=== PATIENT | female | born 1970 | race African-American/Black ===

== ENCOUNTER 2021-03-23 10:29 | Emergency (ER) | payer OTHER, SELFPAY ==
--- NOTE | ~2021-03-23 | CT_ITS ---
EXAMINATION: CT abdomen pelvis w con EXAM DATE: 03/23/2021 11:54 INDICATION: Left lower quadrant pain. TECHNIQUE: Spiral CT of the abdomen and pelvis was performed following intravenous injection of 100 m L Omnipaque 350. Axial, coronal and sagittal images of the abdomen and pelvis were reviewed. The do se-length product (DLP) for this examination was 368.75 mGy-cm. The exposure was tailored according to patient size (auto mA exposure control), and iterative reconstruction (ASIR) was used as additiona l dose reduction technique. There is no prior study for comparison. FINDINGS: The liver, spleen, adrenal glands and pancreas are unremarkable. Gallbladder is unremarkab le. No biliary obstruction. Portal and splenic veins are patent. Kidneys enhance symmetrically. T here is no hydronephrosis. Endometrium appears thickened, could be phasic if premenopausal, hyperpl robert or cancer if not. Consider 6 week follow-up pelvic sonogram. The ovaries are morphologically nor mal by CT. The bladder is unremarkable. There is no retroperitoneal or pelvic lymphadenopathy. The appendix is normal. 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 The stomach and small bowel are unrema rkable. There is expected amount of colonic stool. No free intraperitoneal gas. The heart is nor mal in size. There are no pericardial or pleural effusions. The lung bases are unremarkable. The b ones are unremarkable. IMPRESSION: 1. No acute intra-abdominal findings. 2. Thickened endometrium; phasic, hyperplasia or possibly cancer. 6 week follow-up pelvic sonogram. 3. Right iliac Paget's disease. Reviewed, dictated and finalized at location A. IMPRESSION: 1. No acute intra-abdominal findings. 2. Thickened endometrium; phasic, hyperplasia or possibly cancer. 6 week follo w-up pelvic sonogram. 3. Right iliac Paget's disease.
--- NOTE | ~2021-03-23 | US_ITS ---
EXAMINATION: US pelvic complete w TV EXAM DATE: 03/23/2021 13:12 INDICATION: Rule out intrauterine malignancy, dysfunction uterine bleeding. Abnormal CT. TECHNIQUE: Pelvic transabdominal and transvaginal sonogram was performed. There are multiple graysca le and Doppler images available for interpretation. There is no prior study for comparison. FINDINGS: Uterus measures 9.7 x 5.9 x 6.6 cm, and is morphologically normal. There is proteinaceous fluid in the endometrial canal causing the thickened appearance on CT scan. Total endometrial thickne ss including this fluid is 2.2 cm. Right adnexa: The ovary measures 2.0 x 2.5 x 1.0 cm and is morphologically normal. Ovarian vascular f low confirmed. Left adnexa: The ovary measures 2.1 x 2.2 x 2.2 cm and is morphologically normal. Ovarian vascular fl ow confirmed. IMPRESSION: Large amount of endometrial proteinaceous fluid causing abnormal thickened measurement. C ould be transient. Obstructed cervical os not excludable. Recommend 6-12 week follow-up pelvic sonogr am to resolution. Reviewed, dictated and finalized at location A. IMPRESSION: Large amount of endometrial proteinaceous fluid causing abnormal th ickened measurement. Could be transient. Obstructed cervical os not excludable. Recommend 6-12 week follow-up pelvic sonogram to resolution.
[2021-03-23 10:34] VITALS: BP 137/91; PULSE 112; RESP 18; TEMP 36.2; O2SAT 98
[2021-03-23 11:17] LABS: Basophils Percent Auto 0.5 % (0.2-1.2); Eosinophils Absolute Auto 0.2 K/mm3 (0-0.3); Eosinophils Percent Auto 3.2 % (0-4.4); Hematocrit 35.9 % (37.0-47.0); Hemoglobin 11.8 g/dL (12.0-15.0); Immature Granulocyte Absolute 0.01 K/mm3 (0.00-0.031); Immature Granulocyte Percent A 0.2 % (0-0.5); Lymphocytes Absolute Auto 2.27 K/mm3 (0.9-3.2); Lymphocytes Percent Auto 40.2 % (18.3-44.2); Mean Corpuscular HGB Conc 32.9 g/dl (32-36); Mean Corpuscular Hemoglobin 32.9 pg (26-34); Mean Platelet Volume 9.5 fl (7.4-10.4); Monocytes Absolute Auto 0.4 K/mm3 (0.1-0.6); Monocytes Percent Auto 7.6 % (2.6-8.5); Neutrophils Absolute Auto 2.7 K/mm3 (1.3-6.7); Neutrophils Percent Auto 48.3 % (45.5-73.1); Platelet Count Result 266 k/mm3 (150-375); Red Blood Count 3.59 M/mm3 (4.2-5.4); Red Cell Distribution Width 11.8 % (11.5-14.5); White Blood Count 5.6 K/mm3 (4.5-10.0)
[2021-03-23 11:22] LABS: Add Urine Microscopic? YES; Appearance Urine Clear (Clear); Bacteria Urine Trace /hpf; Bilirubin Urine Negative (Negative); Blood Urine 1+ (Negative); Color Urine Yellow (Yellow); Glucose Urine UA Negative (Negative); Ketones Urine Negative (Negative); Leukocyte Esterase Ur Negative LEU/UL (Negative); Mucus Urine Rare /lpf; Nitrate Urine Negative (Negative); Protein Urine Negative (Negative); RBC Urine 0-2 /hpf (0-2); Specific Grav Ur 1.017 (1.001-1.035); Squamous Epithelial Cell Urine Few /hpf (Few); Urobilinogen Urine Negative mg/dL (<2.0); WBC Urine 0-3 /hpf
[2021-03-23 11:23] LABS: Alanine Aminotransferase 28 U/L (4-35); Albumin Level 3.7 g/dL (3.5-5.1); Alkaline Phosphatase 65 U/L (38-126); Anion Gap 2 mmol/L (8-16); Aspartate Amino Transferase 31 U/L (14-36); Bilirubin,Total 0.3 mg/dL (0.2-1.3); Blood Urea Nitrogen 16 mg/dL (7-17); Calcium 8.8 mg/dL (8.4-10.2); Carbon Dioxide 27 mmol/L (22-30); Chloride 106 mmol/L (98-107); Estimated CRCL calculation 61 ml/min; Estimated Glomerular Filt Rate > 60; Glucose 105 mg/dL (65-105); Lipase 197 U/L (23-300); Potassium 3.9 mmol/L (3.4-5.0); Sodium 135 mmol/L (137-145)
--- NOTE | 2021-03-23 11:39 | ED.ABDPAIN ---
HPI - Abdominal Pain General Chief Complaint: Abdominal Pain Stated Complaint: ABD pain x 1 week Time Seen by Provider: 03/23/21 10:56 Source: patient and RN notes reviewed Mode of arrival: ambulatory History of Present Illness HPI narrative: Patient is 50 years old -[place] female presents with lower abdominal cramps started on average 26, intermittent, radiating to her back, get worse when she woke up in the morning, associated with vaginal spotting, intermittent nausea and vomiting. Patient denies any fever, chills, diarrhea, constipation, urinary symptoms. Patient reports been having a painful heavy menstrual cycle every other months for the last 8 months. Patient was seen by an [employer] yesterday, scheduled for pelvic ultrasound. History of hypertension and bilateral tubal ligation Related Data Home Medications Medication Instructions Recorded Confirmed lisinopril 10 mg PO DAILY 03/23/21 Allergies Allergy/AdvReac Type Severity Reaction Status Date / Time No Known Allergies Allergy Verified 03/23/21 10:39 Review of Systems Review of Systems: Narrative: CONSTITUTIONAL: Denies fever, chills, or sweats. EYES: Denies visual changes, redness, or discharge. ENT: Denies rhinorrhea, congestion, sore throat, or otalgia. CARDIOVASCULAR: Denies chest pain, palpitations, or edema. RESPIRATORY: Denies cough or dyspnea. GASTROINTESTINAL: Denies abdominal pain, nausea, vomiting, or diarrhea. GENITOURINARY: Denies dysuria or hematuria. SKIN: Denies rash or itching. MUSCULOSKELETAL: Denies back pain, joint pain, or myalgia. NEUROLOGIC: Denies headache, numbness, or weakness. PSYCHIATRIC: Denies anxiety or depression. Exam Narrative: Exam Narrative: General appearance: Well-developed, well-nourished Skin: Normal color Head: Normocephalic, nontraumatic Chest and respiratory: Airway patent, no respiratory distress, no accessory muscle use Heart: Regular rate/rhythm Abdomen: Soft, left lower quadrant tenderness, no guarding or rebound, no organomegaly, quiet bowel sounds Musculoskeletal: Normal range of motion, nontender back Neurologic: Alert and oriented ?3 Course Course Emergency Course: Stable Reevaluation(s) Reevaluation #1: Patient feeling okay, agreeable for discharge. Date: 03/23/21 Time: 15:30 Consultations Consultation #1: Dr. Murphy Patient needs D &C, she will have a phone call for scheduling. Date: 03/23/21 Time: 13:53 Vital Signs Vital signs: Vital Signs Temperature 36.2 C L 03/23/21 10:34 Pulse Rate 112 H 03/23/21 10:34 Respiratory Rate 18 03/23/21 10:34 Blood Pressure 137/91 H 03/23/21 10:34 Pulse Oximetry 98 03/23/21 10:34 Temperature 36.6 C 03/23/21 13:52 Pulse Rate 91 03/23/21 13:52 Respiratory Rate 18 03/23/21 13:52 Blood Pressure 129/92 H 03/23/21 13:52 Pulse Oximetry 100 03/23/21 13:52 MDM - Abdominal Pain MDM Narrative Medical decision making narrative: Patient presents with lower abdominal pain mainly left lower quadrant, differential diagnosis as below. Labs, UA, CT abdomen pelvis with IV contrast, IV fluids, IV Dilaudid and Zofran ordered. Further plan to follow Differential Diagnosis Differential diagnosis: Likely constipation, diverticulitis and other (Uterine fibroid, dysfunctional uterine bleeding, menopause) Lab Data Result diagrams: 03/23/21 11:05 03/23/21 11:05 Labs: Lab Results 03/23/21 03/23/21 03/23/21 Range/Units 11:05 11:05 11:05 WBC 5.6 (4.5-10.0) K/mm3 RBC 3.59 L (4.2-5.4) M/mm3 Hgb 11.8 L (12.0-15.0) g/dL Hct 35.9 L (37.0-47.0) % MCV 100.0 (80-100) fl MCH 32.9 (26-34) pg MCHC 32.9 (32
[2021-03-23] MEDS: ONDANSETRON INJ 4 MG/2 ML VIAL (12:13)
[2021-03-23] MEDS: HYDROmorphone HCL INJ (*CRX) 1 MG/ML SYR (12:14)
[2021-03-23] MEDS: SODIUM CHLORIDE 0.9% IV 1,000 ML 999 ML (12:14)
[2021-03-23 13:52] VITALS: BP 129/92; PULSE 91; RESP 18; TEMP 36.6; O2SAT 100
--- NOTE | 2021-03-23 15:03 | PC.NURSE ---
Medications given per order and charted on overridden medications due to order not crossing to MAR
[2021-03-23 15:54] VITALS: BP 135/86; PULSE 79; RESP 16; O2SAT 100
== END 2021-03-23 15:55 | disposition home or self-care (01) ==
PROVIDERS: Emergency Provider Emergency Medicine
DX: R10.30 Lower abdominal pain, unspecified (principal); N93.8 Other specified abnormal uterine and vaginal bleeding
CPT/HCPCS: 36415; 74177; 76830; 76856; 80053; 81001; 81025; 83690; 85025; 96361; 96374; 96375; 99284; J1170; J2405; J7030; Q9967

== ENCOUNTER 2021-06-19 13:39 | Emergency (ER) | payer OTHER, SELFPAY ==
[2021-06-19 13:47] VITALS: BP 154/90; PULSE 86; RESP 18; TEMP 36.2; O2SAT 100
[2021-06-19 14:05] LABS: Basophils Percent Auto 0.6 % (0.2-1.2); Eosinophils Absolute Auto 0.3 K/mm3 (0-0.3); Eosinophils Percent Auto 5.6 % (0-4.4); Hematocrit 38.2 % (37.0-47.0); Hemoglobin 12.3 g/dL (12.0-15.0); Immature Granulocyte Absolute 0.01 K/mm3 (0.00-0.031); Immature Granulocyte Percent A 0.2 % (0-0.5); Lymphocytes Absolute Auto 1.91 K/mm3 (0.9-3.2); Lymphocytes Percent Auto 36.7 % (18.3-44.2); Mean Corpuscular HGB Conc 32.2 g/dl (32-36); Mean Corpuscular Volume 102.4 fl (80-100); Mean Platelet Volume 9.7 fl (7.4-10.4); Monocytes Absolute Auto 0.4 K/mm3 (0.1-0.6); Monocytes Percent Auto 7.3 % (2.6-8.5); Neutrophils Absolute Auto 2.6 K/mm3 (1.3-6.7); Neutrophils Percent Auto 49.6 % (45.5-73.1); Platelet Count Result 310 k/mm3 (150-375); Red Blood Count 3.73 M/mm3 (4.2-5.4); Red Cell Distribution Width 11.8 % (11.5-14.5); White Blood Count 5.2 K/mm3 (4.5-10.0)
[2021-06-19 14:17] LABS: Alanine Aminotransferase 21 U/L (4-35); Albumin Level 4.1 g/dL (3.5-5.1); Alkaline Phosphatase 96 U/L (38-126); Anion Gap 3 mmol/L (8-16); Aspartate Amino Transferase 32 U/L (14-36); Bilirubin,Total 0.1 mg/dL (0.2-1.3); Blood Urea Nitrogen 14 mg/dL (7-17); Calcium 9.3 mg/dL (8.4-10.2); Carbon Dioxide 26 mmol/L (22-30); Chloride 104 mmol/L (98-107); Estimated CRCL calculation 47 ml/min; Estimated Glomerular Filt Rate > 60; Glucose 98 mg/dL (65-110); Lipase 71 U/L (23-300); Potassium 3.9 mmol/L (3.4-5.0); Sodium 133 mmol/L (137-145)
[2021-06-19 14:40] LABS: Add Urine Microscopic? YES; Appearance Urine Clear (Clear); Bilirubin Urine Negative (Negative); Blood Urine 1+ (Negative); Color Urine Yellow (Yellow); Glucose Urine UA Negative (Negative); Ketones Urine Negative (Negative); Leukocyte Esterase Ur 1+ LEU/UL (Negative); Nitrate Urine Negative (Negative); Protein Urine Negative (Negative); Specific Grav Ur 1.025 (1.001-1.035); Urobilinogen Urine Negative mg/dL (<2.0)
[2021-06-19 16:36] VITALS: BP 110/73; PULSE 93; RESP 18; TEMP 36.6; O2SAT 100
--- NOTE | 2021-06-19 17:22 | PC.NURSE ---
PT LEFT D/T WAIT MOISÉS, ENCOURAGED TO RETURN IF NEEDED. PT LEFT AT 1720
== END 2021-06-19 17:22 | disposition left against medical advice (07) ==
PROVIDERS: Emergency Provider Emergency Medicine
DX: Z53.21 Procedure and treatment not carried out due to patient leaving prior to being seen by health care provider (principal)
CPT/HCPCS: 36415; 80053; 81001; 81025; 83690; 85025; 99199

== ENCOUNTER 2022-01-12 12:36 | Outpatient (CLI) | payer OTHER, SELFPAY ==
[2022-01-12 12:53] LABS: Basophils Percent Auto 0.7 % (0.2-1.2); Eosinophils Absolute Auto 0.3 K/mm3 (0-0.3); Eosinophils Percent Auto 6.2 % (0-4.4); Hematocrit 31.4 % (37.0-47.0); Immature Granulocyte Absolute 0.01 K/mm3 (0.00-0.031); Immature Granulocyte Percent A 0.2 % (0-0.5); Lymphocytes Absolute Auto 0.94 K/mm3 (0.9-3.2); Lymphocytes Percent Auto 21.5 % (18.3-44.2); Mean Corpuscular HGB Conc 31.8 g/dl (32-36); Mean Corpuscular Volume 109.8 fl (80-100); Mean Platelet Volume 9.2 fl (7.4-10.4); Monocytes Absolute Auto 0.4 K/mm3 (0.1-0.6); Monocytes Percent Auto 8.9 % (2.6-8.5); Neutrophils Absolute Auto 2.7 K/mm3 (1.3-6.7); Neutrophils Percent Auto 62.5 % (45.5-73.1); Platelet Count Result 294 k/mm3 (150-375); Red Blood Count 2.86 M/mm3 (4.2-5.4); Red Cell Distribution Width 13.1 % (11.5-14.5); White Blood Count 4.4 K/mm3 (4.5-10.0)
[2022-01-12 14:09] LABS: Alanine Aminotransferase 18 U/L (4-35); Albumin Level 4.5 g/dL (3.5-5.1); Alkaline Phosphatase 82 U/L (38-126); Anion Gap 8 mmol/L (8-16); Aspartate Amino Transferase 27 U/L (14-36); Bilirubin,Total 0.2 mg/dL (0.2-1.3); Blood Urea Nitrogen 19 mg/dL (7-17); Calcium 10.1 mg/dL (8.4-10.2); Carbon Dioxide 28 mmol/L (22-30); Chloride 104 mmol/L (98-107); Estimated Glomerular Filt Rate 52; Glucose 78 mg/dL (65-110); Potassium 4.2 mmol/L (3.4-5.0); Sodium 140 mmol/L (137-145)
== END 2022-01-12 12:37 | disposition home or self-care (01) ==
PROVIDERS: Visit Provider Internal Medicine Hematology & Oncology
DX: C50.111 Malignant neoplasm of central portion of right female breast (principal); Z17.0 Estrogen receptor positive status [ER+]
CPT/HCPCS: 36415; 80053; 85025

== ENCOUNTER 2022-01-16 10:46 | Outpatient (CLI) | payer OTHER, SELFPAY ==
--- NOTE | 2022-01-16 11:03 | ECG_ITS ---
Measurements Intervals [place] Rate: 77 P: 62 MS: 150 QRS: 51 QRSD: 84 T: 43 QT: 345 QTc: 393 Interpretive Statements SINUS RHYTHM NORMAL ECG NO PREVIOUS ECG AVAILABLE FOR COMPARISON Electronically Signed On 01-16-2022 14:30:29 CDT by Gianfranco Ling M.D.
== END 2022-01-16 10:47 | disposition home or self-care (01) ==
LOC: ANHCARD 10:52
PROVIDERS: PCP Family Medicine; Visit Provider Internal Medicine Hematology & Oncology
DX: C50.111 Malignant neoplasm of central portion of right female breast (principal); Z17.0 Estrogen receptor positive status [ER+]
CPT/HCPCS: 93005

== ENCOUNTER 2022-03-08 11:04 | Outpatient (CLI) | payer OTHER, SELFPAY ==
[2022-03-08 11:19] LABS: Basophils Percent Auto 0.6 % (0.2-1.2); Eosinophils Absolute Auto 0.2 K/mm3 (0-0.3); Eosinophils Percent Auto 3.9 % (0-4.4); Hematocrit 33.8 % (37.0-47.0); Hemoglobin 10.6 g/dL (12.0-15.0); Immature Granulocyte Absolute 0.02 K/mm3 (0.00-0.031); Immature Granulocyte Percent A 0.4 % (0-0.5); Lymphocytes Absolute Auto 0.82 K/mm3 (0.9-3.2); Lymphocytes Percent Auto 15.3 % (18.3-44.2); Mean Corpuscular HGB Conc 31.4 g/dl (32-36); Mean Corpuscular Hemoglobin 33.1 pg (26-34); Mean Corpuscular Volume 105.6 fl (80-100); Mean Platelet Volume 8.9 fl (7.4-10.4); Monocytes Absolute Auto 0.4 K/mm3 (0.1-0.6); Monocytes Percent Auto 7.3 % (2.6-8.5); Neutrophils Absolute Auto 3.9 K/mm3 (1.3-6.7); Neutrophils Percent Auto 72.5 % (45.5-73.1); Platelet Count Result 354 k/mm3 (150-375); Red Cell Distribution Width 11.9 % (11.5-14.5); White Blood Count 5.4 K/mm3 (4.5-10.0)
[2022-03-08 11:23] LABS: Blood Urea Nitrogen 14 mg/dL (8-26); Carbon Dioxide 27 mmol/L (22-30); Chloride 100 mmol/L (98-109); Estimated Glomerular Filt Rate 57; Glucose 95 mg/dL (70-105); Ionized Calcium (POC) 1.23 mmol/L (1.11-1.31); Potassium 4.1 mmol/L (3.5-4.9); Sodium 137 mmol/L (138-146)
[2022-03-08 15:35] LABS: Alanine Aminotransferase 34 U/L (4-35); Albumin Level 4.6 g/dL (3.5-5.1); Alkaline Phosphatase 106 U/L (38-126); Anion Gap 6 mmol/L (8-16); Aspartate Amino Transferase 33 U/L (14-36); Bilirubin,Total 0.2 mg/dL (0.2-1.3); Blood Urea Nitrogen 15 mg/dL (7-17); Calcium 10.1 mg/dL (8.4-10.2); Carbon Dioxide 27 mmol/L (22-30); Chloride 102 mmol/L (98-107); Estimated Glomerular Filt Rate 57; Glucose 95 mg/dL (65-110); Potassium 4.2 mmol/L (3.4-5.0); Sodium 135 mmol/L (137-145)
== END 2022-03-08 11:05 | disposition home or self-care (01) ==
LOC: ANHLAB 11:06
PROVIDERS: Visit Provider Internal Medicine Hematology & Oncology
DX: C50.111 Malignant neoplasm of central portion of right female breast (principal); Z17.0 Estrogen receptor positive status [ER+]
CPT/HCPCS: 36415; 80047; 80053; 85025

== ENCOUNTER 2023-08-29 15:21 | Outpatient (CLI) | payer MEDICAID, SELFPAY ==
[2023-08-29 15:42] LABS: Basophils Percent Auto 0.5 % (0.2-1.2); Eosinophils Absolute Auto 0.2 K/mm3 (0-0.3); Eosinophils Percent Auto 3.8 % (0-4.4); Hematocrit 38.1 % (37.0-47.0); Hemoglobin 12.6 g/dL (12.0-15.0); Immature Granulocyte Absolute 0.02 K/mm3 (0.00-0.031); Immature Granulocyte Percent A 0.4 % (0-0.5); Lymphocytes Absolute Auto 1.77 K/mm3 (0.9-3.2); Lymphocytes Percent Auto 31.6 % (18.3-44.2); Mean Corpuscular HGB Conc 33.1 g/dl (32-36); Mean Corpuscular Hemoglobin 34.8 pg (26-34); Mean Corpuscular Volume 105.2 fl (80-100); Mean Platelet Volume 9.2 fl (7.4-10.4); Monocytes Absolute Auto 0.5 K/mm3 (0.1-0.6); Monocytes Percent Auto 8.6 % (2.6-8.5); Neutrophils Absolute Auto 3.1 K/mm3 (1.3-6.7); Neutrophils Percent Auto 55.1 % (45.5-73.1); Platelet Count Result 316 k/mm3 (150-375); Red Blood Count 3.62 M/mm3 (4.2-5.4); Red Cell Distribution Width 12.3 % (11.5-14.5); White Blood Count 5.6 K/mm3 (4.5-10.0)
[2023-08-29 18:17] LABS: Alanine Aminotransferase 28 U/L (6-35); Albumin Level 4.5 g/dL (3.5-5.1); Alkaline Phosphatase 87 U/L (38-126); Anion Gap 7 mmol/L (8-16); Aspartate Amino Transferase 29 U/L (14-36); Bilirubin,Total 0.4 mg/dL (0.2-1.3); Blood Urea Nitrogen 22 mg/dL (7-17); Calcium 9.6 mg/dL (8.4-10.2); Carbon Dioxide 28 mmol/L (22-30); Chloride 102 mmol/L (98-107); Estimated Glomerular Filt Rate 52; Glucose 105 mg/dL (65-110); Potassium 3.8 mmol/L (3.4-5.0); Sodium 137 mmol/L (137-145)
[2023-09-01 06:10] LABS: CA 15-3 16 U/mL (<32)
== END 2023-08-29 15:22 | disposition home or self-care (01) ==
PROVIDERS: Visit Provider Internal Medicine Hematology & Oncology
DX: C50.111 Malignant neoplasm of central portion of right female breast (principal); Z17.0 Estrogen receptor positive status [ER+]
CPT/HCPCS: 36415; 80053; 85025; 86300

== ENCOUNTER 2024-07-14 10:11 | Emergency (ER) | payer OTHER, SELFPAY ==
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
[2024-07-14 10:23] VITALS: BP 126/71; PULSE 80; RESP 18; TEMP 36.6; O2SAT 100
[2024-07-14 10:43] LABS: Add Urine Microscopic? YES; Appearance Urine Cloudy (Clear); Bacteria Urine None Seen /hpf; Bilirubin Urine Negative (Negative); Blood Urine 1+ (Negative); Color Urine Yellow (Yellow); Glucose Urine UA Negative (Negative); Ketones Urine Negative (Negative); Leukocyte Esterase Ur 3+ LEU/UL (Negative); Nitrate Urine Negative (Negative); Non Pathogenic Casts 0-2; Protein Urine Negative (Negative); Squamous Epithelial Cell Urine None Seen /hpf (Few); Urobilinogen Urine 0.2 mg/dL (<2.0); WBC Urine >100 /hpf (0-3); pH Urine 5.5 (5.0-9.0)
--- NOTE | 2024-07-14 10:56 | ED.ABDPAIN ---
HPI - Abdominal Pain General Chief Complaint: Urogenital-Female Stated Complaint: n/v UTI symptoms Time Seen by Provider: 07/14/24 10:26 Source: patient Mode of arrival: ambulatory Limitations: no limitations History of Present Illness HPI narrative: This is a 54 year old female that presents to the ER for nausea and vomiting. Ongoing since this morning. Reports associated dysuria. Denies fevers, or flank pain. Related Data Home Medications Medication Instructions Recorded Confirmed lisinopril 10 mg tablet 10 mg PO DAILY 03/23/21 tramadol 50 mg tablet 50 mg PO Q6H PRN 01/09/22 Allergies Allergy/AdvReac Type Severity Reaction Status Date / Time ondansetron [From Zofran] Allergy Intermediate Dry Eye Verified 07/14/24 10:13 Review of Systems Review of Systems: CONSTITUTIONAL: Denies fever GASTROINTESTINAL: Reports abdominal pain, nausea, vomiting GENITOURINARY: Reports dysuria. Denies hematuria. 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 HEAD: Normocephalic, atraumatic. EYES: EOMI. CHEST: Clear to auscultation. No respiratory distress. No wheezes rales or rhonchi HEART: Regular rate and rhythm. No murmur heard. Normal peripheral pulses. ABDOMEN: Soft, nondistended, normal active bowel sounds. Tender to palpation throughout the lower abdomen, without guarding EXTREMITIES: Normal range of motion. No edema. SKIN: Warm, dry, no rash. NEURO: No focal deficits. Alert and oriented x3. PSYCH: Normal mood and affect Course Course Emergency Course: patient updated on workup and agrees with plan of care Vital Signs Vital signs: Vital Signs Temperature 98 F 07/14/24 10:23 Pulse Rate 80 07/14/24 10:23 Respiratory Rate 18 07/14/24 10:23 Blood Pressure 126/71 07/14/24 10:23 Pulse Oximetry 100 07/14/24 10:23 Oxygen Delivery Room Air 07/14/24 10:23 Temperature 98 F 07/14/24 10:23 Pulse Rate 80 07/14/24 10:23 Respiratory Rate 18 07/14/24 10:23 Blood Pressure 126/71 07/14/24 10:23 Pulse Oximetry 100 07/14/24 10:23 Oxygen Delivery Room Air 07/14/24 10:23 MDM - Abdominal Pain MDM Narrative Medical decision making narrative: patient presents to the emergency department for dysuria, nausea and vomiting. She is afebrile and nontoxic appearing. Cbc without leukocytosis. Metabolic panel with some evidence of dehydration. Patient hydrated with a L of IV fluids in the ED. Urine with evidence of infection. This will be sent for culture. CT abdomen and pelvis is without acute findings. Patient was updated on her workup and agrees with plan of care. Given 1st dose of antibiotics IV in the ED. she is to follow up with primary provider. She was given warnings to return to the ER Differential Diagnosis Differential diagnosis: Likely calculus of kidney, diverticulitis, gastroenteritis and other (acute uti, pyelonephritis) Lab Data Attestation: I reviewed the patient's lab results. 07/14/24 10:52 07/14/24 10:52 Labs: Lab Results 07/14/24 07/14/24 Range/Units 10:32 10:52 WBC 6.2 (4.5-10.0) K/mm3 RBC 3.73 L (4.2-5.4) M/mm3 Hgb 12.8 (12.0-15.0) g/dL Hct 38.7 (37.0-47.0) % MCV 103.8 H (80-100) fl MCH 34.3 H (26-34) pg
[2024-07-14] MEDS: SODIUM CHLORIDE 0.9% IV 1,000 ML 999 ML IV CONT (10:57)
[2024-07-14 10:58] LABS: Basophils Percent Auto 0.3 % (0.2-1.2); Eosinophils Absolute Auto 0.2 K/mm3 (0-0.3); Eosinophils Percent Auto 2.6 % (0-4.4); Hematocrit 38.7 % (37.0-47.0); Hemoglobin 12.8 g/dL (12.0-15.0); Immature Granulocyte Absolute 0.01 K/mm3 (0.00-0.031); Immature Granulocyte Percent A 0.2 % (0-0.5); Lymphocytes Absolute Auto 1.15 K/mm3 (0.9-3.2); Lymphocytes Percent Auto 18.6 % (18.3-44.2); Mean Corpuscular HGB Conc 33.1 g/dl (32-36); Mean Corpuscular Hemoglobin 34.3 pg (26-34); Mean Corpuscular Volume 103.8 fl (80-100); Mean Platelet Volume 9.6 fl (7.4-10.4); Monocytes Absolute Auto 0.4 K/mm3 (0.1-0.6); Monocytes Percent Auto 5.8 % (2.6-8.5); Neutrophils Absolute Auto 4.5 K/mm3 (1.3-6.7); Neutrophils Percent Auto 72.5 % (45.5-73.1); Platelet Count Result 287 k/mm3 (150-375); Red Blood Count 3.73 M/mm3 (4.2-5.4); Red Cell Distribution Width 12.8 % (11.5-14.5); White Blood Count 6.2 K/mm3 (4.5-10.0)
[2024-07-14] MEDS: diphenhydrAMINE HCl INJ 50 MG/ML VIAL 25 MG IV PUSH (10:58)
[2024-07-14] MEDS: METOCLOPRAMIDE HCL INJ 10 MG/2 ML VIAL IV PUSH (11:00)
[2024-07-14 11:15] VITALS: BP 112/92; PULSE 77; RESP 18; O2SAT 100
[2024-07-14 11:21] LABS: Alanine Aminotransferase 22 U/L (6-35); Albumin Level 4.5 g/dL (3.5-5.1); Alkaline Phosphatase 72 U/L (38-126); Anion Gap 9 mmol/L (4-12); Aspartate Amino Transferase 39 U/L (14-36); Bilirubin,Total 1.6 mg/dL (0.2-1.3); Blood Urea Nitrogen 29 mg/dL (7-17); Calcium 10.1 mg/dL (8.4-10.2); Carbon Dioxide 26 mmol/L (22-30); Chloride 101 mmol/L (98-107); Estimated CRCL calculation 52 ml/min; Estimated Glomerular Filt Rate > 60; Glucose 99 mg/dL (65-110); Lipase 146 U/L (23-300); Potassium 4.2 mmol/L (3.4-5.0); Sodium 136 mmol/L (137-145)
[2024-07-14 12:59] VITALS: BP 112/77; PULSE 79; RESP 18; TEMP 36.6; O2SAT 100
[2024-07-14 13:31] VITALS: BP 107/80; PULSE 82; RESP 16; TEMP 36.9; O2SAT 100
== END 2024-07-14 13:33 | disposition home or self-care (01) ==
PROVIDERS: Emergency Provider Physician Assistant
DX: N39.0 Urinary tract infection, site not specified (principal); I10 Essential (primary) hypertension; Z85.3 Personal history of malignant neoplasm of breast; Z85.41 Personal history of malignant neoplasm of cervix uteri
CPT/HCPCS: 36415; 74177; 80053; 81001; 83690; 85025; 87086; 96361; 96365; 96375; 99284; J0696; J1200; J2765; J7030; Q9967

== ENCOUNTER 2025-02-21 14:50 | Emergency (ER) | payer OTHER, MEDICAID, SELFPAY ==
--- NOTE | ~2025-02-21 | CT_ITS ---
CT abdomen pelvis w con Ordering provider: Beatriz Gonzalez PA-C History: 54 years Female with . abd pain, N/V/D . Comparison: July 14, 2024 Technique: CT abdomen and pelvis with IV and without oral contrast. Automated exposure control and it erative reconstruction technique were employed. The dose-length product was 211.65 mGy-cm. 100 mL Omn ipaque 350 was given IV. Findings: Bilateral breast implants. VISUALIZED LOWER CHEST: Dependent atelectatic changes. UPPER ABDOMINAL ORGANS: Liver: Tiny hyperdensities in segment #6 and in the left lobe of the liver unchanged. Gallbladder: Normal. Spleen: Normal. Stomach/duodenum: Sliding hiatus hernia. Pancreas: Normal. Slightly prominent pancreatic duct. Adrenals: Normal. Kidneys: Normal. PELVIC ORGANS: The bladder is normal. BOWEL AND MESENTERY: Colon: No evidence of diverticulitis.. Appendix is not demonstrated. Small Bowel: Normal. No obstruction. Peritoneum/mesentery: No free air or free fluid. No mesenteric lymphadenopathy. RETROPERITONEUM: Normal aorta. No retroperitoneal lymphadenopathy. MUSCULOSKELETAL: Superficial soft tissues: The superficial soft tissues are normal. Bones: Sclerotic changes in the right acetabulum and iliac bone unchanged. Age appropriate degenerati ve changes of the spine. Multilevel facet joint disease in the lower lumbar area. Bilateral sacroiliitis. IMPRESSION: 1. no evidence of appendicitis, diverticulitis or intestinal obstruction. 2. Sclerotic area in the right iliac bone and acetabulum unchanged from previous examination. 3. Multiple hypodensities in the liver unchanged. Reviewed, dictated and finalized at location A. IMPRESSION: 1. no evidence of appendicitis, diverticulitis or intestinal obstruction. 2. Sclerotic area in the right iliac bone and acetabulum unchanged from previo us examination. 3. Multiple hypodensities in the liver unchanged.
--- OUTSIDE RECORDS SUMMARY | 2025-02-21 14:53 | XMS_ITS | Data Portability ---
Author Organization [place] [facility] [email or web address], Main Office Address [address] [place] [address] Assessment No assessment recorded. Plan of Treatment Reminders Order Date Submit Date Provider Last Modified By Organization Details Last Modified Time Details Appointments None record ed. Lab None record ed. Referral None record ed. Procedures None record ed. Surgeries None record ed. Imaging None record ed. Medication Orders None record ed. Patient TargetsNo targets recorded. Patient InstructionsNo instructions recorded. Reason for Referral None Reported. Results Created Date Observation Date Name Description Value Unit Range Abnormal Flag Note LastModifiedBy Organization Detail LastModifiedTime 08/02/2008/02/2021 MRSA/ STAPH AUREU S, NASAL , PCR MRSA, nasal negati ve Not Available [facility] (Lab) [address] [place], [address], 08/02/2021 14:18:24 08/02/2008/02/2021 MRSA/ STAPH AUREU S, NASAL , PCR staph aureus, nasal negati ve Not Available [facility] (Lab) [address] [place], [address], 08/02/2021 14:18:24 08/02/2008/02/2021 TYPE AND SCREE N patient ABO group and Rh O positi ve Not Available [facility] (Lab) [address] [place], [address], 08/02/2021 11:44:20 08/02/2008/02/2021 TYPE AND SCREE N patient antibody screen negati ve Not Available [facility] (Lab) [address] [place], [address], 08/02/2021 11:44:20 08/08/20 21 08/08/2021 COVID -19 (SARS COV-2 ) RNA, GA covid-19 RNA negati ve This test has been autho rized by the FDA under an Emerg ency Use Autho rizat ion (EUA) for use by autho rized labor atori es. Negat zulema resul ts shoul d be treat ed as presu mptiv e and, if incon siste nt with clini nick signs and sympt oms neces jeffrey for patie nt manag ement , shoul d be teste d with diffe rent autho rized or clear ed molec ular tests . Negat zulema resul ts do not precl ude SARS- Co-V- 2 infec tion and shoul d not be used as the sole basis for patie nt manag ement decis ions. Negat zulema resul ts shoul d be consi dered in the yaniv xt of a patie nt's recen t expos ures, histo ry and the prese nce of clini nick signs and sympt oms consi stent with COVID -19. Pleángela e temo w the Fact Sheet s for healt h care provi ders and patie nts at the [facility] te: https ://gl oao into care. t/en/ produ ct-de tails /id-n ow-co vid-1 9.htm l Metho dolog y: Isoth ermal Nucle ic Acid Ampli ficat ion Not Available [facility] (Lab) [address] [place], [address], 08/08/2021 09:13:32 08/08/20 21 08/08/2021 ABO/R H CONFI RMATI ON patient ABO group and Rh O positi ve Not Available [facility] (Lab) [address] [place], [address], 08/08/2021 07:58:01 08/08/20 21 08/08/2021 URINE HCG QUAL/ POINT OF CARE ur preg negati ve TESTI NG PERFO RMED BY SURGI NICK SERVI ANCELMO PERSO NNEL. Not Available [facility] (Lab) [address] [place], [address], 08/08/2021 07:59:27 08/08/20 21 08/08/2021 URINE HCG QUAL/ POINT OF CARE lot no. [id number] Not Available [facility] (Lab) [address] [place], [address], 08/08/2021 07:59:27 08/08/20 21 08/08/2021 URINE HCG QUAL/ POINT OF CARE pos QC positi ve Not Available [facility] (Lab) [address] [place], [address], 08/08/2021 07:59:27 08/08/20 21 08/08/2021 URINE HCG QUAL/ POINT OF CARE neg QC negati ve Not Available [facility] (Lab) [address] [place], [address], 08/08/2021 07:59:27 08/09/20 21 08/09/2021 BASIC METAB OLIC PANEL sodium 134 mmol/ L 137-14 5 low Not Available [facility] (Lab) [address] [place], [address], 08/09/2021 08:08:39 08/09/20 21 08/09/2021 BASIC METAB OLIC PANEL potassium 4.0 mmol/ L 3.5-5. 1 Not Available [facility] (Lab) [address] [place], [address], 08/09/2021 08:08:39 08/09/20 21 08/09/2021 BASIC METAB OLIC PANEL chloride 103 mmol/ L 98-107 Not Available [facility] (Lab) [address] [place], [address], 08/09/2021 08:08:39 08/09/20 21 08/09/2021 BASIC METAB OLIC PANEL carbon dioxide 28 mmol/ L 22-30 Not Available [facility] (Lab) [address] [place], [address], 08/09/2021 08:08:39 08/09/20 21 08/09/2021 BASIC METAB OLIC PANEL agap 7.0 mmol/ L 14-22 low Not Available [facility] (Lab) [address] [place], [address], 08/09/2021 08:08:39 08/09/20 21 08/09/2021 BASIC METAB OLIC PANEL glucose 97 mg/dL 70-99 Not Available [facility] (Lab) [address] [place], [address], 08/09/2021 08:08:39 08/09/20 21 08/09/2021 BASIC METAB OLIC PANEL BUN 9 mg/dL 8-19 Not Available [facility] (Lab) [address] [place], [address], 08/09/2021 08:08:39 08/09/20 21 08/09/2021 BASIC METAB OLIC PANEL creatinine 0.77 mg/dL 0.66-1 .25 Not Available [facility] (Lab) [address] [place], [address], 08/09/2021 08:08:39 08/09/20 21 08/09/2021 BASIC METAB OLIC PANEL GFR >60 Refer ence Range : [place] [facility] GFR Healt hy Adult : >60 mL/mi n/1.7 3 m2 Chron ic Kidne y Disea se: 15-60 mL/mi n/1.7 3 m2 Kidne y Failu re: <15/m L/min /1.73 m2 www.n iddk. nih.g ov MDRD study equat ion hasn' t been valid ated in child portia <18 yrs of age, pregn ant women , the elder ly >85 yrs of age, or in some racia l or ethni c subgr oups, suc as Hispa nics. Outsi de the valid ated fanny eters , estim ated GFR is less accur ate requi ring clini nick judgm ent on a case by case basis . Clini nick inter preta tion for other races and ages must be made by the clini mark . Futhe rmore , any of th e limit ation s with the use of serum creat inine relat ed to nutri edmund l statu s o r medic ation usage hasn' t accou nted for the MDRD Study equat ion. For perso ns < 18 yrs of age, a pedia tric GFR calcu lator can be locat ed on the [facility] websi te: https ://jody w.kid bernardo.o rg/pr ofess ional s/kdo qi/gf r_cal culat or Not Available [facility] (Lab) [address] [place], [address], 08/09/2021 08:08:39 08/09/20 21 08/09/2021 BASIC METAB OLIC PANEL calcium 9.9 mg/dL 8.4-10 .2 Not Available [facility] (Lab) [address] [place], [address], 08/09/2021 08:08:39 08/09/20 21 08/09/2021 CBC/C OMPLE TE BLD COUNT W/DIF F white blood cells 15.8 x10'3 /uL 4.2-10 .8 high Not Available [facility] (Lab) [address] [place], [address], 08/09/2021 07:16:15 08/09/20 21 08/09/2021 CBC/C OMPLE TE BLD COUNT W/DIF F red blood cells 3.28 x10'6 /uL 3.80-5 .20 low Not Available [facility] (Lab) [address] [place], [address], 08/09/2021 07:16:15 08/09/20 21 08/09/2021 CBC/C OMPLE TE BLD COUNT W/DIF F hemoglobin 11.0 g/dL 12.0-1 5.6 low Not Available [facility] (Lab) [address] [place], [address], 08/09/2021 07:16:15 08/09/20 21 08/09/2021 CBC/C OMPLE TE BLD COUNT W/DIF F hematocrit 33.3 % 35.7-4 5.7 low Not Available [facility] (Lab) [address] [place], [address], 08/09/2021 07:16:15 08/09/20 21 08/09/2021 CBC/C OMPLE TE BLD COUNT W/DIF F mean red cell volume 101.5 fL 82.0-9 9.0 high Not Available [facility] (Lab) [address] [place], [address], 08/09/2021 07:16:15 08/09/20 21 08/09/2021 CBC/C OMPLE TE BLD COUNT W/DIF F mean red cell hemoglobin 33.5 pg 27.0-3 3.0 high Not Available [facility] (Lab) [address] [place], [address], 08/09/2021 07:16:15 08/09/20 21 08/09/2021 CBC/C OMPLE TE BLD COUNT W/DIF F mean RBC HGB concentratio n 33.0 g/dL 31.0-3 6.0 Not Available [facility] (Lab) [address] [place], [address], 08/09/2021 07:16:15 08/09/20 21 08/09/2021 CBC/C OMPLE TE BLD COUNT W/DIF F red cell distribution width 13.0 % 11.8-1 5.5 Not Available [facility] (Lab) [address] [place], [address], 08/09/2021 07:16:15 08/09/20 21 08/09/2021 CBC/C OMPLE TE BLD COUNT W/DIF F platelets 316 x10'3 /uL 150-40 0 Not Available [facility] (Lab) [address] [place], [address], 08/09/2021 07:16:15 08/09/2008/09/2021 CBC/C OMPLE TE BLD COUNT W/DIF F mean platelet volume 9.7 fL 9.0-12 .4 Not Available [facility] (Lab) [address] [place], [address], 08/09/2021 07:16:15 08/09/2008/09/2021 CBC/C OMPLE TE BLD COUNT W/DIF F neutrophils 79.7 % 39.0-7 2.0 high Not Available [facility] (Lab) [address] [place], [address], 08/09/2021 07:16:15 08/09/2008/09/2021 CBC/C OMPLE TE BLD COUNT W/DIF F lymphocytes 13.6 % 16.0-4 7.0 low Not Available [facility] (Lab) [address] [place], [address], 08/09/2021 07:16:15 08/09/2008/09/2021 CBC/C OMPLE TE BLD COUNT W/DIF F monocytes 6.2 % 5.0-12 .0 Not Available [facility] (Lab) [address] [place], [address], 08/09/2021 07:16:15 08/09/2008/09/2021 CBC/C OMPLE TE BLD COUNT W/DIF F eosinophils 0.0 % 1.0-7. 0 low Not Available [facility] (Lab) [address] [place], [address], 08/09/2021 07:16:15 08/09/20 21 08/09/2021 CBC/C OMPLE TE BLD COUNT W/DIF F basophils 0.1 % 0.0-2. 0 Not Available [facility] (Lab) [address] [place], [address], 08/09/2021 07:16:15 08/09/2008/09/2021 CBC/C OMPLE TE BLD COUNT W/DIF F immature granulocytes 0.4 % 0.00-0 .50 Not Available [facility] (Lab) [address] [place], [address], 08/09/2021 07:16:15 08/09/2008/09/2021 CBC/C OMPLE TE BLD COUNT W/DIF F neutrophils, absolute count 12.58 x10'3 /uL 1.5-8. 0 high Not Available [facility] (Lab) [address] [place], [address], 08/09/2021 07:16:15 08/09/2008/09/2021 CBC/C OMPLE TE BLD COUNT W/DIF F lymphocytes, absolute count 2.14 x10'3 /uL 1.07-3 .43 Not Available [facility] (Lab) [address] [place], [address], 08/09/2021 07:16:15 08/09/2008/09/2021 CBC/C OMPLE TE BLD COUNT W/DIF F monocytes, absolute count 0.97 x10'3 /uL 0.29-0 .99 Not Available [facility] (Lab) [address] [place], [address], 08/09/2021 07:16:15 08/09/2008/09/2021 CBC/C OMPLE TE BLD COUNT W/DIF F eosinophils, absolute count 0.00 x10'3 /uL 0.02-0 .53 low Not Available [facility] (Lab) [address] [place], [address], 08/09/2021 07:16:15 08/09/20 21 08/09/2021 CBC/C OMPLE TE BLD COUNT W/DIF F basophils, absolute count 0.02 x10'3 /uL 0.01-0 .08 Not Available [facility] (Lab) [address] [place], [address], 08/09/2021 07:16:15 08/09/20 21 08/09/2021 CBC/C OMPLE TE BLD COUNT W/DIF F immature granulocytes ,absolute 0.06 x10'3 /uL 0.00-0 .05 high Not Available [facility] (Lab) [address] [place], [address], 08/09/2021 07:16:15 08/09/20 21 08/09/2021 CBC/C OMPLE TE BLD COUNT W/DIF F nucleated red blood cells 0.0 % -0 Not Available [facility] (Lab) [address] [place], [address], 08/09/2021 07:16:15 08/09/20 21 08/09/2021 CBC/C OMPLE TE BLD COUNT W/DIF F NRBC# 0.00 x10'3 /uL Not Available [facility] (Lab) [address] [place], [address], 08/09/2021 07:16:15 06/29/20 21 06/29/2021 US, pelvi s, trans abdom inal + trans vagin al [facility] [address] [place] [address] Patien t Name: ANDRÉS MORRIS ion #: [id number] Sex: F : 1969 1 Locati on: RAD Attend ing Physic veronique: ZAINAB LEIVA Orderi Physic veronique: ZAINAB LEIVA Exam Date: 12:05 PM Exam Name: US PELVIS NON OB TRANSV AGINAL Admitt ing Diagno sis(es ): RADIOL OGY REPORT - FINAL EXAM: US PELVIS NON OB TRANSV AGINAL HISTOR Y: pelvic pain 51-yea r-old female with pelvic pain, histor y of tubal ligati on, histor y of dilata tion and curett age. COMPAR AMBIKA: None availa ble. TECHNI QUE: Transv aginal and transa bdomin al pelvic ultras ound was perfor med. FINDIN GS: The uterus measur es 9.1 x 4.3 x 4.2 cm. The endome trium measur es 3.6 mm in thickn ess. There is a 14 mm hypoec hoic area of the left anteri or lower uterin e myomet rium. Neithe r ovary was visual ized sonogr aphica lly, possib ly due to overly ing bowel gas. No free fluid is identi fied in the pelvis . Page 1 of 2 [facility] Name: ANDRÉS MORRIS Access ion #: [id number] Sex: F : 1969 1 Exam Date: 12:05 PM Exam Name: US PELVIS NON OB TRANSV AGINAL Admitt ing Diagno sis(es ): IMPRES NAKUL: 1. Probab le 14 mm fibroi d in the lower uterin e segmen t anteri esau on the left. 2. Nonvis ualiza tion of the bilate ral ovarie s. Create d and electr onical ly signed by: Kaden simons MD Signed Date: 12:52 PM (CT) Dictat ed by: Kaden simons MD DD: 12:52 PM (CT) DT: 12:52 PM (CT) Page 2 of 2 [id number] [facility] (Imaging) [address] [place], [address], 01/03/2023 23:12:57 Result Notes None recorded. Procedures Surgical History Date Name Laterality Status Provider Name and Address Organization Details Recorded Time [facility] Surgery completed Not Available [facility] 01/04/20 23:09:41 ligation of bilateral fallopian tubes completed Not Available [facility] 01/03/2023 23:09:41 operation on lung completed Not Available [facility] 01/03/2023 23:09:41 Imaging Results Imaging Date Name Status LastModified by Organization Details LastModified Time 06/29/2021 US, pelvis, transabdominal + transvaginal completed [id number] [facility] (Imaging) [address] [facility], [place], [address], 01/03/2023 23:12:57 Procedure Notes None recorded. Medical Equipment None Reported. Medications Name Sig Start Date Stop Date Status Note LastModified by Organization Details LastModified Time ibuprofen 800 mg tablet Take 1 tablet 3 times a day by oral route as needed. active Not Available Not Available No t Available hydrocodone 5 mg-acetamin ophen 325 mg tablet 04/11 completed Not Available Not Available Not Available prednisone 20 mg tablet TAKE 3 TABLETS BY MOUTH ONCE DAILY FOR 5 DAYS 06/22 completed Not Available Not Available Not Available oxycodone-a cetaminophe n 5 mg-325 mg tablet TAKE 2 TABLETS BY MOUTH EVERY 4 HOURS NEEDED FOR SEVERE PAIN. active Not Available Not Available No t Available prednisolon e acetate 1 % eye drops,suspe nsion INSTILL 1 DROP BOTH EYES FOUR TIMES DAILY. 06/22 completed Not Available Not Available Not Available tobramycin 0.3 % eye drops INSTILL 1 DROP INTO THE AFFECTED EYE EVERY 4 HOURS 06/22 completed Not Available Not Available Not Available lisinopril 10 mg tablet Take 1 tablet every day by oral route. 2020 active Not Available Not Available Not Avai lable progesteron e micronized 200 mg capsule TAKE 1 CAPSULE BY MOUTH EVERY DAY active Not Available Not Available No t Available docusate sodium 100 mg capsule TAKE 1 CAPSULE BY MOUTH TWICE DAILY active Not Available Not Available No t Available Provera 10 mg tablet take 1-2 tablets daily until bleeding stops active Not Available Not Available No t Available ibuprofen 600 mg tablet TAKE 1 TABLET BY MOUTH EVERY 6 HOURS active Not Available Not Available No t Available polyethylen e glycol 3350 17 gram/dose oral powder active Not Available Not Available Not Available ondansetron 4 mg disintegrat ing tablet DISSOLVE 1 TABLET ON THE TONGUE EVERY 6 HOURS NEEDED FOR NAUSEA OR VOMITING active Not Available Not Available No t Available naproxen 500 mg tablet active Not Available Not Available Not Available Laxative (bisacodyl) 5 mg tablet active Not Available Not Available Not Available ID NOW COVID-19 Test Kit USE DIRECTED active Not Available Not Available No t Available Vitals Date Recorded Body mass index (BMI) Body height Body temperature Body weight Systolic blood pressure Diastolic blood pressure Provider Name and Address Organization Details Last Updated DateTime 1 27.6 kg/m2 160.02 cm 98 [degF] 84939.4 1 g 121 mm[Hg] 77 mm[Hg] Not Available [facility] 3 23:10:56 Date Recorded Body mass index (BMI) Body height Body weight Systolic blood pressure Diastolic blood pressure Provider Name and Address Organization Details Last Updated DateTime 07/14/2021 27.1 kg/m2 160.02 cm 46628.63 g 124 mm[Hg] 84 mm[Hg] Not Available [facility] 3 23:10:56 Date Recorded Body mass index (BMI) Body height Body weight Systolic blood pressure Diastolic blood pressure Provider Name and Address Organization Details Last Updated DateTime 07/21/2021 27.1 kg/m2 160.02 cm 39552.63 g 124 mm[Hg] 76 mm[Hg] Not Available [facility] 3 23:10:56 Date Recorded Body mass index (BMI) Body height Body weight Systolic blood pressure Diastolic blood pressure Provider Name and Address Organization Details Last Updated DateTime 08/17/2021 26.5 kg/m2 160.02 cm 08791.7 g 120 mm[Hg] 72 mm[Hg] Not Available [facility] 3 23:10:56 Date Recorded Body mass index (BMI) Body height Body weight Systolic blood pressure Diastolic blood pressure Provider Name and Address Organization Details Last Updated DateTime 08/31/2021 26.6 kg/m2 160.02 cm 62760.86 g 120 mm[Hg] 80 mm[Hg] Not Available [facility] 3 23:10:56 Social History Question Answer Notes LastModified by Organizat ion Details LastModified Time Tobacco Smoking Status Current Every Day Smoker down to 1 a day Not Available [facility] 01/03/2023 23:09:35 What Is Your Level Of Alcohol Consumption? Occasional [id number] Information not available 01/03/2023 What Is Your Level Of Caffeine Consumption? Occasional [id number] Information not available 01/03/2023 In The 14 Days Before Symptom Onset, Have You Had Close Contact With A Laboratory-confir med COVID-19 While That Case Was Ill? No [id number] Information not available 01/03/2023 In The 14 Days Before Symptom Onset, Have You Had Close Contact With A Person Who Is Under Investigation For COVID-19 While That Person Was Ill? No [id number] Information not available 01/03/2023 Do You Or Have You Ever Used E-cigarettes Or Vape? Never Used Electronic Cigarettes [id number] Information not available 01/03/2023 What Is Your Occupation? 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 Moderate [id number] Information not available 01/03/2023 Mental Status None recorded. Family History Relationship Description Onset Age of this Age Resolved Age Notes LastModified by Organization Details LastModified Time Father No current problems or disability [id number] Not available 01/03/2023 23:09:44 Mother No current problems or disability [id number] Not available 01/03/2023 23:09:44 Medical History Condition Response INFECTIOUS DISEASE N HYPERTENSION Y Gynecological History Statement/Question Response Abnormal Pap N Date of Last Pap Smear Current Control Method Hysterectom y Most Recent Mammogram Date of Last Colonoscopy Breast Problems no Obstetrics History GPAL:G 2 P 2 0 0 2 Type Value Full Term 2 Living 2 Total 2 Immunizations Vaccine Type Date Status Note Provider Nam e and Address Organization Details Recorded Time COVID-19, mRNA, LNP-S, PF, 30 mcg/0.3 mL dose 03/03/2021 completed Not Available [facility] 23:12:44 Past Encounters Encounter ID Performer Location Encounter Start Date Encounter Closed Date Diagnosis/Indication Diagnosis SNOMED-CT Code Diagnosis ICD10 Code Diagnosis Note [id number] _ATHENA_M IGRATION_ DEFAULT_1 _1 , 03/21/2021 00:00:00 03/21/2021 10:48:52 [id number] _ATHENA_M IGRATION_ DEFAULT_1 _1 , 03/24/2021 00:00:00 03/24/2021 12:25:20 [id number] _ATHENA_M IGRATION_ DEFAULT_1 _1 , 04/11/2021 00:00:00 04/11/2021 15:22:34 [id number] _ATHENA_M IGRATION_ DEFAULT_1 _1 , 06/22/2021 00:00:00 06/22/2021 13:09:12 [id number] _ATHENA_M IGRATION_ DEFAULT_1 _1 , 07/14/2021 00:00:00 07/14/2021 17:22:53 [id number] _ATHENA_M IGRATION_ DEFAULT_1 _1 , 07/21/2021 00:00:00 07/21/2021 13:00:27 [id number] _ATHENA_M IGRATION_ DEFAULT_1 _1 , 08/17/2021 00:00:00 08/17/2021 14:56:20 [id number] _ATHENA_M IGRATION_ DEFAULT_1 _1 , 08/31/2021 00:00:00 08/31/2021 13:55:49 Health Concerns Section Related Observation LastModified by Organization Detai ls LastModified Time None Recorded Concern Status LastModified by Organization Details LastModified Time None Recorded Advance Directives Directive None Recorded Payers None recorded. OBGyn Episode No OBEpisode recorded.
--- OUTSIDE RECORDS SUMMARY | 2025-02-21 14:53 | XMS_ITS | Data Portability ---
Author Organization [employer] , [facility] Address [address] [place] [address] Assessment No assessment recorded. Plan of Treatment Reminders Order Date Submit Date Provider Last Modified By Organization Details Last Modified Time Details Appointments None recorded. Lab culture, urine 2023 024 [facility], [address] [place], [address], 4 01:42:20 urinalysis , dipstick 2023 024 [email or web address] [facility], [address] [place], [address], 4 11:33:15 Referral urologist referral 2023 024 [facility], [address] [facility], [facility] [address], [address], 4 12:10:00 Procedures None recorded. Surgeries None recorded. Imaging None recorded. Medication Orders None recorded. Patient TargetsNo targets recorded. Patient InstructionsNo instructions recorded. Reason for Referral Urologist Referral for Chron ic interstitial cystitis Referring Physician: Cynthia Miller, ROLLING DOWN MACHINE OPERATOR, Encounter Date: 12/24/2023 Results Created Date Observation Date Name Description Value Unit Range Abnormal Flag Note LastModifiedBy Organization Detail LastModifiedTime 12/24/19 24 12/26/2023 CULTU RE, URINE , ROUTI NE culture, urine, routine SEE NOTE CULTU RE, URINE , ROUTI NE Micro Numbe r: [id number] Test Statu s: Final Speci men Sourc e: Urine Speci men Quali ty: Adequ ate Resul t: No Growt h Not Available [employer] [facility] [address] [place], [address], 12/26/2023 01:42:20 12/24/19 24 12/24/2023 urina lysis , dipst ick Leukocytes Negati ve Not Available [address], [place], [address], 12/24/2023 11:29:22 12/24/19 24 12/24/2023 urina lysis , dipst ick Nitrite negati ve Not Available [address], [place], [address], 12/24/2023 11:29:22 12/24/19 24 12/24/2023 urina lysis , dipst ick Urobilinogen .2 Not Available [address], [place], [address], 12/24/2023 11:29:22 12/24/19 24 12/24/2023 urina lysis , dipst ick Protein 30 Not Available [address], [place], [address], 12/24/2023 11:29:22 12/24/19 24 12/24/2023 urina lysis , dipst ick pH 5.0 Not Available [address], [place], [address], 12/24/2023 11:29:22 12/24/19 24 12/24/2023 urina lysis , dipst ick Blood Modera te Not Available [address], [place], [address], 12/24/2023 11:29:22 12/24/19 24 12/24/2023 urina lysis , dipst ick Specific Leonard 1.025 Not Available [facility] [address] [facility]3], [place], [address], 12/24/2023 11:29:22 12/24/19 24 12/24/2023 urina lysis , dipst ick Ketone Negati ve Not Available [address], [place], [address], 12/24/2023 11:29:22 12/24/19 24 12/24/2023 urina lysis , dipst ick Bilirubin Negati ve Not Available [address], [place], [address], 12/24/2023 11:29:22 12/24/19 24 12/24/2023 urina lysis , dipst ick Glucose Negati ve Not Available [address], [place], [address], 12/24/2023 11:29:22 12/24/19 24 12/24/2023 urina lysis , dipst ick Appearance Cloudy Not Available [address], [place], [address], 12/24/2023 11:29:22 12/24/19 24 12/24/2023 urina lysis , dipst ick Color Brown Not Available [address], [place], [address], 12/24/2023 11:29:22 Result Notes None recorded. Procedures Surgical History Date Name Laterality Status Provider Name and Address Organization Details Recorded Time 10/05/20 23 Date of Last Colonoscopy completed [facility] 12/24/2023 11:19:48 06/05/20 22 excision of breast completed CYNTHIA MILLER, [facility] [address] [place], [address], [facility] 12/24/2023 11:44:40 11/05/19 20 Tlh uterus 250 g or less completed FRENCH REGALADO [address] [place], [address], [facility] 12/24/2023 11:44:48 Breast augmentation w/implt completed Cecilia Abdalla [facility] [employer] 12/24/2023 11:22:31 Imaging Results None recorded. Procedure Notes None recorded. Medical Equipment None Reported. Allergies Allergen ID Allergen Name Allergen Category Reaction Reaction Severity Criticality Documentation Date Start Date Code Code System Note Provider Name and Address Organization Details Recorded Time 591797 Zofran medicatio n Not available Not available Not available 12/24/2023 89346 RxNorm Not Available Not Available Not Available Medications Name Sig Start Date Stop Date Status Note LastModified by Organization Details LastModified Time cyclobenzap rine 10 mg tablet TAKE 1 TABLET BY MOUTH EVERY 8 HOURS active Not Available Not Available No t Available anastrozole 1 mg tablet active Not Available Not Available Not Available hydrocodone 5 mg-acetamin ophen 325 mg tablet TAKE 1 TABLET BY MOUTH EVERY 6 HOURS NEEDED active Not Available Not Available No t Available prednisone 20 mg tablet TAKE 1 TABLET BY MOUTH TWICE DAILY 12/24 completed Not Available Not Available Not Available triamcinolo ne acetonide 0.5 % topical ointment APPLY THREE TIMES DAILY NEEDED TO AFFECTED SITE 12/24 completed Not Available Not Available Not Available peg-electro lyte solution 420 gram oral solution MIX AND DRINK PER OFFICE INSTRUCTI ONS DIRECTED 12/24 completed Not Available Not Available Not Available cephalexin 500 mg capsule TAKE 1 CAPSULE BY MOUTH TWICE DAILY 12/24 completed Not Available Not Available Not Available pantoprazol e 40 mg tablet,brandy yed release active Not Available Not Available Not Available neomycin-po lymyxin-dex ameth 3.5 mg/mL-10,00 0 unit/mL-0.1 % eye drops 12/24 completed Not Available Not Available Not Available promethazin e 25 mg tablet TAKE 1/2 TABLET BY MOUTH EVERY 6 HOURS NEEDED FOR NAUSEA 12/24 completed Not Available Not Available Not Available gabapentin 300 mg capsule active Not Available Not Available Not Available ibuprofen 600 mg tablet TAKE 1 TABLET BY MOUTH EVERY 8 HOURS NEEDED FOR PAIN 12/24 completed Not Available Not Available Not Available levofloxaci n 750 mg tablet TAKE 1 TABLET BY MOUTH EVERY DAY FOR 7 DAYS active Not Available Not Available No t Available cefdinir 300 mg capsule TAKE 1 CAPSULE BY MOUTH EVERY 12 HOURS 12/24 completed Not Available Not Available Not Available cyclobenzap rine 5 mg tablet TAKE 1 TABLET BY MOUTH AT BEDTIME active Not Available Not Available No t Available Vitals Date Recorded Body height Body mass index (BMI) Body weight Body temperature Systolic blood pressure Diastolic blood pressure Provider Name and Address Organization Details Last Updated DateTime 160.02 cm 25.3 kg/m2 06557.7 1 g 97.2 [degF] 110 mm[Hg] 70 mm[Hg] Cecilia Abdalla [employer] [facility] 11:24:16 Social History Question Answer Notes LastModified by [employer] ion Details LastModified Time Tobacco Smoking Status Former Smoker Cecilia goncalves, [employer] [facility] 12/24/2023 11:21:40 What Is Your Level Of Alcohol Consumption? Occasional [email or web address] Information not available 12/24/2023 How Many Times Per Week Do You Consume Alcohol? Less Than 1 Time Per Week [email or web address] Information not available 12/24/2023 Are You Blind Or Do You Have Difficulty Seeing? No Information not available 12/24/2023 Are You Currently Employed? Yes [email or web address] Information not available 12/24/2023 Are You Deaf Or Do You Have Serious Difficulty Hearing? No [email or web address] Information not available 12/24/2023 What Type Of Diet Are You Following? REGULAR Information not available 12/24/2023 Which Illicit Or Recreational Drugs Have You Used? [place] Information not available 12/24/2023 What Is The Highest Grade Or Level Of School You Have Completed Or The Highest Degree You Have Received? 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 16+yearssincel astcigarjose maria [email or web address] Information not available 12/24/2023 How Many Children Do You Have? 2 [email or web address] Information not available 12/24/2023 What Is Your Relationship Status? Single [email or web address] Information not available 12/24/2023 Are You Sexually Active? No [email or web address] Information not available 12/24/2023 Do You Use Any Illicit Or Recreational Drugs? Yes [email or web address] Information not available 12/24/2023 Have You Used IV Drugs? No [email or web address] Information not available 12/24/2023 Do You Or Have You Ever Used Any Other Forms Of Tobacco Or Nicotine? No [email or web address] Information not available 12/24/2023 Sex: Female Functional Status Question Answer Note LastModified by Organization D etails LastModified Time What is your exercise level? None [email or web address] Information not available 12/24/2023 Mental Status None recorded. Family History Relationship Description Onset Age of this Age Resolved Age Notes LastModified by Organization Details LastModified Time Father No current problems or disability [email or web address] Not available 12/24 11:20:13 Mother No current problems or disability [email or web address] Not available 12/24 11:20:13 Medical History Condition Response Breast Cancer Y GERD (reflux) Y Cervical Cancer Y Gynecological History Statement/Question Response Date of Last Colonoscopy 10/05/2023 Date of LMP HPV Vaccine N Date of Last Pap Smear Most Recent Mammogram Current Control Method Hysterectom y Obstetrics History GPAL:G 2 P 2 0 0 2 Type Value Full Term 2 Living 2 Total 2 Past Encounters Encounter ID Performer Location Encounter Start Date Encounter Closed Date Diagnosis/Indication Diagnosis SNOMED-CT Code Diagnosis ICD10 Code Diagnosis Note [id number] [facility]EN[facility] REGALADO [facility] [address] [place] [address] 12/24/2023 10:57:51 12/24/2023 17:33:20 Dysuria 28908584 R30.0 Pt comes in today with complaints /concern for UTI. S/S:Pain or burning while urinatingF requent urinationP ressure or cramping in the groin or lower abdomen POCUrine CultureDip Rx sent Greater than thirty minutes spent with patient in consultati on (>50% face-to-fa ce). Patient labs and notes were reviewed. Patient questions were answered. Additional patient care was coordinate d. History of malignant neoplasm of breast 604824757 Z85.3 -Double mastectomy in Jun 2022-Has had augmentati on and implants placed after mastectomy . History of malignant neoplasm of cervix 329790128 Z85.41 -Cervical cancer in 2019-[place] [address] Jackson-PCP completed pap smears-Rev iewed ASCCP guidelines with patient. Needs annual pap x 3 years and then pap smears every 3 years for 25 years due to cervical cancer. Chronic in terstitial cystitis 454815728 N30.10 Health Concerns Section Related Observation LastModified by Organization Detai ls LastModified Time None Recorded Concern Status LastModified by Organization Details LastModified Time None Recorded Advance Directives Directive None Recorded Payers Encounter Date Sequence Insurance Name Policy Number Policy Jo Covered Member ID Jo Member ID Guarantor Name 12/24/2023 1 [facility] (MEDICAID HMO) [id number] [facility] [id number] [facility] Notes Date Note Type Note Provider Name and Address Organization Details Recorded Time 12/24/2023 text/html Fariba is here to establish care because she felt like she was having a bladder infection. Her primary gave her antibiotics in Nov. She said she don't think they work. Pt states she is having pressure followed by pain after she urinate. CYNTHIA MILLER, MATERIALS HANDLING EQUIPMENT OPERATOR [address] [facility], [place], [address], [facility] [employer] [facility] [employer] 12/24/2023 11:49:54 OBGyn Episode No OBEpisode recorded.
--- OUTSIDE RECORDS SUMMARY | 2025-02-21 14:53 | XMS_ITS | Referral Summary ---
Author Organization [facility] Address [address] [place] [address] Care Team Providers Care Hotel Operation Manager Name Role Phone Reed Lew MD Primary Care Provider [phone] Allergies Active Allergy Reactions Criticality Noted Date Comments Ondansetron Hcl Eye irritation Low 12/16/2021 Eye irritation Prochlorperazine Eye irritation Low 12/16/2021 Eye irritation Medications anastrozole (ARIMIDEX) 1 mg tablet Take 1 tablet (1 mg total) by mouth daily 3 Active gabapentin (NEURONTIN) 300 mg capsule Take 1 capsule (300 mg total) by mouth 2 (two) times a day 3 Active lidocaine (LIDODERM) 5 % Activ e pantoprazole DR (PROTONIX) 40 mg EC tablet Active triamcinolone (KENALOG) 0.1 % ointment Apply 1 application twice a day by topical route. 0 Active hydrOXYzine (ATARAX) 25 mg tabletIndication s:Chronic interstitial cystitis without hematuria,Dysuri a Take 1 tablet (25 mg total) by mouth nightly 90 tablet 3 4 025 Active carbamide peroxide (Debrox) 6.5 % otic solution INSTILL 5 DROPS INTO AFFECTED EAR(S) BY OTIC ROUTE 2 TIMES PER DAY 4 Active cefdinir (OMNICEF) 300 mg capsule Take 1 capsule (300 mg total) by mouth every 12 (twelve) hours Active HYDROcodone-acet aminophen (NORCO) 7.5-325 mg per tablet Take 1 tablet by mouth every 6 (six) hours as needed 4 Active oxyCODONE (ROXICODONE) 5 mg immediate release tablet Take 1 tablet (5 mg total) by mouth every 4 (four) hours as needed 4 Active polyethylene glycol (polyethylene glycol-electroly kelly) 236-22.74-6.74 -5.86 gram solution MIX AND DRINK PER OFFICE INSTRUCTIONS DIRECTED Active meloxicam (MOBIC) 15 mg tabletIndication s:Hamstring injury, initial encounter,Left thigh pain Take 1 tablet (15 mg total) by mouth daily Take 1 daily with food 30 tablet 4 Active Active Problems Problem Noted Date Diagnosed Date Eczema 05/12/2024 Ingrowing toenail 05/12/2024 Local infection of wound 05/12/2024 Low back pain 05/12/2024 Malignant neoplasm of endocervix 12/16/2021 Lateral epicondylitis, left elbow 05/11/2021 Overview (09/02/2021): Other chronic allergic conjunctivitis 05/11/2021 Overview (09/02/2021): Essential (primary) hypertension 08/31/2020 Overview (09/02/2021): Finger mass, right 01/01/2019 Immunizations Immunization Administration Dates Next Due Influenza, Trivalent, Cell C ulture-based MDCK, Preservative Free, Antibiotic Free, Intramuscular 08/31/2020 Tdap 03/17/2016 Social History Tobacco Use Types Packs/Day Years Used Date Smoking Tobacco: Never Smokeless Tobacco: Never Tobacco Cessation:Counseling Given: Not Answered Personal Safety Answer Date Recorded Have you ever been in or are you currently in a harmful physical or emotional relationship or is someone making you feel afraid or unsafe? 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 Gender Identity Female 05/30/2023 11:05 AM CDT Sexual Orientation Not on file Last Filed Vital Signs Vital Sign Reading Time Taken Comments Blood Pressure 133/85 05/31/2023 10:13 AM CDT Pulse 74 05/31/2023 10:13 AM CDT Temperature 36.8 C (98.2 F) 05/31/2023 10:13 AM CDT Respiratory Rate 16 05/31/2023 10:13 AM CDT Oxygen Saturation 100% 05/31/2023 10:13 AM CDT Inhaled Oxygen Concentration - - Weight 64.4 kg (142 lb) 05/31/2023 10:13 AM CDT Height 160 cm (5' 3 ) 05/31/2023 10:13 AM CDT Body Mass Index 25.15 05/31/2023 10:13 AM CDT Plan of Treatment Not on file Insurance [facility] Member Subscriber Plan / Payer (Ef fective 2023-Present) Name:Fariba Ureña Relation to Subscriber:Self Name:Fariba Ureña Payer ID:[id number] (NAIC) Group ID:Not on file Type:MEDICAID RISK OTHER Address: [place] [id number] [facility] IDPA Care Teams Hotel Operation Manager Relationship Specialty Start Date End Date Reed Lew MD PCP - General 01/01/19
--- OUTSIDE RECORDS SUMMARY | 2025-02-21 14:53 | XMS_ITS | Clinical Summary ---
Author Organization [facility] Address [address] [place] [address] Care Team Providers Care Doughnut Machine Operator Helper Name Role Phone Reed Lew MD Primary Care Provider [phone] Allergies Active Allergy Reactions Criticality Noted Date [...] on file Legal Sex Female 8:30 PM FISCAL MANAGER Gender Identity Female 05/30/2023 11:05 AM CDT Sexual Orientation Not on file Obstetrics History Last Filed Vital Signs Vital Sign Reading [...] 05/31/2023 10:13 AM CDT Plan of Treatment Health Maintenance Due Date Last Done Comments Cervical Cancer Screening 1970 Colon Cancer Screening-Colonoscopy 1970 Depression Screening 1970 Hepatitis C Screening 1970 Hepatitis B Screening 1988 Regular Well Visit/Exam 18-64 1988 Pneumococcal vaccine <65 (1 of 2 - PCV) 1989 Zoster Vaccine (1 of 2) 1989 Covid-19 Vaccine (3 - Pfizer risk series) 03/31/2021 03/03/2021, 02/07/2021 Breast Cancer Screening-Mammogram 08/25/2022 021 Influenza Vaccine (#1) 2024 08/31/2020 DTaP/Tdap/Td Vaccine (2 - Td or Tdap) 03/17/2026 Insurance [facility] IDPA Care Teams Doughnut Machine Operator Helper Relationship Specialty Start Date End Date Reed Lew MD PCP - General 01/01/19
--- OUTSIDE RECORDS SUMMARY | 2025-02-21 14:54 | XMS_ITS | Clinical Summary ---
Author Organization [facility] Sandra Fay Address [address] [place] [address] Care Team Providers Care Chancellor Name Role Phone Unavailable Primary Care Provider Unavailabl e Allergies Active Allergy Reactions Criticality Noted Date Comments Ondansetron Hcl Other (See Comments) 12/16/2021 Eye irritation Prochlorperazine Other (See Comments) 2 Eye irritation Medications magnesium citrate 100 mg Capsule magnesium citrate 1.745 gm/30ml soln Active scopolamine (TRANSDERM-SCOP) 1 mg/72 hr patch APPLY 1 PATCH TO THE SKIN EVERY 3 DAYS 2 Active cyclobenzaprine (FLEXERIL) 10 mg tablet Take 10 mg by mouth 3 times daily as needed for Spasm. Active CALCIUM CARBONATE-VITAMIN D3 ORAL Take by mouth. Active VITAMIN E ORAL Take by mouth. Active ferrous sulfate 325 mg (65 mg iron) tablet Take 325 mg by mouth daily. Active HYDROCODONE-ACETAM INOPHEN ORAL Take by mouth 2 times daily. Active CLONIDINE HCL ORAL Take by mouth daily at bedtime. Active HYDROcodone-acetam inophen (NORCO) 5-325 mg tabletIndications: Malignant neoplasm of central portion of right breast in female, estrogen receptor positive (CMS/HCC) Take 1 Tablet by mouth every 4 hours as needed for Pain, Moderate. Max Daily Amount: 6 Tablets 32 Tablet 2 Active cefadroxil (DURICEF) 500 mg capsule Take 1 Capsule (500 mg) by mouth daily. 21 Capsule 2 Active cloNIDine HCL (CATAPRES) 0.1 mg tablet TAKE 1 TABLET BY MOUTH EVERY DAY AT BEDTIME 2 Active traMADoL (ULTRAM) 50 mg tabletIndications: Malignant neoplasm of central portion of right breast in female, estrogen receptor positive (CMS/HCC) Take 1 Tablet (50 mg) by mouth every 8 hours as needed for Pain. 40 Tablet 3 Active anastrozole (Arimidex) 1 mg tabletIndications: Malignant neoplasm of central portion of right breast in female, estrogen receptor positive (CMS/HCC) Take 1 Tablet (1 mg) by mouth daily. 90 Tablet 3 3 Active gabapentin (NEURONTIN) 300 mg capsuleIndications :Drug-induced polyneuropathy Take 1 Capsule (300 mg) by mouth 2 times daily. 60 Capsule 1 4 Active Active Problems Problem Noted Date Diagnosed Date Malignant neoplasm of centra l portion of right breast in female, estrogen receptor positive 12/16/2021 Malignant neoplasm of endocervix 12/16/2021 Encounters Date Type Department Care Team Description 11/27/2024 External Device Data STL ABSTRACTION Provider, Abstract from Last 3 Months Family History Relation Name Status Comments Brother Daughter Alive Father Alive Mother Alive Son Alive Social History Tobacco Use Types Packs/Day Years Used Date Smoking Tobacco: Never Smokeless Tobacco: Never Tobacco Cessation:Counseling Given: Not Answered Alcohol Use Standard Drinks/Week Comments Yes 3 (1 standard drink = 0.6 oz pur e alcohol) Comments No Sex and Gender Information Value Date Recorded Sex Assigned at Not on file 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 Gender Identity Not on file Sexual Orientation Not on file Last Filed Vital Signs Vital Sign Reading Time Taken Comments Blood Pressure 132/80 09/05/2023 2:05 PM CDT Pulse 88 09/05/2023 2:05 PM CDT Temperature 35.6 C (96.1 F) 09/05/2023 2:05 PM CDT Respiratory Rate 10 09/05/2023 2:05 PM CDT Oxygen Saturation 98% 09/05/2023 2:05 PM CDT Inhaled Oxygen Concentration - - Weight 64.9 kg (143 lb) 09/05/2023 2:05 PM CDT Height 160 cm (5' 3 ) 08/04/2022 12:41 PM CDT Body Mass Index 25.33 08/04/2022 12:41 PM CDT Plan of Treatment Health Maintenance Due Date Last Done Comments HEPATITIS B VACCINES (1 of 3 - 19+ 3-dose series) 1989 HPV/Cotest (21-29) 1991 CERVICAL CANCER SCREENING 2000 HPV/Cotest (30-65) 2000 PAP SMEAR 2000 FIT-DNA Q 3 years 2015 FIT/FOBT Q 1 year 2015 Flex Sig/CT Colonography Q 5 years 2015 ZOSTER VACCINE (1 of 2) 2020 INFLUENZA VACCINE (#1) 2024 08/31/2020, 2019 DTAP/TDAP/TD VACCINES (2 - Td or Tdap) 03/17/2026 COLORECTAL SCREENING 09/22/2031 09/22/2021 Colorectal Cancer Screening 09/22/2031 Medical Devices Implanted Type Area Operating Theatre Technician Device Identifier Shelf Expiration Date Model / Serial / Lot Java Golden Gate Developer Clip Surgiclip Iii Ti Rishi Sm 9in [id number] - [id number] Implanted:Qty : 1 on 02/22/2022 by Shantanu Nguyen MD at [facility] Clip Right: Breast MEDTRONIC - COVIDIEN 09/04/2026 [id number] / / [id number] Breast Inspira Scx 495ml Scx-495 - [id number] Implanted:Qty : 1 on 06/21/2022 by Shantanu Nguyen MD at [facility] Mammary Left: Breast ALLERGAN- MEDICAL 07/16/2026 SCX-495 / [id number] / Imp Breast Inspira Scx 525ml Scx-525 - [id number] Implanted:Qty : 1 on 06/21/2022 by Shantanu Nguyen MD at [facility] Mammary Right: Breast ALLERGAN- MEDICAL 12/19/2023 SCX-525 / [id number] / Alloderm Matrix Tissue Thick [id number] - [id number] Implanted:Qty : 1 on 02/22/2022 by Shantanu Nguyen MD at [facility] Tissue Left: Breast ALLERGAN- MEDICAL 01/02/2023 [id number] / / [id number] Alloderm Matrix Tissue Thick [id number] - [id number] Implanted:Qty : 1 on 02/22/2022 by Shantanu Nguyen MD at [facility] Tissue Right: Breast ALLERGAN- MEDICAL 05/04/2023 [id number] / / [id number] Explanted Type Area Operating Theatre Technician Device Identifier Shelf Expiration Date Model / Serial / Lot Supervisor Screen Making Breast Natrelle Te 350ml [id number] - [id number] Implanted:Qty: 1 on 02/22/2022 by Shantanu Nguyen MD at [facility] Explanted:Qty: 1 on 06/21/2022 by Shantanu Nguyen MD at [facility] Mammary Left: Breast ALLERGAN- MEDICAL 07/06/2026 133S-FX-1 1-T / [id number] / Supervisor Screen Making Breast Natrelle Te 350ml [id number] - [id number] Implanted:Qty: 1 on 02/22/2022 by Shantanu Nguyen MD at [facility] Explanted:Qty: 1 on 06/21/2022 by Shantanu Nguyen MD at [facility] Mammary Right: Breast ALLERGAN- MEDICAL 05/08/2025 133S-FX-1 1-T / [id number] / Powerport Explanted:Qty: 1 on 06/21/2022 by Shantanu Nguyen MD at [facility] Left: Chest Description:not in computer previously Procedures Procedure Name Priority Date/Time Associated Diagnosis Comments COLONOSCOPY REPORT Routine 09/22/2021 from Last 3 Months or Most Recently Relevant to Health Maintenance Results * COLONOSCOPY REPORT (09/22/2021) us Abstract Provider GI PROCEDURE ORDERABLES Final Result from Last 3 Months or Most Recently Relevant to Health Maintenance Insurance RX [employer] Member Subscriber Plan / Payer (Ef fective 2022-Present) Name:Fariba Ureña Relation to Subscriber:Self Name:Fariba Ureña Subscriber ID:Not on file Payer ID:Not on file Type:RX Commercial Address: [place] MEDICAID [place] Advance Directives For more information, please contact: [phone] * Full Code (Latest Code Status on File) Date Activated Date Inactivated Comments 02/22/2022 11:48 AM 02/23/2022 2:51 PM
--- OUTSIDE RECORDS SUMMARY | 2025-02-21 14:54 | XMS_ITS | Data Portability ---
Author Organization [facility] STAS[facility] Powell Address [address] [place] [address] Care Team Providers Care Software Program Manager Name Role Phone REED MAURICE Primary Care Provider [phone] Assessment No assessment recorded. Plan of Treatment Reminders Order Date Submit Date Provider Last Modified By Organization Details Last Modified Time Details Appointments None recorded. Lab drug screen, urine 2023 024 [id number] In-Office Order, Internal Use Only DO Not Attach Compendium DO Not Attach Compendium, Do Not Delete/merge, [id number] 13:22:36 urinalysi s, dipstick 2023 024 [id number] In-Office Order, Internal Use Only DO Not Attach Compendium DO Not Attach Compendium, Do Not Delete/merge, [id number] 4 13:08:23 CMP, serum or plasma 2023 024 [facility]FA[facility], [address], [address], 4 13:08:57 CBC w/ auto diff 2023 024 MARCUS [facility], [address], [address], 4 13:08:56 lipid panel, serum 2023 024 [place] [facility], [address], [address], 4 13:08:56 vitamin D, 25-hydrox y, total, serum 2023 024 [place], [address] [place] [address], [address], 4 13:08:55 HbA1c (hemoglob in A1c), blood 2023 024 [place] [facility], [address] [place] [address], [address], 4 13:08:56 TSH, ultra-sen sitive, serum 2023 024 [facility], [address] [place] [address], [address], 4 13:08:55 erythrocy te sedimenta tion rate by westergre n method 2023 024 [email or web address] [facility], [address] [place] [address], [address], 4 14:42:01 Referral orthopedi c surgeon referral 2023 024 [facility], [address] [place], [address], 4 16:05:09 audiologi referral - for audio and ENG for vertigo 2023 024 [email or web address] [facility], [address], [address], 4 16:09:50 Procedures None recorded. Surgeries None recorded. Imaging MRI, thigh, w/o contrast 2023 024 [facility] ([facility]), [address] [place], [address], 4 08:23:08 Medication Orders hydrocodo ne 7.5 mg-acetam inophen 325 mg tablet 2023 024 [facility] #[id number], [address] [place], [address], 4 13:22:39 Debrox 6.5 % ear drops 2023 024 [facility]57744, [address], [place], [id number], 4 13:08:25 hydrocodo ne 5 mg-acetam inophen 325 mg tablet 2023 024 [facility] #33885, [address], [place], [id number], 4 22:56:33 cefdinir 300 mg capsule 2023 024 [email or web address] [facility] #55353, [address], [place], [id number], 4 22:51:48 prednison e 20 mg tablet 2023 024 [facility] #28319, [address], [place], [id number], 4 13:08:27 hydrocodo ne 5 mg-acetam inophen 325 mg tablet 2022 023 [facility] #16474, [address], [place], [id number], 3 12:56:51 Patient TargetsNo targets recorded. Patient Instructions Encounter Date Encounter Id Patient Instructions Last Modified By Organization Details Last Modified Time 07/06/2023 [id number] A healthy lifestyle: care instructions [email or web address] Not available 07/07/2023 01:58:15 back care and preventing injuries: care instructions [id number] Not available 07/07/2023 01:58:15 learning about high blood pressure [id number] Not available 07/07/2023 01:58:15 Slow down and think about it. Take all medications as directed. Keep adequate fluid intake. Decrease red meat. Increase vegetables & fruits. Please add exercise if you can. The less animal fat you eat, the less pain you will have. [id number] Not available 07/06/2023 22:27:58 I discuss the education of the problems, the possible causes of these problems and possible treatments that we can offer. The side effects of the medications prescribed are discussed. Support and counseling given. I discussed the [facility] [place] [facility]. [id number] Not available 07/06/2023 22:28:20 11/30/2023 [id number] earwax blockage: care instructions [id number] Not available 11/30/2023 13:08:20 A healthy lifestyle: care instructions Not available 11/30/2023 13:08:20 Quitting Tobacco : Care Instructions [email or web address] Not available 11/30/2023 13:08:20 back care and preventing injuries: care instructions [email or web address] Not available 11/30/2023 22:56:27 Urinary Tract Infection (UTI) in Women: Care Instructions [email or web address] Not available 11/30/2023 13:08:20 learning about high blood pressure [id number] Not available 11/30/2023 13:08:20 ear infection (otitis media): care instructions Not available 11/30/2023 13:08:20 Let's get the pressure off your ears and see how you do. Take your medications as directed. If you have any problems with them, let us know. Keep adequate fluid intake. Winter is here now. The cold temperatures will make your arthritis hurt more. Decrease red meat. Increase vegetables & fruits. Please add exercise if you can. Get a little sunlight daily even if it's in your house. Vitamin D Deficiency is caused by our lack of sunlight and not a poor diet issue. Let the shades up and let the sun shine in on you. It will help. Use the [facility] [place] [facility]. [id number] Not available 11/30/2023 22:53:40 We discuss the disease and possible causes. We discuss the medications and possible side effects. Never forget the [facility] [place] [facility]. The YENNY is making it hard to treat pain these days. We will try to help you though. [email or web address] Not available 11/30/2023 22:59:02 04/16/2024 [id number] A healthy lifestyle: care instructions Not available 04/17/2024 00:42:17 back care and preventing injuries: care instructions [id number] Not available 04/17/2024 00:42:17 learning about high blood pressure [id number] Not available 04/17/2024 00:42:17 Take it easy until we can find out the extent of your injury. We will have to fight with your insurance though. They always refuse to do the MRI. But lets go. 2 weeks [id number] Not available 04/16/2024 21:44:58 Listen. support. [facility] [place] [facility]. [id number] Not available 04/16/2024 21:45:07 07/21/2024 [id number] learning about high blood pressure [email or web address] Not available 07/22/2024 00:15:53 Reason for Referral Accounts Payable Technician Referral for Nadir ateral tinnitus for audio and ENG for vertigo Referring Physician: Manuel Salgado, Otolaryngology, Encounter Date: 12/24/2023 Orthopedic Surgeon Referral for Left posterior thigh muscle traumatic injury Referring Physician: Reed Maurice, Family Medicine, Encounter Date: 04/16/2024 Results Created Date Observation Date Name Description Value Unit Range Abnormal Flag Note LastModifiedBy Organization Detail LastModifiedTime 11/30/1911/30/2023 urina lysis , dipst ick Leukocytes Negati ve Not Available In-Office Order Internal Use Only DO Not Attach Compendium DO Not Attach Compendium, Do Not Delete/merge, [id number] 11/30/2023 11:18:14 11/30/1911/30/2023 urina lysis , dipst ick Nitrite negati ve Not Available In-Office Order Internal Use Only DO Not Attach Compendium DO Not Attach Compendium, Do Not Delete/merge, [id number] 11/30/2023 11:18:14 11/30/1911/30/2023 urina lysis , dipst ick Urobilinogen .2 Not Available In-Of fice Order Internal Use Only DO Not Attach Compendium DO Not Attach Compendium, Do Not Delete/merge, 11/30/2023 11:18:14 11/30/19 24 11/30/2023 urina lysis , dipst ick Protein Negati ve Not Available In-Office Order Internal Use Only DO Not Attach Compendium DO Not Attach Compendium, Do Not Delete/merge, 11/30/2023 11:18:14 11/30/19 24 11/30/2023 urina lysis , dipst ick pH 6.0 Not Available In-Office Order Internal Use Only DO Not Attach Compendium DO Not Attach Compendium, Do Not Delete/merge, 11/30/2023 11:18:14 11/30/19 24 11/30/2023 urina lysis , dipst ick Blood Non-He molyze d: Trace Not Available In-Office Order Internal Use Only DO Not Attach Compendium DO Not Attach Compendium, Do Not Delete/merge, 11/30/2023 11:18:14 11/30/19 24 11/30/2023 urina lysis , dipst ick Specific [place] 1.025 Not Available In-Off ice Order Internal Use Only DO Not Attach Compendium DO Not Attach Compendium, Do Not Delete/merge, 11/30/2023 11:18:14 11/30/19 24 11/30/2023 urina lysis , dipst ick Ketone Negati ve Not Available In-Office Order Internal Use Only DO Not Attach Compendium DO Not Attach Compendium, Do Not Delete/merge, 11/30/2023 11:18:14 11/30/19 24 11/30/2023 urina lysis , dipst ick Bilirubin Negati ve Not Available In-Office Order Internal Use Only DO Not Attach Compendium DO Not Attach Compendium, Do Not Delete/merge, 11/30/2023 11:18:14 11/30/19 24 11/30/2023 urina lysis , dipst ick Glucose Negati ve Not Available In-Office Order Internal Use Only DO Not Attach Compendium DO Not Attach Compendium, Do Not Delete/merge, 11/30/2023 11:18:14 11/30/19 24 11/30/2023 urina lysis , dipst ick Appearance Clear Not Available In-Offi ce Order Internal Use Only DO Not Attach Compendium DO Not Attach Compendium, Do Not Delete/merge, 11/30/2023 11:18:14 11/30/19 24 11/30/2023 urina lysis , dipst ick Color Yellow Not Available In-Office Order Internal Use Only DO Not Attach Compendium DO Not Attach Compendium, Do Not Delete/merge, 11/30/2023 11:18:14 04/16/20 24 04/16/2024 drug scree n, urine Methamphetam ine Negati ve Not Available In-Office Order Internal Use Only DO Not Attach Compendium DO Not Attach Compendium, Do Not Delete/merge, 04/16/2024 12:32:07 04/16/20 24 04/16/2024 drug scree n, urine THC Negati ve Not Available In-Office Order Internal Use Only DO Not Attach Compendium DO Not Attach Compendium, Do Not Delete/merge, 04/16/2024 12:32:07 04/16/20 24 04/16/2024 drug scree n, urine Cocaine (Lemuel) Negati ve Not Available In-Office Order Internal Use Only DO Not Attach Compendium DO Not Attach Compendium, Do Not Delete/merge, 04/16/2024 12:32:07 04/16/20 24 04/16/2024 drug scree n, urine Benzodiazepi ne (Bzo) Negati ve Not Available In-Office Order Internal Use Only DO Not Attach Compendium DO Not Attach Compendium, Do Not Delete/merge, 04/16/2024 12:32:07 04/16/20 24 04/16/2024 drug scree n, urine Methadone (Mtd) Negati ve Not Available In-Office Order Internal Use Only DO Not Attach Compendium DO Not Attach Compendium, Do Not Delete/merge, 04/16/2024 12:32:07 04/16/20 24 04/16/2024 drug scree n, urine Buprenorphin e (Bup) Negati ve Not Available In-Office Order Internal Use Only DO Not Attach Compendium DO Not Attach Compendium, Do Not Delete/merge, 04/16/2024 12:32:07 04/16/20 24 04/16/2024 drug scree n, urine Oxycodone (Oxy) Negati ve Not Available In-Office Order Internal Use Only DO Not Attach Compendium DO Not Attach Compendium, Do Not Delete/merge, 04/16/2024 12:32:07 04/16/20 24 04/16/2024 drug scree n, urine Barbiturates (Bar) Negati ve Not Available In-Office Order Internal Use Only DO Not Attach Compendium DO Not Attach Compendium, Do Not Delete/merge, 04/16/2024 12:32:07 04/16/20 24 04/16/2024 drug scree n, urine MDMA (Ecstacy) Negati ve Not Available In-Office Order Internal Use Only DO Not Attach Compendium DO Not Attach Compendium, Do Not Delete/merge, 04/16/2024 12:32:07 04/16/20 24 04/16/2024 drug scree n, urine Amphetamines (Amp) Negati ve Not Available In-Office Order Internal Use Only DO Not Attach Compendium DO Not Attach Compendium, Do Not Delete/merge, 04/16/2024 12:32:07 04/16/20 24 04/16/2024 drug scree n, urine Opiates (opi) Negati ve Not Available In-Office Order Internal Use Only DO Not Attach Compendium DO Not Attach Compendium, Do Not Delete/merge, 04/16/2024 12:32:07 04/16/20 24 04/16/2024 drug scree n, urine Phencyclidin e (Pcp) Negati ve Not Available In-Office Order Internal Use Only DO Not Attach Compendium DO Not Attach Compendium, Do Not Delete/merge, 04/16/2024 12:32:07 04/16/20 24 04/16/2024 drug scree n, urine Tricyclic Antidepressa nts Negati ve Not Available In-Office Order Internal Use Only DO Not Attach Compendium DO Not Attach Compendium, Do Not Delete/merge, [id number] 04/16/2024 12:32:07 04/16/20 24 04/16/2024 drug scree n, urine Fentanyl Negati ve Not Available In-Office Order Internal Use Only DO Not Attach Compendium DO Not Attach Compendium, Do Not Delete/merge, [id number] 04/16/2024 12:32:07 06/14/20 23 06/14/2023 CT, abdom en + pelvi s, w/ contr ast No observ ation record ed. [address] [place], [address], 06/17/2023 10:24:02 05/02/20 24 05/01/2024 MRI, thigh , w/o contr ast No observ ation record ed. [facility] [address] [place], [address], 05/04/2024 14:35:33 Result Notes None recorded. Problems Name Problem SNOMED Code Status Onset Date Resolution Date Notes Provider Name and Address Organization Details Recorded Time Eczema 08556462 Active Not Available [facility] 3 04:26:08 Low back pain 294606337 Active Not Available [facility] 3 04:26:08 Knee pain Active Not Available [facility] 3 04:26:08 Ingrowing toenail 550527994 Active Not Available [facility] 3 04:26:08 Essential hypertension 75418361 Active Not Available [facility] 3 04:26:08 Local infection of wound 06991243 Active Not Available [facility] 3 04:26:08 Problem Notes None recorded. Procedures Surgical History None recorded. Imaging Results Imaging Date Name Status LastModified by [facility] Details LastModified Time 06/14/2023 CT, abdomen + pelvis, w/ contrast completed [address] [place], [address], 06/17/2023 10:24:02 05/01/2024 MRI, thigh, w/o contrast completed [facility] [address] [place], [address], 05/04/2024 14:35:33 Procedure Notes None recorded. Medical Equipment None Reported. Allergies No known drug allergies Medications Name Sig Start Date Stop Date Status Note LastModified by Organization Details LastModified Time cyclobenzap rine 10 mg tablet TAKE 1 TABLET BY MOUTH EVERY 8 HOURS active Not Available Not Available No t Available medroxyprog esterone 10 mg tablet TAKE 1-2 TABLETS BY MOUTH ONCE DAILY UNTIL BLEEDING STOPS active Not Available Not Available No t Available anastrozole 1 mg tablet active Not Available Not Available Not Available promethazin e-DM 6.25 mg-15 mg/5 mL oral syrup 04/21 completed Not Available Not Available Not Available clonidine HCl 0.1 mg tablet TAKE 1 TABLET BY MOUTH EVERY DAY AT BEDTIME active Not Available Not Available No t Available clindamycin HCl 300 mg capsule 04/21 completed Not Available Not Available Not Available triamcinolo ne acetonide 0.5 % topical cream APPLY A THIN LAYER TO THE AFFECTED AREA(S) BY TOPICAL ROUTE 2 TIMES PER DAY 07/10 completed Not Available Not Available Not Available azithromyci n 250 mg tablet TAKE 2 TABLETS (500 MG) BY ORAL ROUTE ONCE DAILY FOR 1 DAY THEN 1 TABLET (250 MG) BY ORAL ROUTE ONCE DAILY FOR 4 DAYS active Not Available Not Available No t Available ibuprofen 800 mg tablet TAKE 1 TABLET BY MOUTH THREE TIMES DAILY NEEDED active Not Available Not Available No t Available benzonatate 200 mg capsule active Not Available Not Available Not Available hydrocodone 5 mg-acetamin ophen 325 mg tablet TAKE 1 TABLET BY MOUTH EVERY 6 HOURS NEEDED active Not Available Not Available No t Available promethazin e 6.25 mg/5 mL oral syrup TAKE 10 ML BY MOUTH EVERY 6 HOURS active Not Available Not Available No t Available meloxicam 15 mg tablet Take 1 tablet every day by oral route. active Not Available Not Available No t Available prednisone 20 mg tablet TAKE 1 TABLET BY MOUTH TWICE DAILY active Not Available Not Available No t Available Debrox 6.5 % ear drops INSTILL 5 DROPS INTO AFFECTED EAR(S) BY OTIC ROUTE 2 TIMES PER DAY 2023 active Not Available Not Available Not Avai lable promethazin e 6.25 mg-codeine 10 mg/5 mL syrup Take 5 mL every 6 hours by oral route as needed. 07/10 completed Not Available Not Available Not Available triamcinolo ne acetonide 0.5 % topical ointment APPLY THREE TIMES DAILY NEEDED TO AFFECTED SITE active Not Available Not Available No t Available prochlorper azine maleate 10 mg tablet active Not Available Not Available No t Available sulfamethox azole 800 mg-trimetho prim 160 mg tablet 04/21 completed Not Available Not Available Not Available peg-electro lyte solution 420 gram oral solution MIX AND DRINK PER OFFICE INSTRUCTI ONS DIRECTED active Not Available Not Available No t Available tramadol 50 mg tablet active Not Available Not Available No t Available triamcinolo ne acetonide 0.1 % topical cream APPLY A THIN LAYER TO THE AFFECTED AREA(S) BY TOPICAL ROUTE 2 TIMES PER DAY 07/10 completed Not Available Not Available Not Available ondansetron 8 mg disintegrat ing tablet active Not Available Not Available N ot Available Depo-Medrol 80 mg/mL suspension for injection Take 80 mg by injection route. 07/10 completed Not Available Not Available Not Available prednisone 10 mg tablets in a dose pack 10/20 completed Not Available Not Available Not Available cefadroxil 500 mg capsule active Not Available Not Available Not Available oxycodone-a cetaminophe n 5 mg-325 mg tablet TAKE 2 TABLETS BY MOUTH EVERY 4 HOURS NEEDED FOR SEVERE PAIN. active Not Available Not Available No t Available prednisolon e acetate 1 % eye drops,suspe nsion INSTILL 1 DROP BOTH EYES FOUR TIMES DAILY. active Not Available Not Available No t Available benzonatate 100 mg capsule 10/20 completed Not Available Not Available Not Available hydrocodone 7.5 mg-acetamin ophen 325 mg tablet Take 1 tablet every 6 hours by oral route as needed. 2023 active Not Available Not Available Not Avai lable cephalexin 500 mg capsule TAKE 1 CAPSULE BY MOUTH TWICE DAILY active Not Available Not Available No t Available pantoprazol e 40 mg tablet,brandy yed release active Not Available Not Available Not Available naproxen sodium 550 mg tablet 04/21 completed Not Available Not Available Not Available neomycin-po lymyxin-dex ameth 3.5 mg/mL-10,00 0 unit/mL-0.1 % eye drops active Not Available Not Available Not Available tobramycin 0.3 % eye drops INSTILL 1 DROP INTO THE AFFECTED EYE EVERY 4 HOURS active Not Available Not Available No t Available triamcinolo ne acetonide 0.1 % topical ointment Apply 1 applicati on twice a day by topical route. 2019 active Not Available Not Available Not Avai lable dexamethaso ne 4 mg tablet active Not Available Not Available Not Available lisinopril 10 mg tablet TAKE 1 TABLET BY MOUTH EVERY DAY active Not Available Not Available No t Available lidocaine 5 % topical patch active Not Available Not Available Not Available promethazin e 25 mg tablet TAKE 1/2 TABLET BY MOUTH EVERY 6 HOURS NEEDED FOR NAUSEA active Not Available Not Available No t Available progesteron e micronized 200 mg capsule TAKE 1 CAPSULE BY MOUTH EVERY DAY active Not Available Not Available No t Available docusate sodium 100 mg capsule TAKE 1 CAPSULE BY MOUTH TWICE DAILY active Not Available Not Available No t Available gabapentin 300 mg capsule active Not Available Not Available Not Available diclofenac sodium 75 mg tablet,brandy yed release 04/21 completed Not Available Not Available Not Available hydroxyzine HCl 25 mg tablet active Not Available Not Available Not Available hydrocodone 5 mg-acetamin ophen 500 mg tablet 04/21 completed Not Available Not Available Not Available acetaminoph en 300 mg-codeine 60 mg tablet TAKE 1 TABLET BY MOUTH EVERY 6 HOURS active Not Available Not Available No t Available ibuprofen 600 mg tablet TAKE 1 TABLET BY MOUTH EVERY 8 HOURS NEEDED FOR PAIN active Not Available Not Available No t Available levofloxaci n 750 mg tablet TAKE 1 TABLET BY MOUTH EVERY DAY FOR 7 DAYS active Not Available Not Available No t Available scopolamine 1 mg over 3 days transdermal patch APPLY 1 PATCH TO THE SKIN EVERY 3 DAYS active Not Available Not Available No t Available methylpredn isolone 4 mg tablets in a dose pack asdirecte d 07/10 completed Not Available Not Available Not Available ondansetron 4 mg disintegrat ing tablet DISSOLVE 1 TABLET ON THE TONGUE EVERY 6 HOURS NEEDED FOR NAUSEA OR VOMITING active Not Available Not Available No t Available cefdinir 300 mg capsule TAKE 1 CAPSULE BY MOUTH EVERY 12 HOURS FOR 5 DAYS active Not Available Not Available No t Available loratadine 10 mg tablet Take 1 tablet every day by oral route. 07/10 completed Not Available Not Available Not Available gentamicin 0.1 % topical ointment APPLY A SMALL AMOUNT TO THE AFFECTED AREA BY TOPICAL ROUTE 2 TIMES PER DAY 04/21 completed Not Available Not Available Not Available naproxen 500 mg tablet TAKE 1 TABLET BY MOUTH TWICE DAILY WITH FOOD active Not Available Not Available No t Available metoclopram raquel 10 mg tablet TAKE 1 TABLET BY MOUTH EVERY 6 HOURS NEEDED FOR NAUSEA active Not Available Not Available No t Available oxycodone 5 mg tablet TAKE 1 TABLET BY MOUTH EVERY 4 HOURS IF NEEDED FOR PAIN active Not Available Not Available No t Available cyclobenzap rine 5 mg tablet TAKE 1 TABLET BY MOUTH AT BEDTIME active Not Available Not Available No t Available ID NOW COVID-19 Test Kit USE DIRECTED active Not Available Not Available No t Available Vitals Date Recorded Body height Body mass index (BMI) Body weight Oxygen saturation Oxygen saturation in Arterial blood by Pulse oximetry Heart rate Respiratory rate Body temperature Systolic blood pressure Diastolic blood pressure Provider Name and Address Organization Details Last Updated DateTime 3 160.02 cm 25.3 kg/m2 48596.7 1 g 99 % 99 % 86 /min 16 /min 98.1 [degF] 148 mm[Hg] 90 mm[Hg] Panchito Calderon [place] [facility] 3 11:40:10 Date Recorded Body height Body mass index (BMI) Body weight Oxygen saturation Oxygen saturation in Arterial blood by Pulse oximetry Heart rate Respiratory rate Body temperature Systolic blood pressure Diastolic blood pressure Provider Name and Address Organization Details Last Updated DateTime 4 160.02 cm 26 kg/m2 56210.3 6 g 99 % 99 % 70 /min 16 /min 98.1 [degF] 134 mm[Hg] 92 mm[Hg] Panchito Calderon MA [place] [facility] 4 11:17:29 Date Recorded Body height Body mass index (BMI) Body weight Heart rate Body temperature Pain severity - 0-10 verbal numeric rating [Score] - Reported Systolic blood pressure Diastolic blood pressure Provider Name and Address Organization Details Last Updated DateTime 4 160.02 cm 25.6 kg/m2 39899.4 6 g 86 /min 98.1 [degF] 3 111 mm[Hg] 72 mm[Hg] Herbert Cohen MA [facility] 4 16:00:54 Date Recorded Body height Body mass index (BMI) Body weight Oxygen saturation Oxygen saturation in Arterial blood by Pulse oximetry Heart rate Respiratory rate Body temperature Systolic blood pressure Diastolic blood pressure Provider Name and Address Organization Details Last Updated DateTime 4 160.02 cm 25.9 kg/m2 59425.4 9 g 99 % 99 % 72 /min 16 /min 97.7 [degF] 137 mm[Hg] 88 mm[Hg] Panchito Calderon MA [facility] 4 12:30:24 Date Recorded Body height Provider Name an d Address Organization Details Last Updated DateTime 07/21/2024 160.02 cm Diane Dalton MA [facility] 07/21/20 24 15:34:14 Social History Question Answer Notes LastModified by Organizat ion Details LastModified Time Tobacco Smoking Status Never Smoker Panchito Calderon MA null, [facility] 04/16/2024 12:14:47 Do You Have An Advance Directive? No Information not available 12/24/2023 What Is Your Level Of Alcohol Consumption? Occasional Information not available 01/15/2015 Are You Blind Or Do You Have Difficulty Seeing? No Information not available 04/20/2021 What Is Your Level Of Caffeine Consumption? Occasional Information not available 01/15/2015 In The 14 Days Before Symptom Onset, Have You Had Close Contact With A Laboratory-confir med COVID-19 While That Case Was Ill? No Information not available 12/24/2023 In The 14 Days Before Symptom Onset, Have You Had Close Contact With A Person Who Is Under Investigation For COVID-19 While That Person Was Ill? No Information not available 12/24/2023 Have You Been To An Area Known To Be High Risk For COVID-19? No Information not available 12/24/2023 Are You Currently Employed? Yes Information not available 12/24/2023 Are You Deaf Or Do You Have Serious Difficulty Hearing? No Information not available 04/20/2021 What Type Of Diet Are You Following? REGULAR Information not available 05/21/2015 Are There Any Guns Present In Your Home? No Information not available 04/20/2021 Marital Status Single Informatio n not available 05/21/2015 What Was The Date Of Your Most Recent Tobacco Screening? 07/21/2024 Information not available 07/21/2024 What Is Your Relationship Status? Single Information not available 12/24/2023 Do You Use Your Seat Belt Or Car Seat Routinely? Yes Information not available 12/06/2022 Do You Have Smoke And Carbon Monoxide Detectors In Your Home? Yes Information not available 04/20/2021 Are You Passively Exposed To Smoke? Yes Information no t available 11/30/2023 General Stress Level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
--- OUTSIDE RECORDS SUMMARY | 2025-02-21 14:54 | XMS_ITS | Encounter Summary ---
Author Organization [facility] Care Team Providers Care Deputy Grand Jury Name Role Phone Reed Lew MD Primary Care Provider [phone] Encounter Details Date Type Department Care Team (Latest Contact Info) Description 01/07/2019 Orders Only [facility] CLINCONV ProviderRicardo MD [address] [place] [address] Social History Tobacco Use Types Packs/Day Years Used Date Smoking Tobacco: Never Assessed Comments Unknown Sex and Gender Information Value Date Recorded Sex Assigned at Not on file Legal Sex Female 8:30 PM RN DIGESTIVE Gender Identity Female 05/30/2023 11:05 AM CDT Sexual Orientation Not on file documented as of this encounter Plan of Treatment Not on file documented as of this encounter Procedures Procedure Name Priority Date/Time Associated Diagnosis Comments SCAN - PATHOLOGY 01/07/2019 12:0 0 AM RN DIGESTIVE PROCEDURE - RESULT 01/01/2019 12 :00 AM RN DIGESTIVE documented in this encounter Results * SCAN - PATHOLOGY (01/07/2019 12:00 AM RN DIGESTIVE) Narrative 01/07/2019 12:00 AM RN DIGESTIVE Ordered by an unspecified provider. Historical Provider Final Res ult * PROCEDURE - RESULT (01/01/2019 12:00 AM RN DIGESTIVE) Narrative 01/01/2019 12:00 AM RN DIGESTIVE Ordered by an unspecified provider. Historical Provider Final Res ult documented in this encounter Visit Diagnoses Not on filedocumented in this encounter Care Teams Deputy Grand Jury Relationship Specialty Start Date End Date Reed Lew MD PCP - General 01/01/19 documented as of this encounter
--- OUTSIDE RECORDS SUMMARY | 2025-02-21 14:54 | XMS_ITS | Clinical Summary ---
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 Gender Identity Not on file Sexual Orientation Not on file Plan of Treatment Health Maintenance Due Date Last Done Comments Hepatitis C Virus (HCV) Screening 1970 Hepatitis B Immunization (1 of 3 - 19+ 3-dose series) 1989 Pap Smear 1991 Cervical Cancer Screening (CCS) 2000 HPV/Cotest 2000 Colonoscopy 2015 Colorectal Cancer Screening 2015 Cologuard 2020 Immunochemical Fecal Occult Blood 2020 Mammogram 2020 Pneumococcal Immunization (5 0+ years) (1 of 1 - PCV) 2020 Zoster Immunization (1 of 2) 2020 Influenza Immunization (#1) 2024 SARS-COV-2 Immunization ( season) 2024 Respiratory Syncytial Virus (RSV) Immunization (Adult) (1 - 1-dose 75+ series) 2045 DTaP/Tdap/Td Immunization Discontinued 03/17/2016 TdaP Immunization Completed 03/17/2016 Meningococcal Immunization (ACWY) Aged Out No longer eligible based on patient's age to complete this topic Pneumococcal Immunization Combined Aged Out No longer eligible based on patient's age to complete this topic Rotavirus Immunization Aged Out No lo nger eligible based on patient's age to complete this topic
--- OUTSIDE RECORDS SUMMARY | 2025-02-21 14:54 | XMS_ITS | Clinical Summary ---
Author Organization [facility] Address [address] [place] [address] Care Team Providers Care Sales Account Representative Name Role Phone Reed Lew MD Primary Care Provider [phone] Social History Tobacco Use Types Packs/Day Years Used Date Smoking Tobacco: Never Assessed Comments Unknown Sex and Gender Information Value Date Recorded Sex Assigned at Not on file Legal Sex Female 8:33 PM CDT Gender Identity Not on file Sexual Orientation Not on file Plan of Treatment Health Maintenance Due Date Last Done Comments Cervical Cancer Screening Pa p Smear (Age 30 to 64) Every 3 Years 1970 Colorectal Cancer Screening Colonoscopy (10 Years) 1970 Annual Physical 1973 Hepatitis C 1988 DTaP, Tdap and Td Vaccines ( 1 - Tdap) 1989 Hepatitis B Vaccines (1 of 3 - 19+ 3-dose series) 1989 Cervical Cancer Screening Pa p with HPV Testing (Age 30 to 64) Every 5 Years 2000 Cervical Cancer Screening with HPV 2000 Mammogram Screening 2010 Pneumococcal Vaccine: 50+ Ye ars (1 of 1 - PCV) 2020 Zoster Vaccines (1 of 2) 2020 COVID-19 Vaccine (1 - 2023-2 5 season) 2024 Meningococcal B Vaccine Aged Out No l onger eligible based on patient's age to complete this topic Meningococcal Vaccine Aged Out No clovis ponce eligible based on patient's age to complete this topic RSV Immunizations Under 20 Months Aged Out No longer eligible based on patient's age to complete this topic Care Teams Sales Account Representative Relationship Specialty Start Date End Date Reed Lew MD PCP - General 09/02/15
[2025-02-21 15:07] VITALS: BP 143/95; PULSE 91; RESP 16; TEMP 37.1; O2SAT 98
[2025-02-21 15:22] LABS: Basophils Percent Auto 0.3 % (0.2-1.2); Eosinophils Absolute Auto 0.1 K/mm3 (0-0.3); Eosinophils Percent Auto 0.6 % (0-4.4); Hematocrit 40.6 % (37.0-47.0); Hemoglobin 13.3 g/dL (12.0-15.0); Immature Granulocyte Absolute 0.02 K/mm3 (0.00-0.031); Immature Granulocyte Percent A 0.3 % (0-0.5); Lymphocytes Absolute Auto 1.12 K/mm3 (0.9-3.2); Lymphocytes Percent Auto 14.2 % (18.3-44.2); Mean Corpuscular HGB Conc 32.8 g/dl (32-36); Mean Corpuscular Hemoglobin 32.7 pg (26-34); Mean Corpuscular Volume 99.8 fl (80-100); Mean Platelet Volume 9.7 fl (7.4-10.4); Monocytes Absolute Auto 0.4 K/mm3 (0.1-0.6); Neutrophils Absolute Auto 6.3 K/mm3 (1.3-6.7); Neutrophils Percent Auto 79.6 % (45.5-73.1); Platelet Count Result 297 k/mm3 (150-375); Red Blood Count 4.07 M/mm3 (4.2-5.4); White Blood Count 7.9 K/mm3 (4.5-10.0)
--- OUTSIDE RECORDS SUMMARY | 2025-02-21 15:23 | XMS_ITS | Clinical Summary ---
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
--- OUTSIDE RECORDS SUMMARY | 2025-02-21 15:23 | XMS_ITS | Clinical Summary ---
Author Organization [facility] Address [address] [place] [address] Care Team Providers Care Hydraulic Press Tender Name Role Phone Reed Lew MD Primary Care Provider [phone] Allergies Active Allergy Reactions Criticality Noted Date [...] on file Legal Sex Female 8:30 PM CONVENTION PLANNER Gender Identity Female 05/30/2023 11:05 AM CDT [...] Breast Cancer Screening-Mammogram 08/25/2022 021 Influenza Vaccine (Season Ended) 2025 08/31/20 20 DTaP/Tdap/Td Vaccine (2 - Td or Tdap) 03/17/2026 Insurance [facility] Care Teams Hydraulic Press Tender Relationship Specialty Start Date End Date Reed Lew MD PCP - General 01/01/19
--- OUTSIDE RECORDS SUMMARY | 2025-02-21 15:23 | XMS_ITS | Encounter Summary ---
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 Historical Provider Final Res ult * PROCEDURE - RESULT (01/01/2019 12:00 AM PSYCHIATRIC SECURITY NURSE) Narrative 01/01/2019 12:00 AM PSYCHIATRIC SECURITY NURSE Ordered by an unspecified provider. Historical Provider Final Res ult documented in this encounter Visit Diagnoses Not on filedocumented in this encounter Care Teams Forms Examiner Relationship Specialty Start Date End Date Reed Lew MD PCP - General 01/01/19 documented as of this encounter
--- OUTSIDE RECORDS SUMMARY | 2025-02-21 15:23 | XMS_ITS | Clinical Summary ---
Author Organization [facility] Address [address] [place] [address] Care Team Providers Care Chain Testing Machine Operator Name Role Phone Reed Lew MD Primary Care Provider [phone] Social History Tobacco Use Types Packs/Day Years [...] age to complete this topic Care Teams Chain Testing Machine Operator Relationship Specialty Start Date End Date Reed Lew MD PCP - General 09/02/15
--- OUTSIDE RECORDS SUMMARY | 2025-02-21 15:23 | XMS_ITS | Clinical Summary ---
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 Gender Identity Not on file Sexual Orientation [...] Screening 09/22/2031 Medical Devices Implanted Type Area Coal Or Ore Controller Device Identifier Shelf Expiration Date Model / Serial / Lot Uppers Edge Burnisher Clip Surgiclip Iii Ti Rishi Sm 9in [id number] - [id number] Implanted:Q[place] : 1 on [place]22[place] [facility] [place] Right: Breast MEDTRONIC - COVIDIEN 09/04/2026 [id number] / / [id number] Breast Inspira Scx 495ml Scx-495 - [id number] Implanted:Qty : 1 on 06/21/2022 [place] [facility] [place] Mammary Left: Breast ALLERGAN- MEDICAL 07/16/2026 SCX-495 / [id number] / Imp Breast Inspira Scx 525ml Scx-525 - [id number] Implanted:Qty : 1 on 06/21/2022 by Shantanu [place] [facility] [place] Right: Breast ALLERGAN- MEDICAL 12/19/2023 SCX-525 / [id number] / Alloderm Matrix Tissue Thick [id number] - [id number] Implanted:Qty : 1 on 02/22/2022 by Sh[place] [facility] [place] Tissue Left: Breast ALLERGAN- MEDICAL 01/02/2023 [id number] / / [id number] Alloderm Matrix Tissue Thick [id number] - [id number] Implanted:Qty : 1 on 02/22/2022 by Shantanu [place] [facility] [place] Tissue Right: Breast ALLERGAN- MEDICAL 05/04/2023 [id number] / / [id number] Explanted Type Area Coal Or Ore Controller Device Identifier Shelf Expiration Date Model / Serial / Lot Education Supervisor Breast Natrelle Te 350ml [id number] - [id number] Implanted:Qty: 1 on 02/22/2022 by Sh[place] [facility] [place]ed:Qty: 1 on 06/21/2022 by Shantanu [place] [facility] [place]mary Left: Breast ALLERGAN- MEDICAL 07/06/2026 133S-FX-1 1-T / [id number] / Education Supervisor Breast Natrelle Te 350ml 275w-Up-16-[id number] - [id number] Implanted:Qty: 1 on 02/22/2022 by Shantanu [place] [facility] [place]ed:Qty: 1 on 06/21/2022 by Shantanu [place] [facility] [place]mary Right: Breast ALLERGAN- MEDICAL 05/08/2025 133S-FX-1 1-T / [id number] / Powerport Explanted:Qty: 1 on 06/21/2022 by Shantanu [place] [facility] [place] Left: Chest Description:not in computer previously Procedures [...] ID:Not on file Type:RX Commercial Address: [place] MEDICAID [place] Advance Directives For more information, please contact: [phone] * Full Code (Latest Code Status on File) Date Activated Date Inactivated Comments 02/22/2022 11:48 AM 02/23/2022 2:51 PM
--- OUTSIDE RECORDS SUMMARY | 2025-02-21 15:23 | XMS_ITS | Referral Summary ---
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 Member Subscriber Plan / Payer (Ef fective 2023-Present) Name:Fariba Ureña Relation to Subscriber:Self Name:Fariba Ureña Payer ID:[id number] (NAIC) Group ID:Not on file Type:MEDICAID RISK OTHER Address: [place] [address] [facility] IDPA Care Teams Snowmobile Mechanic Relationship Specialty Start Date End Date Reed Lew MD PCP - General 01/01/19
[2025-02-21 15:32] LABS: Alanine Aminotransferase 38 U/L (6-35); Albumin Level 4.5 g/dL (3.5-5.1); Alkaline Phosphatase 120 U/L (38-126); Anion Gap 10 mmol/L (4-12); Aspartate Amino Transferase 41 U/L (14-36); Bilirubin,Total 0.6 mg/dL (0.2-1.3); Blood Urea Nitrogen 22 mg/dL (7-17); Calcium 10.1 mg/dL (8.4-10.2); Carbon Dioxide 25 mmol/L (22-30); Chloride 103 mmol/L (98-107); Estimated CRCL calculation 45 ml/min; Estimated Glomerular Filt Rate 55; Glucose 92 mg/dL (65-110); Lipase 109 U/L (23-300); Potassium 3.9 mmol/L (3.4-5.0); Sodium 138 mmol/L (137-145)
[2025-02-21 16:12] LABS: BEDSIDEPREGUCG Negative (Negative)
[2025-02-21 16:19] LABS: Add Urine Microscopic? NO; Appearance Urine Clear (Clear); Bacteria Urine None Seen /hpf; Bilirubin Urine Negative (Negative); Blood Urine Non-Hemolyzed Trace (Negative); Color Urine Yellow (Yellow); Glucose Urine UA Negative (Negative); Ketones Urine 2+ mg/dL (Negative); Leukocyte Esterase Ur Negative LEU/UL (Negative); Nitrate Urine Negative (Negative); Non Pathogenic Casts 0-2; Protein Urine Negative (Negative); Specific Grav Ur 1.019 (1.001-1.035); Squamous Epithelial Cell Urine None Seen /hpf (Few); Urobilinogen Urine 0.2 mg/dL (<2.0); WBC Urine 0-5 /hpf (0-3)
[2025-02-21 16:34] LABS: Magnesium 1.8 mg/dL (1.6-2.3)
[2025-02-21] MEDS: SODIUM CHLORIDE 0.9% IV 1,000 ML 999 ML IV CONT (16:39)
[2025-02-21] MEDS: MORPHINE SULFATE (*CRX) 4 MG/ML INJ IV PUSH (16:39)
[2025-02-21] MEDS: FAMOTIDINE 20 MG/2 ML VIAL IV PUSH (16:39)
--- NOTE | 2025-02-21 16:41 | ED_ITS ---
HPI - Nausea/Vomiting/Diarrhea General Chief complaint: Nausea/Vomiting/Diarrhea Stated complaint: N/V/D, headache, chills since 0400 Time Seen by Provider: 02/21/25 14:58 Source: patient Mode of arrival: ambulatory Limitations: no limitations History of Present Illness HPI Narrative: Patient is a 54-year-old female, with PMH of breast and cervical CA- in remission, who presents the ED with report of nausea, vomiting, diarrhea. Patient reports she developed symptoms around 4:00 a.m. this morning. She reports having multiple episodes of diarrhea and vomiting. She does still feel nauseous currently. She reports having pain throughout her epigastric region and lower abdomen. States she has had similar episodes like this in the past which have been attributed to GERD. Denies ever being told she has cyclic vomiting syndrome. She has previously been on pantoprazole, but is no longer on this. Denies significant rectal bleeding or melena. Has been taking Pepto- Bismol. Denies fevers. Related Data Home Medications ?Medication ?Instructions ?Recorded ?Confirmed ?Last Taken ?Type lisinopril 10 mg tablet 10 mg PO DAILY 03/23/21 Unknown History tramadol 50 mg tablet 50 mg PO Q6H PRN 01/09/22 Unknown History Allergies Allergy/AdvReac Type Severity Reaction Status Date / Time ondansetron (From Zofran) Allergy Intermediate Dry Eye Verified 02/21/25 15:07 Review of Systems 2 Review of Systems: All systems reviewed & are unremarkable except as noted in HPI. 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 HEAD: Normocephalic, atraumatic. RESPIRATORY: Airway patent, respirations nonlabored. Clear to auscultation bilaterally, no rales, rhonchi, wheezing. CARDIOVASCULAR: Regular rate and rhythm without murmurs, rubs, or gallops. ABDOMINAL: Soft, mild tenderness diffusely throughout lower abdomen, tenderness in epigastric region, no rebound. Nondistended. Normoactive BS. MUSCULOSKELETAL: Moves all extremities. No gross deformities. SKIN: Warm, dry, normal color. NEURO: A&O X3. Speech clear. No ataxic movements. PSYCHIATRIC: Appropriate mood and affect. Normal interaction. Course Vital Signs Vital signs: Vital Signs Temperature 98.7 F 02/21/25 15:07 Pulse Rate 91 02/21/25 15:07 Respiratory Rate 16 02/21/25 15:07 Blood Pressure 143/95 H 02/21/25 15:07 Pulse Oximetry 98 02/21/25 15:07 Temperature 98.7 F 02/21/25 15:07 Pulse Rate 80 02/21/25 19:34 Respiratory Rate 28 H 02/21/25 19:21 Blood Pressure 138/92 H 02/21/25 19:34 Pulse Oximetry 100 02/21/25 19:21 MDM - Nausea/Vomiting/Diarrhea MDM Narrative Medical decision making narrative: Patient presented to ED with nausea, vomiting, diarrhea that began around 4:00 a.m. this morning. History of similar episodes in the past. Vital signs are stable upon arrival. Patient in no acute distress. She does still complain of nausea. Morphine, Zofran, Benadryl, Reglan, fluids ordered. Patient has adverse reaction to Zofran. Cbc without leukocytosis or anemia. Possible mild hemoconcentration. Baseline hemoglobin around 12. Fluids are ongoing. CMP fairly unremarkable. Stable electrolytes. Stable kidney function. Magnesium 1.8. Minimal transaminitis. Normal lipase. Normal bilirubin. UA with 2+ ketones, no signs of infection. Negative preg. UDS positive for cannabinoids. CT abd/pelvis obtained without acute changes. Showing some chronic findings, which appear unchanged from previous. Discussed lab and imaging findings with patient. She is feeling improved with supportive therapy. Able to tolerate p.o. intake. Discussed possibility of cannabinoid hyperemesis syndrome, cyclic vomiting syndrome, gastroenteritis, gastritis/acid reflux. Advised patient to avoid further marijuana use, will prescribe nausea medicine, Bentyl, omeprazole for home use. Will refer to GI for further evaluation if needed. Patient given return precautions. She agrees with plan. Discharged in stable condition. Medical Records Attestation: I reviewed the patient's medical records. Lab Data Attestation: I reviewed the patient's lab results. 02/21/25 15:14 02/21/25 15:14 Labs: Lab Results 02/21/25 02/21/25 Range/Units 15:14 16:10 WBC 7.9 (4.5-10.0) K/mm3 RBC 4.07 L (4.2-5.4) M/mm3 Hgb 13.3 (12.0-15.0) g/dL Hct 40.6 (37.0-47.0) % MCV 99.8 (80-100) fl MCH 32.7 (26-34) pg MCHC 32.8 (32-36) g/dl RDW 12.0 (11.5-14.5) % Plt Count 297 (150-375) k/mm3 MPV 9.7 (7.4-10.4) fl Immature Gran % (Auto) 0.3 (0-0.5) % Neut % (Auto) 79.6 H (45.5-73.1) % Lymph % (Auto) 14.2 L (18.3-44.2) % [place] % (Auto) 5.0 (2.6-8.5) % Eos % (Auto) 0.6 (0-4.4) % Baso % (Auto) 0.3 (0.2-1.2) % Lymph # (Auto) 1.12 (0.9-3.2) K/mm3 [place] # (Auto) 0.4 (0.1-0.6) K/mm3 Eos # (Auto) 0.1 (0-0.3) K/mm3 Baso # (Auto) 0.0 (0.0-0.1) K/mm3 Abs Immat Gran (auto) 0.02 (0.00-0.031) K/mm3 Absolute Neuts (auto) 6.3 (1.3-6.7) K/mm3 Absolute Nucleated RBC 0.000 (0.0-0.012) K/mm3 Nucleated RBC % 0.0 (0.0-0.2) % Sodium 138 (137-145) mmol/L Potassium 3.9 (3.4-5.0) mmol/L Chloride 103 (98-107) mmol/L Carbon Dioxide 25 (22-30) mmol/L Anion Gap 10 (4-12) mmol/L BUN 22 H (7-17) mg/dL Creatinine 1.05 H (0.7-1.0) mg/dL Estim Creat Clear Calc 45 ml/min Estimated GFR 55 L (59 - ) Glucose 92 (65-110) mg/dL Calcium 10.1 (8.4-10.2) mg/dL Magnesium 1.8 (1.6-2.3) mg/dL Total Bilirubin 0.6 (0.2-1.3) mg/dL AST 41 H (14-36) U/L ALT 38 H (6-35) U/L Alkaline Phosphatase 120 (38-126) U/L Total Protein 8.0 (6.3-8.2) g/dL Albumin 4.5 (3.5-5.1) g/dL Lipase 109 (23-300) U/L Urine Color Yellow (Yellow) Urine Appearance Clear (Clear) Urine pH 6.0 (5.0-9.0) Ur Specific [place] 1.019 (1.001-1.035) Urine Protein Negative (Negative) mg/dL Urine Glucose (UA) Negative (Negative) mg/dL Urine Ketones 2+ H (Negative) mg/dL Ur Blood (Man) Non-hemolyzed trace H (Negative) Urine Nitrate Negative (Negative) Urine Bilirubin Negative (Negative) Urine Urobilinogen 0.2 (<2.0) mg/dL Leukocyte Esterase Rfl Negative (Negative) KOSTA/UL Urine RBC 3-5 H (0-2) /hpf Urine WBC 0-5 (0-3) /hpf Ur Squamous Epith Cells None seen (Few) /hpf Urine Bacteria None seen /hpf Urine Casts 0-2 POC Urine HCG, Qual Negative (Negative) Urine Opiates Screen Negative (Negative) Urine Methadone Screen Negative (Negative) Ur Barbiturates Screen Negative (Negative) Ur Phencyclidine Scrn Negative (Negative) Ur Amphetamine Screen Negative (Negative) U Benzodiazepines Scrn Negative (Negative) Urine Cocaine Screen Negative (Negative) U Cannabinoids Screen Positive A (Negative) Imaging Data Attestation: I personally reviewed and interpreted this imaging study as follows: Radiologist's impression: ITS Impressions Abdomen/Pelvis CT 02/21/25 17:27 IMPRESSION: 1. no evidence of appendicitis, diverticulitis or intestinal obstruction. 2. Sclerotic area in the right iliac bone and acetabulum unchanged from previous examination. 3. Multiple hypodensities in the liver unchanged. Discharge Plan Discharge Clinical Impression: Gastroenteritis Patient Disposition: Home Condition: Stable Instructions: Antibiotic Form, Dehydration (ED), Clear Liquid Diet (ED), Gastroenteritis (ED), Acute Nausea and Vomiting (ED), Cyclic Vomiting Syndrome (ED) Additional Instructions: Utilize Reglan as needed for further nausea. Recommend taking omeprazole daily for acid reflux. Continue Tylenol, Bentyl as needed for abdominal discomfort. Increase fluid intake. Recommend electrolyte rich fluids, gatorade, pedialyte, body armour. Recommend clear liquids or bland diet until symptoms improve, such as bananas, rice, applesauce, toast, or crackers. Follow up with your primary care doctor and/or GI for further evaluation. Return to the ED if you experience worsening or severe symptoms, unable to keep down food or drink, severe pain, fevers, rectal bleeding, vomiting blood, or any other symptoms of concern. Avoid marijuana use as this may be causing your episodes of nausea and vomiting. Patient Language: South Korean Prescriptions: New metoclopramide HCl 5 mg tablet 5 mg PO Q6H PRN (Reason: nausea and vomiting) Qty: 15 0RF dicyclomine 20 mg tablet 20 mg PO TID PRN (Reason: Abdominal Discomfort) Qty: 15 0RF omeprazole 20 mg capsule,delayed release(DR/EC) 20 mg PO DAILY Qty: 30 0RF No Action tramadol 50 mg tablet 50 mg PO Q6H PRN lisinopril 10 mg Tablet 10 mg PO DAILY cefdinir 300 mg capsule 300 mg PO Q12H 5 Days Qty: 10 0RF Follow-up/Referrals: Carmelo Knutson MD [Physician] - (GI) UNKNOWN,DOCTOR [Primary Care Provider] - Time of Disposition: 20:00
[2025-02-21] MEDS: diphenhydrAMINE HCl INJ 50 MG/ML VIAL 25 MG IV PUSH (16:45)
[2025-02-21 16:46] VITALS: BP 142/79; PULSE 85; RESP 15; O2SAT 100
[2025-02-21] MEDS: METOCLOPRAMIDE HCL INJ 10 MG/2 ML VIAL IV PUSH (16:46)
[2025-02-21 17:26] LABS: Amphetamine Screen Urine Negative (Negative); Barbiturate Screen Urine Negative (Negative); Benzodiazepines Screen Urine Negative (Negative); Cannabinoid Screen Urine Positive (Negative); Cocaine Screen Urine Negative (Negative); Methadone Screen Urine Negative (Negative); Opiate Screen Urine Negative (Negative); Phencyclidine Screen Urine Negative (Negative)
[2025-02-21 19:21] VITALS: BP 129/73; PULSE 84; RESP 28; O2SAT 100
[2025-02-21 19:31] VITALS: BP 130/75; PULSE 72
[2025-02-21 19:32] VITALS: BP 136/85; PULSE 86
[2025-02-21 19:34] VITALS: BP 138/92; PULSE 80
== END 2025-02-21 20:42 | disposition home or self-care (01) ==
PROVIDERS: Emergency Provider Physician Assistant
DX: K52.9 Noninfective gastroenteritis and colitis, unspecified (principal); I10 Essential (primary) hypertension; K21.9 Gastro-esophageal reflux disease without esophagitis; Z85.3 Personal history of malignant neoplasm of breast; Z85.41 Personal history of malignant neoplasm of cervix uteri; Z90.710 Acquired absence of both cervix and uterus; Z79.899 Other long term (current) drug therapy
CPT/HCPCS: 36415; 74177; 80053; 80307; 81003; 81025; 83690; 83735; 85025; 96361; 96374; 96375; 99284; J1200; J2270; J2765; J7030; Q9967

== ENCOUNTER 2025-06-13 02:13 | Emergency (ER) | payer OTHER, MEDICAID, SELFPAY ==
[2025-06-13 02:22] VITALS: BP 155/118; PULSE 100; RESP 26; TEMP 36.8; O2SAT 100
[2025-06-13 02:34] VITALS: BP 194/115; PULSE 88; RESP 19; O2SAT 99
[2025-06-13 02:39] LABS: Hematocrit 38.2 % (37.0-47.0); Hemoglobin 12.7 g/dL (12.0-15.0); Immature Granulocyte Percent A 0.2 % (0-0.5); Lymphocytes Absolute Auto 0.91 K/mm3 (0.9-3.2); Mean Corpuscular HGB Conc 33.2 g/dl (32-36); Mean Corpuscular Hemoglobin 32.9 pg (26-34); Mean Corpuscular Volume 99.0 fl (80-100); Nucleated Red Blood Cells Absolute Auto 0.000 K/mm3 (0.0-0.012); Nucleated Red Blood Cells Perc 0.0 % (0.0-0.2); Platelet Count Result 312 k/mm3 (150-375); Red Blood Count 3.86 M/mm3 (4.2-5.4); White Blood Count 8.7 K/mm3 (4.5-10.0)
[2025-06-13 02:51] LABS: Alanine Aminotransferase 21 U/L (6-35); Albumin Level 4.5 g/dL (3.5-5.1); Alkaline Phosphatase 105 U/L (38-126); Anion Gap 8 mmol/L (4-12); Aspartate Amino Transferase 32 U/L (14-36); Bilirubin,Total 0.6 mg/dL (0.2-1.3); Blood Urea Nitrogen 18 mg/dL (7-17); Calcium 9.7 mg/dL (8.4-10.2); Carbon Dioxide 26 mmol/L (22-30); Chloride 100 mmol/L (98-107); Estimated CRCL calculation 43 ml/min; Estimated Glomerular Filt Rate 52; Glucose 101 mg/dL (65-110); Lipase 249 U/L (23-300); Potassium 4.1 mmol/L (3.4-5.0); Sodium 134 mmol/L (137-145); Total Protein 8.0 g/dL (6.3-8.2)
--- NOTE | 2025-06-13 03:01 | ED.ABDPAIN ---
HPI - Abdominal Pain General Chief Complaint: Abdominal Pain Stated Complaint: food poisoning Time Seen by Provider: 06/13/25 02:39 History of Present Illness HPI narrative: 55-year-old female with history of breast cancer in remission presenting to the emergency department with upper abdominal cramping and some nauseousness and vomiting. She states symptoms started approximately 2 hours after ingesting some food at a and thinks she got food poisoning. Denies any diarrhea or loose stools. Vomited several times with clear mucus initially and now some yellow material. No chest pain shortness a breath. States that feels like food poisoning but is not sure if anyone else had feeling similar symptoms. Tried some Pepto-Bismol and GI you medications at home with minimal relief. No lower abdominal pain. She has a history of hysterectomy but no other abdominal surgeries. Was otherwise in her normal state of health. No fever chills. No other acute concerns and this occurred approximately 6:00 p.m. tonight. Related Data Home Medications ?Medication ?Instructions ?Recorded ?Confirmed ?Last Taken ?Type lisinopril 10 mg tablet 10 mg PO DAILY 03/23/21 Unknown History tramadol 50 mg tablet 50 mg PO Q6H PRN 01/09/22 Unknown History Allergies Allergy/AdvReac Type Severity Reaction Status Date / Time ondansetron (From Zofran) Allergy Intermediate Dry Eye Verified 02/21/25 15:07 Review of Systems Review of Systems: As reviewed above in HPI [facility] [place] Past Medical History Medical History Hypertension Breast cancer 08/31/2021 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 Surgical History Surgical History S/P dilatation and curettage (~03/2021) S/P HSCOPE D&C History of robot-assisted laparoscopic hysterectomy (~08/2021) History of bilateral tubal ligation Social History Social History Substance use: never Gender identity (if verbalized by the patient): Female Exam Narrative: GENERAL: [Well-appearing, well-nourished, and in no acute distress.] HEAD: [Normocephalic, atraumatic.] EYES: [PERRLA and EOMI.] ENT: Nares clear, no rhinorrhea or epistaxis. Mucous membranes moist. NECK: Supple. CHEST: [Clear to auscultation. No respiratory distress.] HEART: [Regular rate and rhythm]. No murmur heard. [Normal peripheral pulses.] ABDOMEN: [Soft, nondistended], minimally tender in the epigastrium, [No rigidity or guarding] EXTREMITIES: Normal range of motion. [No edema.] SKIN: Warm, dry, no rash. NEURO: [No focal deficits]. Alert and oriented [x3.] PSYCH: [Normal mood and affect.] Course Vital Signs Vital signs: Vital Signs Temperature 36.8 C 06/13/25 02:22 Pulse Rate 100 06/13/25 02:22 Respiratory Rate 26 H 06/13/25 02:22 Blood Pressure 155/118 H 06/13/25 02:22 Pulse Oximetry 100 06/13/25 02:22 Oxygen Delivery Room Air 06/13/25 02:22 Temperature 36.8 C 06/13/25 02:22 Pulse Rate 88 06/13/25 02:34 Respiratory Rate 19 06/13/25 02:34 Blood Pressure 194/115 H 06/13/25 02:34 Pulse Oximetry 99 06/13/25 02:34 Oxygen Delivery Room Air 06/13/25 02:22 MDM - Abdominal Pain MDM Narrative Medical decision making narrative: 55-year-old female with history of breast cancer in remission presenting to the emergency department with upper abdominal cramping and some nauseousness and vomiting. She states symptoms started approximately 2 hours after ingesting some food at a and thinks she got food poisoning. Denies any diarrhea or loose stools. Vomited several times with clear mucus initially and now some yellow material. No chest pain shortness a breath. States that feels like food poisoning but is not sure if anyone else had feeling similar symptoms. Tried some Pepto-Bismol and GI you medications at home with minimal relief. No lower abdominal pain. She has a history of hysterectomy but no other abdominal surgeries. Was otherwise in her normal state of health. No fever chills. No other acute concerns and this occurred approximately 6:00 p.m. tonight. Vital signs reassuring. No tachycardia, fever, hypoxia. Mildly elevated blood pressure 155/118. Patient does not appear in acute distress but does have some minimal tenderness on epigastrium palpation. Differential includes gastroenteritis, viral gastroenteritis, bacterial gastroenteritis, pancreatitis, hepatitis, gastritis, less likely cholecystitis or intra-abdominal infection otherwise. Laboratory studies obtained and she was given a combination of medications for symptom control including Bentyl, Reglan, diphenhydramine fluid bolus and re-evaluated afterwards. Will evaluate laboratory studies and see if there is any indications for advanced CT imaging. Lab showed no leukocytosis or anemia. Normal platelet count. Electrolytes are unremarkable. Normal creatinine at her baseline, normal glucose and LFTs. Negative lipase. Patient felt better upon re-evaluation. Safe and stable for discharge home at this time and will be sent home with some Bentyl and Reglan as needed. Given return precautions and patient comfortable with the plan. Medical Records Attestation: I reviewed the patient's medical records. Lab Data Attestation: I reviewed the patient's lab results. 06/13/25 02:33 06/13/25 02:33 Labs: Lab Results 06/13/25 06/13/25 Range/Units 02:33 03:18 WBC 8.7 (4.5-10.0) K/mm3 RBC 3.86 L (4.2-5.4) M/mm3 Hgb 12.7 (12.0-15.0) g/dL Hct 38.2 (37.0-47.0) % MCV 99.0 (80-100) fl MCH 32.9 (26-34) pg MCHC 33.2 (32-36) g/dl RDW 13.1 (11.5-14.5) % Plt Count 312 (150-375) k/mm3 MPV 9.1 (7.4-10.4) fl Immature Gran % (Auto) 0.2 (0-0.5) % Neut % (Auto) 81.6 H (45.5-73.1) % Lymph % (Auto) 10.5 L (18.3-44.2) % [place] % (Auto) 5.6 (2.6-8.5) % Eos % (Auto) 1.8 (0-4.4) % Baso % (Auto) 0.3 (0.2-1.2) % Lymph # (Auto) 0.91 (0.9-3.2) K/mm3 [place] # (Auto) 0.5 (0.1-0.6) K/mm3 Eos # (Auto) 0.2 (0-0.3) K/mm3 Baso # (Auto) 0.0 (0.0-0.1) K/mm3 Abs Immat Gran (auto) 0.02 (0.00-0.031) K/mm3 Absolute Neuts (auto) 7.1 H (1.3-6.7) K/mm3 Absolute Nucleated RBC 0.000 (0.0-0.012) K/mm3 Nucleated RBC % 0.0 (0.0-0.2) % Sodium 134 L (137-145) mmol/L Potassium 4.1 (3.4-5.0) mmol/L Chloride 100 (98-107) mmol/L Carbon Dioxide 26 (22-30) mmol/L Anion Gap 8 (4-12) mmol/L BUN 18 H (7-17) mg/dL Creatinine 1.09 H (0.7-1.0) mg/dL Estim Creat Clear Calc 43 ml/min Estimated GFR 52 L (59 - ) Glucose 101 (65-110) mg/dL Calcium 9.7 (8.4-10.2) mg/dL Total Bilirubin 0.6 (0.2-1.3) mg/dL AST 32 (14-36) U/L ALT 21 (6-35) U/L Alkaline Phosphatase 105 (38-126) U/L Total Protein 8.0 (6.3-8.2) g/dL Albumin 4.5 (3.5-5.1) g/dL Lipase 249 (23-300) U/L Urine Color Yellow (Yellow) Urine Appearance Clear (Clear) Urine pH 5.5 (5.0-9.0) Ur Specific [place] 1.021 (1.001-1.035) Urine Protein Trace (Negative) mg/dL Urine Glucose (UA) Negative (Negative) mg/dL Urine Ketones Negative (Negative) mg/dL Ur Blood (Man) Trace (Negative) Urine Nitrate Negative (Negative) Urine Bilirubin Negative (Negative) Urine Urobilinogen 0.2 (<2.0) mg/dL Leukocyte Esterase Rfl Negative (Negative) KOSTA/UL Urine RBC 3-5 H (0-2) /hpf Urine WBC 0-5 (0-3) /hpf Ur Squamous Epith Cells None seen (Few) /hpf Urine Bacteria None seen /hpf Urine Casts 0-2 Discharge Plan Discharge Clinical Impression: Gastroenteritis Patient Disposition: Home Condition: Stable Instructions: Antibiotic Form, Gastroenteritis (DC), Acute Nausea and Vomiting (DC) Additional Instructions: Laboratory studies are all reassuring, organs are normal in good health, no signs of systemic infection. We will send you home with some pain control and symptom controlling medications for the nausea and abdominal discomfort. Return with any emergent concerns. Follow-up with regular doctor outpatient. Patient Language: Cambodian Prescriptions: New dicyclomine 20 mg tablet 20 mg PO TID PRN (Reason: abdominal pain) Qty: 20 0RF metoclopramide HCl [Reglan] 10 mg tablet 10 mg PO Q6H PRN (Reason: nausea and vomiting) Qty: 14 0RF No Action tramadol 50 mg tablet 50 mg PO Q6H PRN lisinopril 10 mg Tablet 10 mg PO DAILY cefdinir 300 mg capsule 300 mg PO Q12H 5 Days Qty: 10 0RF metoclopramide HCl 5 mg tablet 5 mg PO Q6H PRN (Reason: nausea and vomiting) Qty: 15 0RF dicyclomine 20 mg tablet 20 mg PO TID PRN (Reason: Abdominal Discomfort) Qty: 15 0RF omeprazole 20 mg capsule,delayed release(DR/EC) 20 mg PO DAILY Qty: 30 0RF Follow-up/Referrals: UNKNOWN,DOCTOR [Primary Care Provider] - Time of Disposition: 05:02
--- OUTSIDE RECORDS SUMMARY | 2025-06-13 03:06 | XMS_ITS | Clinical Summary ---
Author Organization [facility] Address [address] [place] [id number] Care Team Providers Care Applications Consultant Name Role Phone Reed Lew MD Primary Care Provider [phone] Social History Tobacco Use Types Packs/Day Years [...] age to complete this topic Care Teams Applications Consultant Relationship Specialty Start Date End Date Reed Lew MD PCP - General 09/02/15
--- OUTSIDE RECORDS SUMMARY | 2025-06-13 03:06 | XMS_ITS | Clinical Summary ---
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 Gender Identity Not on file Sexual Orientation [...] 2:05 PM CDT Height 160 cm (5' 3) 08/04/2022 12:41 PM CDT Body Mass Index [...] (1 of 2) 2020 INFLUENZA VACCINE (#1) 2025 08/31/2020, 2019 DTAP/TDAP/TD VACCINES (2 - Td or Tdap) 03/17/2026 COLORECTAL SCREENING 09/22/2031 09/22/2021 Colorectal Cancer Screening 09/22/2031 Medical Devices Implanted Type Area Edger Machine Helper Device Identifier Shelf Expiration Date Model / Serial / Lot Cathode Ray Tube Assembler Clip Surgiclip Iii Ti Rishi Sm 9in [id number] - [id number] Implanted:Qty : 1 on 02/22/2022 by Shantanu Nguyen MD at [facility] Clip Right: Breast MEDTRONIC - COVIDIEN 09/04/2026 [id number] / / [id number] Breast Inspira Scx 495ml Scx-495 - [id number] Implanted:Qty : 1 on 06/21/2022 by Shantanu Nguyen MD at [facility] Mammary Left: Breast ALLERGAN- MEDICAL 07/16/2026 SCX-495 / [id number] / Imp Breast Inspira Scx 525ml Scx-525 - [id number] Implanted:Qty : 1 on 06/21/2022 by Shantanu Nguyen MD at [facility] Mammary Right: Breast ALLERGAN- MEDICAL 12/19/2023 SCX-525 / [id number] / Alloderm Matrix Tissue Thick [id number] - [id number] Implanted:Qty : 1 on 02/22/2022 by Shantanu Nguyen MD at [facility] Tissue Left: Breast ALLERGAN- MEDICAL 01/02/2023 [id number] / / [id number] Alloderm Matrix Tissue Thick [id number] - [id number] Implanted:Qty : 1 on 02/22/2022 by Shantanu Nguyen MD at [facility] Tissue Right: Breast ALLERGAN- MEDICAL 05/04/2023 [id number] / / [id number] Explanted Type Area Edger Machine Helper Device Identifier Shelf Expiration Date Model / Serial / Lot Solar Process Engineer Breast Natrelle Te 350ml [id number] - [id number] Implanted:Qty: 1 on 02/22/2022 by Shantanu Nguyen MD at [facility] Explanted:Qty: 1 on 06/21/2022 by Shantanu Nguyen MD at [facility] Mammary Left: Breast ALLERGAN- MEDICAL 07/06/2026 133S-FX-1 1-T / [id number] / Solar Process Engineer Breast Natrelle Te 350ml [id number] - [id number] Implanted:Qty: 1 on 02/22/2022 by Shantanu Nguyen MD at [facility] Explanted:Qty: 1 on 06/21/2022 by Shantanu Nguyen MD at [facility] Mammary Right: Breast ALLERGAN- MEDICAL 05/08/2025 133S-FX-1 1-T / [id number] / Powerport Explanted:Qty: 1 on 06/21/2022 by Shantanu Nguyen MD at [facility] Left: Chest Description:not in computer previously Procedures [...] Payer ID:Not on file Type:RX Commercial Address: [place] MEDICAID [place] Advance Directives For more information, please contact: [phone] * Full Code (Latest Code Status on File) Date Activated Date Inactivated Comments 02/22/2022 11:48 AM 02/23/2022 2:51 PM
--- OUTSIDE RECORDS SUMMARY | 2025-06-13 03:06 | XMS_ITS | Clinical Summary ---
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 Gender Identity Not on file Sexual Orientation Not on file Plan of Treatment Health Maintenance Due Date Last Done Comments Hepatitis C Virus (HCV) Screening 1970 Hepatitis B Immunization (1 of 3 - 19+ 3-dose series) 1989 Pap Smear 1991 Cervical Cancer Screening (CCS) 2000 HPV/Cotest 2000 Cologuard 2015 Colonoscopy 2015 Colorectal Cancer Screening 2015 Immunochemical Fecal Occult Blood 2015 Pneumococcal Immunization (5 0+ years) (1 of 1 - PCV) 2020 Zoster Immunization (1 of 2) 2020 SARS-COV-2 Immunization (1 - season) 2024 Influenza Immunization (#1) 2025 Respiratory Syncytial Virus (RSV) Immunization (Adult) (1 - 1-dose 75+ series) 2045 DTaP/Tdap/Td Immunization Discontinued 03/17/2016 TdaP Immunization Completed 03/17/2016 Human Papillomavirus (HPV) Immunization Aged Out No longer eligible b ased on patient's age to complete this topic Meningococcal Immunization (ACWY) Aged Out No longer eligible based on patient's age to complete this topic Rotavirus Immunization Aged Out No lo nger eligible based on patient's age to complete this topic
[2025-06-13] MEDS: DICYCLOMINE HCL 10 MG CAPSULE PO (03:27)
[2025-06-13] MEDS: SODIUM CHLORIDE 0.9% IV 1,000 ML 999 ML IV CONT (03:27)
[2025-06-13] MEDS: METOCLOPRAMIDE HCL INJ 10 MG/2 ML VIAL 5 MG IV PUSH (03:27)
[2025-06-13 03:29] VITALS: BP 161/88; PULSE 72; RESP 16; O2SAT 100
[2025-06-13 03:44] LABS: Add Urine Microscopic? YES; Appearance Urine Clear (Clear); Glucose Urine UA Negative (Negative); Leukocyte Esterase Ur Negative LEU/UL (Negative); Nitrate Urine Negative (Negative); Non Pathogenic Casts 0-2; Specific Grav Ur 1.021 (1.001-1.035)
[2025-06-13 04:00] VITALS: BP 162/89; PULSE 89; RESP 19; O2SAT 100
[2025-06-13 05:00] VITALS: BP 145/80; PULSE 95; RESP 18; O2SAT 100
[2025-06-13] MEDS: ONDANSETRON HCL ODT 4 MG TABLET PO (05:26)
== END 2025-06-13 05:34 | disposition home or self-care (01) ==
PROVIDERS: Emergency Provider Student in an Organized Health Care Education/Training Program
DX: K52.9 Noninfective gastroenteritis and colitis, unspecified (principal); I10 Essential (primary) hypertension; Z85.3 Personal history of malignant neoplasm of breast
CPT/HCPCS: 36415; 80053; 81001; 83690; 85025; 96361; 96374; 96375; 99284; A9270; J1200; J2765; J7030

== ENCOUNTER 2025-06-17 18:44 | Emergency (ER) | payer OTHER, MEDICAID, SELFPAY ==
[2025-06-17 18:46] VITALS: BP 152/105; PULSE 114; RESP 16; TEMP 36.3; O2SAT 98
--- OUTSIDE RECORDS SUMMARY | 2025-06-17 18:46 | XMS_ITS | Clinical Summary ---
Author Organization [facility] Address [address] [place] [address] Care Team Providers Care Body Shop Estimator Name Role Phone Reed Lew MD Primary Care Provider [phone] Social History Tobacco Use Types Packs/Day Years [...] age to complete this topic Care Teams Body Shop Estimator Relationship Specialty Start Date End Date Reed Lew MD PCP - General 09/02/15
--- OUTSIDE RECORDS SUMMARY | 2025-06-17 18:46 | XMS_ITS | Clinical Summary ---
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
--- OUTSIDE RECORDS SUMMARY | 2025-06-17 18:46 | XMS_ITS | Clinical Summary ---
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 [place] Right: Breast MEDTRONIC - COVIDIEN 09/04/2026 [id number] / / [id number] Imp Breast Inspira Scx 495ml Scx-495 - [id number] Implanted:Qty : 1 on 06/21/2022 by Shantanu Nguyen [place] [facility] [place] Mam[place] Left: Breast ALLERGAN- MEDICAL 07/16/2026 SCX-495 / [id number] / Imp Breast Inspira Scx 525ml Scx-525 - [id number] Implanted:Qty : 1 on 06/21/2022 by Shantanu Nguyen MD [place] [facility] [place] [place]mary Right: Breast ALLERGAN- MEDICAL 12/19/2023 SCX-525 / [id number] / Alloderm Matrix Tissue Thick [id number] - [id number] Implanted:Qty : 1 on 02/22/2022 by Shantanu Nguyen MD [place] [facility] [place] [place] Left: Breast ALLERGAN- MEDICAL 01/02/2023 [id number] / / [id number] Alloderm Matrix Tissue Thick [id number] - [id number] Implanted:Qty : 1 on 02/22/2022 by Shantanu Nguyen MD [place] [facility] [place] Right: Breast ALLERGAN- MEDICAL 05/04/2023 [id number] / / [id number] Explanted Type Area Patient Navigator Device Identifier Shelf Expiration Date Model / Serial / Lot Set Up Inspector Breast Natrelle Te 350ml [id number]-Wo-56-[id number] - [id number] Implanted:Qty: 1 on 02/22/2022 by Shantanu Nguyen [place] [facility] [place]ed:Qty: 1 on 06/21/2022 by Shantanu Nguyen MD at [facility] Mammary Left: Breast ALLERGAN- MEDICAL 07/06/2026 133S-FX-1 1-T / [id number] / Set Up Inspector Breast Natrelle Te 350ml [id number]-[id number]-76-[id number] - [id number] Implanted:Qty: 1 on 02/22/2022 by Shantanu Nguyen MD [place] [facility] [place] Explanted:Qty: 1 on 06/21/2022 by Shantanu Nguyen MD [place] [facility] Mammary Right: Breast ALLERGAN- MEDICAL 05/08/2025 133S-FX-1 1-T / [id number] / Powerport Explanted:Qty: 1 on 06/21/2022 by Shantanu Nguyen MD [place] [facility] [place] [place]: Chest Description:not in computer previously Procedures [...] Advance Directives For more information, please contact: [phone] * Full Code (Latest Code Status on File) Date Activated Date Inactivated Comments 02/22/2022 11:48 AM 02/23/2022 2:51 PM
--- OUTSIDE RECORDS SUMMARY | 2025-06-18 00:38 | XMS_ITS | Encounter Summary ---
Author Organization [facility] Facility Care Team Providers Care Petroleum Engineering Teacher Name Role Phone Reed Lew MD Primary Care Provider [phone] Encounter Details Date Type Department Care Team (Latest Contact Info) Description 01/07/2019 Orders Only [facility] CLINCONV ProviderRicardo MD [address] [place] [address] Social History Tobacco Use Types Packs/Day Years Used Date Smoking Tobacco: Never Assessed Comments Unknown Sex and Gender Information Value Date Recorded Sex Assigned at Not on file Legal Sex Female 8:30 PM CONTOUR STITCHER Gender Identity Female 05/30/2023 11:05 AM CDT Sexual Orientation Not on file documented as of this encounter Plan of Treatment Not on file documented as of this encounter Procedures Procedure Name Priority Date/Time Associated Diagnosis Comments SCAN - PATHOLOGY 01/07/2019 12:0 0 AM CONTOUR STITCHER PROCEDURE - RESULT 01/01/2019 12 :00 AM CONTOUR STITCHER documented in this encounter Results * SCAN - PATHOLOGY (01/07/2019 12:00 AM CONTOUR STITCHER) Narrative 01/07/2019 12:00 AM CONTOUR STITCHER Ordered by an unspecified provider. Historical Provider Final Res ult * PROCEDURE - RESULT (01/01/2019 12:00 AM CONTOUR STITCHER) Narrative 01/01/2019 12:00 AM CONTOUR STITCHER Ordered by an unspecified provider. Historical Provider Final Res ult documented in this encounter Visit Diagnoses Not on filedocumented in this encounter Care Teams Petroleum Engineering Teacher Relationship Specialty Start Date End Date Reed Lew MD PCP - General 01/01/19 documented as of this encounter
--- OUTSIDE RECORDS SUMMARY | 2025-06-18 00:38 | XMS_ITS | Clinical Summary ---
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
--- OUTSIDE RECORDS SUMMARY | 2025-06-18 00:38 | XMS_ITS | Clinical Summary ---
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 MANAGER Gender Identity Not on file Sexual Orientation [...] Screening 09/22/2031 Medical Devices Implanted Type Area Certified Genetic Counselor Device Identifier Shelf Expiration Date Model / Serial / Lot Take Out Waitress Clip Surgiclip Iii Ti Rishi Sm 9in [id number] - [id number] Implanted:Qty : 1 on 02/22/2022 by Shantanu Nguyen MD at [facility] [place] Clip Right: Breast MEDTRONIC - COVIDIEN 09/04/2026 [id number] / / [id number] Imp Breast Inspira Scx 495ml Scx-495 - [id number] Implanted:Qty : 1 on 06/21/2022 by Shantanu Nguyen MD at [facility] [place] Mammary Left: Breast ALLERGAN- MEDICAL 07/16/2026 SCX-495 / [id number] / Imp Breast Inspira Scx 525ml Scx-525 - [id number] Implanted:Qty : 1 on 06/21/2022 by Shantanu Nguyen MD at [facility] [place] Mammary Right: Breast ALLERGAN- MEDICAL 12/19/2023 SCX-525 / [id number] / Alloderm Matrix Tissue Thick [id number] - [id number] Implanted:Qty : 1 on 02/22/2022 by Shantanu Nguyen MD at [facility] [place] Tissue Left: Breast ALLERGAN- MEDICAL 01/02/2023 [id number] / / [id number] Alloderm Matrix Tissue Thick [id number] - [id number] Implanted:Qty : 1 on 02/22/2022 by Shantanu Nguyen MD at [facility] [place] Tissue Right: Breast ALLERGAN- MEDICAL 05/04/2023 [id number] / / [id number] Explanted Type Area Certified Genetic Counselor Device Identifier Shelf Expiration Date Model / Serial / Lot Powertrain Design Engineer Breast Natrelle Te 350ml 064t-Oz-69-T - [id number] Implanted:Qty: 1 on 02/22/2022 by Shantanu Nguyen MD at [facility] [place] Explanted:Qty: 1 on 06/21/2022 by Shantanu Nguyen MD at [facility] [place] Mammary Left: Breast ALLERGAN- MEDICAL 07/06/2026 133S-FX-1 1-T / [id number] / Powertrain Design Engineer Breast Natrelle Te 350ml [id number]-Zs-13-T - [id number] Implanted:Qty: 1 on 02/22/2022 by Shantanu Nguyen MD at [facility] [place] Explanted:Qty: 1 on 06/21/2022 by Shantanu Nguyen MD at [facility] Mammary Right: Breast ALLERGAN- MEDICAL 05/08/2025 133S-FX-1 1-T / [id number] / Powerport Explanted:Qty: 1 on 06/21/2022 by Shantanu Nguyen MD at [facility] [place] Left: Chest Description:not in computer previously Procedures [...] ID:Not on file Type:RX Commercial Address: [place]ICA[employer] [place] Advance Directives For more information, please contact: [phone] * Full Code (Latest Code Status on File) Date Activated Date Inactivated Comments 02/22/2022 11:48 AM 02/23/2022 2:51 PM
--- OUTSIDE RECORDS SUMMARY | 2025-06-18 00:38 | XMS_ITS | Clinical Summary ---
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
--- OUTSIDE RECORDS SUMMARY | 2025-06-18 00:39 | XMS_ITS | Clinical Summary ---
Author Organization [facility] Address [address] [place] [address] Care Team Providers Care Surgical Oncologist Name Role Phone Reed Lew MD Primary Care Provider [phone] Social History Tobacco Use Types Packs/Day Years [...] age to complete this topic Care Teams Surgical Oncologist Relationship Specialty Start Date End Date Reed Lew MD PCP - General 09/02/15
== END 2025-06-17 23:59 | disposition left against medical advice (07) ==
DX: R11.2 Nausea with vomiting, unspecified (principal)
CPT/HCPCS: 99199

== ENCOUNTER 2025-07-08 07:05 | Inpatient (IN) | payer OTHER, MEDICAID, SELFPAY ==
[2025-07-08] VITALS (19 sets, daily range): BP systolic 98–137; BP diastolic 72–111; PULSE 81–128; RESP 12–25; TEMP 36.6–36.8; O2SAT 96–100; BMI 20.9
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
--- NOTE | ~2025-07-08 | XR_ITS ---
SMALL BOWEL SERIES ONLY INDICATION: Small bowel obstruction TECHNIQUE: Serial plain films and fluoroscopic spot films are performed following oral demonstration of thin barium. COMPARISON: Obstructive series dated 07/09/2025 FINDINGS: Barium was followed sequentially through the small bowel. There are dilated loops of small bowel throughout the abdomen. There is delayed transit to the colon. The colon is not visualized at 6 hours. Findings compatible with obstruction. There is reflux into the esophagus from the stomach. IMPRESSION: 1: Small bowel obstruction. 2: Gastroesophageal reflux. Reviewed, dictated and finalized at location O.
--- NOTE | ~2025-07-08 | XR_ITS ---
EXAMINATION: XR chest PICC line DATE: 07/11/2025 14:02 INDICATION: PICC line placement TECHNIQUE: Multiple AP views of the chest were obtained during placement of a left upper extremity peripherally inserted central venous catheter. COMPARISON: Chest radiograph date FINDINGS: Lungs remain clear with no focal airspace opacities, pulmonary edema, pleural effusion or pneumothorax. Multiple small metallic foci suggestive for apical project over the left lower lung zone and left upper quadrant as well as at the left base of the neck. Heart size is normal. Nasogastric tube tip in proximal side port in the body the stomach. Bilateral breast implants. Residual oral contrast material in the colon. Left upper extremity peripherally inserted central venous catheter (PICC) was placed initially extending cephalad along the left internal jugular vein. This is subsequently repositioned extending into the superior vena cava before turning back and towards the left likely within the azygos vein. This is subsequently withdrawn and repositioned with the distal tip on the final image in the midportion of the superior vena cava below the level of the azygos vein. IMPRESSION: 1. Left upper extremity PICC line with distal tip positioned in the mid superior vena cava on the final image. 2. No acute cardiopulmonary disease. Reviewed, dictated and finalized at location A. IMPRESSION: 1. Left upper extremity PICC line with distal tip positioned in the mid superio r vena cava on the final image. 2. No acute cardiopulmonary disease.
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
--- NOTE | ~2025-07-08 | XR_ITS ---
EXAM/PROCEDURE: XR abdomen obstructive series - 07/09/2025 10:44 CDT HISTORY: 55 years old Female with Small bowel obstruction COMPARISON: None available. TECHNIQUE: AP view(s) of the abdomen. FINDINGS: Multiple dilated loops of small bowel with air-fluid levels and decompressed colon. No free intraperitoneal air is identified on this supine radiograph. The visualized soft tissue shadows are unremarkable. No gross bony abnormalities are seen. Visualized portions of lung bases are clear. IMPRESSION: Multiple dilated loops of small bowel with air-fluid level and decompressed colon. Findings are concerning for small bowel obstruction versus ileus. Clinical correlation is recommended. Reviewed, dictated and finalized at location N. IMPRESSION: Multiple dilated loops of small bowel with air-fluid level and decompressed col on. Findings are concerning for small bowel obstruction versus ileus. Clinical correlation is recommended.
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
--- NOTE | 2025-07-08 07:12 | ECG_ITS ---
Test Date: 2025-07-08 07:08:48 Measurements Intervals [place] Rate: 130 P: 62 MA: 122 QRS: 18 QRSD: 70 T: 99 QT: 304 QTc: 448 Interpretive Statements SINUS TACHYCARDIA MODERATE T-WAVE ABNORMALITY, CONSIDER LATERAL ISCHEMIA [-0.1+ mV T-WAVE IN I/aVL/V5/V6] NONSPECIFIC ST ABNORMALITY BASELINE ARTIFACT LIMITS INTERPRETATION ABNORMAL ECG No previous ECG available for comparison Electronically Signed On 07-08-2025 11:15:37 CDT by Mariano Rod M.D.
--- OUTSIDE RECORDS SUMMARY | 2025-07-08 07:25 | XMS_ITS | Clinical Summary ---
Author Organization [facility] Address [address] [place] [address] Care Team Providers Care Physician Intensivist Name Role Phone Reed Lew MD Primary Care Provider [phone] Allergies Active Allergy Reactions Criticality Noted Date [...] on file Legal Sex Female 8:30 PM ENDOCRINOLOGY NURSE Gender Identity Female 05/30/2023 11:05 AM [...] (2 - Td or Tdap) 03/17/2026 Insurance [facility] [place] [address] [facility] CHOICE PLUS IDPA Care Teams Physician Intensivist Relationship Specialty Start Date End Date Reed Lew MD PCP - General 01/01/19
--- OUTSIDE RECORDS SUMMARY | 2025-07-08 07:25 | XMS_ITS | Clinical Summary ---
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 [place] Clip Right: Breast MEDTRONIC - COVIDIEN 09/04/2026 [id number] / / [id number] Breast Inspira Scx 495ml Scx-495 - [id number] Implanted:Qty : 1 on 06/21/2022 by Shantanu Nguyen MD at [facility] [place] Mammary Left: Breast ALLERGAN- MEDICAL 07/16/2026 SCX-495 / [id number] / Imp Breast Inspira Scx 525ml Scx-525 - [id number] Implanted:Qty : 1 on 06/21/2022 by Shantanu Nguyen MD at [facility] [place] Mammary Right: Breast ALLERGAN- MEDICAL 12/19/2023 SCX-525 / [id number] / Alloderm Matrix Tissue Thick [id number] - [id number] Implanted:Qty : 1 on 02/22/2022 by Shantanu Nguyen MD at [facility] [place] Tissue Left: Breast ALLERGAN- MEDICAL 01/02/2023 [id number] / / [id number] Alloderm Matrix Tissue Thick [id number] - [id number] Implanted:Qty : 1 on 02/22/2022 by Shantanu Nguyen MD at [facility] [place] Tissue Right: Breast ALLERGAN- MEDICAL 05/04/2023 [id number] / / [id number] Explanted Type Area Office Machinery Or Equipment Installer Device Identifier Shelf Expiration Date Model / Serial / Lot Hoe Worker Breast Natrelle Te 350ml [id number]-Yc-47-T - [id number] Implanted:Qty: 1 on 02/22/2022 by Shantanu Nguyen MD at [facility] [place] Explanted:Qty: 1 on 06/21/2022 by Shantanu Nguyen MD at [facility] [place] Mammary Left: Breast ALLERGAN- MEDICAL 07/06/2026 133S-FX-1 1-T / [id number] / Hoe Worker Breast Natrelle Te 350ml [id number]-Dm-36-T - [id number] Implanted:Qty: 1 on 02/22/2022 by Shantanu Nguyen MD at [facility] Explanted:Qty: 1 on 06/21/2022 by Shantanu Nguyen MD at [facility] Mammary Right: Breast ALLERGAN- MEDICAL 05/08/2025 133S-FX-1 1-T / [id number] / Powerport Explanted:Qty: 1 on 06/21/2022 by Shantanu Nguyen MD at [facility] Left: Chest Description:not in computer previously Procedures [...] Advance Directives For more information, please contact: [phone] * Full Code (Latest Code Status on File) Date Activated Date Inactivated Comments 02/22/2022 11:48 AM 02/23/2022 2:51 PM
[2025-07-08 07:26] LABS: Hematocrit 40.7 % (37.0-47.0); Hemoglobin 14.0 g/dL (12.0-15.0); Immature Granulocyte Percent A 0.2 % (0-0.5); Lymphocytes Absolute Auto 1.58 K/mm3 (0.9-3.2); Mean Corpuscular HGB Conc 34.4 g/dl (32-36); Mean Corpuscular Hemoglobin 32.0 pg (26-34); Mean Corpuscular Volume 92.9 fl (80-100); Nucleated Red Blood Cells Absolute Auto 0.000 K/mm3 (0.0-0.012); Nucleated Red Blood Cells Perc 0.0 % (0.0-0.2); Platelet Count Result 418 k/mm3 (150-375); Red Blood Count 4.38 M/mm3 (4.2-5.4); White Blood Count 5.9 K/mm3 (4.5-10.0)
--- OUTSIDE RECORDS SUMMARY | 2025-07-08 07:26 | XMS_ITS | Encounter Summary ---
Author Organization [facility] Facility Care Team Providers Care Painter Ski Edge Name Role Phone Reed Lew MD Primary Care Provider [phone] Encounter Details Date Type Department Care Team (Latest Contact Info) Description 01/07/2019 Orders Only [facility] CLINCONV ProviderRicardo MD [address] [place] [address] Social History Tobacco Use Types Packs/Day Years Used Date Smoking Tobacco: Never Assessed Comments Unknown Sex and Gender Information Value Date Recorded Sex Assigned at Not on file Legal Sex Female 8:30 PM SERVICE LIAISON REPRESENTATIVE Gender Identity Female 05/30/2023 11:05 AM CDT Sexual Orientation Not on file documented as of this encounter Plan of Treatment Not on file documented as of this encounter Procedures Procedure Name Priority Date/Time Associated Diagnosis Comments SCAN - PATHOLOGY 01/07/2019 12:0 0 AM SERVICE LIAISON REPRESENTATIVE PROCEDURE - RESULT 01/01/2019 12 :00 AM SERVICE LIAISON REPRESENTATIVE documented in this encounter Results * SCAN - PATHOLOGY (01/07/2019 12:00 AM SERVICE LIAISON REPRESENTATIVE) Narrative 01/07/2019 12:00 AM SERVICE LIAISON REPRESENTATIVE Ordered by an unspecified provider. Historical Provider Final Res ult * PROCEDURE - RESULT (01/01/2019 12:00 AM SERVICE LIAISON REPRESENTATIVE) Narrative 01/01/2019 12:00 AM SERVICE LIAISON REPRESENTATIVE Ordered by an unspecified provider. Historical Provider Final Res ult documented in this encounter Visit Diagnoses Not on filedocumented in this encounter Care Teams Painter Ski Edge Relationship Specialty Start Date End Date Reed Lew MD PCP - General 01/01/19 documented as of this encounter
--- OUTSIDE RECORDS SUMMARY | 2025-07-08 07:26 | XMS_ITS | Clinical Summary ---
Author Organization [facility] Care Team Providers Care Major League Baseball Player Name Role Phone Unavailable Primary Care Provider Unavailabl e Social History Tobacco Use Types Packs/Day Years Used Date Smoking Tobacco: Never Assessed Comments Unknown Sex and Gender Information Value Date Recorded Sex Assigned at Not on file Legal Sex Female 9:39 AM FLAVORER Gender Identity Not on file Sexual Orientation [...]
[2025-07-08] MEDS: MORPHINE SULFATE (*CRX) 4 MG/ML INJ IV PUSH ×2 (07:35→10:40)
[2025-07-08] MEDS: METOCLOPRAMIDE HCL INJ 10 MG/2 ML VIAL IV PUSH (07:35)
[2025-07-08] MEDS: SODIUM CHLORIDE 0.9% IV 1,000 ML 999 ML IV CONT ×2 (07:36→07:40)
[2025-07-08 07:37] LABS: INR 1.1; Prothrombin Time 13.6 Seconds (11.1-14.7)
[2025-07-08 07:38] LABS: Alanine Aminotransferase 17 U/L (6-35); Albumin Level 4.7 g/dL (3.5-5.1); Alkaline Phosphatase 118 U/L (38-126); Anion Gap 19 mmol/L (4-12); Aspartate Amino Transferase 39 U/L (14-36); Bilirubin,Total 1.2 mg/dL (0.2-1.3); Blood Urea Nitrogen 27 mg/dL (7-17); Calcium 10.3 mg/dL (8.4-10.2); Carbon Dioxide 15 mmol/L (22-30); Chloride 97 mmol/L (98-107); Estimated CRCL calculation 44 ml/min; Estimated Glomerular Filt Rate 53; Glucose 123 mg/dL (65-110); Lipase 362 U/L (23-300); Partial Thromboplastin Time 29.3 Seconds (22.3-36.8); Potassium 4.3 mmol/L (3.4-5.0); Sodium 131 mmol/L (137-145); Total Protein 8.6 g/dL (6.3-8.2)
[2025-07-08 07:51] LABS: Troponin I 0.094 ng/mL (0.000-0.034)
[2025-07-08 08:14] LABS: Magnesium 1.8 mg/dL (1.6-2.3)
[2025-07-08 08:23] LABS: NT Pro B Type Natriuretic Pept 1050 pg/mL (19.9-100)
[2025-07-08 08:29] LABS: Add Urine Microscopic? YES; Appearance Urine Cloudy (Clear); Glucose Urine UA Negative (Negative); Leukocyte Esterase Ur Trace LEU/UL (Negative); Need Manual Microscopic Reviewed; Nitrate Urine Negative (Negative); Specific Grav Ur 1.036 (1.001-1.035)
[2025-07-08 08:34] LABS: Influenza A QL RT-PCR Negative (Negative); Influenza B QL RT-PCR Negative (Negative); RSV RNA, RT-PCR Negative (Negative); SARS-CoV-2 RNA PCR Negative (Negative)
[2025-07-08 08:46] LABS: Thyroid Stimulating Hormone Reflex 2.050 uIU/mL (0.465-4.68)
[2025-07-08 08:53] LABS: Procalcitonin 0.1 ng/mL
[2025-07-08] MEDS: MAGNESIUM SULF 1 GM/D5W 100 ML 1 GM/100 ML BAG IVPB (09:02)
--- NOTE | 2025-07-08 09:24 | ED.GENADULT ---
HPI - General Adult General Chief complaint: Arrhythmia/Palpitations Stated complaint: CP, nausea, diaphoretic Time Seen by Provider: 07/08/25 07:20 History of Present Illness HPI narrative: Patient 55-year-old female who presents emergency department chief complaint of elevated heart rate and chest pain patient was seen yesterday outpatient endoscopy center and had a upper endoscopy done the patient reports he is scheduled for HIDA scan in [facility] later this week patient reports she has been having abdominal pain also reports that she has prior history of breast cancer and cervical cancer that is currently in remission but on oral chemotherapeutic agents. The patient reports this morning she felt as though her heart was racing EMS reported that her heart rate was within the 190s to 250s the patient reports that she has been told that she was extremely dehydrated Related Data Home Medications ?Medication ?Instructions ?Recorded ?Confirmed ?Last Taken ?Type lisinopril 10 mg tablet 10 mg PO DAILY 03/23/21 Unknown History tramadol 50 mg tablet 50 mg PO Q6H PRN 01/09/22 Unknown History Allergies Allergy/AdvReac Type Severity Reaction Status Date / Time ondansetron (From Zofran) AdvReac Intermediate Dry Eye Verified 07/08/25 07:27 promethazine AdvReac Watery Eye Verified 07/08/25 07:27 Review of Systems Review of Systems: A 10 system review of systems was completed on the patient and is negative except for what is stated in the HPI. Nursing and ancillary documentation was reviewed. 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 HEAD: Normocephalic, atraumatic. EYES: PERRLA and EOMI. ENT: Nares clear, no rhinorrhea or epistaxis. Mucous membranes moist. NECK: Supple. CHEST: Clear to auscultation. No respiratory distress. HEART: Regular rate and rhythm. No murmur heard. Normal peripheral pulses. ABDOMEN: Soft, nontender, nondistended, normal active bowel sounds. EXTREMITIES: Normal range of motion. No edema. SKIN: Warm, dry, no rash. NEURO: No focal deficits. Alert and oriented x3. PSYCH: Normal mood and affect. Course Vital Signs Vital signs: Vital Signs Temperature 36.7 C 07/08/25 07:04 Pulse Rate 128 H 07/08/25 07:04 Respiratory Rate 16 07/08/25 07:04 Blood Pressure 135/111 H 07/08/25 07:04 Pulse Oximetry 97 07/08/25 07:04 Oxygen Delivery Room Air 07/08/25 07:04 Temperature 36.7 C 07/08/25 07:04 Pulse Rate 94 07/08/25 10:02 Respiratory Rate 12 07/08/25 10:02 Blood Pressure 126/82 07/08/25 10:02 Pulse Oximetry 96 07/08/25 10:02 Oxygen Delivery Room Air 07/08/25 07:04 Medical Decision Making MDM Narrative Medical decision making narrative: Differential diagnosis includes pulmonary embolism, pneumonia, intra-abdominal infection, dehydration, dysrhythmia, ACS, The patient did have a slightly elevated troponin 0.094 BNP was 1050 electrolytes showed a BUN of 27 creatinine 1.07 CO2 was 15 lactic acid was 1.0 magnesium was 1.8. The patient was given a g of magnesium in the emergency department lipase was 362 urinalysis shows 4+ ketones in the trace leukocyte esterase and 11-20 red blood cells and 6-10 white blood cells COVID flu and RSV are negative A CTA chest with an abdomen pelvis CT was ordered CTA chest shows no evidence of pulmonary embolism CT of the abdomen pelvis shows evidence of a small-bowel obstruction Vital Signs Vital Signs: Vital Signs Temperature 36.7 C 07/08/25 07:04 Pulse Rate 128 H 07/08/25 07:04 Respiratory Rate 16 07/08/25 07:04 Blood Pressure 135/111 H 07/08/25 07:04 Pulse Oximetry 97 07/08/25 07:04 Oxygen Delivery Room Air 07/08/25 07:04 Temperature 36.7 C 07/08/25 07:04 Pulse Rate 94 07/08/25 10:02 Respiratory Rate 12 07/08/25 10:02 Blood Pressure 126/82 07/08/25 10:02 Pulse Oximetry 96 07/08/25 10:02 Oxygen Delivery Room Air 07/08/25 07:04 Lab Data 07/08/25 07:17 07/08/25 07:17 Labs: Lab Results 07/08/25 07/08/25 07/08/25 Range/Units 07:17 07:39 08:10 WBC 5.9 (4.5-10.0) K/mm3 RBC 4.38 (4.2-5.4) M/mm3 Hgb 14.0 (12.0-15.0) g/dL Hct 40.7 (37.0-47.0) % MCV 92.9 (80-100) fl MCH 32.0 (26-34) pg MCHC 34.4 (32-36) g/dl RDW 11.8 (11.5-14.5) % Plt Count 418 H (150-375) k/mm3 MPV 10.2 (7.4-10.4) fl Immature Gran % (Auto) 0.2 (0-0.5) % Neut % (Auto) 60.8 (45.5-73.1) % Lymph % (Auto) 27.0 (18.3-44.2) % [place] % (Auto) 10.4 H (2.6-8.5) % Eos % (Auto) 0.9 (0-4.4) % Baso % (Auto) 0.7 (0.2-1.2) % Lymph # (Auto) 1.58 (0.9-3.2) K/mm3 [place] # (Auto) 0.6 (0.1-0.6) K/mm3 Eos # (Auto) 0.1 (0-0.3) K/mm3 Baso # (Auto) 0.0 (0.0-0.1) K/mm3 Abs Immat Gran (auto) 0.01 (0.00-0.031) K/mm3 Absolute Neuts (auto) 3.6 (1.3-6.7) K/mm3 Absolute Nucleated RBC 0.000 (0.0-0.012) K/mm3 Nucleated RBC % 0.0 (0.0-0.2) % PT 13.6 (11.1-14.7) Seconds INR 1.1 APTT 29.3 (22.3-36.8) Seconds Sodium 131 L (137-145) mmol/L Potassium 4.3 (3.4-5.0) mmol/L Chloride 97 L (98-107) mmol/L Carbon Dioxide 15 L (22-30) mmol/L Anion Gap 19 H (4-12) mmol/L BUN 27 H (7-17) mg/dL Creatinine 1.07 H (0.7-1.0) mg/dL Estim Creat Clear Calc 44 ml/min Estimated GFR 53 L (59 - ) Glucose 123 H (65-110) mg/dL Lactic Acid 1.0 (0.7-2.0) mmol/L Calcium 10.3 H (8.4-10.2) mg/dL Magnesium 1.8 (1.6-2.3) mg/dL Total Bilirubin 1.2 (0.2-1.3) mg/dL AST 39 H (14-36) U/L ALT 17 (6-35) U/L Alkaline Phosphatase 118 (38-126) U/L Troponin I 0.094 H* (0.000-0.034) ng/mL NT-Pro-B Natriuret Pep 1050 H (19.9-100) pg/mL Total Protein 8.6 H (6.3-8.2) g/dL Albumin 4.7 (3.5-5.1) g/dL Lipase 362 H (23-300) U/L Procalcitonin 0.1 ng/mL TSH (Reflex) 2.050 (0.465-4.68) uIU/mL Urine Color Dark yellow (Yellow) Urine Appearance Cloudy H (Clear) Urine pH 6.0 (5.0-9.0) Ur Specific [place] 1.036 H (1.001-1.035) Urine Protein 3+ H (Negative) mg/dL Urine Glucose (UA) Negative (Negative) mg/dL Urine Ketones 4+ H (Negative) mg/dL Ur Blood (Man) Trace (Negative) Urine Nitrate Negative (Negative) Urine Bilirubin 2+ H (Negative) Urine Urobilinogen 1.0 (<2.0) mg/dL Add Ur Microanalysis Reviewed Leukocyte Esterase Rfl Trace H (Negative) KOSTA/UL Urine RBC 11-20 H (0-2) /hpf Urine WBC 6-10 H (0-3) /hpf Ur Squamous Epith Cells Few (Few) /hpf Urine Bacteria Rare /hpf Urine Casts 11-20 Hyaline Casts Present (None) /lpf Urine Mucus Present /lpf Influenza A (RT-PCR) Negative (Negative) Influenza B (RT-PCR) Negative (Negative) RSV (RT-PCR) Negative (Negative) SARS-CoV-2 RNA (RT-PCR) Negative (Negative) 07/08/25 Range/Units 10:16 WBC (4.5-10.0) K/mm3 RBC (4.2-5.4) M/mm3 Hgb (12.0-15.0) g/dL Hct (37.0-47.0) % MCV (80-100) fl MCH (26-34) pg MCHC (32-36) g/dl RDW (11.5-14.5) % Plt Count (150-375) k/mm3 MPV (7.4-10.4) fl Immature Gran % (Auto) (0-0.5) % Neut % (Auto) (45.5-73.1) % Lymph % (Auto) (18.3-44.2) % [place] % (Auto) (2.6-8.5) % Eos % (Auto) (0-4.4) % Baso % (Auto) (0.2-1.2) % Lymph # (Auto) (0.9-3.2) K/mm3 [place] # (Auto) (0.1-0.6) K/mm3 Eos # (Auto) (0-0.3) K/mm3 Baso # (Auto) (0.0-0.1) K/mm3 Abs Immat Gran (auto) (0.00-0.031) K/mm3 Absolute Neuts (auto) (1.3-6.7) K/mm3 Absolute Nucleated RBC (0.0-0.012) K/mm3 Nucleated RBC % (0.0-0.2) % PT (11.1-14.7) Seconds INR APTT (22.3-36.8) Seconds Sodium (137-145) mmol/L Potassium (3.4-5.0) mmol/L Chloride (98-107) mmol/L Carbon Dioxide (22-30) mmol/L Anion Gap (4-12) mmol/L BUN (7-17) mg/dL Creatinine (0.7-1.0) mg/dL Estim Creat Clear Calc ml/min Estimated GFR (59 - ) Glucose (65-110) mg/dL Lactic Acid (0.7-2.0) mmol/L Calcium (8.4-10.2) mg/dL Magnesium (1.6-2.3) mg/dL Total Bilirubin (0.2-1.3) mg/dL AST (14-36) U/L ALT (6-35) U/L Alkaline Phosphatase (38-126) U/L Troponin I Pending (0.000-0.034) ng/mL NT-Pro-B Natriuret Pep (19.9-100) pg/mL Total Protein (6.3-8.2) g/dL Albumin (3.5-5.1) g/dL Lipase (23-300) U/L Procalcitonin ng/mL TSH (Reflex) (0.465-4.68) uIU/mL Urine Color (Yellow) Urine Appearance (Clear) Urine pH (5.0-9.0) Ur Specific Falcon (1.001-1.035) Urine Protein (Negative) mg/dL Urine Glucose (UA) (Negative) mg/dL Urine Ketones (Negative) mg/dL Ur Blood (Man) (Negative) Urine Nitrate (Negative) Urine Bilirubin (Negative) Urine Urobilinogen (<2.0) mg/dL Add Ur Microanalysis Leukocyte Esterase Rfl (Negative) KOSTA/UL Urine RBC (0-2) /hpf Urine WBC (0-3) /hpf Ur Squamous Epith Cells (Few) /hpf Urine Bacteria /hpf Urine Casts Hyaline Casts (None) /lpf Urine Mucus /lpf Influenza A (RT-PCR) (Negative) Influenza B (RT-PCR) (Negative) RSV (RT-PCR) (Negative) SARS-CoV-2 RNA (RT-PCR) (Negative) Discharge Plan Discharge Clinical Impression: Palpitations, Elevated troponin, Small bowel obstruction Patient Disposition: Still a Patient Condition: Stable Patient Language: Yoruba Prescriptions: No Action tramadol 50 mg tablet 50 mg PO Q6H PRN lisinopril 10 mg Tablet 10 mg PO DAILY dicyclomine 20 mg tablet 20 mg PO TID PRN (Reason: abdominal pain) Qty: 20 0RF metoclopramide HCl [Reglan] 10 mg tablet 10 mg PO Q6H PRN (Reason: nausea and vomiting) Qty: 14 0RF cefdinir 300 mg capsule 300 mg PO Q12H 5 Days Qty: 10 0RF metoclopramide HCl 5 mg tablet 5 mg PO Q6H PRN (Reason: nausea and vomiting) Qty: 15 0RF dicyclomine 20 mg tablet 20 mg PO TID PRN (Reason: Abdominal Discomfort) Qty: 15 0RF omeprazole 20 mg capsule,delayed release(DR/EC) 20 mg PO DAILY Qty: 30 0RF Follow-up/Referrals: PHYSICIAN NOT ON STAFF,NONSTAFF [Primary Care Provider] Time of Disposition: 10:34
--- NOTE | 2025-07-08 10:01 | ECG_ITS ---
Test Date: 2025-07-08 10:07:22 Measurements Intervals [place] Rate: 94 P: 63 GA: 138 QRS: 20 QRSD: 73 T: 97 QT: 383 QTc: 481 Interpretive Statements SINUS RHYTHM MODERATE T-WAVE ABNORMALITY, CONSIDER LATERAL ISCHEMIA [-0.1+ mV T WAVE IN I/aVL/V5/V6] NONDIAGNOSTIC ST ELEVATION IN HIGH LATERAL LEADS AND V1, V2 ABNORMAL ECG Compared to ECG 07/08/2025 07:08:48 Sinus tachycardia no longer present ST (T wave) deviation no longer present T-wave abnormality still present Possible ischemia still present Electronically Signed On 07-08-2025 11:21:45 CDT by Mariano Rod M.D.
--- NOTE | 2025-07-08 10:38 | PC.NURSE ---
Following 2 unsuccessful attempts, pt pulled out NG tube and is refusing placement at this time. Educated on benefits and pt verbalizes understanding. EDP made aware.
[2025-07-08] MEDS: BENZOCAINE/TETRACAINE SPRAY (*SP) 56 ML AEROSOL 1 SPRAY (10:41)
[2025-07-08] MEDS: SODIUM CHLORIDE 0.9% IV 1,000 ML 125 ML IV CONT ×2 (10:43→18:28)
[2025-07-08 10:48] LABS: Troponin I 0.074 ng/mL (0.000-0.034)
--- NOTE | 2025-07-08 11:44 | PM.CNGS ---
Assessment and Plan Assessment and plan (1) Small bowel obstruction: Code(s): K56.609 - Unspecified intestinal obstruction, unspecified as to partial versus complete obstruction Status: Acute Assessment and Plan: Patient presented to this morning with initial complaint of chest pain. Upon further interviewing, patient endorsed that she had been having abdominal pain for months with associated nausea and vomiting. She has not been able to keep down any food. Her last reported bowel movement was roughly 2 weeks ago she prepped for colonoscopy. This colonoscopy was unable to be fully completed as a stricture was encountered and the scope could not pass beyond it. Patient follows with GI doctor Joleen at [facility] in [place]. She had an upper endoscopy yesterday and was scheduled for a HIDA scan tomorrow. A CTA demonstrated small bowel obstruction with distal ileal transition point in the right deep pelvis along with a small amount of likely reactive ascites. ED nursing staff attempted NG tube placement, but this was unsuccessful as patient could not tolerate it. Patient last vomited yesterday. She does not feel nauseous today. Physical exam positive for mild epigastric tenderness to palpation. Keep patient NPO for the time being. Will order small bowel series to further evaluate the obstruction. May need to consider another attempt at NG tube decompression if contrast does not go through. We will continue to monitor with serial abdominal exams and labs. (2) Sinus tachycardia: Code(s): R00.0 - Tachycardia, unspecified Status: Acute Assessment and Plan: EMS reported that patient had a heart rate within the 190s to 250s prior to arrival in the ED. Troponin levels elevated. IV fluids administered, as patient appeared to be dry on labs. Pulse rate has normalized to 99. EKG demonstrated T-wave abnormality and possible ischemia. Cardiology consulted. Continue per their recommendations. (3) Elevated troponin: Code(s): R79.89 - Other specified abnormal findings of blood chemistry Status: Acute Plan Discussed patient's case and plan of care with Dr. Sethi. History of Present Illness Consult details Consult date: 07/08/25 Reason for consult: other (small bowel obstruction) Requesting physician: Kenny Knox MD Narrative: Patient is a 55-year-old female with history of hypertension, breast cancer (double mastectomy in 2021) , and cervical cancer (hysterectomy and radiation in 2020) who we have been asked to see in surgical consultation for a small bowel obstruction. Patient presented to the ED this morning with chief complaint of chest pain and elevated heart rate that started last night. She states she was nauseous and dizzy. Per EMS, her heart rate was within the 190s to 250s. Patient was told that she was dehydrated. Upon admission to the ED, EKG was obtained and demonstrated sinus rhythm with moderate T-wave abnormality, consider lateral ischemia. Elevated troponin levels of 0.094 and 0.074. Normal lactic acid. Normal WBC. Her vital signs demonstrated tachycardia with max rate of 128 this morning. A CTA of the chest abdomen and pelvis was obtained and demonstrated mild emphysema, but no pulmonary embolism or other acute cardiopulmonary disease. Also noted on the CTA was a small bowel obstruction with distal ileal transition point in the right deep pelvis along with a small amount of likely reactive ascites. When questioned about abdominal pain patient states that she has had diffuse abdominal pain for months mostly localized to epigastric region. She describes the pain as sharp and cramping/gnawing. She states that she has been very nauseous, and has not been able to keep any food down without vomiting. She does note that she had a history of GERD in the past but does not currently take any medication. Patient denies having a bowel movement since the when she had prepped for a colonoscopy. Reportedly, the colonoscopy was terminated early, as a colonic stricture was encountered and the scope was unable to be passed through. Patient had upper endoscopy performed yesterday at outpatient endoscopy center. She was scheduled for a HIDA scan tomorrow. Her compound specialist is Dr. Goodrich with [facility] in [place]. [facility] Past Medical History Medical History Hypertension Breast cancer 08/31/2021 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 Surgical History Surgical History S/P dilatation and curettage (~03/2021) S/P HSCOPE D&C History of robot-assisted laparoscopic hysterectomy (~08/2021) History of bilateral tubal ligation Social History Social History Substance use: never Gender identity (if verbalized by the patient): Female Meds Home Medications and Allergies Home Medications ?Medication ?Instructions ?Recorded ?Confirmed ?Type metoclopramide HCl 5 mg tablet 5 mg PO Q6H PRN nausea and 02/21/25 07/08/25 Rx vomiting #15 tabs omeprazole 20 mg capsule,delayed 20 mg PO DAILY #30 caps 02/21/25 07/08/25 Rx release Allergies Allergy/AdvReac Type Severity Reaction Status Date / Time ondansetron (From Zofran) AdvReac Intermediate Dry Eye Verified 07/08/25 07:27 promethazine AdvReac Watery Eye Verified 07/08/25 07:27 Vital Signs Vital Signs - 24 hr 07/08/25 07:04 07/08/25 07:15 07/08/25 07:16 Temperature 98.1 F Pulse Rate 128 H 123 H 124 H Respiratory Rate 16 12 Blood Pressure 135/111 H 137/100 H Pulse Oximetry 97 96 Oxygen Delivery Room Air 07/08/25 08:10 07/08/25 09:03 07/08/25 10:02 Temperature Pulse Rate 111 H 102 H 94 Respiratory Rate 25 H 17 12 Blood Pressure 122/96 H 116/84 126/82 Pulse Oximetry 99 100 96 Oxygen Delivery 07/08/25 10:41 07/08/25 11:04 Temperature Pulse Rate 94 102 H Respiratory Rate 14 13 Blood Pressure 98/72 L 102/76 Pulse Oximetry 100 97 Oxygen Delivery Exam Const: General: comfortable and no acute distress Eyes: General: appearance normal, both eyes and all related structures Neck: Neck: supple Resp: Effort & Inspection: normal respiratory effort Cardio: Rate: regular rate GI: Inspection: non-distended GI Palp: Yes Soft to palpation, Yes Tenderness to palpation present (GI) (Diffusely throughout epigastric region), No Guarding due to palpation present (GI) and No Hernia present Auscultation: normal bowel sounds : General: Yes bladder normal to palpation Skin: General skin exam: normal color and no rashes or lesions noted Extrem: General: normal to inspection Psych: Mental Status: mental status grossly normal Results Labs 07/08/25 07:17 07/08/25 07:17 Labs: Abnormal lab results 07/08/25 07/08/25 07/08/25 Range/Units 07:17 07:39 08:10 Plt Count 418 H (150-375) k/mm3 [place] % (Auto) 10.4 H (2.6-8.5) % Sodium 131 L (137-145) mmol/L Chloride 97 L (98-107) mmol/L Carbon Dioxide 15 L (22-30) mmol/L Anion Gap 19 H (4-12) mmol/L BUN 27 H (7-17) mg/dL Creatinine 1.07 H (0.7-1.0) mg/dL Estimated GFR 53 L (59 - ) Glucose 123 H (65-110) mg/dL Calcium 10.3 H (8.4-10.2) mg/dL AST 39 H (14-36) U/L Troponin I 0.094 H* (0.000-0.034) ng/mL NT-Pro-B Natriuret Pep 1050 H (19.9-100) pg/mL Total Protein 8.6 H (6.3-8.2) g/dL Lipase 362 H (23-300) U/L Urine Appearance Cloudy H (Clear) Ur Specific [place] 1.036 H (1.001-1.035) Urine Protein 3+ H (Negative) mg/dL Urine Ketones 4+ H (Negative) mg/dL Urine Bilirubin 2+ H (Negative) Leukocyte Esterase Rfl Trace H (Negative) KOSTA/UL Urine RBC 11-20 H (0-2) /hpf Urine WBC 6-10 H (0-3) /hpf 07/08/25 Range/Units 10:16 Plt Count (150-375) k/mm3 [place] % (Auto) (2.6-8.5) % Sodium (137-145) mmol/L Chloride (98-107) mmol/L Carbon Dioxide (22-30) mmol/L Anion Gap (4-12) mmol/L BUN (7-17) mg/dL Creatinine (0.7-1.0) mg/dL Estimated GFR (59 - ) Glucose (65-110) mg/dL Calcium (8.4-10.2) mg/dL AST (14-36) U/L Troponin I 0.074 H* D (0.000-0.034) ng/mL NT-Pro-B Natriuret Pep (19.9-100) pg/mL Total Protein (6.3-8.2) g/dL Lipase (23-300) U/L Urine Appearance (Clear) Ur Specific [place] (1.001-1.035) Urine Protein (Negative) mg/dL Urine Ketones (Negative) mg/dL Urine Bilirubin (Negative) Leukocyte Esterase Rfl (Negative) KOSTA/UL Urine RBC (0-2) /hpf Urine WBC (0-3) /hpf Diabetes panel 07/08/25 Range/Units 07:17 Sodium 131 L (137-145) mmol/L Potassium 4.3 (3.4-5.0) mmol/L Chloride 97 L (98-107) mmol/L Carbon Dioxide 15 L (22-30) mmol/L BUN 27 H (7-17) mg/dL Creatinine 1.07 H (0.7-1.0) mg/dL Glucose 123 H (65-110) mg/dL Calcium 10.3 H (8.4-10.2) mg/dL AST 39 H (14-36) U/L ALT 17 (6-35) U/L Alkaline Phosphatase 118 (38-126) U/L Total Protein 8.6 H (6.3-8.2) g/dL Albumin 4.7 (3.5-5.1) g/dL Calcium panel 07/08/25 Range/Units 07:17 Calcium 10.3 H (8.4-10.2) mg/dL Albumin 4.7 (3.5-5.1) g/dL Pituitary panel 07/08/25 Range/Units 07:17 Sodium 131 L (137-145) mmol/L Potassium 4.3 (3.4-5.0) mmol/L Chloride 97 L (98-107) mmol/L Carbon Dioxide 15 L (22-30) mmol/L BUN 27 H (7-17) mg/dL Creatinine 1.07 H (0.7-1.0) mg/dL Glucose 123 H (65-110) mg/dL Calcium 10.3 H (8.4-10.2) mg/dL Adrenal panel 07/08/25 Range/Units 07:17 Sodium 131 L (137-145) mmol/L Potassium 4.3 (3.4-5.0) mmol/L Chloride 97 L (98-107) mmol/L Carbon Dioxide 15 L (22-30) mmol/L BUN 27 H (7-17) mg/dL Creatinine 1.07 H (0.7-1.0) mg/dL Glucose 123 H (65-110) mg/dL Calcium 10.3 H (8.4-10.2) mg/dL Total Bilirubin 1.2 (0.2-1.3) mg/dL AST 39 H (14-36) U/L ALT 17 (6-35) U/L Alkaline Phosphatase 118 (38-126) U/L Total Protein 8.6 H (6.3-8.2) g/dL Albumin 4.7 (3.5-5.1) g/dL All other labs normal.
--- NOTE | 2025-07-08 12:10 | ADMGEN ---
This patient, Fariba Ureña, was admitted to IMU Room 201-01 at 1114. Patient/family oriented to hospital policies and general routines including ID bracelet, bed and alarms, visiting hours, pain management, procedures, bathroom and other care routines, personal items, smoking policy, room service/diet, and visiting hours. Information on how to activate the Rapid Response Team has been discussed. Patient/Family are encouraged to report perceived risks to care and to ask questions if they do not understand what they are told or what they should do.
--- NOTE | 2025-07-08 12:44 | P.HP_ITS ---
H&P: HPI History of Present Illness Date/Time: 07/08/25 12:44 Chief Complaint: Tachycardia, Chest Pain Narrative: 55 y/o F with PMH of HTN, breast cancer (2020, s/p double mastectomy), and adenocarcinoma of the cervix (2020, s/p radiation/chemo and hysterectomy) on oral chemo presents here with tachycardia and chest pain. The patient presents here from home via EMS on 07/08 for further evaluation of an elevated heart rate and chest pain. She reports onset of symptoms yesterday (07/07). She states yesterday while she was in bed she developed midsternal chest pain, nausea, vomiting, indigestion, palpitations, shortness of breath, and diaphoresis. She describes the chest pain as constant, dull and gas like, radiation into her upper/mid back, partially alleviated with aspirin, and no aggravating factors. EMS reported the patient's heart rate was between 190 and 250 upon their arrival. States her HR was noted to be high yesterday while she was at her endoscopy. They attributed her HR to dehydration and gave her fluids which she reports did help her palpitations. She had underwent the upper endoscopy (at [facility] in [place]) to investigate upper abdominal pain that has been ongoing for the past month. She describes the abdominal pain as intermittent (but comes and goes every few minutes), epigastric, and is accompanied by nausea and vomiting. Pain worsens when she ea ts and has led to poor PO intake over the last month. Patient additionally was being prepped for a colonoscopy on the 25 of June, however this procedure was aborted early as they encountered a stricture and they were unable to pass the scope. She reports she has not had a bowel movement since this bowel prep on 06/25. She reports prior to the colonoscopy she had a change in stool - reports it was narrow and ribbon-like. Reports FH of cancer - aunt had uterine cancer, cousin had colon cancer, and a cousin with breast cancer. Initial VS at presentation: 98.1? F, HR 128, R 16, 135/111, and 97% on RA. ED workup showed: No leukocytosis, no anemia, normal coags, sodium 131, creatinine 1.07 and GFR 53, glucose 123, lactic 1.0, BNP 1050, initial troponin 0.094, TSH 2.050, and UA showed a potential UTI. Viral PCR negative. CXR showed no acute cardiopulmonary pathology. CTA chest/abdomen/pelvis showed a small-bowel obstruction with distal ileal transition point in the right deep pe lvis along with a small amount of likely reactive ascites, mild emphysema, no PE or other acute cardiopulmonary disease. Initial EKG showed sinus tachycardia, rate 130, moderate to abnormality consider lateral ischemia, nonspecific ST abnormality, baseline artifact limits interpretation. Review of Systems Review of Systems: All systems reviewed & are unremarkable except as noted in HPI and below [facility] Past Medical History Medical History Hypertension Breast cancer 08/31/2021 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 Surgical History Surgical History S/P dilatation and curettage (~03/2021) S/P HSCOPE D&C History of robot-assisted laparoscopic hysterectomy (~08/2021) History of bilateral tubal ligation Family History Family History Mother Hypertension Social History Social History Smoking status: Never smoker Alcohol intake: former Substance use: never Lack of Transportation: YES Lack of Food: Never True Current Housing: I Have Housing Concerned About Future Housing: No Difficulty Paying Gas/Electric Bills: No Difficulty Paying for Meds: No Currently Unemployed: No Education: Associate Degree Difficulty w/ Childcare or Family Care: No Gender identity (if verbalized by the patient): Female Spiritual care concerns: No Meds Home Medications and Allergies Home Medications ?Medication ?Instructions ?Recorded ?Confirmed ?Type metoclopramide HCl 5 mg tablet 5 mg PO Q6H PRN nausea and 02/21/25 07/08/25 Rx vomiting #15 tabs omeprazole 20 mg capsule,delayed 20 mg PO DAILY #30 ca ps 02/21/25 07/08/25 Rx release Allergies Allergy/AdvReac Type Severity Reaction Status Date / Time ondansetron (From Zofran) AdvReac Intermediate Dry Eye Verified 07/08/25 07:27 promethazine AdvReac Watery Eye Verified 07/08/25 07:27 Vital Signs Vital Signs - 24 hr 07/08/25 07:04 07/08/25 07:15 07/08/25 07:16 Temperature 98.1 F Pulse Rate 128 H 123 H 124 H Respiratory Rate 16 12 Blood Pressure 135/111 H 137/100 H Pulse Oximetry 97 96 Oxygen Delivery Room Air 07/08/25 08:10 07/08/25 09:03 07/08/25 10:02 Temperature Pulse Rate 111 H 102 H 94 Respiratory Rate 25 H 17 12 Blood Pressure 122/96 H 116/84 126/82 Pulse Oximetry 99 100 96 Oxygen Delivery 07/08/25 10:41 07/08/25 11:04 07/08/25 12:00 Temperature 97.9 F Pulse Rate 94 102 H 99 Respiratory Rate 14 13 18 Blood Pressure 98/72 L 102/76 136/96 H Pulse Oximetry 100 97 100 Oxygen Delivery 07/08/25 12:00 Temperature Pulse Rate 99 Respiratory Rate Blood Pressure Pulse Oximetry Oxygen Delivery Exam Const: General: comfortable and no acute distress Other: , female, nontoxic appearance HENMT: Face/Nose/Sinus: Normal nares present Mouth: Yes moist mucous membranes Eyes: General: appearance normal, both eyes and all related structures Sclera: sclerae normal Pupils: Equal, round and reactive pupils present EOM: EOMs intact bilaterally Resp: Effort & Inspection: normal respiratory effort Auscultation: clear to auscultation bilaterally Cardio: Rate: regular rate Rhythm: regular rhythm Other: S1-S2 present without murmur, rub, ectopy GI: Other: +epigastric tenderness. Normal active a nd the right lower quadrant, hypoactive in the upper quadrants and left lower quadrant. Abdomen is soft and nondistended. Skin: General skin exam: normal color and no rashes or lesions noted Wounds: no wounds Neuro: Speech: normal speech Motor exam (neuro): 5/5 motor strength present throughout Sensory Exam: normal sensation Other: A&O x4 Extrem: General: normal to inspection Psych: Mental Status: mental status grossly normal Affect: normal affect Other: Good insight and judgment, pleasant H&P: Results Labs Labs: Short CBC 07/08/25 Range/Units 07:17 WBC 5.9 (4.5-10.0) K/mm3 Hgb 14.0 (12.0-15.0) g/dL Hct 40.7 (37.0-47.0) % Plt Count 418 H (150-375) k/mm3 BMP 07/08/25 07:17 Sodium 131 L Potassium 4.3 Chloride 97 L Carbon Dioxide 15 L BUN 27 H Creatinine 1.07 H Glucose 123 H Calcium 10.3 H Cardiac Enzymes 07/08/25 07/08/25 Range/Units 07:17 10:16 Troponin I 0.094 H* 0.074 H* D (0.000-0.034) ng/mL Liver Function 07/08/25 Range/Units 07:17 Total Bilirubin 1.2 (0.2-1.3) mg/dL AST 39 H (14-36) U/L ALT 17 (6-35) U/L Alkaline Phosphatase 118 (38-126) U/L Albumin 4.7 (3.5-5.1) g/dL Urine 07/08/25 Range/Units 08:10 Urine Color Dark yellow (Yellow) Urine Appearance Cloudy H (Clear) Urine pH 6.0 (5.0-9.0) Ur Specific [place] 1.036 H (1.001-1.035) Urine Protein 3+ H (Negative) mg/dL Urine Glucose (UA) Negative (Negative) mg/dL Assessment and Plan Assessment and plan (1) Elevated troponin: Code(s): R79.89 - Other specified abnormal findings of blood chemistry Status: Acute Assessment and Plan: Midsternal chest pain with associated diaphoresis, nausea, and indigestion starting on 07/07. Significantly tachycardic in the field per EMS with a heart rate ranging between 190 and 250. - EKG, initial: sinus tachycardia, rate 130, moderate to abnormality consider lateral ischemia, nonspecific ST abnormality, baseline artifact limits interpretation. - EKG, repeat (1): When compared to EKG done earlier same day, sinus tachycardia/ST-T-wave deviation no longer present. T-wave abnormality and possible ischemia still present. - CXR: No acute cardiopulmonary disease. - Troponin: 0.094 -> 0.074, 6 hr pending - ASA 324 given by EMS -> 81 daily - SL nitro PRN - cardiology consulted. Recommended IV metoprolol 5 mg IV Q 8, aspirin daily, and heparin GTT if no immediate need to go to the OR. Stat echo ordered. Started on atorvastatin. Reviewed general surgery note, no current indication for surgical management. Heparin ordered. - no stress test, cardiac catheterization, or echo on file - telemetry monitoring (2) Small bowel obstruction: Code(s): K56.609 - Unspecified intestinal obstruction, unspecified as to partial versus complete obstruction Status: Acute Assessment and Plan: - CTA chest/abd/pelvis: 1. Small bowel obstruction with distal ileal transition point in the right deep pelvis along with a small amount of likely reactive ascites. 2. Mild emphysema. No pulmonary embolism or other acute cardiopulmonary disease. - general surgery consulted. Recommended keeping patient NPO and completing a small bowel series to further evaluate the obstruction. May need to consider re-attempt Ng and G insertion if contrast is not go through. - NG placement attempted, unsuccessful and patient could not tolerate - NPO - IV fluids: 2L bolus -> 125 mL/hr - antiemetics and analgesics p.r.n. - may need GI consultation has she recently underwent a colonoscopy that showed a stricture where a scope was unable to be passed through?? (3) Sinus tachycardia: Code(s): R00.0 - Tachycardia, unspecified Status: Acute Assessment and Plan: - see EKG impressions above - no PE per CTA completed on 07/08 - HR improved and consistently in the 90s with IV fluids Plan Diet: NPO GI Prophylaxis: Pantoprazole IV DVT Prophylaxis: SCDs, heparin gtt IV fluids: 2L bolus -> 125 mL/hr Lines/Tubes: Code Status: Full code Quality VTE Prophylaxis VTE prophylaxis: mechanical ordered Hospitalist [facility] Advance Care Plan I have confirmed that the patient's Advanced Care Plan is present, code status is documented, or surrogate decision maker is listed in patient medical record.: Yes Medication Reconciliation I have utilized all available resources to obtain, update and review the patients current medications (includes all prescriptions, OTC, herbals, cannabis, and nutritional supplements).: Yes
--- NOTE | 2025-07-08 13:04 | ECG_ITS ---
Test Date: 2025-07-08 13:34:08 Measurements Intervals [place] Rate: 90 P: 61 IL: 131 QRS: 17 QRSD: 77 T: 95 QT: 399 QTc: 490 Interpretive Statements SINUS RHYTHM MODERATE T-WAVE ABNORMALITY, CONSIDER LATERAL ISCHEMIA [-0.1+ mV T-WAVE IN I/aVL/V5/V6] NONSPECIFIC ST ABNORMALITY ABNORMAL ECG Compared to ECG 07/08/2025 10:07:22 T-wave abnormality still present Possible ischemia still present Electronically Signed On 07-08-2025 15:41:29 CDT by Mariano Rod M.D.
[2025-07-08 13:42] LABS: Troponin I 0.053 ng/mL (0.000-0.034)
--- NOTE | 2025-07-08 14:23 | ECHO_ITS ---
Patient Info Name: Fariba Ureña Age: 55 years : 1970 Gender: Female Ht: 63 in Wt: 117 lbs BSA: 1.54 m2 HR: 99 bpm BP: 136 / 96 mmHg Heart Rhythm: Sinus Rhythm Technical Quality: Fair Exam Date: 07/08/2025 2:46 PM Patient Status: I Admit Date: 07/08/2025 Exam Type: CA echo doppler color flow Complete two-dimensional, color flow and Doppler transthoracic echocardiogram is performed. Staff Referring Physician: Miriam Salazar Sustainability Communicator: Herminio Dalton III Attending Provider: Carolann Oscar Summary 1. Complete two-dimensional, color flow and Doppler transthoracic echocardiogram is performed. 2. Left ventricular chamber dimension is normal. 3. Left ventricular systolic function is normal, estimated at 60-65. 4. There is no increased left ventricular wall thickness. 5. The left ventricular diastolic function is grade I diastolic dysfunction. 6. There is mild tricuspid valve regurgitation. 7. There is mild pulmonic regurgitation. Left Ventricle Left ventricular chamber dimension is normal. Left ventricular systolic function is normal, estimated at 60-65. There is no increased left ventricular wall thickness. The left ventricular diastolic function is grade I diastolic dysfunction. Right Ventricle Right ventricular chamber dimension is normal. Right ventricular systolic function is normal. Left Atria Left atrial chamber dimension is normal. Right Atria Right atrial chamber dimension is normal. Atrial Septum Intact interatrial septum visualized by color flow imaging. Aortic Valve The aortic valve is trileaflet. There is mild aortic valve sclerosis. There is no aortic valve stenosis. There is trace aortic valve regurgitation. Pulmonic Valve The pulmonic valve is normal. There is no pulmonic valve stenosis. There is mild pulmonic regurgitation. Mitral Valve The mitral valve has normal leaflets. There is no mitral valve stenosis. There is trace mitral valve regurgitation. Tricuspid Valve The tricuspid valve leaflets are normal. There is no significant tricuspid valve stenosis. There is mild tricuspid valve regurgitation. No pulmonary hypertension, estimated pulmonary arterial systolic pressure is 23 mmHg. Pericardium/Pleural The pericardium appears normal. There is no pericardial effusion. Inferior Vena Cava Normal inferior vena cava with >50% collapse upon inspiration consistent with normal right atrial pressure, 10 mmHg. Aorta The aortic root size at the sinus of Valsalva is normal. Left Ventricular Outflow Tract Name Value Normal LVOT 2D LVOT Diameter 2.0 cm LVOT Doppler LVOT Peak Velocity 92 cm/s LVOT Peak Gradient 3 mmHg LVOT Mean Gradient 2 mmHg LVOT VTI 14 cm LVOT VTI/AV VTI Ratio 0.8 LVOT Stroke Volume 42 ml LVOT CO 11.3 l/min LVOT CI 7.4 l/min/m2 Pulmonic Valve Name Value Normal PV Doppler PV Peak Velocity 114 cm/s PV Peak Gradient 5 mmHg PV Mean Gradient 3 mmHg Mitral Valve Name Value Normal MV Doppler MV Peak Gradient 4 mmHg MV Mean Gradient 2 mmHg MV Area (Cont Eq VTI) 2.7 cm2 MV Diastolic Function MV E Peak Velocity 57 cm/s MV A Peak Velocity 79 cm/s MV E/A 0.7 MV Decel Time (PW) 143 ms MV Annular TDI MV E/e' (Septal) 7.9 MV E/e' (Lateral) 7.2 MV E/e' (Average) 7.5 Tricuspid Valve Name Value Normal TV Regurgitation Doppler TR Peak Velocity 183 cm/s TR Peak Gradient 13 mmHg Estimated PAP/RSVP RA Pressure 10 mmHg <=5 PA Systolic Pressure 23 mmHg <36 RV Systolic Pressure 23 mmHg <36 TV Annular TDI TV Lateral Sherri s' Velocity 27.1 cm/s >=9.5 Aortic Valve Name Value Normal AV Doppler AV Peak Velocity 114 cm/s AV Peak Gradient 5 mmHg AV Mean Gradient 3 mmHg AV VTI 18 cm AV Area (Cont Eq VTI) 2.4 cm2 >=3.0 AV Area (Cont Eq Paolo) 2.4 cm2 AV DI (Paolo) 0.81 AV Regurgitation 2D LVOT Area 3.0 cm2 Ventricles Name Value Normal LV Dimensions 2D/MM IVS Diastolic Thickness (2D) 0.9 cm 0.6-1.0 LVID Diastole (2D) 3.2 cm 3.8-5.2 LVIW Diastolic Thickness (2D) 0.8 cm 0.6-0.9 LVID Systole (2D) 2.5 cm 2.2-3.5 LVOT Diameter 2.0 cm LV Mass (2D Cubed) 75.25 g 67.00-162.00 LV Mass Index (2D Cubed) 49 g/m2 43-95 Relative Wall Thickness (2D) 0.51 <=0.42 LV Fractional Shortening/Ejection Fraction 2D/MM LV Fractional Shortening (2D) 24 % 27-45 LV EF (2D Teichholz) 49 % LV Diastolic Volume (4C MOD) 52 ml LV EF (4C MOD) 72 % LV Diastolic Length (4C) 6.9 cm LV Systolic Length (4C) 5.0 cm LV Stroke Volume (4C MOD) 37 ml Atria Name Value Normal LA Dimensions LA Volume (4C A-L) 29 ml RA Dimensions RA Systolic [place] Length (4C) 4.0 cm 2.2-2.8 RA Area (4C) 9.3 cm2 <=18.0 Report Signatures
--- NOTE | 2025-07-08 14:25 | P.CONCA_ITS ---
Assessment and Plan Assessment and plan (1) Elevated troponin: Code(s): R79.89 - Other specified abnormal findings of blood chemistry Status: Acute Assessment and Plan: Elevated troponin may be related to ACS but uncertain 6 point. EKG is concerning for ischemia but she was also significantly tachycardic also upon presentation. Chest pain is also reproducible by pushing on her chest. Certainly she may have more than 1 system involved at present. She has already received aspirin. Obviously there is concern for small-bowel obstruction in potential need to go to the operating room although at present awaiting surgical consultation. Will start her on IV metoprolol 5 mg IV Q 8 hours. Aspirin 81 mg p.o. daily and utilize a heparin drip per protocol if there is no immediate need to go to the operating room. A stat 2D echocardiogram with Doppler be ordered. Atorvastatin 20 mg daily to be initiated also. If patient is completely NPO, aspirin could be given rectally. Will continue to trend troponins. Nitroglycerin 0.4 mg sublingual p.r.n. chest pain. Repeat EKG in the morning or if a change in symptoms (2) Palpitations: Code(s): R00.2 - Palpitations Status: Acute Assessment and Plan: Continue IV fluids (3) Small bowel obstruction: Code(s): K56.609 - Unspecified intestinal obstruction, unspecified as to partial versus complete obstruction Status: Acute Assessment and Plan: Continue fluids. Awaiting surgical evaluation (4) Hypertension: Code(s): I10 - Essential (primary) hypertension Status: Acute Assessment and Plan: Will initiate metoprolol therapy History of Present Illness History of Present Illness Consult date/time: 07/08/25 14:25 Requesting physician: Marcela Marin APRN Consult reason: Other (Chest pain, elevated troponin, tachycardia) Reason For Visit: Small Bowel Obstruction/Palpitations/Elevated Trop Narrative: Date of service 07/08/2025 Reason for consultation: Chest pain, elevated troponin, tachycardia Requesting provider: Marcela Marin History: Patient is a 55-year-old female who has a history of cervical cancer as well as breast cancer. She does not have known cardiac issues a she is aware of. She has been having some ?stomach issues however and yesterday went for an endoscopy and while there, she was found to have an elevated heart rate, elevated blood pressure in dehydrated. They did proceed and perform her endoscopy. She went home and she did vomit. She thought she was developing some heartburn symptoms yesterday. Later that evening at about 10 30 shows some left-sided chest discomfort that radiated to her back. It was dull. She eventually fell asleep and when she woke up this morning it was not there but whenever she started to get ready to go to work it started to come back. She then felt lightheaded, nauseated and dizzy and he EMS was called. She was also having some issues with stomach cramping as well as nausea. The stomach cramping is sharp in nature. According to EMS, patient was markedly tachycardic with heart rate of 200 or more. She was given aspirin and in the emergency department started on IV fluids. Initial troponin was minimally elevated but troponins have been downtrending. EKG showing some high lateral T-wave inversions and ST and T-wave abnormalities in V1 and V2 concerning for ischemia. Chest pain resolved whenever she arrived in the emergency department. She still having some crampiness in her abdomen a CT scan of her chest abdomen and pelvis does show small bowel obstruction. She denies any syncope. Has been having some palpitations over the past several days. Does have shortness of breath with activity. No paroxysmal nocturnal dyspnea or orthopnea. Review of Systems 2 Review of Systems: All systems reviewed & are unremarkable except as noted in HPI and below Constitutional: Constitutional: Denies chills Eyes: Eyes: Denies blurry vision ENT: Reports Normal hearing present Cardiovascular: Cardiovascular: Reports chest pain and Reports palpitations Respiratory: Respiratory: Reports dyspnea Gastrointestinal: Gastrointestinal: Reports abdominal pain, Reports constipation and Reports heartburn Genitourinary: Genitourinary: Denies hematuria Musculoskeletal: Musculoskeletal: Reports back pain Integumentary/Breasts: Skin/Breast: Denies erythema Neurologic: Denies Abnormal speech present Psychiatric: Psychiatric: Denies anxiety Endocrine: Endocrine: Denies excessive sweating Hematologic/Lymphatic: Hematologic/Lymphatic: Denies easy bleeding Allergic/Immunologic: Allergic/Immunologic: Denies lip swelling PMFSH Past Medical History Medical History (Updated 07/08/25 @ 14:34 by Mariano Rod MD) Hypertension Breast cancer 08/31/2021 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 Surgical History Surgical History S/P dilatation and curettage (~03/2021) S/P HSCOPE D&C History of robot-assisted laparoscopic hysterectomy (~08/2021) History of bilateral tubal ligation Family History Family History (Updated 07/08/25 @ 14:31 by Mariano Rod MD) Mother Hypertension Social History Social History Smoking status: Never smoker Alcohol intake: former Substance use: never Lack of Transportation: YES Lack of Food: Never True Current Housing: I Have Housing Concerned About Future Housing: No Difficulty Paying Gas/Electric Bills: No Difficulty Paying for Meds: No Currently Unemployed: No Education: Associate Degree Difficulty w/ Childcare or Family Care: No Gender identity (if verbalized by the patient): Female Spiritual care concerns: No Meds Home Medications and Allergies Home Medications ?Medication ?Instructions ?Recorded ?Confirmed ?Type metoclopramide HCl 5 mg tablet 5 mg PO Q6H PRN nausea and 02/21/25 07/08/25 Rx vomiting #15 tabs omeprazole 20 mg capsule,delayed 20 mg PO DAILY #30 ca ps 02/21/25 07/08/25 Rx release Allergies Allergy/AdvReac Type Severity Reaction Status Date / Time ondansetron (From Zofran) AdvReac Intermediate Dry Eye Verified 07/08/25 07:27 promethazine AdvReac Watery Eye Verified 07/08/25 07:27 Vital Signs Vital Signs - 24 hr 07/08/25 07:04 07/08/25 07:15 07/08/25 07:16 Temperature 36.7 C Pulse Rate 128 H 123 H 124 H Respiratory Rate 16 12 Blood Pressure 135/111 H 137/100 H Pulse Oximetry 97 96 Oxygen Delivery Room Air 07/08/25 08:10 07/08/25 09:03 07/08/25 10:02 Temperature Pulse Rate 111 H 102 H 94 Respiratory Rate 25 H 17 12 Blood Pressure 122/96 H 116/84 126/82 Pulse Oximetry 99 100 96 Oxygen Delivery 07/08/25 10:41 07/08/25 11:04 07/08/25 12:00 Temperature 36.6 C Pulse Rate 94 102 H 99 Respiratory Rate 14 13 18 Blood Pressure 98/72 L 102/76 136/96 H Pulse Oximetry 100 97 100 Oxygen Delivery 07/08/25 12:00 Temperature Pulse Rate 99 Respiratory Rate Blood Pressure Pulse Oximetry Oxygen Delivery Exam 2 Narrative: Awake alert. Appears stated age Const: General: comfortable and no acute distress HENMT: Face/Nose/Sinus: Normal nares present Eyes: General: appearance normal, both eyes and all related structures S clera: sclerae normal Neck: Neck: supple and no JVD Chest: Other: She does have reproducible chest wall pain to palpate which is similar to what she states that she had yesterday and this morning Resp: Effort & Inspection: normal respiratory effort Auscultation: clear to auscultation bilaterally Cardio: Rate: tachycardic Rhythm: regular rhythm Heart sounds: no murmurs GI: Inspection: non-distended GI Palp: No Guarding due to palpation present (GI) Auscultation: normal bowel sounds Skin: General skin exam: normal color Neuro: Speech: normal speech Sensory Exam: normal sensation Extrem: General: normal to inspection Psych: Mental Status: mental status grossly normal Affect: normal affect Results Labs and Meds 07/08/25 07:17 07/08/25 07:17 Lab results: Cardiac Enzymes 07/08/25 07/08/25 07/08/25 Range/Units 07:17 10:16 12:51 AST 39 H (14-36) U/L Troponin I 0.094 H* 0.074 H* D 0.053 H* D (0.000-0.034) ng/mL Coagulation 07/08/25 Range/Units 07:17 PT 13.6 (11.1-14.7) Seconds APTT 29.3 (22.3-36.8) Seconds CBC 07/08/25 Range/Units 07:17 WBC 5.9 (4.5-10.0) K/mm3 RBC 4.38 (4.2-5.4) M/mm3 Hgb 14.0 (12.0-15.0) g/dL Hct 40.7 (37.0-47.0) % Plt Count 418 H (150-375) k/mm3 Lymph # (Auto) 1.58 (0.9-3.2) K/mm3 [place] # (Auto) 0.6 (0.1-0.6) K/mm3 Eos # (Auto) 0.1 (0-0.3) K/mm3 Baso # (Auto) 0.0 (0.0-0.1) K/mm3 Comprehensive Metabolic Panel 07/08/25 Range/Units 07:17 Sodium 131 L (137-145) mmol/L Potassium 4.3 (3.4-5.0) mmol/L Chloride 97 L (98-107) mmol/L Carbon Dioxide 15 L (22-30) mmol/L BUN 27 H (7-17) mg/dL Creatinine 1.07 H (0.7-1.0) mg/dL Glucose 123 H (65-110) mg/dL Calcium 10.3 H (8.4-10.2) mg/dL AST 39 H (14-36) U/L ALT 17 (6-35) U/L Alkaline Phosphatase 118 (38-126) U/L Total Protein 8.6 H (6.3-8.2) g/dL Albumin 4.7 (3.5-5.1) g/dL Intake and Output 07/07/25 07/08/25 07/08/25 23:59 07:59 15:59 Intake Total 2100 Balance 2100 Intake: IV 2100 Sodium Chloride 0.9% IV 1,000 2000 ml @ 999 mls/hr IV CONT .Q1H1M STA Rx#:[id number] Magnesium Sulf 1 gm/D5w 100 ml 100 1 gm In 100 ml @ 100 mls/hr IVPB ONCE ONE Rx#:[id number] Patient Weight 07/08/25 23:59 Weight 53.5 kg EKG is personally reviewed and independently interpreted showing sinus rhythm sinus tachycardia. High lateral T-wave abnormality and inversion consistent with ischemia. Nonspecific ST abnormality.
[2025-07-08] MEDS: METOPROLOL TARTRATE INJ 5 MG/5 ML VIAL IV PUSH ×2 (15:23→22:11)
[2025-07-08 16:11] LABS: Hematocrit 32.8 % (37.0-47.0); Hemoglobin 11.0 g/dL (12.0-15.0); Immature Granulocyte Percent A 0.2 % (0-0.5); Lymphocytes Absolute Auto 0.94 K/mm3 (0.9-3.2); Mean Corpuscular HGB Conc 33.5 g/dl (32-36); Mean Corpuscular Hemoglobin 32.3 pg (26-34); Mean Corpuscular Volume 96.2 fl (80-100); Nucleated Red Blood Cells Absolute Auto 0.000 K/mm3 (0.0-0.012); Nucleated Red Blood Cells Perc 0.0 % (0.0-0.2); Platelet Count Result 299 k/mm3 (150-375); Red Blood Count 3.41 M/mm3 (4.2-5.4); White Blood Count 4.4 K/mm3 (4.5-10.0)
[2025-07-08] MEDS: HEPARIN SOD/D5W 100 UNITS/ML 25,000 UNITS/250 ML BAG 6 UNITS IV CONT (16:26)
[2025-07-08 16:38] LABS: INR 1.1; Prothrombin Time 13.7 Seconds (11.1-14.7)
[2025-07-08 16:39] LABS: Partial Thromboplastin Time 28.1 Seconds (22.3-36.8)
[2025-07-08] MEDS: MORPHINE SULFATE (*CRX) 2 MG/ML INJ IV PUSH (20:46)
[2025-07-08 22:40] LABS: Partial Thromboplastin Time 108.9 Seconds (22.3-36.8)
[2025-07-09] VITALS (15 sets, daily range): BP systolic 128–165; BP diastolic 77–100; PULSE 71–107; RESP 15–18; TEMP 36.6–37; O2SAT 96–100
[2025-07-09] MEDS: MORPHINE SULFATE (*CRX) 2 MG/ML INJ IV PUSH ×4 (02:32→16:10)
[2025-07-09] MEDS: SODIUM CHLORIDE 0.9% IV 1,000 ML 125 ML IV CONT (02:32)
[2025-07-09 05:36] LABS: Hematocrit 30.9 % (37.0-47.0); Hemoglobin 10.1 g/dL (12.0-15.0); Immature Granulocyte Percent A 0.3 % (0-0.5); Lymphocytes Absolute Auto 1.08 K/mm3 (0.9-3.2); Mean Corpuscular HGB Conc 32.7 g/dl (32-36); Mean Corpuscular Hemoglobin 32.1 pg (26-34); Mean Corpuscular Volume 98.1 fl (80-100); Nucleated Red Blood Cells Absolute Auto 0.000 K/mm3 (0.0-0.012); Nucleated Red Blood Cells Perc 0.0 % (0.0-0.2); Platelet Count Result 267 k/mm3 (150-375); Red Blood Count 3.15 M/mm3 (4.2-5.4); White Blood Count 3.9 K/mm3 (4.5-10.0)
[2025-07-09] MEDS: METOPROLOL TARTRATE INJ 5 MG/5 ML VIAL IV PUSH ×3 (05:37→21:12)
[2025-07-09 06:04] LABS: Partial Thromboplastin Time 52.7 Seconds (22.3-36.8)
[2025-07-09 06:07] LABS: Alanine Aminotransferase 11 U/L (6-35); Albumin Level 3.3 g/dL (3.5-5.1); Alkaline Phosphatase 83 U/L (38-126); Anion Gap 9 mmol/L (4-12); Aspartate Amino Transferase 25 U/L (14-36); Bilirubin,Total 0.7 mg/dL (0.2-1.3); Blood Urea Nitrogen 15 mg/dL (7-17); Calcium 8.5 mg/dL (8.4-10.2); Carbon Dioxide 19 mmol/L (22-30); Chloride 105 mmol/L (98-107); Estimated CRCL calculation 61 ml/min; Estimated Glomerular Filt Rate > 60; Glucose 78 mg/dL (65-110); Magnesium 1.9 mg/dL (1.6-2.3); Potassium 3.9 mmol/L (3.4-5.0); Sodium 133 mmol/L (137-145); Total Protein 5.9 g/dL (6.3-8.2)
--- NOTE | 2025-07-09 07:00 | ECG_ITS ---
Test Date: 2025-07-09 08:13:35 Measurements Intervals [place] Rate: 76 P: 39 [place]: 131 QRS: 20 QRSD: 79 T: 91 QT: 393 QTc: 444 Interpretive Statements SINUS RHYTHM MODERATE T-WAVE ABNORMALITY, CONSIDER LATERAL ISCHEMIA [-0.1+ mV T-WAVE IN I/aVL/V5/V6] Compared to ECG 07/08/2025 13:34:08 T-wave abnormality still present Possible ischemia still present Electronically Signed On 07-09-2025 11:39:46 CDT by Timothy Will M.D.
[2025-07-09] MEDS: PANTOPRAZOLE SODIUM IV 40 MG VIAL IV PUSH (08:27)
--- NOTE | 2025-07-09 09:58 | PM.PNGS ---
Progress Note: A&P Assessment and Plan (1) Small bowel obstruction: Code(s): K56.609 - Unspecified intestinal obstruction, unspecified as to partial versus complete obstruction Status: Acute Assessment and Plan: Patient presents with a small bowel obstruction being treated conservatively with bowel rest. NG tube attempt unsuccessful. She is still having abdominal pain and nausea, but no vomiting. She feels her abdominal pain is slightly better. Will order an obstructive series this morning. Depending on these results, will consider further evaluation with a water-soluble small bowel series. We may need to re-consider NG tube placement if she is not improving with current treatment. Continue IV fluids and bowel rest. (2) Sinus tachycardia: Code(s): R00.0 - Tachycardia, unspecified Status: Acute (3) Elevated troponin: Code(s): R79.89 - Other specified abnormal findings of blood chemistry Status: Acute Assessment and Plan: Cardiology has patient on heparin drip for possible ACS. Echo showed normal EF, grade I diastolic dysfunction. (4) History of cervical cancer: Code(s): Z85.41 - Personal history of malignant neoplasm of cervix uteri Status: Acute Assessment and Plan: Patient has a history of hysterectomy and pelvic radiation, which would comes with the possibility of intraabdominal adhesions or strictures that could be causing a small bowel obstruction. See plan above. Plan Discussed patient's case and plan of care with Dr. Sethi. Subjective Subjective Date/Time Seen: 07/09/25 09:58 Patient reports: no new complaints Interval history: Patient is still having waves of abdominal pain, mostly in her upper abdomen, that comes and goes. She reports the pain is slightly better than when she was admitted. She has been feeling nauseous this morning, but no vomiting. She is passing little flatus, but no BM. Exam Const: General: comfortable and no acute distress GI: Inspection: other (Mildly distended) GI Palp: Yes Soft to palpation, Yes Tenderness to palpation present (GI) (Diffusely tender), No Guarding due to palpation present (GI) and No Rebound tenderness present Auscultation: Hypoactive bowel sounds present Objective Data Vital Signs Vital Signs: Vital Signs - 24 hr 07/08/25 10:02 07/08/25 10:41 07/08/25 11:04 Temperature Pulse Rate 94 94 102 H Respiratory Rate 12 14 13 Blood Pressure 126/82 98/72 L 102/76 Pulse Oximetry 96 100 97 Oxygen Delivery 07/08/25 12:00 07/08/25 12:00 07/08/25 14:00 Temperature 97.9 F Pulse Rate 99 99 100 Respiratory Rate 18 Blood Pressure 136/96 H Pulse Oximetry 100 Oxygen Delivery 07/08/25 15:23 07/08/25 16:00 07/08/25 16:00 Temperature 98.2 F Pulse Rate 99 97 81 Respiratory Rate 16 Blood Pressure 134/84 Pulse Oximetry 100 Oxygen Delivery 07/08/25 18:00 07/08/25 19:15 07/08/25 20:00 Temperature 98.3 F Pulse Rate 92 83 Respiratory Rate 16 Blood Pressure 131/80 Pulse Oximetry 100 Oxygen Delivery Room Air 07/08/25 20:00 07/08/25 21:05 07/08/25 22:00 Temperature Pulse Rate 85 Respiratory Rate Blood Pressure 121/75 Pulse Oximetry 98 Oxygen Delivery Room Air 07/08/25 22:00 07/08/25 22:11 07/08/25 23:34 Temperature 98.3 F Pulse Rate 86 94 95 Respiratory Rate 17 Blood Pressure 125/76 Pulse Oximetry 99 Oxygen Delivery 07/09/25 00:00 07/09/25 00:00 07/09/25 02:00 Temperature Pulse Rate 81 78 Respiratory Rate Blood Pressure Pulse Oximetry Oxygen Delivery Room Air 07/09/25 04:00 07/09/25 04:00 07/09/25 04:00 Temperature 97.9 F Pulse Rate 92 83 Respiratory Rate 17 Blood Pressure 140/80 Pulse Oximetry 100 Oxygen Delivery Room Air 07/09/25 05:37 07/09/25 05:38 07/09/25 06:00 Temperature Pulse Rate 87 72 Respiratory Rate Blood Pressure 128/77 Pulse Oximetry Oxygen Delivery 07/09/25 08:00 07/09/25 08:00 07/09/25 08:00 Temperature 98 F Pulse Rate 91 76 Respiratory Rate 16 Blood Pressure 140/83 Pulse Oximetry 97 Oxygen Delivery Room Air Intake/Output Intake/Output: Intake & Output 07/06/25 07/07/25 07/08/25 07/09/25 23:59 23:59 23:59 23:59 Intake Total 3170.7 1033.7 Output Total 200 800 Balance 2970.7 233.7 Meds/Results Medications: Active Medications Generic Name Dose Route Start Last Admin Trade Name Freq PRN Reason Stop Dose Admin Acetaminophen 650 mg 07/08/25 13:10 Acetaminophen 325 Mg Tablet PO Q6H PRN Mild Pain (1-3) or Fever Hydrocodone Bitart/Acetaminophen 1 tab 07/08/25 13:10 Hydrocodone/Acetaminophen (*Crx) 5-325 Mg Tablet PO Q6H PRN Pain Rated 4-6 Aspirin 81 mg 07/09/25 09:00 Aspirin 81 Mg Enteric Tablet PO QAM [facility] Atorvastatin Calcium 20 mg 07/09/25 09:00 Atorvastatin 20 Mg Tablet PO DAILY [facility] Heparin Sodium (Porcine) 4,000 units 07/08/25 15:39 07/09/25 06:08 Heparin Sodium 5,000 Units/Ml Vial IV PUSH 4,000 units PRN PRN Administration aPTT less than 55 seconds Heparin Sodium (Porcine) 2,000 units 07/08/25 15:39 Heparin Sodium 5,000 Units/Ml Vial IV PUSH PRN PRN aPTT 55 - 70 seconds Sodium Chloride 1,000 mls @ 125 mls/hr 07/08/25 10:35 07/09/25 02:32 Normal Saline Iv IV CONT 125 mls/hr .Q8H [facility] Administration Heparin Sodium/Dextrose 25,000 units in 250 mls @ 7 mls/hr 07/08/25 15:40 07/09/25 06:09 Heparin Sodium/D5w 100 Units/Ml IV CONT 700 units/hr .Q24H RAJAT 7 mls/hr Protocol Titration 700 UNITS/HR Metoprolol Tartrate 5 mg 07/08/25 14:40 07/09/25 05:37 Metoprolol Tartrate Inj 5 Mg/5 Ml Vial IV PUSH 5 mg Q8HR RAJAT Administration Morphine Sulfate 2 mg 07/08/25 10:31 07/09/25 08:27 Morphine Sulfate (*Crx) 2 Mg/Ml Inj IV PUSH 2 mg Q2H PRN Administration Pain Rated 7-10 Nitroglycerin 0.4 mg 07/08/25 13:09 Nitroglycerin Sl 0.4 Mg Tablet SUBLINGUAL Q5MIN PRN Chest Pain Pantoprazole Sodium 40 mg 07/09/25 09:00 07/09/25 08:27 Pantoprazole Sodium Iv 40 Mg Vial IV PUSH 40 mg QAM RAJAT Administration Perflutren Lipid Microsphere 0 ml 07/08/25 14:23 Perflutren Lipid Microspheres 1.5 Ml Vial Diluted To 10 Ml Total Volume IV PUSH 07/11/25 14:23 ONCE PRN adequate visualization Protocol Radiology Results: ITS Impressions Chest X-Ray 07/08/25 07:52 IMPRESSION: 1. No acute cardiopulmonary disease. Chest/Abdomen/Pelvis CTA 07/08/25 10:04 IMPRESSION: 1. Small bowel obstruction with distal ileal transition point in the right deep pelvis along with a small amount of likely reactive ascites. 2. Mild emphysema. No pulmonary embolism or other acute cardiopulmonary disease. Abdomen X-Ray 07/08/25 16:46 IMPRESSION: 1. Dilated small bowel loops with relatively decompressed colon. Findings suggest partial obstruction versus ileus. Labs Labs: Laboratory Results - last 24 hr 07/08/25 07/08/25 07/08/25 10:16 12:51 15:55 WBC 4.4 L RBC 3.41 L Hgb 11.0 L D Hct 32.8 L MCV 96.2 MCH 32.3 MCHC 33.5 RDW 11.9 Plt Count 299 MPV 10.1 Immature Gran % (Auto) 0.2 Neut % (Auto) 66.7 Lymph % (Auto) 21.4 [place] % (Auto) 10.5 H Eos % (Auto) 0.7 Baso % (Auto) 0.5 Lymph # (Auto) 0.94 [place] # (Auto) 0.5 Eos # (Auto) 0.0 Baso # (Auto) 0.0 Abs Immat Gran (auto) 0.01 Absolute Neuts (auto) 2.9 Absolute Nucleated RBC 0.000 Nucleated RBC % 0.0 PT 13.7 INR 1.1 APTT 28.1 Sodium Potassium Chloride Carbon Dioxide Anion Gap BUN Creatinine Estim Creat Clear Calc Estimated GFR Glucose Calcium Phosphorus Magnesium Total Bilirubin AST ALT Alkaline Phosphatase Troponin I 0.074 H* D 0.053 H* D Total Protein Albumin 07/08/25 07/09/25 22:19 05:27 WBC 3.9 L RBC 3.15 L Hgb 10.1 L Hct 30.9 L MCV 98.1 MCH 32.1 MCHC 32.7 RDW 11.9 Plt Count 267 MPV 9.9 Immature Gran % (Auto) 0.3 Neut % (Auto) 59.1 Lymph % (Auto) 27.8 [place] % (Auto) 10.5 H Eos % (Auto) 1.8 Baso % (Auto) 0.5 Lymph # (Auto) 1.08 [place] # (Auto) 0.4 Eos # (Auto) 0.1 Baso # (Auto) 0.0 Abs Immat Gran (auto) 0.01 Absolute Neuts (auto) 2.3 Absolute Nucleated RBC 0.000 Nucleated RBC % 0.0 PT INR APTT 108.9 H 52.7 H Sodium 133 L Potassium 3.9 Chloride 105 Carbon Dioxide 19 L Anion Gap 9 BUN 15 D Creatinine 0.74 Estim Creat Clear Calc 61 Estimated GFR > 60 Glucose 78 Calcium 8.5 Phosphorus 2.4 L Magnesium 1.9 Total Bilirubin 0.7 AST 25 ALT 11 Alkaline Phosphatase 83 Troponin I Total Protein 5.9 L Albumin 3.3 L
--- NOTE | 2025-07-09 11:04 | PM.PNCARD ---
Progress Note: A&P Assessment and Plan (1) Elevated troponin: Code(s): R79.89 - Other specified abnormal findings of blood chemistry Status: Acute Assessment and Plan: Elevated troponin may be related to ACS but mildly mildly dilated downtrended - pattern not consistent with ACS. EKG is concerning for ischemia but she was also significantly tachycardic also upon presentation. However, repeat EKG this morning with heart rate 76 continues to show T wave inversions. She is denying any chest pain. - Continue IV metoprolol 5 mg IV Q 8 hours. - Echo showed normal LV function, grade I diastolic dysfunction. - Continue ASA, atorvastatin - Cannot rule out underlying CAD, however, currently no indication for inpatient ischemic evaluation. Can stop heparin drip. Will plan for outpatient stress testing for risk stratification. -Cardiology will sign off. Please call with questions (2) Palpitations: Code(s): R00.2 - Palpitations Status: Acute Assessment and Plan: Continue IV fluids (3) Small bowel obstruction: Code(s): K56.609 - Unspecified intestinal obstruction, unspecified as to partial versus complete obstruction Status: Acute Assessment and Plan: Continue fluids. Surgery is following (4) Hypertension: Code(s): I10 - Essential (primary) hypertension Status: Acute Assessment and Plan: Continue metoprolol Subjective Date/time seen: 07/09/25 11:04 Interval history: Cardiology follow-up visit Date of service 07/09/2025: Complaining of ongoing abdominal pain. She does not any chest pain, shortness of breath, palpitations. Review of Systems Review of Systems: All systems reviewed & are unremarkable except as noted in HPI and below Constitutional: Constitutional: Denies chills and Denies excessive sweating Eyes: Eyes: Denies blurry vision ENT: Reports Normal hearing present and Denies lip swelling Cardiovascular: Cardiovascular: Reports chest pain, Reports palpitations and Reports dyspnea Respiratory: Respiratory: Reports dyspnea Gastrointestinal: Gastrointestinal: Reports abdominal pain, Reports constipation and Reports heartburn Genitourinary: Genitourinary: Denies hematuria Musculoskeletal: Musculoskeletal: Reports back pain Integumentary/Breasts: Skin/Breast: Denies erythema Neurologic: Reports Normal hearing present and Denies Abnormal speech present Psychiatric: Psychiatric: Denies anxiety Endocrine: Endocrine: Denies excessive sweating and Reports palpitations Hematologic/Lymphatic: Hematologic/Lymphatic: Denies easy bleeding Allergic/Immunologic: Allergic/Immunologic: Denies lip swelling Exam Narrative: Awake alert. Appears stated age Const: General: comfortable and no acute distress HENMT: Face/Nose/Sinus: Normal nares present Eyes: General: appearance normal, both eyes and all related structures Sclera: sclerae normal Neck: Neck: supple and no JVD Resp: Effort & Inspection: normal respiratory effort Auscultation: clear to auscultation bilaterally Cardio: Rate: tachycardic Rhythm: regular rhythm Heart sounds: no murmurs GI: Inspection: non-distended Auscultation: Hypoactive bowel sounds present Skin: General skin exam: normal color Neuro: Cranial nerves: Yes Normal hearing present Speech: normal speech and No Abnormal speech present Sensory Exam: normal sensation Extrem: General: normal to inspection Psych: Mental Status: mental status grossly normal Affect: normal affect Objective Data Vital Signs Vital Signs: Vital Signs - 24 hr 07/08/25 12:00 07/08/25 12:00 07/08/25 14:00 Temperature 36.6 C Pulse Rate 99 99 100 Respiratory Rate 18 Blood Pressure 136/96 H Pulse Oximetry 100 Oxygen Delivery 07/08/25 15:23 07/08/25 16:00 07/08/25 16:00 Temperature 36.8 C Pulse Rate 99 97 81 Respiratory Rate 16 Blood Pressure 134/84 Pulse Oximetry 100 Oxygen Delivery 07/08/25 18:00 07/08/25 19:15 07/08/25 20:00 Temperature 36.8 C Pulse Rate 92 83 Respiratory Rate 16 Blood Pressure 131/80 Pulse Oximetry 100 Oxygen Delivery Room Air 07/08/25 20:00 07/08/25 21:05 07/08/25 22:00 Temperature Pulse Rate 85 Respiratory Rate Blood Pressure 121/75 Pulse Oximetry 98 Oxygen Delivery Room Air 07/08/25 22:00 07/08/25 22:11 07/08/25 23:34 Temperature 36.8 C Pulse Rate 86 94 95 Respiratory Rate 17 Blood Pressure 125/76 Pulse Oximetry 99 Oxygen Delivery 07/09/25 00:00 07/09/25 00:00 07/09/25 02:00 Temperature Pulse Rate 81 78 Respiratory Rate Blood Pressure Pulse Oximetry Oxygen Delivery Room Air 07/09/25 04:00 07/09/25 04:00 07/09/25 04:00 Temperature 36.6 C Pulse Rate 92 83 Respiratory Rate 17 Blood Pressure 140/80 Pulse Oximetry 100 Oxygen Delivery Room Air 07/09/25 05:37 07/09/25 05:38 07/09/25 06:00 Temperature Pulse Rate 87 72 Respiratory Rate Blood Pressure 128/77 Pulse Oximetry Oxygen Delivery 07/09/25 08:00 07/09/25 08:00 07/09/25 08:00 Temperature 36.6 C Pulse Rate 91 76 Respiratory Rate 16 Blood Pressure 140/83 Pulse Oximetry 97 Oxygen Delivery Room Air 07/09/25 10:00 Temperature Pulse Rate 107 H Respiratory Rate Blood Pressure Pulse Oximetry Oxygen Delivery Intake/Output Intake/Output: Intake & Output 07/06/25 07/07/25 07/08/25 07/09/25 23:59 23:59 23:59 23:59 Intake Total 3170.7 1033.7 Output Total 200 800 Balance 2970.7 233.7 Meds/Results Medications: Active Medications Generic Name Dose Route Start Last Admin Trade Name Freq PRN Reason Stop Dose Admin Acetaminophen 650 mg 07/08/25 13:10 Acetaminophen 325 Mg Tablet PO Q6H PRN Mild Pain (1-3) or Fever Hydrocodone Bitart/Acetaminophen 1 tab 07/08/25 13:10 Hydrocodone/Acetaminophen (*Crx) 5-325 Mg Tablet PO Q6H PRN Pain Rated 4-6 Aspirin 81 mg 07/09/25 09:00 Aspirin 81 Mg [facility]ic [facility] Atorvastatin Calcium 20 mg 07/09/25 09:00 Atorvastatin 20 Mg Tablet PO DAILY [facility] Heparin Sodium (Porcine) 4,000 units 07/08/25 15:39 07/09/25 06:08 Heparin Sodium 5,000 Units/Ml Vial IV PUSH 4,000 units PRN PRN Administration aPTT less than 55 seconds Heparin Sodium (Porcine) 2,000 units 07/08/25 15:39 Heparin Sodium 5,000 Units/Ml Vial IV PUSH PRN PRN aPTT 55 - 70 seconds Sodium Chloride 1,000 mls @ 125 mls/hr 07/08/25 10:35 07/09/25 02:32 Normal Saline Iv IV CONT 125 mls/hr .Q8H RAJAT Administration Heparin Sodium/Dextrose 25,000 units in 250 mls @ 7 mls/hr 07/08/25 15:40 07/09/25 06:09 Heparin Sodium/D5w 100 Units/Ml IV CONT 700 units/hr .Q24H RAJAT 7 mls/hr Protocol Titration 700 UNITS/HR Metoprolol Tartrate 5 mg 07/08/25 14:40 07/09/25 05:37 Metoprolol Tartrate Inj 5 Mg/5 Ml Vial IV PUSH 5 mg Q8HR RAJAT Administration Morphine Sulfate 2 mg 07/08/25 10:31 07/09/25 08:27 Morphine Sulfate (*Crx) 2 Mg/Ml Inj IV PUSH 2 mg Q2H PRN Administration Pain Rated 7-10 Nitroglycerin 0.4 mg 07/08/25 13:09 Nitroglycerin Sl 0.4 Mg Tablet SUBLINGUAL Q5MIN PRN Chest Pain Pantoprazole Sodium 40 mg 07/09/25 09:00 07/09/25 08:27 Pantoprazole Sodium Iv 40 Mg Vial IV PUSH 40 mg QAM RAJAT Administration Perflutren Lipid Microsphere 0 ml 07/08/25 14:23 Perflutren Lipid Microspheres 1.5 Ml Vial Diluted To 10 Ml Total Volume IV PUSH 07/11/25 14:23 ONCE PRN adequate visualization Protocol Radiology Results: ITS Impressions Chest X-Ray 07/08/25 07:52 IMPRESSION: 1. No acute cardiopulmonary disease. Chest/Abdomen/Pelvis CTA 07/08/25 10:04 IMPRESSION: 1. Small bowel obstruction with distal ileal transition point in the right deep pelvis along with a small amount of likely reactive ascites. 2. Mild emphysema. No pulmonary embolism or other acute cardiopulmonary disease. Labs Labs: Laboratory Results - last 24 hr 07/08/25 07/08/25 07/08/25 12:51 15:55 22:19 WBC 4.4 L RBC 3.41 L Hgb 11.0 L D Hct 32.8 L MCV 96.2 MCH 32.3 MCHC 33.5 RDW 11.9 Plt Count 299 MPV 10.1 Immature Gran % (Auto) 0.2 Neut % (Auto) 66.7 Lymph % (Auto) 21.4 [place] % (Auto) 10.5 H Eos % (Auto) 0.7 Baso % (Auto) 0.5 Lymph # (Auto) 0.94 [place] # (Auto) 0.5 Eos # (Auto) 0.0 Baso # (Auto) 0.0 Abs Immat Gran (auto) 0.01 Absolute Neuts (auto) 2.9 Absolute Nucleated RBC 0.000 Nucleated RBC % 0.0 PT 13.7 INR 1.1 APTT 28.1 108.9 H Sodium Potassium Chloride Carbon Dioxide Anion Gap BUN Creatinine Estim Creat Clear Calc Estimated GFR Glucose Calcium Phosphorus Magnesium Total Bilirubin AST ALT Alkaline Phosphatase Troponin I 0.053 H* D Total Protein Albumin 07/09/25 05:27 WBC 3.9 L RBC 3.15 L Hgb 10.1 L Hct 30.9 L MCV 98.1 MCH 32.1 MCHC 32.7 RDW 11.9 Plt Count 267 MPV 9.9 Immature Gran % (Auto) 0.3 Neut % (Auto) 59.1 Lymph % (Auto) 27.8 [place] % (Auto) 10.5 H Eos % (Auto) 1.8 Baso % (Auto) 0.5 Lymph # (Auto) 1.08 [place] # (Auto) 0.4 Eos # (Auto) 0.1 Baso # (Auto) 0.0 Abs Immat Gran (auto) 0.01 Absolute Neuts (auto) 2.3 Absolute Nucleated RBC 0.000 Nucleated RBC % 0.0 PT INR APTT 52.7 H Sodium 133 L Potassium 3.9 Chloride 105 Carbon Dioxide 19 L Anion Gap 9 BUN 15 D Creatinine 0.74 Estim Creat Clear Calc 61 Estimated GFR > 60 Glucose 78 Calcium 8.5 Phosphorus 2.4 L Magnesium 1.9 Total Bilirubin 0.7 AST 25 ALT 11 Alkaline Phosphatase 83 Troponin I Total Protein 5.9 L Albumin 3.3 L Quality VTE Prophylaxis VTE prophylaxis: mechanical ordered
[2025-07-09] MEDS: ONDANSETRON INJ 4 MG/2 ML VIAL IV PUSH ×3 (11:38→20:40)
[2025-07-09] MEDS: DEXTROSE 5%/0.9% SOD CHL 1,000 ML 125 ML IV CONT (11:38)
--- NOTE | 2025-07-09 11:53 | ECG_ITS ---
Test Date: 2025-07-09 11:55:34 Measurements Intervals [place] Rate: 73 P: 51 WI: 135 QRS: 31 QRSD: 79 T: 76 QT: 394 QTc: 435 Interpretive Statements SINUS RHYTHM MODERATE T-WAVE ABNORMALITY, CAN NOT RULE OUT ISCHEMIA Compared to ECG 07/09/2025 08:13:35 NO SIGNIFICANT CHANGES Electronically Signed On 07-09-2025 12:28:07 CDT by Timothy Will M.D.
[2025-07-09 13:19] LABS: Partial Thromboplastin Time 184.3 Seconds (22.3-36.8)
--- NOTE | 2025-07-09 16:14 | P.CONGI_ITS ---
Assessment and Plan Assessment and plan (1) Small bowel obstruction: Code(s): K56.609 - Unspecified intestinal obstruction, unspecified as to partial versus complete obstruction Status: Acute Assessment and Plan: wonder if this could be due to previous pelvic radiation after cervical cancer and adhesions recent colonoscopy unable to complete surgery on board if still ongoing n/v then place NGT pending SBFT report antiemetics plan per surgery team (2) Stricture of ileum: Code(s): K56.699 - Other intestinal obstruction unspecified as to partial versus complete obstruction Status: Acute (3) Abdominal pain: Qualifiers: Abdominal location: lower abdomen, unspecified Qualified Code(s): R 10.30 - Lower abdominal pain, unspecified Code(s): R10.9 - Unspecified abdominal pain Status: Inactive (4) History of therapeutic radiation: Code(s): Z92.3 - Personal history of irradiation Status: Acute (5) Nausea and vomiting in adult: Code(s): R11.2 - Nausea with vomiting, unspecified Status: Acute GI Consult Note Consult date/time: 07/09/25 16:14 Reason for consult: SBO, history of colonic stricture HPI: Fariba Ureña is a 55 year old female with history of breast cancer (double mastectomy in 2021), cervical cancer (hysterectomy and radiation in 2020) admitted to hospital with worsening abdominal pain. She has been dealing with recurrent abdominal pain for almost 2 months consistent of severe cramping, nausea, decrease appetite. She actually just completed colonoscopy June 25 at [place] with [address] Mccoy- reportedly, the colonoscopy was terminated early, as a colonic stricture was encountered and the scope was unable to be passed through. Then had EGD 2 days ago (no report available). Admitted here with worsening abdominal pain, n/v. CT showed SOB and surgery on board, abnormal finding in distal ileum near ICV, just completed SBFT with pending report, still very nauseous. Review of Systems 2 Constitutional: Constitutional: Denies chills Eyes: Eyes: Denies blurry vision ENT: Reports Normal hearing present Cardiovascular: Cardiovascular: Denies chest pain Respiratory: Respiratory: Denies cough Gastrointestinal: Gastrointestinal: Reports abdominal pain, Reports vomiting and Reports hematemesis Genitourinary: Genitourinary: Denies dysuria Musculoskeletal: Musculoskeletal: Denies neck pain Integumentary/Breasts: Skin/Breast: Denies rash Neurologic: Denies Abnormal speech present Psychiatric: Psychiatric: Denies behavioral changes [facility] Past Medical History Medical History (Updated 07/09/25 @ 16:19 by Carmelo Knutson MD) Nausea and vomiting in adult History of therapeutic radiation Stricture of ileum Hypertension Breast cancer 08/31/2021 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 Surgical History Surgical History S/P dilatation and curettage (~03/2021) S/P HSCOPE D&C History of robot-assisted laparoscopic hysterectomy (~08/2021) History of bilateral tubal ligation Family History Family History Mother Hypertension Social History Social History Smoking status: Never smoker Alcohol intake: former Substance use: never Lack of Transportation: YES Lack of Food: Never True Current Housing: I Have Housing Concerned About Future Housing: No Difficulty Paying Gas/Electric Bills: No Difficulty Paying for Meds: No Currently Unemployed: No Education: Associate Degree Difficulty w/ Childcare or Family Care: No Gender identity (if verbalized by the patient): Female Spiritual care concerns: No Meds Home Medications and Allergies Home Medications ?Medication ?Instructions ?Recorded ?Confirmed ?Type metoclopramide HCl 5 mg tablet 5 mg PO Q6H PRN nausea and 02/21/25 07/08/25 Rx vomiting #15 tabs omeprazole 20 mg capsule,delayed 20 mg PO DAILY #30 ca ps 02/21/25 07/08/25 Rx release Allergies Allergy/AdvReac Type Severity Reaction Status Date / Time ondansetron (From Zofran) AdvReac Intermediate Dry Eye Verified 07/08/25 07:27 promethazine AdvReac Watery Eye Verified 07/08/25 07:27 Vital Signs Vital Signs - 24 hr 07/08/25 18:00 07/08/25 19:15 07/08/25 20:00 Temperature 98.3 F Pulse Rate 92 83 Respiratory Rate 16 Blood Pressure 131/80 Pulse Oximetry 100 Oxygen Delivery Room Air 07/08/25 20:00 07/08/25 21:05 07/08/25 22:00 Temperature Pulse Rate 85 Respiratory Rate Blood Pressure 121/75 Pulse Oximetry 98 Oxygen Delivery Room Air 07/08/25 22:00 07/08/25 22:11 07/08/25 23:34 Temperature 98.3 F Pulse Rate 86 94 95 Respiratory Rate 17 Blood Pressure 125/76 Pulse Oximetry 99 Oxygen Delivery 07/09/25 00:00 07/09/25 00:00 07/09/25 02:00 Temperature Pulse Rate 81 78 Respiratory Rate Blood Pressure Pulse Oximetry Oxygen Delivery Room Air 07/09/25 04:00 07/09/25 04:00 07/09/25 04:00 Temperature 97.9 F Pulse Rate 92 83 Respiratory Rate 17 Blood Pressure 140/80 Pulse Oximetry 100 Oxygen Delivery Room Air 07/09/25 05:37 07/09/25 05:38 07/09/25 06:00 Temperature Pulse Rate 87 72 Respiratory Rate Blood Pressure 128/77 Pulse Oximetry Oxygen Delivery 07/09/25 08:00 07/09/25 08:00 07/09/25 08:00 Temperature 98 F Pulse Rate 91 76 Respiratory Rate 16 Blood Pressure 140/83 Pulse Oximetry 97 Oxygen Delivery Room Air 07/09/25 10:00 07/09/25 12:00 07/09/25 12:00 Temperature Pulse Rate 107 H 83 Respiratory Rate Blood Pressure Pulse Oximetry Oxygen Delivery Room Air 07/09/25 12:00 07/09/25 14:00 Temperature 98 F Pulse Rate 76 78 Respiratory Rate 18 Blood Pressure 154/89 H Pulse Oximetry 100 Oxygen Delivery Exam 2 Const: General: comfortable and no acute distress HENMT: Face/Nose/Sinus: Normal nares present Eyes: General: appearance normal, both eyes and all related structures Neck: Neck: supple Resp: Effort & Inspection: normal respiratory effort Cardio: Rate: regular rate GI: Inspection: non-distended GI Palp: Yes Soft to palpation, Yes Tenderness to palpation present (GI) (Diffusely throughout epigastric region), No Guarding due to palpation present (GI) and No Hernia present Auscultation: normal bowel sounds : General: Yes bladder normal to palpation Skin: General skin exam: normal color and no rashes or lesions noted Extrem: General: normal to inspection Psych: Mental Status: mental status grossly normal Results Labs 07/09/25 05:27 07/09/25 05:27 Labs: Short CBC 07/08/25 07/09/25 Range/Units 15:55 05:27 WBC 4.4 L 3.9 L (4.5-10.0) K/mm3 Hgb 11.0 L D 10.1 L (12.0-15.0) g/dL Hct 32.8 L 30.9 L (37.0-47.0) % Plt Count 299 267 (150-375) k/mm3 BMP 07/09/25 05:27 Sodium 133 L Potassium 3.9 Chloride 105 Carbon Dioxide 19 L BUN 15 D Creatinine 0.74 Glucose 78 Calcium 8.5 Liver Function 07/09/25 Range/Units 05:27 Total Bilirubin 0.7 (0.2-1.3) mg/dL AST 25 (14-36) U/L ALT 11 (6-35) U/L Alkaline Phosphatase 83 (38-126) U/L Albumin 3.3 L (3.5-5.1) g/dL
[2025-07-09 16:49] LABS: Partial Thromboplastin Time 183.3 Seconds (22.3-36.8)
--- NOTE | 2025-07-09 16:49 | PM.IMPN ---
Progress Note: A&P Assessment and Plan (1) Elevated troponin: Code(s): R79.89 - Other specified abnormal findings of blood chemistry Status: Acute (2) Small bowel obstruction: Code(s): K56.609 - Unspecified intestinal obstruction, unspecified as to partial versus complete obstruction Status: Acute Plan 55-year-old female with PMH hypertension, breast cancer (2020, s/p double mastectomy), and adenocarcinoma of the cervix (2020, s/p radiation/chemo and hysterectomy) on oral chemo presents to [facility] via EMS with tachycardia and chest pain on 07/08/2025. Upon further evaluation the pain and was originating in the stomach area. It was dull and gaslike. This is an exacerbation of pain which has been going on for at least a month. She had a colonoscopy on June 25, [address] Mccoy at [place]. but the procedure was aborted as reportedly the lumen was too narrow. There is a family history of cancer, aunt had uterine cancer, cousin and colon cancer, cousin and breast cancer. Since that procedure she has not had a bowel movement and has had very poor oral intake. Records are being obtained. She also had an endoscopy 2 days prior to admission in that report is not available as well patient reports she was not told of any abnormal findings. She failed NG tube placement. She has nausea but no vomiting. Small-bowel follow-through results pending, General surgery and GI are following. Continue D5 normal saline at 125 cc/hour. The patient reports dry eye with promethazine and Zofran. She was willing to try Zofran along with eyedrops so far has not had complaints. Repeat EKG performed 15 minutes after Zofran on 07/09/2025 with a decreased QTC interval of 435. Continue to check as needed. NPO. As she presented with will was thought to be chest pain, she had an elevated troponin as well which has now downtrended. EKG without ST elevations. She has been seen by Cardiology who has signed off. Echo demonstrates normal LV function and grade 1 diastolic dysfunction. They would like for her to have a follow-up in the outpatient setting. Heparin drip discontinued. Continue aspirin and statin. Patient denies any more chest pain. She wishes to be full code. Continue Protonix 40 mg IV q.a.m.. Subjective Date/time seen: 07/09/25 16:49 Interval history: Patient reports her abdominal pain has improved but still comes and goes and is mostly in the upper belly. He complains of nausea which was initially resolved with the administration of the scheduled morning Protonix but returned. She has not had any vomiting. She is passing flatness but no stool. Denies chest pain or shortness of breath. Review of Systems Review of Systems: All systems reviewed & are unremarkable except as noted in HPI and below (Subjective) Exam Const: General: comfortable and no acute distress Other: A&O x3 Eyes: Pupils: Equal, round and reactive pupils present Neck: Neck: supple Resp: Effort & Inspection: normal respiratory effort Auscultation: clear to auscultation bilaterally Cardio: Rate: regular rate Rhythm: regular rhythm Heart sounds: no murmurs GI: GI Palp: Yes Soft to palpation Other: Tender to palpation of the epigastrium. Bowel sounds hypoactive Neuro: Motor exam (neuro): 5/5 motor strength present throughout Extrem: General: no edema Objective Data Vital Signs Vital Signs: Vital Signs - 24 hr 07/08/25 18:00 07/08/25 19:15 07/08/25 20:00 Temperature 98.3 F Pulse Rate 92 83 Respiratory Rate 16 Blood Pressure 131/80 Pulse Oximetry 100 Oxygen Delivery Room Air 07/08/25 20:00 07/08/25 21:05 07/08/25 22:00 Temperature Pulse Rate 85 Respiratory Rate Blood Pressure 121/75 Pulse Oximetry 98 Oxygen Delivery Room Air 07/08/25 22:00 07/08/25 22:11 07/08/25 23:34 Temperature 98.3 F Pulse Rate 86 94 95 Respiratory Rate 17 Blood Pressure 125/76 Pulse Oximetry 99 Oxygen Delivery 07/09/25 00:00 07/09/25 00:00 07/09/25 02:00 Temperature Pulse Rate 81 78 Respiratory Rate Blood Pressure Pulse Oximetry Oxygen Delivery Room Air 07/09/25 04:00 07/09/25 04:00 07/09/25 04:00 Temperature 97.9 F Pulse Rate 92 83 Respiratory Rate 17 Blood Pressure 140/80 Pulse Oximetry 100 Oxygen Delivery Room Air 07/09/25 05:37 07/09/25 05:38 07/09/25 06:00 Temperature Pulse Rate 87 72 Respiratory Rate Blood Pressure 128/77 Pulse Oximetry Oxygen Delivery 07/09/25 08:00 07/09/25 08:00 07/09/25 08:00 Temperature 98 F Pulse Rate 91 76 Respiratory Rate 16 Blood Pressure 140/83 Pulse Oximetry 97 Oxygen Delivery Room Air 07/09/25 10:00 07/09/25 12:00 07/09/25 12:00 Temperature Pulse Rate 107 H 83 Respiratory Rate Blood Pressure Pulse Oximetry Oxygen Delivery Room Air 07/09/25 12:00 07/09/25 14:00 Temperature 98 F Pulse Rate 76 78 Respiratory Rate 18 Blood Pressure 154/89 H Pulse Oximetry 100 Oxygen Delivery Intake/Output Intake/Output: Intake & Output 07/06/25 07/07/25 07/08/25 07/09/25 23:59 23:59 23:59 23:59 Intake Total 3170.7 1033.7 Output Total 200 800 Balance 2970.7 233.7 Meds/Results Medications: Active Medications Generic Name Dose Route Start Last Admin Trade Name Freq PRN Reason Stop Dose Admin Acetaminophen 650 mg 07/08/25 13:10 Acetaminophen 325 Mg Tablet PO Q6H PRN Mild Pain (1-3) or Fever Hydrocodone Bitart/Acetaminophen 1 tab 07/08/25 13:10 Hydrocodone/Acetaminophen (*Crx) 5-325 Mg Tablet PO Q6H PRN Pain Rated 4-6 Aspirin 81 mg 07/09/25 09:00 07/09/25 12:41 Aspirin 81 Mg Enteric Tablet PO Not Given QAM [facility] Atorvastatin Calcium 20 mg 07/09/25 09:00 07/09/25 12:41 Atorvastatin 20 Mg Tablet PO Not Given DAILY [facility] Dextrose/Sodium Chloride 1,000 mls @ 125 mls/hr 07/09/25 11:10 07/09/25 11:38 Dextrose 5% Sodium Chloride 0.9% IV CONT 125 mls/hr .Q8H RAJAT Administration Metoprolol Tartrate 5 mg 07/08/25 14:40 07/09/25 13:10 Metoprolol Tartrate Inj 5 Mg/5 Ml Vial IV PUSH 5 mg Q8HR RAJAT Administration Morphine Sulfate 4 mg 07/09/25 16:48 Morphine Sulfate (*Crx) 2 Mg/Ml Inj IV PUSH Q2H PRN Pain Rated 7-10 Nitroglycerin 0.4 mg 07/08/25 13:09 Nitroglycerin Sl 0.4 Mg Tablet SUBLINGUAL Q5MIN PRN Chest Pain Ondansetron HCl 4 mg 07/09/25 15:58 07/09/25 16:10 Ondansetron Inj 4 Mg/2 Ml Vial IV PUSH 4 mg Q4HR PRN Administration Nausea And Vomiting Pantoprazole Sodium 40 mg 07/09/25 09:00 07/09/25 08:27 Pantoprazole Sodium Iv 40 Mg Vial IV PUSH 40 mg QAM RAJAT Administration Perflutren Lipid Microsphere 0 ml 07/08/25 14:23 Perflutren Lipid Microspheres 1.5 Ml Vial Diluted To 10 Ml Total Volume IV PUSH 07/11/25 14:23 ONCE PRN adequate visualization Protocol Radiology Results: ITS Impressions Chest X-Ray 07/08/25 07:52 IMPRESSION: 1. No acute cardiopulmonary disease. Chest/Abdomen/Pelvis CTA 07/08/25 10:04 IMPRESSION: 1. Small bowel obstruction with distal ileal transition point in the right deep pelvis along with a small amount of likely reactive ascites. 2. Mild emphysema. No pulmonary embolism or other acute cardiopulmonary disease. Abdomen X-Ray 07/09/25 11:05 IMPRESSION: Multiple dilated loops of small bowel with air-fluid level and decompressed colon. Findings are concerning for small bowel obstruction versus ileus. Clinical correlation is recommended. Labs Labs: Laboratory Results - last 24 hr 07/08/25 07/09/25 07/09/25 22:19 05:27 12:26 WBC 3.9 L RBC 3.15 L Hgb 10.1 L Hct 30.9 L MCV 98.1 MCH 32.1 MCHC 32.7 RDW 11.9 Plt Count 267 MPV 9.9 Immature Gran % (Auto) 0.3 Neut % (Auto) 59.1 Lymph % (Auto) 27.8 [place] % (Auto) 10.5 H Eos % (Auto) 1.8 Baso % (Auto) 0.5 Lymph # (Auto) 1.08 [place] # (Auto) 0.4 Eos # (Auto) 0.1 Baso # (Auto) 0.0 Abs Immat Gran (auto) 0.01 Absolute Neuts (auto) 2.3 Absolute Nucleated RBC 0.000 Nucleated RBC % 0.0 APTT 108.9 H 52.7 H 184.3 H* Sodium 133 L Potassium 3.9 Chloride 105 Carbon Dioxide 19 L Anion Gap 9 BUN 15 D Creatinine 0.74 Estim Creat Clear Calc 61 Estimated GFR > 60 Glucose 78 Calcium 8.5 Phosphorus 2.4 L Magnesium 1.9 Total Bilirubin 0.7 AST 25 ALT 11 Alkaline Phosphatase 83 Total Protein 5.9 L Albumin 3.3 L
[2025-07-09] MEDS: MORPHINE SULFATE (*CRX) 2 MG/ML INJ 4 MG IV PUSH ×2 (17:23→21:13)
[2025-07-10] VITALS (20 sets, daily range): BP systolic 109–152; BP diastolic 67–92; PULSE 66–167; RESP 12–100; TEMP 36.4–37.7; O2SAT 93–100; BMI 20.9
[2025-07-10] MEDS: MORPHINE SULFATE (*CRX) 2 MG/ML INJ 4 MG IV PUSH ×5 (01:00→15:36)
[2025-07-10] MEDS: ONDANSETRON INJ 4 MG/2 ML VIAL IV PUSH ×2 (01:03→05:30)
[2025-07-10 04:02] LABS: Hematocrit 31.2 % (37.0-47.0); Hemoglobin 10.3 g/dL (12.0-15.0); Immature Granulocyte Percent A 0.2 % (0-0.5); Lymphocytes Absolute Auto 0.63 K/mm3 (0.9-3.2); Mean Corpuscular HGB Conc 33.0 g/dl (32-36); Mean Corpuscular Hemoglobin 32.1 pg (26-34); Mean Corpuscular Volume 97.2 fl (80-100); Nucleated Red Blood Cells Absolute Auto 0.000 K/mm3 (0.0-0.012); Nucleated Red Blood Cells Perc 0.0 % (0.0-0.2); Platelet Count Result 283 k/mm3 (150-375); Red Blood Count 3.21 M/mm3 (4.2-5.4); White Blood Count 4.0 K/mm3 (4.5-10.0)
[2025-07-10 04:28] LABS: Alanine Aminotransferase 12 U/L (6-35); Albumin Level 3.5 g/dL (3.5-5.1); Alkaline Phosphatase 78 U/L (38-126); Anion Gap 7 mmol/L (4-12); Aspartate Amino Transferase 26 U/L (14-36); Bilirubin,Total 0.4 mg/dL (0.2-1.3); Blood Urea Nitrogen 7 mg/dL (7-17); Calcium 9.2 mg/dL (8.4-10.2); Carbon Dioxide 26 mmol/L (22-30); Chloride 101 mmol/L (98-107); Estimated CRCL calculation 61 ml/min; Estimated Glomerular Filt Rate > 60; Glucose 168 mg/dL (65-110); Magnesium 1.8 mg/dL (1.6-2.3); Potassium 3.7 mmol/L (3.4-5.0); Sodium 134 mmol/L (137-145); Total Protein 6.3 g/dL (6.3-8.2)
[2025-07-10] MEDS: DEXTROSE 5%/0.9% SOD CHL 1,000 ML 125 ML IV CONT (04:41)
[2025-07-10] MEDS: METOPROLOL TARTRATE INJ 5 MG/5 ML VIAL IV PUSH ×2 (07:19→14:22)
[2025-07-10] MEDS: ATORVASTATIN 20 MG TABLET PO (08:32)
[2025-07-10] MEDS: ASPIRIN 81 MG ENTERIC TABLET PO (08:32)
[2025-07-10] MEDS: PANTOPRAZOLE SODIUM IV 40 MG VIAL IV PUSH (08:37)
--- NOTE | 2025-07-10 12:13 | PM.IMPN ---
Progress Note: A&P Assessment and Plan (1) Elevated troponin: Code(s): R79.89 - Other specified abnormal findings of blood chemistry Status: Acute (2) Small bowel obstruction: Code(s): K56.609 - Unspecified intestinal obstruction, unspecified as to partial versus complete obstruction Status: Acute Plan 55-year-old female with PMH hypertension, breast cancer (2020, s/p double mastectomy), and adenocarcinoma of the cervix (2020, s/p radiation/chemo and hysterectomy) on oral chemo presents to [facility] via EMS with tachycardia and chest pain on 07/08/2025. Upon further evaluation the pain and was originating in the stomach area. It was dull and gaslike. This is an exacerbation of pain which has been going on for at least a month. She had a colonoscopy on June 25, [address] Mccoy at [email or web address]. but the procedure was aborted as reportedly the lumen was too narrow. There is a family history of cancer, aunt had uterine cancer, cousin and colon cancer, cousin and breast cancer. Since that procedure she has not had a bowel movement and has had very poor oral intake. Records are being obtained. She also had an endoscopy 2 days prior to admission in that report is not available as well patient reports she was not told of any abnormal findings. She failed NG tube placement. She has nausea but no vomiting. Small-bowel follow-through results with persistent small-bowel obstruction. General surgery and GI are following. Continue D5 normal saline at 125 cc/hour. The patient reports dry heaving with promethazine and Zofran. Repeat EKG performed 15 minutes after Zofran on 07/09/2025 with a decreased QTC interval of 435. Continue NPO and conservative management with IV fluids As she presented with will was thought to be chest pain, she had an elevated troponin as well which has now downtrended. EKG without ST elevations. She has been seen by Cardiology who has signed off. Echo demonstrates normal LV function and grade 1 diastolic dysfunction. They would like for her to have a follow-up in the outpatient setting. Heparin drip discontinued. Continue aspirin and statin. Patient denies any more chest pain. She wishes to be full code. Continue Protonix 40 mg IV q.a.m.. Subjective Date/time seen: 07/10/25 12:13 Interval history: Reports abdominal distension however no pain no nausea vomiting. Passing flatus but no bowel movement. Review of Systems Review of Systems: All systems reviewed & are unremarkable except as noted in HPI and below (Subjective) Exam Narrative: GENERAL: Well-appearing, well-nourished, and in no acute distress. HEAD: Normocephalic, atraumatic. EYES: PERRLA and EOMI. ENT: Nares clear, no rhinorrhea or epistaxis. Mucous membranes moist. NECK: Supple. CHEST: Clear to auscultation. No respiratory distress. HEART: Regular rate and rhythm. No murmur heard. Normal peripheral pulses. ABDOMEN: Soft, nontender, distended, normal active bowel sounds. EXTREMITIES: Normal range of motion. No edema. SKIN: Warm, dry, no rash. NEURO: No focal deficits. Alert and oriented x3. PSYCH: Normal mood and affect. Objective Data Vital Signs Vital Signs: Vital Signs - 24 hr 07/09/25 14:00 07/09/25 16:00 07/09/25 16:00 Temperature 98.6 F Pulse Rate 78 72 89 Respiratory Rate 18 Blood Pressure 165/100 H Pulse Oximetry 96 Oxygen Delivery 07/09/25 16:00 07/09/25 18:00 07/09/25 20:00 Temperature 98.2 F Pulse Rate 95 97 Respiratory Rate 16 Blood Pressure 161/92 H Pulse Oximetry 98 Oxygen Delivery Room Air 07/09/25 20:00 07/09/25 20:00 07/09/25 21:12 Temperature Pulse Rate 71 71 71 Respiratory Rate 16 Blood Pressure Pulse Oximetry 98 Oxygen Delivery Room Air 07/09/25 23:58 07/10/25 00:00 07/10/25 00:00 Temperature 98.1 F Pulse Rate 83 69 69 Respiratory Rate 15 15 Blood Pressure 147/90 H Pulse Oximetry 100 100 Oxygen Delivery Room Air 07/10/25 02:43 07/10/25 04:00 07/10/25 04:00 Temperature Pulse Rate 78 78 78 Respiratory Rate 15 Blood Pressure Pulse Oximetry 100 Oxygen Delivery Room Air 07/10/25 04:00 07/10/25 07:19 07/10/25 07:55 Temperature 98.3 F 97.6 F Pulse Rate 88 66 79 Respiratory Rate 16 18 Blood Pressure 140/91 H 152/92 H Pulse Oximetry 98 100 Oxygen Delivery 07/10/25 08:00 07/10/25 10:00 07/10/25 11:41 Temperature 97.6 F Pulse Rate 71 78 167 H Respiratory Rate 100 H Blood Pressure 142/84 H Pulse Oximetry 100 Oxygen Delivery Intake/Output Intake/Output: Intake & Output 07/07/25 07/08/25 07/09/25 07/10/25 23:59 23:59 23:59 23:59 Intake Total 3170.7 2108.7 100 Output Total 200 1400 300 Balance 2970.7 708.7 -200 Meds/Results Medications: Active Medications Generic Name Dose Route Start Last Admin Trade Name Freq PRN Reason Stop Dose Admin Acetaminophen 650 mg 07/08/25 13:10 Acetaminophen 325 Mg Tablet PO Q6H PRN Mild Pain (1-3) or Fever Hydrocodone Bitart/Acetaminophen 1 tab 07/08/25 13:10 Hydrocodone/Acetaminophen (*Crx) 5-325 Mg Tablet PO Q6H PRN Pain Rated 4-6 Aspirin 81 mg 07/09/25 09:00 07/10/25 08:32 Aspirin 81 Mg Enteric Tablet PO 81 mg QAM RAJAT Administration Atorvastatin Calcium 20 mg 07/09/25 09:00 07/10/25 08:32 Atorvastatin 20 Mg Tablet PO 20 mg DAILY RAJAT Administration Dextrose/Sodium Chloride 1,000 mls @ 125 mls/hr 07/09/25 11:10 07/10/25 05:28 Dextrose 5% Sodium Chloride 0.9% IV CONT Not Given .Q8H RAJAT Metoprolol Tartrate 5 mg 07/08/25 14:40 07/10/25 07:19 Metoprolol Tartrate Inj 5 Mg/5 Ml Vial IV PUSH 5 mg Q8HR RAJAT Administration Morphine Sulfate 4 mg 07/09/25 16:48 07/10/25 08:51 Morphine Sulfate (*Crx) 2 Mg/Ml Inj IV PUSH 4 mg Q2H PRN Administration Pain Rated 7-10 Nitroglycerin 0.4 mg 07/08/25 13:09 Nitroglycerin Sl 0.4 Mg Tablet SUBLINGUAL Q5MIN PRN Chest Pain Ondansetron HCl 4 mg 07/09/25 15:58 07/10/25 05:30 Ondansetron Inj 4 Mg/2 Ml Vial IV PUSH 4 mg Q4HR PRN Administration Nausea And Vomiting Pantoprazole Sodium 40 mg 07/09/25 09:00 07/10/25 08:37 Pantoprazole Sodium Iv 40 Mg Vial IV PUSH 40 mg QAM RAJAT Administration Perflutren Lipid Microsphere 0 ml 07/08/25 14:23 Perflutren Lipid Microspheres 1.5 Ml Vial Diluted To 10 Ml Total Volume IV PUSH 07/11/25 14:23 ONCE PRN adequate visualization Protocol Radiology Results: ITS Impressions Chest X-Ray 07/08/25 07:52 IMPRESSION: 1. No acute cardiopulmonary disease. Chest/Abdomen/Pelvis CTA 07/08/25 10:04 IMPRESSION: 1. Small bowel obstruction with distal ileal transition point in the right deep pelvis along with a small amount of likely reactive ascites. 2. Mild emphysema. No pulmonary embolism or other acute cardiopulmonary disease. Small Bowel X-Ray 07/09/25 20:09 IMPRESSION: 1: Small bowel obstruction. 2: Gastroesophageal reflux. Abdomen X-Ray 07/10/25 09:36 IMPRESSION: 1. Large moderate contrast remains within multiple loops of mildly dilated small bowel and in the stomach with no definitive contrast within the colon consistent with ongoing likely high-grade small bowel obstruction. Labs Labs: Laboratory Results - last 24 hr 07/09/25 07/09/25 07/10/25 12:26 15:49 03:45 WBC 4.0 L RBC 3.21 L Hgb 10.3 L Hct 31.2 L MCV 97.2 MCH 32.1 MCHC 33.0 RDW 11.7 Plt Count 283 MPV 10.1 Immature Gran % (Auto) 0.2 Neut % (Auto) 72.2 Lymph % (Auto) 15.7 L [place] % (Auto) 10.7 H Eos % (Auto) 0.7 Baso % (Auto) 0.5 Lymph # (Auto) 0.63 L [place] # (Auto) 0.4 Eos # (Auto) 0.0 Baso # (Auto) 0.0 Abs Immat Gran (auto) 0.01 Absolute Neuts (auto) 2.9 Absolute Nucleated RBC 0.000 Nucleated RBC % 0.0 APTT 184.3 H* 183.3 H* Sodium 134 L Potassium 3.7 Chloride 101 Carbon Dioxide 26 Anion Gap 7 BUN 7 D Creatinine 0.74 Estim Creat Clear Calc 61 Estimated GFR > 60 Glucose 168 H Calcium 9.2 Magnesium 1.8 Total Bilirubin 0.4 AST 26 ALT 12 Alkaline Phosphatase 78 Total Protein 6.3 Albumin 3.5
--- NOTE | 2025-07-10 12:36 | P.PNGS_ITS ---
Progress Note: A&P Assessment and Plan (1) Small bowel obstruction: Code(s): K56.609 - Unspecified intestinal obstruction, unspecified as to partial versus complete obstruction Status: Acute Assessment and Plan: * Small bowel series performed yesterday demonstrating a small bowel obstruction, as contrast was not visualized in the colon after 6 hours. Patient states that she became very nauseous and vomited after the study. Repeat abdominal x-ray was obtained today demonstrating a large amount of contrast still remaining within multiple loops of the mildly dilated small bowel and in the stomach with no definitive contrast within the colon. Consistent with high-grade small bowel obstruction. Patient still complains of abdominal pain today. She has not vomited since yesterday. Still no bowel movement. Patient did not tolerate NG tube placement in the ED 2 days ago. She is refusing NG tube placement today. Surgeon discussed options for treatment with her and ultimately agreed upon exploratory laparotomy. Patient is agreeable. Maintain NPO diet. Continue IV fluids. She has been added to the OR schedule for exploratory laparotomy, possible bowel resection for this afternoon at 1530. (2) Sinus tachycardia: Code(s): R00.0 - Tachycardia, unspecified Status: Acute (3) Elevated troponin: Code(s): R79.89 - Other specified abnormal findings of blood chemistry Status: Acute Assessment and Plan: * Echo showed normal EF, grade I diastolic dysfunction. Heparin drip stopped. (4) History of cervical cancer: Code(s): Z85.41 - Personal history of malignant neoplasm of cervix uteri Status: Acute Assessment and Plan: * Patient has a history of hysterectomy and pelvic radiation, which would come with the possibility of intraabdominal adhesions or strictures that could be causing a small bowel obstruction. See plan above. Plan Discussed patient's case and plan of care with Dr. Sethi. Subjective Subjective Date/Time Seen: 07/10/25 12:36 Patient reports: still having pain, no bowel movement, nausea and vomiting Interval history: Patient still complains of abdominal pain today. Nausea and vomiting yesterday after SBS. Still no BM. Refusing NG tube. Exam Const: General: uncomfortable GI: Inspection: distended GI Palp: Yes Soft to palpation, Yes Tenderness to palpation present (GI) (epigastric) and No Guarding due to palpation present (GI) Auscultation: normal bowel sounds Skin: General skin exam: normal color and no rashes or lesions noted Objective Data Vital Signs Vital Signs: Vital Signs - 24 hr 07/09/25 14:00 07/09/25 16:00 07/09/25 16:00 Temperature 98.6 F Pulse Rate 78 72 89 Respiratory Rate 18 Blood Pressure 165/100 H Pulse Oximetry 96 Oxygen Delivery 07/09/25 16:00 07/09/25 18:00 07/09/25 20:00 Temperature 98.2 F Pulse Rate 95 97 Respiratory Rate 16 Blood Pressure 161/92 H Pulse Oximetry 98 Oxygen Delivery Room Air 07/09/25 20:00 07/09/25 20:00 07/09/25 21:12 Temperature Pulse Rate 71 71 71 Respiratory Rate 16 Blood Pressure Pulse Oximetry 98 Oxygen Delivery Room Air 07/09/25 23:58 07/10/25 00:00 07/10/25 00:00 Temperature 98.1 F Pulse Rate 83 69 69 Respiratory Rate 15 15 Blood Pressure 147/90 H Pulse Oximetry 100 100 Oxygen Delivery Room Air 07/10/25 02:43 07/10/25 04:00 07/10/25 04:00 Temperature Pulse Rate 78 78 78 Respiratory Rate 15 Blood Pressure Pulse Oximetry 100 Oxygen Delivery Room Air 07/10/25 04:00 07/10/25 07:19 07/10/25 07:55 Temperature 98.3 F 97.6 F Pulse Rate 88 66 79 Respiratory Rate 16 18 Blood Pressure 140/91 H 152/92 H Pulse Oximetry 98 100 Oxygen Delivery 07/10/25 08:00 07/10/25 10:00 07/10/25 11:41 Temperature 97.6 F Pulse Rate 71 78 167 H Respiratory Rate 100 H Blood Pressure 142/84 H Pulse Oximetry 100 Oxygen Delivery Intake/Output Intake/Output: Intake & Output 07/07/25 07/08/25 07/09/25 07/10/25 23:59 23:59 23:59 23:59 Intake Total 3170.7 2108.7 100 Output Total 200 1400 300 Balance 2970.7 708.7 -200 Meds/Results Medications: Active Medications Generic Name Dose Route Start Last Admin Trade Name Freq PRN Reason Stop Dose Admin Acetaminophen 650 mg 07/08/25 13:10 Acetaminophen 325 Mg Tablet PO Q6H PRN Mild Pain (1-3) or Fever Hydrocodone Bitart/Acetaminophen 1 tab 07/08/25 13:10 Hydrocodone/Acetaminophen (*Crx) 5-325 Mg Tablet PO Q6H PRN Pain Rated 4-6 Aspirin 81 mg 07/09/25 09:00 07/10/25 08:32 Aspirin 81 Mg Enteric Tablet PO 81 mg QAM RAJAT Administration Atorvastatin Calcium 20 mg 07/09/25 09:00 07/10/25 08:32 Atorvastatin 20 Mg Tablet PO 20 mg DAILY RAJAT Administration Dextrose/Sodium Chloride 1,000 mls @ 125 mls/hr 07/09/25 11:10 07/10/25 05:28 Dextrose 5% Sodium Chloride 0.9% IV CONT Not Given .Q8H RAJAT Metoprolol Tartrate 5 mg 07/08/25 14:40 07/10/25 07:19 Metoprolol Tartrate Inj 5 Mg/5 Ml Vial IV PUSH 5 mg Q8HR RAJAT Administration Morphine Sulfate 4 mg 07/09/25 16:48 07/10/25 08:51 Morphine Sulfate (*Crx) 2 Mg/Ml Inj IV PUSH 4 mg Q2H PRN Administration Pain Rated 7-10 Nitroglycerin 0.4 mg 07/08/25 13:09 Nitroglycerin Sl 0.4 Mg Tablet SUBLINGUAL Q5MIN PRN Chest Pain Ondansetron HCl 4 mg 07/09/25 15:58 07/10/25 05:30 Ondansetron Inj 4 Mg/2 Ml Vial IV PUSH 4 mg Q4HR PRN Administration Nausea And Vomiting Pantoprazole Sodium 40 mg 07/09/25 09:00 07/10/25 08:37 Pantoprazole Sodium Iv 40 Mg Vial IV PUSH 40 mg QAM RAJAT Administration Perflutren Lipid Microsphere 0 ml 07/08/25 14:23 Perflutren Lipid Microspheres 1.5 Ml Vial Diluted To 10 Ml Total Volume IV PUSH 07/11/25 14:23 ONCE PRN adequate visualization Protocol Radiology Results: ITS Impressions Chest X-Ray 07/08/25 07:52 IMPRESSION: 1. No acute cardiopulmonary disease. Chest/Abdomen/Pelvis CTA 07/08/25 10:04 IMPRESSION: 1. Small bowel obstruction with distal ileal transition point in the right deep pelvis along with a small amount of likely reactive ascites. 2. Mild emphysema. No pulmonary embolism or other acute cardiopulmonary disease. Small Bowel X-Ray 07/09/25 20:09 IMPRESSION: 1: Small bowel obstruction. 2: Gastroesophageal reflux. Abdomen X-Ray 07/10/25 09:36 IMPRESSION: 1. Large moderate contrast remains within multiple loops of mildly dilated small bowel and in the stomach with no definitive contrast within the colon consistent with ongoing likely high-grade small bowel obstruction. Labs Labs: Laboratory Results - last 24 hr 07/09/25 07/09/25 07/10/25 12:26 15:49 03:45 WBC 4.0 L RBC 3.21 L Hgb 10.3 L Hct 31.2 L MCV 97.2 MCH 32.1 MCHC 33.0 RDW 11.7 Plt Count 283 MPV 10.1 Immature Gran % (Auto) 0.2 Neut % (Auto) 72.2 Lymph % (Auto) 15.7 L [place] % (Auto) 10.7 H Eos % (Auto) 0.7 Baso % (Auto) 0.5 Lymph # (Auto) 0.63 L [place] # (Auto) 0.4 Eos # (Auto) 0.0 Baso # (Auto) 0.0 Abs Immat Gran (auto) 0.01 Absolute Neuts (auto) 2.9 Absolute Nucleated RBC 0.000 Nucleated RBC % 0.0 APTT 184.3 H* 183.3 H* Sodium 134 L Potassium 3.7 Chloride 101 Carbon Dioxide 26 Anion Gap 7 BUN 7 D Creatinine 0.74 Estim Creat Clear Calc 61 Estimated GFR > 60 Glucose 168 H Calcium 9.2 Magnesium 1.8 Total Bilirubin 0.4 AST 26 ALT 12 Alkaline Phosphatase 78 Total Protein 6.3 Albumin 3.5
--- NOTE | 2025-07-10 12:52 | PC.NURSE ---
This patient, Fariba Ureña, was received from IMU 201/ on 07/10/25 at 1252. Patient/family oriented to unit policies and routines.
[2025-07-10 14:03] LABS: Partial Thromboplastin Time 28.6 Seconds (22.3-36.8)
[2025-07-10] MEDS: PIPERACILLIN/TAZOBACTAM SOD 4.5 GM in SODIUM CHLORIDE 0.9% IV 100 ML 200 ML IVPB ×2 (14:23→20:51)
--- NOTE | 2025-07-10 15:57 | WPDHPUPDATE1 ---
History and Physical Update Update Date/Time: 07/10/25 15:57 History and Physical has been reviewed, including an updated exam of the patient. There are NO changes in the patient's condition. Risks, benefits, and alternatives have been discussed and questions answered. Patient agrees to proceed with procedure.
--- NOTE | 2025-07-10 16:05 | WPDGIPROGNO ---
Progress Note: A&P Assessment and Plan (1) Small bowel obstruction: Code(s): K56.609 - Unspecified intestinal obstruction, unspecified as to partial versus complete obstruction Status: Acute Assessment and Plan: given failure to medical treatment she is going to OR today will follow only as needed (2) Stricture of ileum: Code(s): K56.699 - Other intestinal obstruction unspecified as to partial versus complete obstruction Status: Acute Assessment and Plan: recent colonoscopy at another hospital noted stricture- no records (3) Nausea and vomiting in adult: Code(s): R11.2 - Nausea with vomiting, unspecified Status: Acute (4) Abdominal pain: Qualifiers: Abdominal location: lower abdomen, unspecified Qualified Code(s): R10.30 - Lower abdominal pain, unspecified Code(s): R10.9 - Unspecified abdominal pain Status: Inactive (5) History of cervical cancer: Code(s): Z85.41 - Personal history of malignant neoplasm of cervix uteri Status: Acute Assessment and Plan: treated with XRT (6) History of therapeutic radiation: Code(s): Z92.3 - Personal history of irradiation Status: Acute Subjective Date/time seen: 07/10/25 16:05 Interval history: persistent n/v and abdominal pain, finally she is taken to OR for ex lap Review of Systems Review of Systems: All systems reviewed & are unremarkable except as noted in HPI and below Exam Const: General: uncomfortable HENMT: Face/Nose/Sinus: Normal nares present Eyes: General: appearance normal, both eyes and all related structures Neck: Neck: supple Resp: Effort & Inspection: normal respiratory effort Cardio: Rate: regular rate GI: Inspection: distended GI Palp: Yes Tenderness to palpation present (GI) (epigastric) Auscultation: abnormal bowel sounds Skin: General skin exam: normal color and no rashes or lesions noted Neuro: Speech: normal speech Motor exam (neuro): 5/5 motor strength present throughout Extrem: General: normal to inspection Psych: Mental Status: mental status grossly normal Objective Data Vital Signs Vital Signs: Vital Signs - 24 hr 07/09/25 18:00 07/09/25 20:00 07/09/25 20:00 Temperature 98.2 F Pulse Rate 95 97 71 Respiratory Rate 16 16 Blood Pressure 161/92 H Pulse Oximetry 98 98 Oxygen Delivery Room Air 07/09/25 20:00 07/09/25 21:12 07/09/25 23:58 Temperature 98.1 F Pulse Rate 71 71 83 Respiratory Rate 15 Blood Pressure 147/90 H Pulse Oximetry 100 Oxygen Delivery 07/10/25 00:00 07/10/25 00:00 07/10/25 02:43 Temperature Pulse Rate 69 69 78 Respiratory Rate 15 Blood Pressure Pulse Oximetry 100 Oxygen Delivery Room Air 07/10/25 04:00 07/10/25 04:00 07/10/25 04:00 Temperature 98.3 F Pulse Rate 78 78 88 Respiratory Rate 15 16 Blood Pressure 140/91 H Pulse Oximetry 100 98 Oxygen Delivery Room Air 07/10/25 07:19 07/10/25 07:55 07/10/25 08:00 Temperature 97.6 F Pulse Rate 66 79 71 Respiratory Rate 18 Blood Pressure 152/92 H Pulse Oximetry 100 Oxygen Delivery 07/10/25 10:00 07/10/25 11:41 07/10/25 12:00 Temperature 97.6 F Pulse Rate 78 167 H 79 Respiratory Rate 100 H Blood Pressure 142/84 H Pulse Oximetry 100 Oxygen Delivery 07/10/25 14:22 07/10/25 15:55 Temperature 97.9 F Pulse Rate 80 73 Respiratory Rate 14 Blood Pressure 145/87 H Pulse Oximetry 99 Oxygen Delivery Intake/Output Intake/Output: Intake & Output 07/07/25 07/08/25 07/09/25 07/10/25 23:59 23:59 23:59 23:59 Intake Total 3170.7 2108.7 100 Output Total 200 1400 550 Balance 2970.7 708.7 -450 Meds/Results Medications: Active Medications Generic Name Dose Route Start Last Admin Trade Name Freq PRN Reason Stop Dose Admin Acetaminophen 650 mg 07/08/25 13:10 Acetaminophen 325 Mg Tablet PO Q6H PRN Mild Pain (1-3) or Fever Hydrocodone Bitart/Acetaminophen 1 tab 07/08/25 13:10 Hydrocodone/Acetaminophen (*Crx) 5-325 Mg Tablet PO Q6H PRN Pain Rated 4-6 Aspirin 81 mg 07/09/25 09:00 07/10/25 08:32 Aspirin 81 Mg Enteric Tablet PO 81 mg QAM RAJAT Administration Atorvastatin Calcium 20 mg 07/09/25 09:00 07/10/25 08:32 Atorvastatin 20 Mg Tablet PO 20 mg DAILY RAJAT Administration Dextrose/Sodium Chloride 1,000 mls @ 125 mls/hr 07/09/25 11:10 07/10/25 05:28 Dextrose 5% Sodium Chloride 0.9% IV CONT Not Given .Q8H RAJAT Piperacillin Sod/Tazobactam 100 mls @ 200 mls/hr 07/10/25 14:00 07/10/25 14:23 Sod 4.5 gm/ Sodium Chloride IVPB 200 mls/hr Q6H RAJAT Administration Metoprolol Tartrate 5 mg 07/08/25 14:40 07/10/25 14:22 Metoprolol Tartrate Inj 5 Mg/5 Ml Vial IV PUSH 5 mg Q8HR RAJAT Administration Morphine Sulfate 4 mg 07/09/25 16:48 07/10/25 15:36 Morphine Sulfate (*Crx) 2 Mg/Ml Inj IV PUSH 4 mg Q2H PRN Administration Pain Rated 7-10 Nitroglycerin 0.4 mg 07/08/25 13:09 Nitroglycerin Sl 0.4 Mg Tablet SUBLINGUAL Q5MIN PRN Chest Pain Ondansetron HCl 4 mg 07/09/25 15:58 07/10/25 05:30 Ondansetron Inj 4 Mg/2 Ml Vial IV PUSH 4 mg Q4HR PRN Administration Nausea And Vomiting Pantoprazole Sodium 40 mg 07/09/25 09:00 07/10/25 08:37 Pantoprazole Sodium Iv 40 Mg Vial IV PUSH 40 mg QAM RAJAT Administration Perflutren Lipid Microsphere 0 ml 07/08/25 14:23 Perflutren Lipid Microspheres 1.5 Ml Vial Diluted To 10 Ml Total Volume IV PUSH 07/11/25 14:23 ONCE PRN adequate visualization Protocol Radiology Results: ITS Impressions Chest X-Ray 07/08/25 07:52 IMPRESSION: 1. No acute cardiopulmonary disease. Chest/Abdomen/Pelvis CTA 07/08/25 10:04 IMPRESSION: 1. Small bowel obstruction with distal ileal transition point in the right deep pelvis along with a small amount of likely reactive ascites. 2. Mild emphysema. No pulmonary embolism or other acute cardiopulmonary disease. Small Bowel X-Ray 07/09/25 20:09 IMPRESSION: 1: Small bowel obstruction. 2: Gastroesophageal reflux. Abdomen X-Ray 07/10/25 09:36 IMPRESSION: 1. Large moderate contrast remains within multiple loops of mildly dilated small bowel and in the stomach with no definitive contrast within the colon consistent with ongoing likely high-grade small bowel obstruction. Labs Labs: Laboratory Results - last 24 hr 07/09/25 07/10/25 07/10/25 15:49 03:45 13:28 WBC 4.0 L RBC 3.21 L Hgb 10.3 L Hct 31.2 L MCV 97.2 MCH 32.1 MCHC 33.0 RDW 11.7 Plt Count 283 MPV 10.1 Immature Gran % (Auto) 0.2 Neut % (Auto) 72.2 Lymph % (Auto) 15.7 L [place] % (Auto) 10.7 H Eos % (Auto) 0.7 Baso % (Auto) 0.5 Lymph # (Auto) 0.63 L [place] # (Auto) 0.4 Eos # (Auto) 0.0 Baso # (Auto) 0.0 Abs Immat Gran (auto) 0.01 Absolute Neuts (auto) 2.9 Absolute Nucleated RBC 0.000 Nucleated RBC % 0.0 APTT 183.3 H* 28.6 Sodium 134 L Potassium 3.7 Chloride 101 Carbon Dioxide 26 Anion Gap 7 BUN 7 D Creatinine 0.74 Estim Creat Clear Calc 61 Estimated GFR > 60 Glucose 168 H Calcium 9.2 Magnesium 1.8 Total Bilirubin 0.4 AST 26 ALT 12 Alkaline Phosphatase 78 Total Protein 6.3 Albumin 3.5
--- NOTE | 2025-07-10 17:20 | WPDANESEPPF ---
Anes - Initial Pre Proc Eval Procedure: Operation Date: 07/10/25 15:30 Proposed Procedures p Exploratory Laparotomy, Possible Bowel Resection - Zev Sethi MD Date/Time: 07/10/25 17:20 Surgeon: Carolann Oscar MD Pre Op Diagnosis: Small Bowel Obstruction/Palpitations/Elevated Trop Patient Data Age: 55 Gender: F Height: 1.6 m Weight: 53.7 kg Last Vital Signs Temp 36.6 C 07/10/25 15:55 Pulse 73 07/10/25 15:55 Resp 14 07/10/25 15:55 BP 145/87 H 07/10/25 15:55 Pulse Ox 99 07/10/25 15:55 O2 Del Method Room Air 07/10/25 04:00 Allergies Allergy/AdvReac Type Severity Reaction Status Date / Time ondansetron (From Zofran) AdvReac Intermediate Dry Eye Verified 07/08/25 07:27 promethazine AdvReac Watery Eye Verified 07/08/25 07:27 Home Medications ?Medication ?Instructions ?Recorded ?Confirmed ?Type metoclopramide HCl 5 mg tablet 5 mg PO Q6H PRN nausea and 02/21/25 07/08/25 Rx vomiting #15 tabs omeprazole 20 mg capsule,delayed 20 mg PO DAILY #30 caps 02/21/25 07/08/25 Rx release Laboratory Tests 07/10/25 07/10/25 03:45 13:28 WBC 4.0 L K/mm3 (4.5-10.0) RBC 3.21 L M/mm3 (4.2-5.4) Hgb 10.3 L g/dL (12.0-15.0) Hct 31.2 L % (37.0-47.0) MCV 97.2 fl (80-100) MCH 32.1 pg (26-34) MCHC 33.0 g/dl (32-36) RDW 11.7 % (11.5-14.5) Plt Count 283 k/mm3 (150-375) MPV 10.1 fl (7.4-10.4) Immature Gran % (Auto) 0.2 % (0-0.5) Neut % (Auto) 72.2 % (45.5-73.1) Lymph % (Auto) 15.7 L % (18.3-44.2) Nuckolls % (Auto) 10.7 H % (2.6-8.5) Eos % (Auto) 0.7 % (0-4.4) Baso % (Auto) 0.5 % (0.2-1.2) Lymph # (Auto) 0.63 L K/mm3 (0.9-3.2) Nuckolls # (Auto) 0.4 K/mm3 (0.1-0.6) Eos # (Auto) 0.0 K/mm3 (0-0.3) Baso # (Auto) 0.0 K/mm3 (0.0-0.1) Abs Immat Gran (auto) 0.01 K/mm3 (0.00-0.031) Absolute Neuts (auto) 2.9 K/mm3 (1.3-6.7) Absolute Nucleated RBC 0.000 K/mm3 (0.0-0.012) Nucleated RBC % 0.0 % (0.0-0.2) APTT 28.6 Seconds (22.3-36.8) Sodium 134 L mmol/L (137-145) Potassium 3.7 mmol/L (3.4-5.0) Chloride 101 mmol/L (98-107) Carbon Dioxide 26 mmol/L (22-30) Anion Gap 7 mmol/L (4-12) BUN 7 D mg/dL (7-17) Creatinine 0.74 mg/dL (0.7-1.0) Estim Creat Clear Calc 61 ml/min Estimated GFR > 60 (59 - ) Glucose 168 H mg/dL (65-110) Calcium 9.2 mg/dL (8.4-10.2) Magnesium 1.8 mg/dL (1.6-2.3) Total Bilirubin 0.4 mg/dL (0.2-1.3) AST 26 U/L (14-36) ALT 12 U/L (6-35) Alkaline Phosphatase 78 U/L (38-126) Total Protein 6.3 g/dL (6.3-8.2) Albumin 3.5 g/dL (3.5-5.1) Patient hx anesthesia problems: none Family hx anesthesia problems: none Results Review: All pre-operative results and documents have been reviewed as part of the pre-operative evaluation. 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 Surgical History Surgical History S/P dilatation and curettage (~03/2021) S/P HSCOPE D&C History of robot-assisted laparoscopic hysterectomy (~08/2021) History of bilateral tubal ligation Family History Family History Mother Hypertension Social History Social History Smoking status: Never smoker Alcohol intake: former Substance use: never Lack of Transportation: YES Lack of Food: Never True Current Housing: I Have Housing Concerned About Future Housing: No Difficulty Paying Gas/Electric Bills: No Difficulty Paying for Meds: No Currently Unemployed: No Education: Associate Degree Difficulty w/ Childcare or Family Care: No Gender identity (if verbalized by the patient): Female Spiritual care concerns: No Anes - Eval Final PreProcedure Day of Procedure 07/10/25 17:20 Patient weight: normal Heart: regular rate and rhythm Lungs: clear to auscultation Airway: Mallampati scale class III Neurological: alert and oriented Last oral intake: >/= 8 hours ASA classification: III Emergent: no Anesthetic plan: proceed Anesthesia type and monitoring: general ETT and standard monitoring Results Review: All pre-operative results and documents have been reviewed as part of the pre-operative evaluation. Informed Consent: The patient's anesthetic plan and its attendant risks and benefits were discussed with the patient/family/POA. Questions were solicited and answers provided to the satisfaction of the patient/family/POA.
--- NOTE | 2025-07-10 18:31 | S_PTH ---
PATIENT: Fariba Ureña LOC: [id number] U#:[id number] AGE/SX: 55/F ROOM: 347 RE07/08/[address]: Carolann Oscar MD : 1970 BED: 01 DIS: 07/21/2025 SPEC #: [id number] RECD: 07/13/25 07:18 STATUS: ELIZABETHBrinda RE #: [id number] ALEXIA: 07/10/25 18:[address]: Zev Sethi DEPT: [facility] Surgical RECD BY: Sal Pena ENTERED: 07/13/25 07:18 SP TYPE: Surgical OTHR DR: Mariano Rod MD PHYSICIAN NOT ON STAFF Carolann Oscar MD Tissues: A - Colon Segment NonTumor Procedures: PAX-8 Hematoxylin and Eosin Stain Estrogen Receptor Immuno Progestogen Receptor immuno Gross and Microscopic Level 5 WES-3 P16
[2025-07-10] MEDS: LIDO 1%/EPINEPHRINE 1:100,000 20 ML VIAL 30 ML INFILTRATE (20:31)
[2025-07-10] MEDS: BUPivacaine HCL 0.5% 10 ML AMP 30 ML INFILTRATE (20:32)
[2025-07-10] MEDS: LACTATED RINGERS 1,000 ML 30 ML IV CONT (21:23)
[2025-07-10] MEDS: fentaNYL CITRATE INJ (*CRX) 100 MCG/2 ML VIAL 25 MCG IV PUSH (21:44)
--- NOTE | 2025-07-10 21:48 | PM.OP ---
Procedure Note - Brief Procedure Note - Brief Date of procedure: 07/10/25 High-grade small-bowel obstruction Post-op diagnosis: Other (High-grade distal small-bowel obstruction secondary to mass x2, near obstructing rectosigmoid mass.) Procedure performed: Exploratory laparotomy with segmental terminal ileum resection and hand-sewn [id number] ileal anastomosis, placement of diverting loop descending colostomy. Surgeon: Zev Sethi MD Anesthesia: GETA Implants: None Estimated blood loss (mL): 75 Urine output (mL): 250 Drains: No Packing: No Pathology: Yes (Segment of small bowel to pathology) Complications: No immediate complications Condition: Stable Disposition: PACU
--- NOTE | 2025-07-10 22:35 | PC.NURSE ---
Patient transferred from recovery at 2215, report received from Mallorie LUNA prior to transfer, patient brought to floor with an NG restarted at low continuous suction, family at bedside, colostomy and dressing intact, light in place with urine output.
[2025-07-10] MEDS: IBUPROFEN IV 800 MG/200 ML 800 MG/200 ML BAG 400 MG IVPB (22:57)
[2025-07-10] MEDS: MAG HYDROX/AL HYDROX/SIMETH 30 ML UDC PO (23:03)
--- NOTE | 2025-07-10 23:06 | P.OP_ITS ---
Procedure Note - Detailed Date of Procedure 07/10/25 Pre-op Diagnosis High-grade distal small-bowel obstruction Post-op Diagnosis Other ( high-grade distal small-bowel obstruction secondary to obstructing small bowel masses x2, near obstructing rectosigmoid mass) Procedure Performed Exploratory laparotomy with segmental terminal ileal small-bowel resection and hand-sewn [id number] ileal anastomosis, placement o leftf descending d iverting loop colostomy. Surgeon Zev Sethi MD Digital Marketing Analyst [facility] [facility] [employer] Anesthesia General Indications Patient is a 55-year-old after marking female who was initially admitted for hypertension and tachycardia. CT scan of the chest abdomen pelvis was done to rule pulmonary embolus. Her history was significant having had a colonoscopy about 2 to 3 weeks ago at outside facility which was not completed due to inability to traverse an area of narrowing. She either did find the last couple of weeks at home and actually had EGD performed 2 days prior to admission. EGD done show any significant findings. Patient had a prior history of cervical cancer and treatment with a laparoscopic hysterectomy. She also had pelvic radiation. She also has a history of breast cancer . On the CT scan there was evidence of a distal small-bowel obstruction. She initially had an NG tube placed to the emergency room but then pulled out and then refused to have another 1 placed. Follow-up obstructive series is continue to show small-bowel obstruction and so a barium small bowel follow-through study was performed showing no passage of contrast in the colon in 6hours. A subsequent KUB the next morning showed no contrast within the colon. She appeared to have a high- grade obstructive small-bowel obstruction not responding to non operative management. Since she went a couple of weeks after the colonoscopy which was not completed due to possible narrowing of the colon it was felt that the small- bowel obstruction was not related to the prior colonoscopy findings. She had gone [id number] with a high-grade small-bowel obstruction so she was then brought to the operating for emergent exploratory laparotomy and possible bowel resection. Findings Patient was noted to have to masses in her distal small bowel in the terminal ileum. There were by about 5 to 6 cm. The more distal 1 was located about 6 to 8 cm from the ileocecal valve. The more distal was completely obst ructive. The mass seemed to be originating more on the serosal side of the small-bowel rather than originally from the mucosa. Upon exploration into the pelvis patient was found to have a near obstructing mass at the rectosigmoid junction. I actually could not feel below the mass and this seemed to extend just below the cul-de-sac of the pelvis. There is no evidence of peritoneal studding. Palpation of the liver revealed no masses. The omentum appeared to be normal. Running the remainder of the small bowel did not reveal any other masses. No other adhesions to the small bowel. Description of Procedure After informed consent was obtained patient brought to the operating room she was placed supine position and general endotracheal anesthesia was administered. A Agee catheter was placed decompress the bladder. A nasogastric tube was then placed by Anesthesia. The abdomen was then prepped and draped usual sterile fashion. A time-out was then performed correctly identifying the patient as well as procedure to be performed. She was given scheduled IV antibiotics. I then made a midline incision lower abdomen extending from the pubic symphysis to just above the umbilicus. Dissection carried down through the subcu tissue electrocautery. The midline fascia was exposed and it was divided at the area the umbilicus and the abdomen was entered. Immediately entered the abdomen resolved and drainage of several 100cc of clear straw- colored ascites fluid. I then proceeded to open the fascia to mesh length of the skin incision. There were no adhesions of the omentum or bowel to the undersurface of the anterior abdominal wall. Once I had the midline fascia open I then placed a Kiana retractor to aid with exposure. I then eviscerated the small bowel and around the small bowel from the ligament Treitz distally to where it decompressed at a transition point. I found to masses in the small bowel with the 1 distal and nearest ileocecal valve be completely obstructive. These are hard masses that seemed to be extrinsic on the serosa of the small bowel and puckering in causing obstruction rather than originating from the mucosa and extending outward. The 2 masses were separate by about 5 to 6 cm. The most distal mass was about 6 to 8 cm from the ileocecal valve. no other masses small bowel were seen. There were no interloop adhesions. I palpated the liver and there were no masses in the liver. No evidence of any peritoneal studding. The omentum appeared to be normal. I then explored the pelvis and found a mass at the rectosigmoid junction which extended below the peritoneal reflection and beyond actually worked feel without opening the Cul-de-sac. the proximal colon did not appear to be significantly dilated but the mass felt be nearly obstructive. I do not appreciate any other masses in the right ascending, transverse, or descending left colon. At this point since she had unprepped colon and this was an emergent case for small-bowel obstruction that I was prepared to perform a low anterior resection of the rectosigmoid mass. We did have a diagnosis of possible malignancy either primary or metastatic disease and so I elected to perform resection of the small bowel masses and perform anastomosis and then place a diverting descending loop colostomy until further workup the rectosigmoid mass could be done and the patient would then be able the eat. I then made a defect through the mesentery about 5cm proximal to the proximal small bowel mass. This was only partially obstructive. I then made a defect about 2cm distal to the most distal mass which was completely obstructive of the small bowel terminal ileum. I then divided the small bowel at these 2 points utilizing a LILI 55 stapler. The mesentery between the 2 resection points was then divided utilizing the LigaSure energy device. There was 1 lymph node which appeared to be about 2cm in diameter in the resected mesentery. as was only about 5cm of terminal ileum left at the distal resection point I felt that performing a hand-sewn [id number] small-bowel anastomosis of the ileum would be best. I then brought the proximal end of the small bowel to the distal terminal ileum and a anti peristaltic [id number] fashion by placing 3-0 silk sutures in the serosa for stay sutures. I then placed a posterior row 3-0 silk serosal sutures. An enterotomy was then made on each limb of the small bowel with electrocautery For distance of about 2.5cm on each end of the bowel. Two separate 3-0 chromic sutures were then placed in the posterior mucosa and serosa layer in a bidirectional fashion. Once I reached the corner of the anastomosis coronary sutures were placed and then the anterior part of this anastomosis was then constructed utilizing Kathryn inverting sutures to close the anastomosis with the 3-0 chromic sutures. The anterior part of the anastomosis was then reinforced with placement of interrupted 3-0 silk serosal Lembert sutures. Anastomosis was widely patent by palpation at the end of the construction of the anastomosis. I was able to milk female portions of the small bowel contents through the anastomosis into the cecum and ascending colon. I then milked additional small bowel contents up into the stomach and it was aspirated by the NG tube. At this point I then proceeded to construct the diverting loop descending colostomy. with the small bowel still eviscerated I proceeded to incise the white line of Toldt lateral to the mid descending and proximal sigmoid colon. This done electrocautery. The sigmoid and descending colon mobilized so that I can create the loop colostomy. I then resected a quarter-sized piece of skin from the left lower quadrant abdominal wall. Dissection was then carried down through subcutaneous tissues to the anterior rectus fascia which was incised in a cruciate fashion utilizing electrocautery. Muscle fibers were split and not divided in the posterior rectus fascia was incised electrocautery. The aperture of the stoma was dilated to 2 finger breaths. I then proceeded to make a defect through the mesentery to the descending colon electrocautery and then placed an umbilical tape through the defect. The descending left colon was then delivered up through the abdominal wall with the aid of the umbilical tape and traction of the loop of bowel through the abdominal wall defect. Once this was done I then placed a colostomy bridge underneath the loop of descending colon to keep it in place. The loop of colon appeared to be viable without any ischemia. I then proceeded to place all the small bowel back into the abdomen. The midline fascia was then closed utilizing a looped 1. PDS suture started at each end incision and run to the middle just below the umbilicus and then the 2 sutures were then tied together. I irrigated out subcutaneous tissues sterile saline solution hemostasis was good. I then closed the subcutaneous tissues utilizing interrupted 3-0 Vicryl sutures. The skin edges were then approximated utilizing a running subcuticular 3-0 Monocryl suture. The incision was then cleaned and then generous layer of skin glue was applied. I then proceeded to matured the diverting loop colostomy. The ostomy bridge was secured on both ends to the skin utilizing 3-0 nylon sutures. I then proceeded to incise the serosa longitudinally on the anterior anti mesenteric side of the loop of descending colon. I then proceeded to secure the edges of the colon to the surrounding dermis of the skin over the colostomy bridge utilizing interrupted 3-0 Vicryl sutures. I placed my finger into both the afferent and efferent limbs of the loop colostomy and they were both patent without any twisting of the bowel. The area was then cleaned and then a colostomy appliance was applied to the loop colostomy. The patient tolerated the procedure well no complications. All sponges, needles, and instrument counts were correct at the end procedure. EBL was _75__cc. The patient was awakened and taken to recovery in stable and satisfactory condition. Implants None Estimated Blood Loss 75 Urine Output 250 Drains No Packing No Pathology Yes ( segment of terminal ileum with small bowel masses.) Complications No immediate complications Condition Stable Disposition PACU [facility] Billing Surgery - Charge Forward: Surgery Billing
[2025-07-10] MEDS: LACTATED RINGERS 1,000 ML 130 ML IV CONT (23:37)
[2025-07-10 23:41] LABS: Alanine Aminotransferase 15 U/L (6-35); Albumin Level 2.7 g/dL (3.5-5.1); Alkaline Phosphatase 69 U/L (38-126); Anion Gap 7 mmol/L (4-12); Aspartate Amino Transferase 26 U/L (14-36); Bilirubin,Total 1.2 mg/dL (0.2-1.3); Blood Urea Nitrogen 9 mg/dL (7-17); Calcium 8.6 mg/dL (8.4-10.2); Carbon Dioxide 22 mmol/L (22-30); Chloride 105 mmol/L (98-107); Estimated CRCL calculation 57 ml/min; Estimated Glomerular Filt Rate > 60; Glucose 180 mg/dL (65-110); Hematocrit 34.2 % (37.0-47.0); Hemoglobin 11.1 g/dL (12.0-15.0); Immature Granulocyte Percent A 0.2 % (0-0.5); Lymphocytes Absolute Auto 0.35 K/mm3 (0.9-3.2); Magnesium 1.3 mg/dL (1.6-2.3); Mean Corpuscular HGB Conc 32.5 g/dl (32-36); Mean Corpuscular Hemoglobin 32.1 pg (26-34); Mean Corpuscular Volume 98.8 fl (80-100); Nucleated Red Blood Cells Absolute Auto 0.000 K/mm3 (0.0-0.012); Nucleated Red Blood Cells Perc 0.0 % (0.0-0.2); Platelet Count Result 330 k/mm3 (150-375); Potassium 3.8 mmol/L (3.4-5.0); Red Blood Count 3.46 M/mm3 (4.2-5.4); Sodium 134 mmol/L (137-145); Total Protein 5.2 g/dL (6.3-8.2); White Blood Count 5.5 K/mm3 (4.5-10.0)
[2025-07-10] MEDS: HYDROmorphone HCL INJ (*CRX) 1 MG/ML SYR IV PUSH (23:43)
[2025-07-10 23:45] LABS: Partial Thromboplastin Time 23.9 Seconds (22.3-36.8)
[2025-07-11] VITALS (9 sets, daily range): BP systolic 96–126; BP diastolic 61–76; PULSE 90–107; RESP 16; TEMP 36.2–36.4; O2SAT 90–100
[2025-07-11 00:11] LABS: Transferrin 102 mg/dL (206-381)
[2025-07-11] MEDS: PIPERACILLIN/TAZOBACTAM SOD 4.5 GM in SODIUM CHLORIDE 0.9% IV 100 ML 200 ML IVPB ×4 (02:59→20:14)
[2025-07-11] MEDS: HYDROmorphone HCL INJ (*CRX) 1 MG/ML SYR IV PUSH ×7 (03:01→21:19)
[2025-07-11] MEDS: MAG HYDROX/AL HYDROX/SIMETH 30 ML UDC PO ×2 (05:41→22:01)
[2025-07-11 05:59] LABS: Hematocrit 34.3 % (37.0-47.0); Hemoglobin 11.1 g/dL (12.0-15.0); Mean Corpuscular HGB Conc 32.4 g/dl (32-36); Mean Corpuscular Hemoglobin 31.6 pg (26-34); Mean Corpuscular Volume 97.7 fl (80-100); Platelet Count Result 325 k/mm3 (150-375); Red Blood Count 3.51 M/mm3 (4.2-5.4); White Blood Count 6.5 K/mm3 (4.5-10.0)
[2025-07-11 06:23] LABS: Alanine Aminotransferase 18 U/L (6-35); Albumin Level 2.9 g/dL (3.5-5.1); Alkaline Phosphatase 62 U/L (38-126); Anion Gap 6 mmol/L (4-12); Aspartate Amino Transferase 37 U/L (14-36); Bilirubin,Total 0.8 mg/dL (0.2-1.3); Blood Urea Nitrogen 12 mg/dL (7-17); Calcium 8.7 mg/dL (8.4-10.2); Carbon Dioxide 23 mmol/L (22-30); Chloride 105 mmol/L (98-107); Estimated CRCL calculation 54 ml/min; Estimated Glomerular Filt Rate 57; Glucose 146 mg/dL (65-110); Magnesium 1.3 mg/dL (1.6-2.3); Potassium 4.0 mmol/L (3.4-5.0); Sodium 134 mmol/L (137-145); Total Protein 5.5 g/dL (6.3-8.2)
[2025-07-11] MEDS: METOPROLOL TARTRATE INJ 5 MG/5 ML VIAL IV PUSH ×3 (06:38→22:01)
[2025-07-11] MEDS: IBUPROFEN IV 800 MG/200 ML 800 MG/200 ML BAG 400 MG IVPB ×3 (06:47→22:01)
[2025-07-11 07:01] LABS: Band Neutrophils Percent 12 % (0-6); Basophils Absolute Manual 0.00 K/mm3 (0.0-0.1); Basophils Percent Manual 0 % (0-1); Eosinophils Absolute Manual 0.00 K/mm3 (0.02-0.50); Eosinophils Percent Manual 0 % (0-4); Lymphocytes Absolute Manual 0.97 K/mm3 (1.1-4.5); Lymphocytes Percent Manual 15 % (18-44); Monocytes Absolute Manual 0.78 K/mm3 (0.1-0.90); Monocytes Percent Manual 12 % (3-9); Neutrophils Absolute Manual 4.74 K/mm3 (1.3-6.7); Neutrophils Percent Manual 61 % (46-73); Schistocytes None Seen; Total Cells Counted 100
[2025-07-11] MEDS: LACTATED RINGERS 1,000 ML 130 ML IV CONT ×2 (09:18→18:38)
[2025-07-11] MEDS: PANTOPRAZOLE SODIUM IV 40 MG VIAL IV PUSH (09:18)
--- NOTE | 2025-07-11 10:35 | WPDPN ---
Progress Note: A&P Assessment and Plan (1) Mass of small intestine: Code(s): K63.89 - Other specified diseases of intestine Status: Acute Assessment and Plan: Obstructing masses in the distal small bowel resected. Primary anastomosis performed. Await pathology results. Given her history of cervical cancer and breast cancer suspicion is for metastatic deposits more likely to be cervical cancer than breast cancer. For make sure that we get incentive spirometer at the bedside. Respiratory therapy to teach. We will go ahead and get her Agee catheter out today. I get a bedside commode. Get her ambulating up to a chair. Will consult PT OT for therapy. Lovenox for DVT prophylaxis. Continue SCDs. GI prophylaxis with Protonix and Mylanta. (2) Mass of colon: Code(s): K63.89 - Other specified diseases of intestine Status: Acute Assessment and Plan: Near obstructing rectosigmoid mass. Patient has had a diverting loop descending colostomy placed to relieve obstruction of the colon. Ostomy appears viable today. No function yet. Continue supportive management. (3) Malnutrition: Code(s): E46 - Unspecified protein-calorie malnutrition Status: Acute Assessment and Plan: Mild malnutrition. Patient's albumin is down to 2.9. She has had poor p.o. intake due to her bowel obstruction NPO since her initial admission to the hospital 3 days ago. Post surgically I expect her postop ileus to not resolved for several more days. We will go ahead and start TPN today after PICC line is placed. Subjective Date/time seen: 07/11/25 10:35 Interval history: Postop day 1 after exploratory laparotomy, segmental small bowel resection for obstructing masses, and diverting descending loop colostomy due to obstructing rectosigmoid mass. Patient awake and alert lying in bed today. Has gotten a few doses of IV pain medication overnight and once this morning. States her pain is minimal right now. Catheter in place. Urine output has been good overnight. No fever or tachycardia. Exam GI: Other: Abdomen is soft and moderately distended. Midline incision is dressed. Left lower quadrant loop colostomy viable. Ostomy appliance in place. Small amount of fluid noted but no fecal contents or significant air in the colostomy bag yet. Expected mild tenderness on incision. Urinary Catheter: Urinary Catheter: patent and draining and urine clear Objective Data Vital Signs Vital Signs: Vital Signs - 24 hr 07/10/25 11:41 07/10/25 12:00 07/10/25 14:22 Temperature 36.4 C Pulse Rate 167 H 79 80 Respiratory Rate 100 H Blood Pressure 142/84 H Pulse Oximetry 100 Oxygen Delivery Oxygen Flow Rate 07/10/25 15:55 07/10/25 21:10 07/10/25 21:25 Temperature 36.6 C 37.7 C H Pulse Rate 73 95 93 Respiratory Rate 14 12 12 Blood Pressure 145/87 H 128/80 122/89 Pulse Oximetry 99 99 99 Oxygen Delivery Simple Face Mask Simple Face Mask Oxygen Flow Rate 8 8 07/10/25 21:40 07/10/25 21:55 07/10/25 22:09 Temperature Pulse Rate 88 92 93 Respiratory Rate 12 12 12 Blood Pressure 112/81 118/78 117/86 Pulse Oximetry 93 95 96 Oxygen Delivery Room Air Room Air Room Air Oxygen Flow Rate 07/10/25 22:41 07/10/25 22:45 07/10/25 22:55 Temperature 36.4 C L 36.5 C Pulse Rate 88 84 107 H Respiratory Rate 14 16 16 Blood Pressure 109/67 114/71 Pulse Oximetry 95 97 98 Oxygen Delivery Room Air Oxygen Flow Rate 07/10/25 23:15 07/11/25 00:15 07/11/25 05:35 Temperature 36.8 C 36.3 C L 36.4 C L Pulse Rate 80 90 107 H Respiratory Rate 16 16 16 Blood Pressure 121/72 119/76 107/69 Pulse Oximetry 99 100 98 Oxygen Delivery Oxygen Flow Rate 07/11/25 06:38 Temperature Pulse Rate 104 H Respiratory Rate Blood Pressure Pulse Oximetry Oxygen Delivery Oxygen Flow Rate Intake/Output Intake/Output: Intake & Output 07/08/25 07/09/25 07/10/25 07/11/25 23:59 23:59 23:59 23:59 Intake Total 3170.7 2108.7 500 1100 Output Total 200 1400 1050 300 Balance 2970.7 708.7 -550 800 Meds/Results Medications: Active Medications Generic Name Dose Route Start Last Admin Trade Name Freq PRN Reason Stop Dose Admin Al Hydrox/Mg Hydrox/Simethicone 30 ml 07/10/25 22:00 07/11/25 05:41 Mag Hydrox/Al Hydrox/Simeth 30 Ml Udc PO 30 ml Q8H RAJAT Administration Dextrose 12.5 gm 07/10/25 22:55 Dextrose 50% 25 Gm/50 Ml Syringe IV PUSH PRN PRN Hypoglycemia Protocol Glucagon 1 mg 07/10/25 22:55 Glucagon For Inj 1 Mg Vial IM PRN PRN Hypoglycemia Protocol Glucose 15 gm 07/10/25 22:55 Glucose Oral Gel 15 Gm Of Glucse In 37.5 Gm Tube PO PRN PRN Hypoglycemia Protocol Hydromorphone HCl 1 mg 07/10/25 22:44 07/11/25 09:21 Hydromorphone Hcl Inj (*Crx) 1 Mg/Ml Syr IV PUSH 1 mg Q3H PRN Administration Pain Rated 7-10 Piperacillin Sod/Tazobactam 100 mls @ 200 mls/hr 07/10/25 14:00 07/11/25 09:17 Sod 4.5 gm/ Sodium Chloride IVPB 200 mls/hr Q6H RAJAT Administration Lactated Ringer's 1,000 mls @ 130 mls/hr 07/10/25 21:45 07/11/25 09:18 Lr - Lactated Ringers Iv IV CONT 130 mls/hr .Q7H42M RAJAT Administration Ibuprofen 800 mg in 200 mls @ 400 mls/hr 07/10/25 23:00 07/11/25 06:47 Caldolor 800 Mg/200 Ml IVPB 400 mls/hr Q8H RAJAT Administration Dextrose 1,000 mls @ 50 mls/hr 07/10/25 22:55 Dextrose 10% IV CONT .Q20H PRN if PN is interrupted Dextrose 1,000 mls @ 100 mls/hr 07/10/25 22:55 Dextrose 5% 1,000 Ml IVPB PRN PRN Hypoglycemia Protocol Fat Emulsion Intravenous 250 mls @ 20.833 mls/hr 07/11/25 10:00 Lipids 20% IVPB Q24H RAJAT Multivitamins 1.25 ml/ 1,002.5 mls @ 40 mls/hr 07/11/25 10:00 Multivitamins 1.25 ml/ Amino IV CONT Acids/Electrolytes/Dextrose .Q24H [facility] Protocol Insulin Aspart 2 - 5 units 07/11/25 00:00 07/11/25 05:58 Insulin Aspart (*Bkc) 100 Units/Ml SUB-Q Not Given Q6HR [facility] Protocol Insulin Aspart 2 - 5 units 07/11/25 10:00 Insulin Aspart (*Bkc) 100 Units/Ml SUB-Q TIDWM [facility] Protocol Metoprolol Tartrate 5 mg 07/08/25 14:40 07/11/25 06:38 Metoprolol Tartrate Inj 5 Mg/5 Ml Vial IV PUSH 5 mg Q8HR RAJAT Administration Nitroglycerin 0.4 mg 07/08/25 13:09 Nitroglycerin Sl 0.4 Mg Tablet SUBLINGUAL Q5MIN PRN Chest Pain Ondansetron HCl 4 mg 07/09/25 15:58 07/10/25 05:30 Ondansetron Inj 4 Mg/2 Ml Vial IV PUSH 4 mg Q4HR PRN Administration Nausea And Vomiting Pantoprazole Sodium 40 mg 07/09/25 09:00 07/11/25 09:18 Pantoprazole Sodium Iv 40 Mg Vial IV PUSH 40 mg QAM RAJAT Administration Perflutren Lipid Microsphere 0 ml 07/08/25 14:23 Perflutren Lipid Microspheres 1.5 Ml Vial Diluted To 10 Ml Total Volume IV PUSH 07/11/25 14:23 ONCE PRN adequate visualization Protocol Radiology Results: ITS Impressions Chest X-Ray 07/08/25 07:52 IMPRESSION: 1. No acute cardiopulmonary disease. Chest/Abdomen/Pelvis CTA 07/08/25 10:04 IMPRESSION: 1. Small bowel obstruction with distal ileal transition point in the right deep pelvis along with a small amount of likely reactive ascites. 2. Mild emphysema. No pulmonary embolism or other acute cardiopulmonary disease. Small Bowel X-Ray 07/09/25 20:09 IMPRESSION: 1: Small bowel obstruction. 2: Gastroesophageal reflux. Abdomen X-Ray 07/10/25 09:36 IMPRESSION: 1. Large moderate contrast remains within multiple loops of mildly dilated small bowel and in the stomach with no definitive contrast within the colon consistent with ongoing likely high-grade small bowel obstruction. Labs Labs: Laboratory Results - last 24 hr 07/10/25 07/10/25 07/11/25 13:28 23:24 00:09 WBC 5.5 RBC 3.46 L Hgb 11.1 L Hct 34.2 L MCV 98.8 MCH 32.1 MCHC 32.5 RDW 11.9 Plt Count 330 MPV 10.4 Immature Gran % (Auto) 0.2 Neut % (Auto) 82.0 H Lymph % (Auto) 6.4 L [place] % (Auto) 11.2 H Eos % (Auto) 0.0 Baso % (Auto) 0.2 Lymph # (Auto) 0.35 L [place] # (Auto) 0.6 Eos # (Auto) 0.0 Baso # (Auto) 0.0 Abs Immat Gran (auto) 0.01 Absolute Neuts (auto) 4.5 Absolute Nucleated RBC 0.000 Total Counted Neutrophils % (Manual) Band Neutrophils % Lymphocytes % (Manual) Monocytes % (Manual) Eosinophils % (Manual) Basophils % (Manual) Nucleated RBC % 0.0 Abs Neuts (Manual) Abs Lymphs (Manual) Abs Monocytes (Manual) Absolute Eos (Manual) Abs Basophils (Manual) Platelet Estimate Schistocytes APTT 28.6 23.9 Sodium 134 L Potassium 3.8 Chloride 105 Carbon Dioxide 22 Anion Gap 7 BUN 9 Creatinine 0.81 Estim Creat Clear Calc 57 Estimated GFR > 60 Glucose 180 H POC Capillary Glucose 163 H Calcium 8.6 Phosphorus Magnesium 1.3 L Transferrin 102 L Total Bilirubin 1.2 AST 26 ALT 15 Alkaline Phosphatase 69 Total Protein 5.2 L Albumin 2.7 L 07/11/25 07/11/25 05:39 05:58 WBC 6.5 RBC 3.51 L Hgb 11.1 L Hct 34.3 L MCV 97.7 MCH 31.6 MCHC 32.4 RDW 11.9 Plt Count 325 MPV 10.3 Immature Gran % (Auto) Not Reportable Neut % (Auto) Not Reportable Lymph % (Auto) Not Reportable [place] % (Auto) Not Reportable Eos % (Auto) Not Reportable Baso % (Auto) Not Reportable Lymph # (Auto) Not Reportable [place] # (Auto) Not Reportable Eos # (Auto) Not Reportable Baso # (Auto) Not Reportable Abs Immat Gran (auto) Not Reportable Absolute Neuts (auto) Not Reportable Absolute Nucleated RBC Not Reportable Total Counted 100 Neutrophils % (Manual) 61 Band Neutrophils % 12 H Lymphocytes % (Manual) 15 L Monocytes % (Manual) 12 H Eosinophils % (Manual) 0 Basophils % (Manual) 0 Nucleated RBC % Not Reportable Abs Neuts (Manual) 4.74 Abs Lymphs (Manual) 0.97 L Abs Monocytes (Manual) 0.78 Absolute Eos (Manual) 0.00 L Abs Basophils (Manual) 0.00 Platelet Estimate Adequate Schistocytes None seen APTT Sodium 134 L Potassium 4.0 Chloride 105 Carbon Dioxide 23 Anion Gap 6 BUN 12 Creatinine 1.01 H Estim Creat Clear Calc 54 Estimated GFR 57 L Glucose 146 H POC Capillary Glucose 147 H Calcium 8.7 Phosphorus 4.4 Magnesium 1.3 L Transferrin Total Bilirubin 0.8 AST 37 H ALT 18 Alkaline Phosphatase 62 Total Protein 5.5 L Albumin 2.9 L
--- NOTE | 2025-07-11 12:15 | PCPTNOTE ---
Patient originally was okay with physical therapy, but when getting rady to get up reports too much pain. Patient asks to come back later. Physical therapy will attempt again as time allows.
[2025-07-11] MEDS: ENOXAPARIN 40 MG/0.4 ML SYRINGE SUB-Q (12:20)
[2025-07-11] MEDS: LIDOCAINE 1% PF INJ 5 ML VIAL INFILTRATE (12:45)
--- NOTE | 2025-07-11 13:32 | P.PNIM_ITS ---
Progress Note: A&P Assessment and Plan (1) Elevated troponin: Code(s): R79.89 - Other specified abnormal findings of blood chemistry Status: Acute (2) Small bowel obstruction: Code(s): K56.609 - Unspecified intestinal obstruction, unspecified as to partial versus complete obstruction Status: Acute Plan 55-year-old female with PMH hypertension, breast cancer (2020, s/p double mastectomy), and adenocarcinoma of the cervix (2020, s/p radiation/chemo and hysterectomy) on oral chemo presents to [facility] via EMS with tachycardia and chest pain on 07/08/2025. Upon further evaluation the pain and was originating in the stomach area. It was dull and gaslike. This is an exacerbation of pain which has been going on for at least a month. She had a colonoscopy on June 25, [address] Mccoy at [place]. but the procedure was aborted as reportedly the lumen was too narrow. There is a family history of cancer, aunt had uterine cancer, cousin and colon cancer, cousin and breast cancer. Since that procedure she has not had a bowel movement and has had very poor oral intake. Records are being obtained. She also had an endoscopy 2 days prior to admission in that report is not available as well patient reports she was not told of any abnormal findings. She failed NG tube placement. She has nausea but no vomiting. Small-bowel follow-through results with persistent small-bowel obstruction. General surgery and GI are following. Continue D5 normal saline at 125 cc/hour. The patient reports dry heaving with promethazine and Zofran. Repeat EKG performed 15 minutes after Zofran on 07/09/2025 with a decreased QTC interval of 435. Continue NPO and conservative management with IV fluids On 07/10/2025 after further discussion she was taken for an exploratory laparotomy. Status post exploratory laparotomy on 07/10/2025: Obstructing masses in distal small bowel which was resected with primary anastomosis performed. Await pathology likely metastatic deposits. Patient also was noted to have near obstructing rectosigmoid mass for which is diverting loop descending colostomy has been placed to relieve obstruction of the colon. Await pathology report As she presented with will was thought to be chest pain, she had an elevated troponin as well which has now downtrended. EKG without ST elevations. She has been seen by Cardiology who has signed off. Echo demonstrates normal LV function and grade 1 diastolic dysfunction. They would like for her to have a follow-up in the outpatient setting. Heparin drip discontinued. Continue aspirin and statin. Patient denies any more chest pain. She wishes to be full code. Continue Protonix 40 mg IV q.a.m.. Subjective Date/time seen: 07/11/25 13:32 Interval history: Patient was taken for exploratory laparotomy yesterday. Findings of small-bowel obstructing mass with subsequent segmental small-bowel resection performed. There was also noted obstructing rectosigmoid mass for which diverting descending loop colostomy was also performed. Patient is planned to start on TPN today. Complains of abdominal shortness no nausea vomiting NG tube in place. Family at bedside and discussed with them. Discussed with General surge ry team as well. Review of Systems Review of Systems: All systems reviewed & are unremarkable except as noted in HPI and below (Subjective) Exam Narrative: GENERAL: Well-appearing, well-nourished, and in no acute distress. HEAD: Normocephalic, atraumatic. EYES: PERRLA and EOMI. ENT: Nares clear, no rhinorrhea or epistaxis. Mucous membranes moist. NG tube in place NECK: Supple. CHEST: Clear to auscultation. No respiratory distress. HEART: Regular rate and rhythm. No murmur heard. Normal peripheral pulses. ABDOMEN: Soft, surgical incision covered with dressing which is clean dry and intact, left-sided colostomy in-situ, hypoactive bowel sounds. EXTREMITIES: Normal range of motion. No edema. SKIN: Warm, dry, no rash. NEURO: No focal deficits. Alert and oriented x3. PSYCH: Normal mood and affect. Objective Data Vital Signs Vital Signs: Vital Signs - 24 hr 07/10/25 14:22 07/10/25 15:55 07/10/25 21:10 Temperature 97.9 F 99.8 F H Pulse Rate 80 73 95 Respiratory Rate 14 12 Blood Pressure 145/87 H 128/80 Pulse Oximetry 99 99 Oxygen Delivery Simple Face Mask Oxygen Flow Rate 8 07/10/25 21:25 07/10/25 21:40 07/10/25 21:55 Temperature Pulse Rate 93 88 92 Respiratory Rate 12 12 12 Blood Pressure 122/89 112/81 118/78 Pulse Oximetry 99 93 95 Oxygen Delivery Simple Face Mask Room Air Room Air Oxygen Flow Rate 8 07/10/25 22:09 07/10/25 22:41 07/10/25 22:45 Temperature 97.5 F L 97.7 F Pulse Rate 93 88 84 Respiratory Rate 12 14 16 Blood Pressure 117/86 109/67 114/71 Pulse Oximetry 96 95 97 Oxygen Delivery Room Air Oxygen Flow Rate 07/10/25 22:55 07/10/25 23:15 07/11/25 00:15 Temperature 98.2 F 97.4 F L Pulse Rate 107 H 80 90 Respiratory Rate 16 16 16 Blood Pressure 121/72 119/76 Pulse Oximetry 98 99 100 Oxygen Delivery Room Air Oxygen Flow Rate 07/11/25 05:35 07/11/25 06:38 07/11/25 08:00 Temperature 97.5 F L Pulse Rate 107 H 104 H Respiratory Rate 16 Blood Pressure 107/69 Pulse Oximetry 98 Oxygen Delivery Room Air Oxygen Flow Rate Intake/Output Intake/Output: Intake & Output 07/08/25 07/09/25 07/10/25 07/11/25 23:59 23:59 23:59 23:59 Intake Total 3170.7 2108.7 500 1100 Output Total 200 1400 1050 300 Balance 2970.7 708.7 -550 800 Meds/Results Medications: Active Medications Generic Name Dose Route Start Last Admin Trade Name Freq PRN Reason Stop Dose Admin Al Hydrox/Mg Hydrox/Simethicone 30 ml 07/10/25 22:00 07/11/25 05:41 Mag Hydrox/Al Hydrox/Simeth 30 Ml Udc PO 30 ml Q8H RAJAT Administration Dextrose 12.5 gm 07/10/25 22:55 Dextrose 50% 25 Gm/50 Ml Syringe IV PUSH PRN PRN Hypoglycemia Protocol Enoxaparin Sodium 40 mg 07/11/25 10:45 07/11/25 12:20 Enoxaparin 40 Mg/0.4 Ml Syringe SUB-Q 40 mg DAILY RAJAT Administration Glucagon 1 mg 07/10/25 22:55 Glucagon For Inj 1 Mg Vial IM PRN PRN Hypoglycemia Protocol Glucose 15 gm 07/10/25 22:55 Glucose Oral Gel 15 Gm Of Glucse In 37.5 Gm Tube PO PRN PRN Hypoglycemia Protocol Hydromorphone HCl 1 mg 07/10/25 22:44 07/11/25 12:20 Hydromorphone Hcl Inj (*Crx) 1 Mg/Ml Syr IV PUSH 1 mg Q3H PRN Administration Pain Rated 7-10 Piperacillin Sod/Tazobactam 100 mls @ 200 mls/hr 07/10/25 14:00 07/11/25 09:17 Sod 4.5 gm/ Sodium Chloride IVPB 200 mls/hr Q6H RAJAT Administration Lactated Ringer's 1,000 mls @ 130 mls/hr 07/10/25 21:45 07/11/25 09:18 Lr - Lactated Ringers Iv IV CONT 130 mls/hr .Q7H42M RAJAT Administration Ibuprofen 800 mg in 200 mls @ 400 mls/hr 07/10/25 23:00 07/11/25 06:47 Caldolor 800 Mg/200 Ml IVPB 400 mls/hr Q8H RAJAT Administration Dextrose 1,000 mls @ 50 mls/hr 07/10/25 22:55 Dextrose 10% IV CONT .Q20H PRN if PN is interrupted Dextrose 1,000 mls @ 100 mls/hr 07/10/25 22:55 Dextrose 5% 1,000 Ml IVPB PRN PRN Hypoglycemia Protocol Fat Emulsion Intravenous 250 mls @ 20.833 mls/hr 07/11/25 10:00 Lipids 20% IVPB Q24H [facility] Multivitamins 1.25 ml/ 1,002.5 mls @ 40 mls/hr 07/11/25 10:00 Multivitamins 1.25 ml/ Amino IV CONT Acids/Electrolytes/Dextrose .Q24H [facility] Protocol Insulin Aspart 2 - 5 units 07/11/25 00:00 07/11/25 13:06 Insulin Aspart (*Bkc) 100 Units/Ml SUB-Q Not Given Q6HR [facility] Protocol Insulin Aspart 2 - 5 units 07/11/25 10:00 07/11/25 11:03 Insulin Aspart (*Bkc) 100 Units/Ml SUB-Q Not Given TIDWM [facility] Protocol Metoprolol Tartrate 5 mg 07/08/25 14:40 07/11/25 06:38 Metoprolol Tartrate Inj 5 Mg/5 Ml Vial IV PUSH 5 mg Q8HR RAJAT Administration Nitroglycerin 0.4 mg 07/08/25 13:09 Nitroglycerin Sl 0.4 Mg Tablet SUBLINGUAL Q5MIN PRN Chest Pain Ondansetron HCl 4 mg 07/09/25 15:58 07/10/25 05:30 Ondansetron Inj 4 Mg/2 Ml Vial IV PUSH 4 mg Q4HR PRN Administration Nausea And Vomiting Pantoprazole Sodium 40 mg 07/09/25 09:00 07/11/25 09:18 Pantoprazole Sodium Iv 40 Mg Vial IV PUSH 40 mg QAM RAJAT Administration Perflutren Lipid Microsphere 0 ml 07/08/25 14:23 Perflutren Lipid Microspheres 1.5 Ml Vial Diluted To 10 Ml Total Volume IV PUSH 07/11/25 14:23 ONCE PRN adequate visualization Protocol Radiology Results: ITS Impressions Chest X-Ray 07/08/25 07:52 IMPRESSION: 1. No acute cardiopulmonary disease. Chest/Abdomen/Pelvis CTA 07/08/25 10:04 IMPRESSION: 1. Small bowel obstruction with distal ileal transition point in the right deep pelvis along with a small amount of likely reactive ascites. 2. Mild emphysema. No pulmonary embolism or other acute cardiopulmonary disease. Small Bowel X-Ray 07/09/25 20:09 IMPRESSION: 1: Small bowel obstruction. 2: Gastroesophageal reflux. Abdomen X-Ray 07/10/25 09:36 IMPRESSION: 1. Large moderate contrast remains within multiple loops of mildly dilated small bowel and in the stomach with no definitive contrast within the colon consistent with ongoing likely high-grade small bowel obstruction. Labs Labs: Laboratory Results - last 24 hr 07/10/25 07/10/25 07/11/25 13:28 23:24 00:09 WBC 5.5 RBC 3.46 L Hgb 11.1 L Hct 34.2 L MCV 98.8 MCH 32.1 MCHC 32.5 RDW 11.9 Plt Count 330 MPV 10.4 Immature Gran % (Auto) 0.2 Neut % (Auto) 82.0 H Lymph % (Auto) 6.4 L [place] % (Auto) 11.2 H Eos % (Auto) 0.0 Baso % (Auto) 0.2 Lymph # (Auto) 0.35 L [place] # (Auto) 0.6 Eos # (Auto) 0.0 Baso # (Auto) 0.0 Abs Immat Gran (auto) 0.01 Absolute Neuts (auto) 4.5 Absolute Nucleated RBC 0.000 Total Counted Neutrophils % (Manual) Band Neutrophils % Lymphocytes % (Manual) Monocytes % (Manual) Eosinophils % (Manual) Basophils % (Manual) Nucleated RBC % 0.0 Abs Neuts (Manual) Abs Lymphs (Manual) Abs Monocytes (Manual) Absolute Eos (Manual) Abs Basophils (Manual) Platelet Estimate Schistocytes APTT 28.6 23.9 Sodium 134 L Potassium 3.8 Chloride 105 Carbon Dioxide 22 Anion Gap 7 BUN 9 Creatinine 0.81 Estim Creat Clear Calc 57 Estimated GFR > 60 Glucose 180 H POC Capillary Glucose 163 H Calcium 8.6 Phosphorus Magnesium 1.3 L Transferrin 102 L Total Bilirubin 1.2 AST 26 ALT 15 Alkaline Phosphatase 69 Total Protein 5.2 L Albumin 2.7 L 07/11/25 07/11/25 07/11/25 05:39 05:58 12:47 WBC 6.5 RBC 3.51 L Hgb 11.1 L Hct 34.3 L MCV 97.7 MCH 31.6 MCHC 32.4 RDW 11.9 Plt Count 325 MPV 10.3 Immature Gran % (Auto) Not Reportable Neut % (Auto) Not Reportable Lymph % (Auto) Not Reportable [place] % (Auto) Not Reportable Eos % (Auto) Not Reportable Baso % (Auto) Not Reportable Lymph # (Auto) Not Reportable [place] # (Auto) Not Reportable Eos # (Auto) Not Reportable Baso # (Auto) Not Reportable Abs Immat Gran (auto) Not Reportable Absolute Neuts (auto) Not Reportable Absolute Nucleated RBC Not Reportable Total Counted 100 Neutrophils % (Manual) 61 Band Neutrophils % 12 H Lymphocytes % (Manual) 15 L Monocytes % (Manual) 12 H Eosinophils % (Manual) 0 Basophils % (Manual) 0 Nucleated RBC % Not Reportable Abs Neuts (Manual) 4.74 Abs Lymphs (Manual) 0.97 L Abs Monocytes (Manual) 0.78 Absolute Eos (Manual) 0.00 L Abs Basophils (Manual) 0.00 Platelet Estimate Adequate Schistocytes None seen APTT Sodium 134 L Potassium 4.0 Chloride 105 Carbon Dioxide 23 Anion Gap 6 BUN 12 Creatinine 1.01 H Estim Creat Clear Calc 54 Estimated GFR 57 L Glucose 146 H POC Capillary Glucose 147 H 131 H Calcium 8.7 Phosphorus 4.4 Magnesium 1.3 L Transferrin Total Bilirubin 0.8 AST 37 H ALT 18 Alkaline Phosphatase 62 Total Protein 5.5 L Albumin 2.9 L
[2025-07-11] MEDS: AMINO ACIDS 5%/D15W/E-LYTES/CA 1,000 ML with MULTIVITAMINS-12 INJ VIAL 1 1.25 ML, MULTI... 40 ML IV CONT (14:35)
[2025-07-11] MEDS: FAT EMULSIONS IV 20% 250 ML 20.83 ML IVPB (14:43)
[2025-07-11] MEDS: CENTRAL LINE FLUSH 10 ML IV PUSH (22:27)
[2025-07-11 23:18] LABS: Triglycerides 76 mg/dL (<150)
[2025-07-12] MEDS: PIPERACILLIN/TAZOBACTAM SOD 4.5 GM in SODIUM CHLORIDE 0.9% IV 100 ML 200 ML IVPB ×4 (01:02→21:20)
[2025-07-12] MEDS: HYDROmorphone HCL INJ (*CRX) 1 MG/ML SYR IV PUSH ×7 (02:05→21:38)
[2025-07-12] MEDS: LACTATED RINGERS 1,000 ML 130 ML IV CONT ×2 (03:06→12:38)
[2025-07-12 05:22] VITALS: BP 132/81; PULSE 103; RESP 16; TEMP 36.1; O2SAT 98
[2025-07-12 05:53] LABS: Anion Gap 2 mmol/L (4-12); Blood Urea Nitrogen 16 mg/dL (7-17); Calcium 8.2 mg/dL (8.4-10.2); Carbon Dioxide 27 mmol/L (22-30); Chloride 104 mmol/L (98-107); Estimated CRCL calculation 55 ml/min; Estimated Glomerular Filt Rate 60; Glucose 97 mg/dL (65-110); Potassium 3.3 mmol/L (3.4-5.0); Sodium 133 mmol/L (137-145)
[2025-07-12] MEDS: METOPROLOL TARTRATE INJ 5 MG/5 ML VIAL IV PUSH ×3 (05:57→21:21)
[2025-07-12] MEDS: IBUPROFEN IV 800 MG/200 ML 800 MG/200 ML BAG 400 MG IVPB ×3 (05:58→23:56)
[2025-07-12] MEDS: MAG HYDROX/AL HYDROX/SIMETH 30 ML UDC PO ×2 (05:58→14:38)
[2025-07-12] MEDS: CENTRAL LINE FLUSH 10 ML IV PUSH ×3 (05:58→21:21)
[2025-07-12] MEDS: PANTOPRAZOLE SODIUM IV 40 MG VIAL IV PUSH (08:53)
[2025-07-12] MEDS: ENOXAPARIN 40 MG/0.4 ML SYRINGE SUB-Q (08:53)
[2025-07-12 08:55] VITALS: O2SAT 98
--- NOTE | 2025-07-12 11:18 | PCOTNOTE ---
Attempted OT evaluation. Per RN pt. was just given pain medications and is finally sleeping. She has been in a lot of pain. RN requested to not wake the pt. at this time. Will continue to follow and attempt again as able.
--- NOTE | 2025-07-12 12:59 | P.PNIM_ITS ---
Progress Note: A&P Assessment and Plan (1) Elevated troponin: Code(s): R79.89 - Other specified abnormal findings of blood chemistry Status: Acute (2) Small bowel obstruction: Code(s): K56.609 - Unspecified intestinal obstruction, unspecified as to partial versus complete obstruction Status: Acute Plan 55-year-old female with PMH hypertension, breast cancer (2020, s/p double mastectomy), and adenocarcinoma of the cervix (2020, s/p radiation/chemo and hysterectomy) on oral chemo presents to [facility] via EMS with tachycardia and chest pain on 07/08/2025. Upon further evaluation the pain and was originating in the stomach area. It was dull and gaslike. This is an exacerbation of pain which has been going on for at least a month. She had a colonoscopy on June 25, [address] Mccoy at [email or web address]. but the procedure was aborted as reportedly the lumen was too narrow. There is a family history of cancer, aunt had uterine cancer, cousin and colon cancer, cousin and breast cancer. Since that procedure she has not had a bowel movement and has had very poor oral intake. Records are being obtained. She also had an endoscopy 2 days prior to admission in that report is not available as well patient reports she was not told of any abnormal findings. She failed NG tube placement. She has nausea but no vomiting. Small-bowel follow-through results with persistent small-bowel obstruction. General surgery and GI are following. Continue D5 normal saline at 125 cc/hour. The patient reports dry heaving with promethazine and Zofran. Repeat EKG performed 15 minutes after Zofran on 07/09/2025 with a decreased QTC interval of 435. Continue NPO and conservative management with IV fluids On 07/10/2025 after further discussion she was taken for an exploratory laparotomy. Status post exploratory laparotomy on 07/10/2025: Obstructing masses in distal small bowel which was resected with primary anastomosis performed. Await pathology likely metastatic deposits. Patient also was noted to have near obstructing rectosigmoid mass for which is diverting loop descending colostomy has been placed to relieve obstruction of the colon. Await pathology report Await return of bowel function. Continue IV fluids as ordered Replace potassium Patient admits started on TPN as well. Which will be continued. As she presented with will was thought to be chest pain, she had an elevated troponin as well which has now downtrended. EKG without ST elevations. She has been seen by Cardiology who has signed off. Echo demonstrates normal LV function and grade 1 diastolic dysfunction. They would like for her to have a follow-up in the outpatient setting. Heparin drip discontinued. Continue aspirin and statin. Patient denies any more chest pain. She wishes to be full code. Continue Protonix 40 mg IV q.a.m.. Subjective Date/time seen: 07/12/25 12:59 Interval history: No overnight events. Pain controlled with IV pain medication. No bowel movement yet. NG tube in place. Review of Systems Review of Systems: All systems reviewed & are unremarkable except as noted in HPI and below (Subjective) Exam Narrative: GENERAL: Well-appearing, well-nourished, and in no acute distress. HEAD: Normocephalic, atraumatic. EYES: PERRLA and EOMI. ENT: Nares clear, no rhinorrhea or epistaxis. Mucous membranes moist. NG tube in place NECK: Supple. CHEST: Clear to auscultation. No respiratory distress. HEART: Regular rate and rhythm. No murmur heard. Normal peripheral pulses. ABDOMEN: Soft, surgical incision covered with dressing which is clean dry and intact, left-sided colostomy in-situ, hypoactive bowel sounds. EXTREMITIES: Normal range of motion. No edema. SKIN: Warm, dry, no rash. NEURO: No focal deficits. Alert and oriented x3. PSYCH: Normal mood and affect. Objective Data Vital Signs Vital Signs: Vital Signs - 24 hr 07/11/25 14:19 07/11/25 16:04 07/11/25 20:00 Temperature 97.4 F L Pulse Rate 100 98 Respiratory Rate 16 Blood Pressure 97/69 L Pulse Oximetry 92 Oxygen Delivery Room Air Fraction of Inspired Oxygen 07/11/25 21:01 07/11/25 21:09 07/11/25 22:00 Temperature 97.1 F L Pulse Rate 105 H Respiratory Rate 16 Blood Pressure 126/74 96/61 L Pulse Oximetry 90 94 Oxygen Delivery Room Air Fraction of Inspired Oxygen 21 07/12/25 05:22 07/12/25 08:55 Temperature 97.0 F L Pulse Rate 103 H Respiratory Rate 16 Blood Pressure 132/81 Pulse Oximetry 98 98 Oxygen Delivery Room Air Fraction of Inspired Oxygen Intake/Output Intake/Output: Intake & Output 07/09/25 07/10/25 07/11/25 07/12/25 23:59 23:59 23:59 23:59 Intake Total 2108.7 500 3000 1841 Output Total 1400 1050 600 0 Balance 708.7 -550 2400 1841 Meds/Results Medications: Active Medications Generic Name Dose Route Start Last Admin Trade Name Freq PRN Reason Stop Dose Admin Al Hydrox/Mg Hydrox/Simethicone 30 ml 07/10/25 22:00 07/12/25 05:58 Mag Hydrox/Al Hydrox/Simeth 30 Ml Udc PO 30 ml Q8H RAJAT Administration Dextrose 12.5 gm 07/10/25 22:55 Dextrose 50% 25 Gm/50 Ml Syringe IV PUSH PRN PRN Hypoglycemia Protocol Enoxaparin Sodium 40 mg 07/11/25 10:45 07/12/25 08:53 Enoxaparin 40 Mg/0.4 Ml Syringe SUB-Q 40 mg DAILY RAJAT Administration Glucagon 1 mg 07/10/25 22:55 Glucagon For Inj 1 Mg Vial IM PRN PRN Hypoglycemia Protocol Glucose 15 gm 07/10/25 22:55 Glucose Oral Gel 15 Gm Of Glucse In 37.5 Gm Tube PO PRN PRN Hypoglycemia Protocol Hydromorphone HCl 1 mg 07/10/25 22:44 07/12/25 12:33 Hydromorphone Hcl Inj (*Crx) 1 Mg/Ml Syr IV PUSH 1 mg Q3H PRN Administration Pain Rated 7-10 Piperacillin Sod/Tazobactam 100 mls @ 200 mls/hr 07/10/25 14:00 07/12/25 08:53 Sod 4.5 gm/ Sodium Chloride IVPB 200 mls/hr Q6H RAJAT Administration Lactated Ringer's 1,000 mls @ 130 mls/hr 07/10/25 21:45 07/12/25 12:39 Lr - Lactated Ringers Iv IV CONT Not Given .Q7H42M RAJAT Ibuprofen 800 mg in 200 mls @ 400 mls/hr 07/10/25 23:00 07/12/25 05:58 Caldolor 800 Mg/200 Ml IVPB 400 mls/hr Q8H RAJAT Administration Dextrose 1,000 mls @ 50 mls/hr 07/10/25 22:55 Dextrose 10% IV CONT .Q20H PRN if PN is interrupted Dextrose 1,000 mls @ 100 mls/hr 07/10/25 22:55 Dextrose 5% 1,000 Ml IVPB PRN PRN Hypoglycemia Protocol Multivitamins 1.25 ml/ 1,002.5 mls @ 40 mls/hr 07/12/25 14:00 Multivitamins 1.25 ml/ Amino IV CONT Acids/Electrolytes/Dextrose .Q24H [facility] Protocol Fat Emulsion Intravenous 250 mls @ 20.833 mls/hr 07/12/25 14:00 Lipids 20% IVPB Q24H [facility] Insulin Aspart 2 - 5 units 07/11/25 00:00 07/12/25 12:20 Insulin Aspart (*Bkc) 100 Units/Ml SUB-Q Not Given Q6HR [facility] Protocol Metoprolol Tartrate 5 mg 07/08/25 14:40 07/12/25 05:57 Metoprolol Tartrate Inj 5 Mg/5 Ml Vial IV PUSH 5 mg Q8HR RAJAT Administration Nitroglycerin 0.4 mg 07/08/25 13:09 Nitroglycerin Sl 0.4 Mg Tablet SUBLINGUAL Q5MIN PRN Chest Pain Ondansetron HCl 4 mg 07/09/25 15:58 07/10/25 05:30 Ondansetron Inj 4 Mg/2 Ml Vial IV PUSH 4 mg Q4HR PRN Administration Nausea And Vomiting Pantoprazole Sodium 40 mg 07/09/25 09:00 07/12/25 08:53 Pantoprazole Sodium Iv 40 Mg Vial IV PUSH 40 mg QAM RAJAT Administration Sodium Chloride 10 ml 07/11/25 22:00 07/12/25 05:58 Central Line Flush IV PUSH 10 ml Q8HR RAJAT Administration Sodium Chloride 10 ml 07/11/25 14:20 Central Line Flush IV PUSH PRN PRN with TPN bag changes Sodium Chloride 20 ml 07/11/25 14:20 Central Line Flush IV PUSH PRN PRN after blood draws Radiology Results: ITS Impressions Chest/Abdomen/Pelvis CTA 07/08/25 10:04 IMPRESSION: 1. Small bowel obstruction with distal ileal transition point in the right deep pelvis along with a small amount of likely reactive ascites. 2. Mild emphysema. No pulmonary embolism or other acute cardiopulmonary disease. Small Bowel X-Ray 07/09/25 20:09 IMPRESSION: 1: Small bowel obstruction. 2: Gastroesophageal reflux. Abdomen X-Ray 07/10/25 09:36 IMPRESSION: 1. Large moderate contrast remains within multiple loops of mildly dilated small bowel and in the stomach with no definitive contrast within the colon consistent with ongoing likely high-grade small bowel obstruction. Chest X-Ray 07/11/25 14:41 IMPRESSION: 1. Left upper extremity PICC line with distal tip positioned in the mid superior vena cava on the final image. 2. No acute cardiopulmonary disease. Labs Labs: Laboratory Results - last 24 hr 07/11/25 07/11/25 07/11/25 17:16 22:48 22:59 Sodium Potassium Chloride Carbon Dioxide Anion Gap BUN Creatinine Estim Creat Clear Calc Estimated GFR Glucose POC Capillary Glucose 137 H 130 H Calcium Phosphorus Triglycerides 76 07/12/25 07/12/25 05:32 11:44 Sodium 133 L Potassium 3.3 L Chloride 104 Carbon Dioxide 27 Anion Gap 2 L BUN 16 Creatinine 0.96 Estim Creat Clear Calc 55 Estimated GFR 60 Glucose 97 POC Capillary Glucose 113 H Calcium 8.2 L Phosphorus 2.4 L Triglycerides
[2025-07-12] MEDS: FAT EMULSIONS IV 20% 250 ML 20.83 ML IVPB (14:16)
[2025-07-12] MEDS: AMINO ACIDS 5%/D15W/E-LYTES/CA 1,000 ML with MULTIVITAMINS-12 INJ VIAL 1 1.25 ML, MULTI... 40 ML IV CONT (14:16)
[2025-07-12 14:17] VITALS: PULSE 99
--- NOTE | 2025-07-12 14:22 | P.PN_ITS ---
Progress Note: A&P Assessment and Plan (1) Mass of small intestine: Code(s): K63.89 - Other specified diseases of intestine Status: Acute Assessment and Plan: Obstructing masses in the distal small bowel resected. Primary anastomosis performed. Await pathology results. Given her history of cervical cancer and breast cancer suspicion is for metastatic deposits more likely to be cervical cancer than breast cancer. For make sure that we get incentive spirometer at the bedside. Respiratory therapy to teach. Get her ambulating up to a chair. Will consult PT OT for therapy. Lovenox for DVT prophylaxis. Continue SCDs. GI prophylaxis with Protonix and Mylanta. Agee catheter removed and she is tolerating. She is using a bedpan. She prefers using a bedpan at the bedside commode. Midline incision is doing well. Colostomy seems viable but has now function yet. Ostomy wound care nurses to evaluate the patient tomorrow. (2) Mass of colon: Code(s): K63.89 - Other specified diseases of intestine Status: Acute Assessment and Plan: Near obstructing rectosigmoid mass. Patient has had a diverting loop descending colostomy placed to relieve obstruction of the colon. Ostomy appears viable today. No function yet. Continue supportive management. (3) Malnutrition: Code(s): E46 - Unspecified protein-calorie malnutrition Status: Acute Assessment and Plan: Mild malnutrition. Patient's albumin is down to 2.9. She has had poor p.o. intake due to her bowel obstruction NPO since her initial admission to the hospital 3 days ago. Post surgically I expect her postop ileus to not resolved for several more days. PICC line placed and TPN has been started. Will renew TPN and lipids today. Subjective Date/time seen: 07/12/25 14:22 Interval history: Postoperative day 2 after exploratory laparotomy and small-bowel resection with anastomosis and diverting descending loop colostomy for near obstructing rectosigmoid mass. Still not much bowel function yet. No stool or gas in the colostomy bag. Patient is able to get up and sit up in a chair with therapy. Nasogastric tube still in place. White blood count was normal yesterday. Elective right show a mild decrease in her potassium at 3.3. Phosphorus slightly low as well. No fever tachycardia. Exam GI: Other: Abdomen is soft and still mildly distended. Midline incision is dressed and dry. Colostomy seems to be viable but no output yet. Urinary Catheter: Urinary Catheter: patent and draining and urine clear Objective Data Vital Signs Vital Signs: Vital Signs - 24 hr 07/11/25 16:04 07/11/25 20:00 07/11/25 21:01 Temperature 36.3 C L Pulse Rate 98 Respiratory Rate 16 Blood Pressure 97/69 L 126/74 Pulse Oximetry 92 Oxygen Delivery Room Air Fraction of Inspired Oxygen 07/11/25 21:09 07/11/25 22:00 07/12/25 05:22 Temperature 36.2 C L 36.1 C L Pulse Rate 105 H 103 H Respiratory Rate 16 16 Blood Pressure 96/61 L 132/81 Pulse Oximetry 90 94 98 Oxygen Delivery Room Air Fraction of Inspired Oxygen 21 07/12/25 08:55 07/12/25 14:17 Temperature Pulse Rate 99 Respiratory Rate Blood Pressure Pulse Oximetry 98 Oxygen Delivery Room Air Fraction of Inspired Oxygen Intake/Output Intake/Output: Intake & Output 07/09/25 07/10/25 07/11/25 07/12/25 23:59 23:59 23:59 23:59 Intake Total 2108.7 500 3000 1841 Output Total 1400 1050 600 0 Balance 708.7 -550 2400 1841 Meds/Results Medications: Active Medications Generic Name Dose Route Start Last Admin Trade Name Freq PRN Reason Stop Dose Admin Al Hydrox/Mg Hydrox/Simethicone 30 ml 07/10/25 22:00 07/12/25 05:58 Mag Hydrox/Al Hydrox/Simeth 30 Ml Udc PO 30 ml Q8H RAJAT Administration Dextrose 12.5 gm 07/10/25 22:55 Dextrose 50% 25 Gm/50 Ml Syringe IV PUSH PRN PRN Hypoglycemia Protocol Enoxaparin Sodium 40 mg 07/11/25 10:45 07/12/25 08:53 Enoxaparin 40 Mg/0.4 Ml Syringe SUB-Q 40 mg DAILY RAJAT Administration Glucagon 1 mg 07/10/25 22:55 Glucagon For Inj 1 Mg Vial IM PRN PRN Hypoglycemia Protocol Glucose 15 gm 07/10/25 22:55 Glucose Oral Gel 15 Gm Of Glucse In 37.5 Gm Tube PO PRN PRN Hypoglycemia Protocol Hydromorphone HCl 1 mg 07/10/25 22:44 07/12/25 12:33 Hydromorphone Hcl Inj (*Crx) 1 Mg/Ml Syr IV PUSH 1 mg Q3H PRN Administration Pain Rated 7-10 Piperacillin Sod/Tazobactam 100 mls @ 200 mls/hr 07/10/25 14:00 07/12/25 08:53 Sod 4.5 gm/ Sodium Chloride IVPB 200 mls/hr Q6H RAJAT Administration Lactated Ringer's 1,000 mls @ 130 mls/hr 07/10/25 21:45 07/12/25 12:39 Lr - Lactated Ringers Iv IV CONT Not Given .Q7H42M RAJAT Ibuprofen 800 mg in 200 mls @ 400 mls/hr 07/10/25 23:00 07/12/25 05:58 Caldolor 800 Mg/200 Ml IVPB 400 mls/hr Q8H RAJAT Administration Dextrose 1,000 mls @ 50 mls/hr 07/10/25 22:55 Dextrose 10% IV CONT .Q20H PRN if PN is interrupted Dextrose 1,000 mls @ 100 mls/hr 07/10/25 22:55 Dextrose 5% 1,000 Ml IVPB PRN PRN Hypoglycemia Protocol Multivitamins 1.25 ml/ 1,002.5 mls @ 40 mls/hr 07/12/25 14:00 07/12/25 14:16 Multivitamins 1.25 ml/ Amino IV CONT 40 mls/hr Acids/Electrolytes/Dextrose .Q24H RAJAT Administration Protocol Fat Emulsion Intravenous 250 mls @ 20.833 mls/hr 07/12/25 14:00 07/12/25 14:16 Lipids 20% IVPB 20.83 mls/hr Q24H RAJAT Administration Potassium Chloride 40 meq/ 520 mls @ 130 mls/hr 07/12/25 13:15 07/12/25 14:15 Sodium Chloride IVPB 07/12/25 17:14 130 mls/hr ONCE ONE Administration Potassium Phosphate 15 mmol/ 255 mls @ 63.75 mls/hr 07/12/25 18:30 Sodium Chloride IVPB 07/12/25 22:29 ONCE ONE Insulin Aspart 2 - 5 units 07/11/25 00:00 07/12/25 12:20 Insulin Aspart (*Bkc) 100 Units/Ml SUB-Q Not Given Q6HR [facility] Protocol Metoprolol Tartrate 5 mg 07/08/25 14:40 07/12/25 14:17 Metoprolol Tartrate Inj 5 Mg/5 Ml Vial IV PUSH 5 mg Q8HR RAJAT Administration Nitroglycerin 0.4 mg 07/08/25 13:09 Nitroglycerin Sl 0.4 Mg Tablet SUBLINGUAL Q5MIN PRN Chest Pain Ondansetron HCl 4 mg 07/09/25 15:58 07/10/25 05:30 Ondansetron Inj 4 Mg/2 Ml Vial IV PUSH 4 mg Q4HR PRN Administration Nausea And Vomiting Pantoprazole Sodium 40 mg 07/09/25 09:00 07/12/25 08:53 Pantoprazole Sodium Iv 40 Mg Vial IV PUSH 40 mg QAM RAJAT Administration Sodium Chloride 10 ml 07/11/25 22:00 07/12/25 14:18 Central Line Flush IV PUSH 10 ml Q8HR RAJAT Administration Sodium Chloride 10 ml 07/11/25 14:20 Central Line Flush IV PUSH PRN PRN with TPN bag changes Sodium Chloride 20 ml 07/11/25 14:20 Central Line Flush IV PUSH PRN PRN after blood draws Radiology Results: ITS Impressions Chest/Abdomen/Pelvis CTA 07/08/25 10:04 IMPRESSION: 1. Small bowel obstruction with distal ileal transition point in the right deep pelvis along with a small amount of likely reactive ascites. 2. Mild emphysema. No pulmonary embolism or other acute cardiopulmonary disease. Small Bowel X-Ray 07/09/25 20:09 IMPRESSION: 1: Small bowel obstruction. 2: Gastroesophageal reflux. Abdomen X-Ray 07/10/25 09:36 IMPRESSION: 1. Large moderate contrast remains within multiple loops of mildly dilated small bowel and in the stomach with no definitive contrast within the colon consistent with ongoing likely high-grade small bowel obstruction. Chest X-Ray 07/11/25 14:41 IMPRESSION: 1. Left upper extremity PICC line with distal tip positioned in the mid superior vena cava on the final image. 2. No acute cardiopulmonary disease. Labs Labs: Laboratory Results - last 24 hr 07/11/25 07/11/25 07/11/25 17:16 22:48 22:59 Sodium Potassium Chloride Carbon Dioxide Anion Gap BUN Creatinine Estim Creat Clear Calc Estimated GFR Glucose POC Capillary Glucose 137 H 130 H Calcium Phosphorus Triglycerides 76 07/12/25 07/12/25 05:32 11:44 Sodium 133 L Potassium 3.3 L Chloride 104 Carbon Dioxide 27 Anion Gap 2 L BUN 16 Creatinine 0.96 Estim Creat Clear Calc 55 Estimated GFR 60 Glucose 97 POC Capillary Glucose 113 H Calcium 8.2 L Phosphorus 2.4 L Triglycerides
[2025-07-12] MEDS: POTASSIUM PHOS,M-BASIC-D-BASIC 15 MMOL in SODIUM CHLORIDE 0.9% IV 250 ML 63.75 MMOL IVPB (15:37)
[2025-07-12 21:21] VITALS: PULSE 94
[2025-07-13] VITALS (8 sets, daily range): BP systolic 128–137; BP diastolic 73–80; PULSE 85–98; RESP 18–20; TEMP 36.8–36.9; O2SAT 90–98
[2025-07-13] MEDS: HYDROmorphone HCL INJ (*CRX) 1 MG/ML SYR IV PUSH ×6 (00:36→23:28)
[2025-07-13] MEDS: PIPERACILLIN/TAZOBACTAM SOD 4.5 GM in SODIUM CHLORIDE 0.9% IV 100 ML 200 ML IVPB (02:32)
[2025-07-13] MEDS: LACTATED RINGERS 1,000 ML 130 ML IV CONT (04:55)
[2025-07-13] MEDS: CENTRAL LINE FLUSH 10 ML IV PUSH ×3 (06:19→21:39)
[2025-07-13] MEDS: METOPROLOL TARTRATE INJ 5 MG/5 ML VIAL IV PUSH ×3 (06:19→21:39)
[2025-07-13] MEDS: IBUPROFEN IV 800 MG/200 ML 800 MG/200 ML BAG 400 MG IVPB ×3 (06:22→23:26)
[2025-07-13 06:33] LABS: Hematocrit 25.0 % (37.0-47.0); Hemoglobin 8.1 g/dL (12.0-15.0); Immature Granulocyte Percent A 0.7 % (0-0.5); Lymphocytes Absolute Auto 0.82 K/mm3 (0.9-3.2); Mean Corpuscular HGB Conc 32.4 g/dl (32-36); Mean Corpuscular Hemoglobin 31.9 pg (26-34); Mean Corpuscular Volume 98.4 fl (80-100); Nucleated Red Blood Cells Absolute Auto 0.000 K/mm3 (0.0-0.012); Nucleated Red Blood Cells Perc 0.0 % (0.0-0.2); Platelet Count Result 216 k/mm3 (150-375); Red Blood Count 2.54 M/mm3 (4.2-5.4); White Blood Count 6.1 K/mm3 (4.5-10.0)
[2025-07-13 06:44] LABS: INR 1.2; Prothrombin Time 15.0 Seconds (11.1-14.7)
[2025-07-13 06:45] LABS: Partial Thromboplastin Time 31.2 Seconds (22.3-36.8)
[2025-07-13 06:49] LABS: Alanine Aminotransferase 14 U/L (6-35); Albumin Level 2.4 g/dL (3.5-5.1); Alkaline Phosphatase 68 U/L (38-126); Anion Gap 3 mmol/L (4-12); Aspartate Amino Transferase 31 U/L (14-36); Bilirubin,Total 0.4 mg/dL (0.2-1.3); Blood Urea Nitrogen 15 mg/dL (7-17); Calcium 8.2 mg/dL (8.4-10.2); Carbon Dioxide 28 mmol/L (22-30); Chloride 103 mmol/L (98-107); Estimated CRCL calculation 62 ml/min; Estimated Glomerular Filt Rate > 60; Glucose 98 mg/dL (65-110); Magnesium 1.8 mg/dL (1.6-2.3); Potassium 3.2 mmol/L (3.4-5.0); Sodium 134 mmol/L (137-145); Total Protein 5.1 g/dL (6.3-8.2)
[2025-07-13 06:56] LABS: Transferrin 83 mg/dL (206-381)
--- NOTE | 2025-07-13 08:03 | P.CDI_ITS ---
CDI Query Clarification Request BMI: 27.5 Nutritional Diagnostic Statement: Please refer to the comprehensive nutrition assessment for further information. If you agree with diagnosis of Severe protein calorie malnutrition related to chronic cancer and acute small bowel obstruction as evidenced by weight loss 19%/4 months; intakes <75% needs >1 month; moderate muscle wasting and fat loss. Please specify severity if known: * Mild * Moderate * Severe * Other/Unknown <Alondra George RN - Last Filed: 07/13/25 08:04> Provider Comments Severe protein calorie malnutrition <Andrei Zhou MD - Last Filed: 07/14/25 08:06>
[2025-07-13] MEDS: ENOXAPARIN 40 MG/0.4 ML SYRINGE SUB-Q (08:19)
[2025-07-13] MEDS: PIPERACILLIN/TAZOBACTAM SOD 4.5 GM in SODIUM CHLORIDE 0.9% IV 100 ML IVPB ×3 (08:19→20:44)
[2025-07-13] MEDS: PANTOPRAZOLE SODIUM IV 40 MG VIAL IV PUSH (08:23)
[2025-07-13] MEDS: POTASSIUM CHLORIDE INJ 40 MEQ in SODIUM CHLORIDE 0.9% IV 500 ML 130 MEQ IVPB (09:44)
--- NOTE | 2025-07-13 11:46 | PM.PNGS ---
Progress Note: A&P Assessment and Plan (1) Mass of small intestine: Code(s): K63.89 - Other specified diseases of intestine Status: Acute Assessment and Plan: POD3 s/p exploratory laparotomy with segmental terminal ileal small-bowel resection and hand-sewn [id number] ileal anastomosis, placement of left descending diverting loop colostomy. Obstructing masses found in the distal small bowel were resected. Pathology still pending. Suspicious for metastatic deposits given patient's history of cervical cancer and breast cancer. Continue to encourage ambulation and up to chair. Continue with PT and OT. Continue Lovenox for DVT prophylaxis as well as SCDs. Protonix and Mylanta for GI prophylaxis Patient voiding on her own. (2) Mass of colon: Code(s): K63.89 - Other specified diseases of intestine Status: Acute Assessment and Plan: Near obstructing rectosigmoid mass noted in surgery. Patient has had a diverting loop descending colostomy placed to relieve obstruction of the colon. Ostomy appears viable today. No function yet. (3) Malnutrition: Code(s): E46 - Unspecified protein-calorie malnutrition Status: Acute Assessment and Plan: Albumin down to 2.4. Patient admitted to poor oral intake prior to admission. Continue TPN at 40 ml/hr per rental sales agent recommendation. Hypoactive bowel sounds and no stool output from ostomy yet. Plan Discussed patient's case and plan of care with Dr. Sethi. Subjective Subjective Date/Time Seen: 07/13/25 11:46 Post Op day: 3 (Exploratory laparotomy with segmental terminal ileal small-bowel resection and hand-sewn [id number] ileal anastomosis, placement of left descending diverting loop colostomy) Patient reports: no new complaints Interval history: Patient states that she is feeling well today, however, she has been getting q3 1 mg Dilaudid. Still no output from ostomy. NG tube with roughly 200 mL output overnight. Exam Const: General: comfortable and no acute distress GI: Inspection: other (Mildly distended) GI Palp: Yes Soft to palpation and No Tenderness to palpation present (GI) Auscultation: Hypoactive bowel sounds present Other: Abdomen is soft and still mildly distended. Midline incision is dressed and dry. Stoma difficult to assess due to patient positioning, but appears red and viable. No stool output. Minimal serosanguineous fluid in ostomy bag. Objective Data Vital Signs Vital Signs: Vital Signs - 24 hr 07/12/25 14:17 07/12/25 20:00 07/12/25 21:21 Temperature Pulse Rate 99 94 Respiratory Rate Blood Pressure Pulse Oximetry Oxygen Delivery Room Air 07/13/25 03:06 07/13/25 06:19 07/13/25 08:05 Temperature 98.2 F Pulse Rate 94 90 Respiratory Rate 18 Blood Pressure 130/75 Pulse Oximetry 94 Oxygen Delivery Room Air 07/13/25 09:14 Temperature Pulse Rate Respiratory Rate Blood Pressure Pulse Oximetry Oxygen Delivery Room Air Intake/Output Intake/Output: Intake & Output 07/10/25 07/11/25 07/12/25 07/13/25 23:59 23:59 23:59 23:59 Intake Total 500 3000 3541 300 Output Total 1050 600 0 600 Balance -550 2400 3541 -300 Meds/Results Medications: Active Medications Generic Name Dose Route Start Last Admin Trade Name Freq PRN Reason Stop Dose Admin Al Hydrox/Mg Hydrox/Simethicone 30 ml 07/10/25 22:00 07/13/25 06:22 Mag Hydrox/Al Hydrox/Simeth 30 Ml Udc PO Not Given Q8H RAJAT Dextrose 12.5 gm 07/10/25 22:55 Dextrose 50% 25 Gm/50 Ml Syringe IV PUSH PRN PRN Hypoglycemia Protocol Enoxaparin Sodium 40 mg 07/11/25 10:45 07/13/25 08:19 Enoxaparin 40 Mg/0.4 Ml Syringe SUB-Q 40 mg DAILY RAJAT Administration Glucagon 1 mg 07/10/25 22:55 Glucagon For Inj 1 Mg Vial IM PRN PRN Hypoglycemia Protocol Glucose 15 gm 07/10/25 22:55 Glucose Oral Gel 15 Gm Of Glucse In 37.5 Gm Tube PO PRN PRN Hypoglycemia Protocol Hydromorphone HCl 1 mg 07/10/25 22:44 07/13/25 08:18 Hydromorphone Hcl Inj (*Crx) 1 Mg/Ml Syr IV PUSH 1 mg Q3H PRN Administration Pain Rated 7-10 Piperacillin Sod/Tazobactam 100 mls @ 200 mls/hr 07/10/25 14:00 07/13/25 08:19 Sod 4.5 gm/ Sodium Chloride IVPB 100 mls/hr Q6H RAJAT Administration Lactated Ringer's 1,000 mls @ 130 mls/hr 07/10/25 21:45 07/13/25 04:55 Lr - Lactated Ringers Iv IV CONT 130 mls/hr .Q7H42M RAJAT Administration Ibuprofen 800 mg in 200 mls @ 400 mls/hr 07/10/25 23:00 07/13/25 06:22 Caldolor 800 Mg/200 Ml IVPB 400 mls/hr Q8H RAJAT Administration Dextrose 1,000 mls @ 50 mls/hr 07/10/25 22:55 Dextrose 10% IV CONT .Q20H PRN if PN is interrupted Dextrose 1,000 mls @ 100 mls/hr 07/10/25 22:55 Dextrose 5% 1,000 Ml IVPB PRN PRN Hypoglycemia Protocol Multivitamins 1.25 ml/ 1,002.5 mls @ 40 mls/hr 07/12/25 14:00 07/12/25 14:16 Multivitamins 1.25 ml/ Amino IV CONT 40 mls/hr Acids/Electrolytes/Dextrose .Q24H RAJAT Administration Protocol Fat Emulsion Intravenous 250 mls @ 20.833 mls/hr 07/12/25 14:00 07/12/25 14:16 Lipids 20% IVPB 20.83 mls/hr Q24H RAJAT Administration Potassium Chloride 40 meq/ 520 mls @ 130 mls/hr 07/13/25 08:30 07/13/25 09:44 Sodium Chloride IVPB 07/13/25 12:29 130 mls/hr ONCE ONE Administration Insulin Aspart 2 - 5 units 07/11/25 00:00 07/13/25 06:21 Insulin Aspart (*Bkc) 100 Units/Ml SUB-Q Not Given Q6HR RAJAT Protocol Metoprolol Tartrate 5 mg 07/08/25 14:40 07/13/25 06:19 Metoprolol Tartrate Inj 5 Mg/5 Ml Vial IV PUSH 5 mg Q8HR RAJAT Administration Nitroglycerin 0.4 mg 07/08/25 13:09 Nitroglycerin Sl 0.4 Mg Tablet SUBLINGUAL Q5MIN PRN Chest Pain Ondansetron HCl 4 mg 07/09/25 15:58 07/10/25 05:30 Ondansetron Inj 4 Mg/2 Ml Vial IV PUSH 4 mg Q4HR PRN Administration Nausea And Vomiting Pantoprazole Sodium 40 mg 07/09/25 09:00 07/13/25 08:23 Pantoprazole Sodium Iv 40 Mg Vial IV PUSH 40 mg QAM RAJAT Administration Sodium Chloride 10 ml 07/11/25 22:00 07/13/25 06:19 Central Line Flush IV PUSH 10 ml Q8HR RAJAT Administration Sodium Chloride 10 ml 07/11/25 14:20 Central Line Flush IV PUSH PRN PRN with TPN bag changes Sodium Chloride 20 ml 07/11/25 14:20 Central Line Flush IV PUSH PRN PRN after blood draws Radiology Results: ITS Impressions Chest/Abdomen/Pelvis CTA 07/08/25 10:04 IMPRESSION: 1. Small bowel obstruction with distal ileal transition point in the right deep pelvis along with a small amount of likely reactive ascites. 2. Mild emphysema. No pulmonary embolism or other acute cardiopulmonary disease. Small Bowel X-Ray 07/09/25 20:09 IMPRESSION: 1: Small bowel obstruction. 2: Gastroesophageal reflux. Abdomen X-Ray 07/10/25 09:36 IMPRESSION: 1. Large moderate contrast remains within multiple loops of mildly dilated small bowel and in the stomach with no definitive contrast within the colon consistent with ongoing likely high-grade small bowel obstruction. Chest X-Ray 07/11/25 14:41 IMPRESSION: 1. Left upper extremity PICC line with distal tip positioned in the mid superior vena cava on the final image. 2. No acute cardiopulmonary disease. Labs Labs: Laboratory Results - last 24 hr 07/12/25 07/12/25 07/12/25 11:44 18:31 23:55 WBC RBC Hgb Hct MCV MCH MCHC RDW Plt Count MPV Immature Gran % (Auto) Neut % (Auto) Lymph % (Auto) [place] % (Auto) Eos % (Auto) Baso % (Auto) Lymph # (Auto) [place] # (Auto) Eos # (Auto) Baso # (Auto) Abs Immat Gran (auto) Absolute Neuts (auto) Absolute Nucleated RBC Nucleated RBC % PT INR APTT Sodium Potassium Chloride Carbon Dioxide Anion Gap BUN Creatinine Estim Creat Clear Calc Estimated GFR Glucose POC Capillary Glucose 113 H 114 H 133 H Calcium Phosphorus Magnesium Transferrin Total Bilirubin AST ALT Alkaline Phosphatase Total Protein Albumin 07/13/25 07/13/25 07/13/25 05:19 06:17 06:18 WBC 6.1 RBC 2.54 L Hgb 8.1 L D Hct 25.0 L MCV 98.4 MCH 31.9 MCHC 32.4 RDW 12.3 Plt Count 216 MPV 10.1 Immature Gran % (Auto) 0.7 H Neut % (Auto) 69.5 Lymph % (Auto) 13.4 L [place] % (Auto) 12.4 H Eos % (Auto) 3.8 Baso % (Auto) 0.2 Lymph # (Auto) 0.82 L [place] # (Auto) 0.8 H Eos # (Auto) 0.2 Baso # (Auto) 0.0 Abs Immat Gran (auto) 0.04 H Absolute Neuts (auto) 4.3 Absolute Nucleated RBC 0.000 Nucleated RBC % 0.0 PT 15.0 H INR 1.2 APTT 31.2 Sodium 134 L Potassium 3.2 L Chloride 103 Carbon Dioxide 28 Anion Gap 3 L BUN 15 Creatinine 0.84 Estim Creat Clear Calc 62 Estimated GFR > 60 Glucose 98 POC Capillary Glucose 110 H Calcium 8.2 L Phosphorus 3.0 Magnesium 1.8 Transferrin 83 L Total Bilirubin 0.4 AST 31 ALT 14 Alkaline Phosphatase 68 Total Protein 5.1 L Albumin 2.4 L 07/13/25 11:31 WBC RBC Hgb Hct MCV MCH MCHC RDW Plt Count MPV Immature Gran % (Auto) Neut % (Auto) Lymph % (Auto) [place] % (Auto) Eos % (Auto) Baso % (Auto) Lymph # (Auto) [place] # (Auto) Eos # (Auto) Baso # (Auto) Abs Immat Gran (auto) Absolute Neuts (auto) Absolute Nucleated RBC Nucleated RBC % PT INR APTT Sodium Potassium Chloride Carbon Dioxide Anion Gap BUN Creatinine Estim Creat Clear Calc Estimated GFR Glucose POC Capillary Glucose 92 Calcium Phosphorus Magnesium Transferrin Total Bilirubin AST ALT Alkaline Phosphatase Total Protein Albumin
[2025-07-13] MEDS: PHENOL/SOD PHENO SPRAY CHERRY (*BKC) 1 SPRAY MUCOUS MEM (13:49)
[2025-07-13] MEDS: AMINO ACIDS 5%/D15W/E-LYTES/CA 1,000 ML with MULTIVITAMINS-12 INJ VIAL 1 1.25 ML, MULTI... 40 ML IV CONT (13:52)
[2025-07-13] MEDS: FAT EMULSIONS IV 20% 250 ML 20.83 ML IVPB (13:53)
--- NOTE | 2025-07-13 15:00 | P.PNIM_ITS ---
Progress Note: A&P Assessment and Plan (1) Elevated troponin: Code(s): R79.89 - Other specified abnormal findings of blood chemistry Status: Acute (2) Small bowel obstruction: Code(s): K56.609 - Unspecified intestinal obstruction, unspecified as to partial versus complete obstruction Status: Acute Plan 55-year-old female with PMH hypertension, breast cancer (2020, s/p double mastectomy), and adenocarcinoma of the cervix (2020, s/p radiation/chemo and hysterectomy) on oral chemo presents to [facility] via EMS with tachycardia and chest pain on 07/08/2025. Upon further evaluation the pain and was originating in the stomach area. It was dull and gaslike. This is an exacerbation of pain which has been going on for at least a month. She had a colonoscopy on June 25, [address] Mccoy at [facility]. but the procedure was aborted as reportedly the lumen was too narrow. There is a family history of cancer, aunt had uterine cancer, cousin and colon cancer, cousin and breast cancer. Since that procedure she has not had a bowel movement and has had very poor oral intake. Records are being obtained. She also had an endoscopy 2 days prior to admission in that report is not available as well patient reports she was not told of any abnormal findings. She failed NG tube placement. She has nausea but no vomiting. Small-bowel follow-through results with persistent small-bowel obstruction. General surgery and GI are following. Continue D5 normal saline at 125 cc/hour. The patient reports dry heaving with promethazine and Zofran. Repeat EKG performed 15 minutes after Zofran on 07/09/2025 with a decreased QTC interval of 435. Continue NPO and conservative management with IV fluids On 07/10/2025 after further discussion she was taken for an exploratory laparotomy. Status post exploratory laparotomy on 07/10/2025: Obstructing masses in distal small bowel which was resected with primary anastomosis performed. Await pathology likely metastatic deposits. Patient also was noted to have near obstructing rectosigmoid mass for which is diverting loop descending colostomy has been placed to relieve obstruction of the colon. Await pathology report Await return of bowel function. Continue IV fluids as ordered Replace potassium Patient admits started on TPN as well. Which will be continued. Anemia: Significant drop from 11-8 today. No signs of bleeding. Could be hemodialysis note. Will stop IV fluid today. Already on TPN which will be continued. As she presented with will was thought to be chest pain, she had an elevated troponin as well which has now downtrended. EKG without ST elevations. She has been seen by Cardiology who has signed off. Echo demonstrates normal LV function and grade 1 diastolic dysfunction. They would like for her to have a follow-up in the outpatient setting. Heparin drip discontinued. Continue aspirin and statin. Patient denies any more chest pain. She wishes to be full code. Continue Protonix 40 mg IV q.a.m.. Subjective Date/time seen: 07/13/25 15:00 Interval history: No overnight events. Still requiring IV pain medication. No output from ostomy. Throat sore Review of Systems Review of Systems: All systems reviewed & are unremarkable except as noted in HPI and below (Subjective) Exam Narrative: GENERAL: Well-appearing, well-nourished, and in no acute distress. HEAD: Normocephalic, atraumatic. EYES: PERRLA and EOMI. ENT: Nares clear, no rhinorrhea or epistaxis. Mucous membranes moist. NG tube in place NECK: Supple. CHEST: Clear to auscultation. No respiratory distress. HEART: Regular rate and rhythm. No murmur heard. Normal peripheral pulses. ABDOMEN: Soft, surgical incision covered with dressing which is clean dry and intact, left-sided colostomy in-situ, hypoactive bowel sounds. EXTREMITIES: Normal range of motion. No edema. SKIN: Warm, dry, no rash. NEURO: No focal deficits. Alert and oriented x3. PSYCH: Normal mood and affect. Objective Data Vital Signs Vital Signs: Vital Signs - 24 hr 07/12/25 20:00 07/12/25 21:21 07/13/25 03:06 Temperature 98.2 F Pulse Rate 94 94 Respiratory Rate 18 Blood Pressure 130/75 Pulse Oximetry 94 Oxygen Delivery Room Air 07/13/25 06:19 07/13/25 08:05 07/13/25 09:14 Temperature Pulse Rate 90 Respiratory Rate Blood Pressure Pulse Oximetry Oxygen Delivery Room Air Room Air 07/13/25 13:48 Temperature Pulse Rate 98 Respiratory Rate Blood Pressure Pulse Oximetry Oxygen Delivery Intake/Output Intake/Output: Intake & Output 07/10/25 07/11/25 07/12/25 07/13/25 23:59 23:59 23:59 23:59 Intake Total 500 3000 3541 1594 Output Total 1050 600 0 700 Balance -550 2400 3541 894 Meds/Results Medications: Active Medications Generic Name Dose Route Start Last Admin Trade Name Freq PRN Reason Stop Dose Admin Al Hydrox/Mg Hydrox/Simethicone 30 ml 07/10/25 22:00 07/13/25 14:16 Mag Hydrox/Al Hydrox/Simeth 30 Ml Udc PO Not Given Q8H RAJAT Dextrose 12.5 gm 07/10/25 22:55 Dextrose 50% 25 Gm/50 Ml Syringe IV PUSH PRN PRN Hypoglycemia Protocol Enoxaparin Sodium 40 mg 07/11/25 10:45 07/13/25 08:19 Enoxaparin 40 Mg/0.4 Ml Syringe SUB-Q 40 mg DAILY RAJAT Administration Glucagon 1 mg 07/10/25 22:55 Glucagon For Inj 1 Mg Vial IM PRN PRN Hypoglycemia Protocol Glucose 15 gm 07/10/25 22:55 Glucose Oral Gel 15 Gm Of Glucse In 37.5 Gm Tube PO PRN PRN Hypoglycemia Protocol Hydromorphone HCl 1 mg 07/10/25 22:44 07/13/25 13:34 Hydromorphone Hcl Inj (*Crx) 1 Mg/Ml Syr IV PUSH 1 mg Q3H PRN Administration Pain Rated 7-10 Piperacillin Sod/Tazobactam 100 mls @ 200 mls/hr 07/10/25 14:00 07/13/25 13:36 Sod 4.5 gm/ Sodium Chloride IVPB 100 mls/hr Q6H RAJAT Administration Ibuprofen 800 mg in 200 mls @ 400 mls/hr 07/10/25 23:00 07/13/25 06:22 Caldolor 800 Mg/200 Ml IVPB 400 mls/hr Q8H RAJAT Administration Dextrose 1,000 mls @ 50 mls/hr 07/10/25 22:55 Dextrose 10% IV CONT .Q20H PRN if PN is interrupted Dextrose 1,000 mls @ 100 mls/hr 07/10/25 22:55 Dextrose 5% 1,000 Ml IVPB PRN PRN Hypoglycemia Protocol Multivitamins 1.25 ml/ 1,002.5 mls @ 40 mls/hr 07/12/25 14:00 07/13/25 13:52 Multivitamins 1.25 ml/ Amino IV CONT 40 mls/hr Acids/Electrolytes/Dextrose .Q24H RAJAT Administration Protocol Fat Emulsion Intravenous 250 mls @ 20.833 mls/hr 07/12/25 14:00 07/13/25 13:53 Lipids 20% IVPB 20.83 mls/hr Q24H RAJAT Administration Insulin Aspart 2 - 5 units 07/11/25 00:00 07/13/25 12:24 Insulin Aspart (*Bkc) 100 Units/Ml SUB-Q Not Given Q6HR [facility] Protocol Metoprolol Tartrate 5 mg 07/08/25 14:40 07/13/25 13:48 Metoprolol Tartrate Inj 5 Mg/5 Ml Vial IV PUSH 5 mg Q8HR RAJAT Administration Nitroglycerin 0.4 mg 07/08/25 13:09 Nitroglycerin Sl 0.4 Mg Tablet SUBLINGUAL Q5MIN PRN Chest Pain Ondansetron HCl 4 mg 07/09/25 15:58 07/10/25 05:30 Ondansetron Inj 4 Mg/2 Ml Vial IV PUSH 4 mg Q4HR PRN Administration Nausea And Vomiting Pantoprazole Sodium 40 mg 07/09/25 09:00 07/13/25 08:23 Pantoprazole Sodium Iv 40 Mg Vial IV PUSH 40 mg QAM RAJAT Administration Phenol 1 spray 07/13/25 12:58 07/13/25 13:49 Phenol/Sod Pheno [place] (*Bkc) MUCOUS MEM 1 spray PRN PRN Administration Sore Throat Sodium Chloride 10 ml 07/11/25 22:00 07/13/25 13:52 Central Line Flush IV PUSH 10 ml Q8HR RAJAT Administration Sodium Chloride 10 ml 07/11/25 14:20 Central Line Flush IV PUSH PRN PRN with TPN bag changes Sodium Chloride 20 ml 07/11/25 14:20 Central Line Flush IV PUSH PRN PRN after blood draws Radiology Results: ITS Impressions Chest/Abdomen/Pelvis CTA 07/08/25 10:04 IMPRESSION: 1. Small bowel obstruction with distal ileal transition point in the right deep pelvis along with a small amount of likely reactive ascites. 2. Mild emphysema. No pulmonary embolism or other acute cardiopulmonary disease. Small Bowel X-Ray 07/09/25 20:09 IMPRESSION: 1: Small bowel obstruction. 2: Gastroesophageal reflux. Abdomen X-Ray 07/10/25 09:36 IMPRESSION: 1. Large moderate contrast remains within multiple loops of mildly dilated small bowel and in the stomach with no definitive contrast within the colon consistent with ongoing likely high-grade small bowel obstruction. Chest X-Ray 07/11/25 14:41 IMPRESSION: 1. Left upper extremity PICC line with distal tip positioned in the mid superior vena cava on the final image. 2. No acute cardiopulmonary disease. Labs Labs: Laboratory Results - last 24 hr 07/12/25 07/12/25 07/13/25 18:31 23:55 05:19 WBC RBC Hgb Hct MCV MCH MCHC RDW Plt Count MPV Immature Gran % (Auto) Neut % (Auto) Lymph % (Auto) [place] % (Auto) Eos % (Auto) Baso % (Auto) Lymph # (Auto) [place] # (Auto) Eos # (Auto) Baso # (Auto) Abs Immat Gran (auto) Absolute Neuts (auto) Absolute Nucleated RBC Nucleated RBC % PT INR APTT Sodium Potassium Chloride Carbon Dioxide Anion Gap BUN Creatinine Estim Creat Clear Calc Estimated GFR Glucose POC Capillary Glucose 114 H 133 H 110 H Calcium Phosphorus Magnesium Transferrin Total Bilirubin AST ALT Alkaline Phosphatase Total Protein Albumin 07/13/25 07/13/25 07/13/25 06:17 06:18 11:31 WBC 6.1 RBC 2.54 L Hgb 8.1 L D Hct 25.0 L MCV 98.4 MCH 31.9 MCHC 32.4 RDW 12.3 Plt Count 216 MPV 10.1 Immature Gran % (Auto) 0.7 H Neut % (Auto) 69.5 Lymph % (Auto) 13.4 L [place] % (Auto) 12.4 H Eos % (Auto) 3.8 Baso % (Auto) 0.2 Lymph # (Auto) 0.82 L [place] # (Auto) 0.8 H Eos # (Auto) 0.2 Baso # (Auto) 0.0 Abs Immat Gran (auto) 0.04 H Absolute Neuts (auto) 4.3 Absolute Nucleated RBC 0.000 Nucleated RBC % 0.0 PT 15.0 H INR 1.2 APTT 31.2 Sodium 134 L Potassium 3.2 L Chloride 103 Carbon Dioxide 28 Anion Gap 3 L BUN 15 Creatinine 0.84 Estim Creat Clear Calc 62 Estimated GFR > 60 Glucose 98 POC Capillary Glucose 92 Calcium 8.2 L Phosphorus 3.0 Magnesium 1.8 Transferrin 83 L Total Bilirubin 0.4 AST 31 ALT 14 Alkaline Phosphatase 68 Total Protein 5.1 L Albumin 2.4 L
[2025-07-14] VITALS (7 sets, daily range): BP systolic 151–172; BP diastolic 89–95; PULSE 77–94; RESP 16–18; TEMP 36.6–36.9; O2SAT 95–100
[2025-07-14] MEDS: PIPERACILLIN/TAZOBACTAM SOD 4.5 GM in SODIUM CHLORIDE 0.9% IV 100 ML IVPB ×3 (02:05→14:02)
[2025-07-14 02:21] LABS: Triglycerides 67 mg/dL (<150)
[2025-07-14] MEDS: HYDROmorphone HCL INJ (*CRX) 1 MG/ML SYR IV PUSH ×4 (04:05→18:06)
[2025-07-14] MEDS: CENTRAL LINE FLUSH 10 ML IV PUSH ×4 (06:24→22:35)
[2025-07-14] MEDS: METOPROLOL TARTRATE INJ 5 MG/5 ML VIAL IV PUSH ×3 (06:24→22:34)
[2025-07-14] MEDS: IBUPROFEN IV 800 MG/200 ML 800 MG/200 ML BAG 400 MG IVPB ×3 (06:27→22:35)
[2025-07-14 07:18] LABS: Anion Gap 4 mmol/L (4-12); Blood Urea Nitrogen 11 mg/dL (7-17); Calcium 8.4 mg/dL (8.4-10.2); Carbon Dioxide 30 mmol/L (22-30); Chloride 101 mmol/L (98-107); Estimated CRCL calculation 68 ml/min; Estimated Glomerular Filt Rate > 60; Glucose 100 mg/dL (65-110); Potassium 3.1 mmol/L (3.4-5.0); Sodium 135 mmol/L (137-145)
[2025-07-14] MEDS: PANTOPRAZOLE SODIUM IV 40 MG VIAL IV PUSH (08:46)
[2025-07-14] MEDS: ENOXAPARIN 40 MG/0.4 ML SYRINGE SUB-Q (08:46)
[2025-07-14] MEDS: POTASSIUM CHLORIDE INJ 40 MEQ in SODIUM CHLORIDE 0.9% IV 500 ML 130 MEQ IVPB (09:02)
--- NOTE | 2025-07-14 11:09 | PCNFU ---
Nutrition Follow-Up Complete: Severe protein calorie malnutrition related to chronic cancer and acute small bowel obstruction as evidenced by weight loss 19%/4 months; intakes <75% needs >1 month; moderate muscle wasting and fat loss Goal:Meet estimated nutrition needs Patient is progressing towards goal. We will continue current goal. Pt current nutrition is TPN at 40 ml/hr. Nutrition recommendation: recommend increasing to 50 ml/hr with goal rate at 70 ml/hr. Last recorded weight is 78 kg, up from 70.5 kg on admit. Bowel Motility: No BM reported-ostomy. Labs Reviewed: Na 135, K 3.1, Hct 25.0, Hgb 8.1 Meds Noted: Clinimix E 5/15, 20% Lipid Emulsions, NovoLog, Protonix. Skin: WNL Additional Notes: Patient remains on TPN at this time. Spoke with surgery today, plans to increase TPN rate today to 50 ml/hr, providing 1352 kcal/60 gm protein. Goal rate recommended at 70 ml/hr. Agree with diet orders at this time. Monitoring diet orders, plan of care, labs, weights, output every Sunday and Sunday.
--- NOTE | 2025-07-14 11:57 | PM.PNGS ---
Progress Note: A&P Assessment and Plan (1) Mass of small intestine: Code(s): K63.89 - Other specified diseases of intestine Status: Acute Assessment and Plan: POD4 s/p exploratory laparotomy with segmental terminal ileal small-bowel resection and hand-sewn [id number] ileal anastomosis, placement of left descending diverting loop colostomy. Obstructing masses found in the distal small bowel were resected. Pathology still pending. Suspicious for metastatic deposits given patient's history of cervical cancer and breast cancer. Continue to encourage ambulation and up to chair. Continue with PT and OT. Obstructive series ordered this morning. Demonstrated residual contrast in the colon from small bowel series study 4 days prior. No free intraperitoneal gas or dilated gas-filled loops of bowel to suggest obstruction. Will start NG clampting trial. NG tube placement had to be done in the OR under anesthesia, as she previously did not tolerate the procedure well. We will be cautious when removing NG. May consider tube feeding before oral to avoid having to re-insert NG. Continue Lovenox for DVT prophylaxis as well as SCDs. (2) Mass of colon: Code(s): K63.89 - Other specified diseases of intestine Status: Acute Assessment and Plan: Near obstructing rectosigmoid mass noted in surgery. Patient has had a diverting loop descending colostomy placed to relieve obstruction of the colon. Ostomy is pink and viable, but is very tight and firm. Difficult to palpate openings. Will reassess with surgeon later today. (3) Malnutrition: Code(s): E46 - Unspecified protein-calorie malnutrition Status: Acute Assessment and Plan: Patient admitted to poor oral intake prior to admission. TPN increased to 50 ml/hr per production material coordinator recommendation. Will increase by 10 ml every day until goal rate of 70 ml/hr is achieved. Still no output from ostomy. Plan Discussed patient's case and plan of care with Dr. Sethi. Subjective Subjective Date/Time Seen: 07/14/25 11:57 Patient reports: no new complaints and still having pain Interval history: No new complaints. Stable overnight. Dilaudid more spaced out and not every 3 hours now. Exam Const: General: comfortable and no acute distress GI: Inspection: distended and other (Mildly distended) Auscultation: normal bowel sounds and Hypoactive bowel sounds present Other: Abdomen is soft and still mildly distended. Midline incision clean and dry. Stoma bright red. New bag placed on stoma this morning with wound care nurse. Still no stool output. Stoma paste and ostomy belt in place to keep bag from leaking due to positioning. Objective Data Vital Signs Vital Signs: Vital Signs - 24 hr 07/13/25 13:48 07/13/25 15:03 07/13/25 20:00 Temperature 98.4 F Pulse Rate 98 85 Respiratory Rate 18 Blood Pressure 128/80 Pulse Oximetry 98 Oxygen Delivery Room Air Fraction of Inspired Oxygen 07/13/25 20:19 07/13/25 21:39 07/13/25 21:51 Temperature 98.3 F Pulse Rate 86 89 89 Respiratory Rate 20 20 Blood Pressure 137/73 Pulse Oximetry 90 94 Oxygen Delivery Room Air Fraction of Inspired Oxygen 21 07/14/25 06:23 07/14/25 06:24 Temperature 98 F Pulse Rate 94 94 Respiratory Rate 16 Blood Pressure 151/90 H Pulse Oximetry 100 Oxygen Delivery Fraction of Inspired Oxygen Intake/Output Intake/Output: Intake & Output 07/11/25 07/12/25 07/13/25 07/14/25 23:59 23:59 23:59 23:59 Intake Total 3000 3541 2394 550 Output Total 600 0 1200 1200 Balance 2400 3541 1194 -650 Meds/Results Medications: Active Medications Generic Name Dose Route Start Last Admin Trade Name Freq PRN Reason Stop Dose Admin Al Hydrox/Mg Hydrox/Simethicone 30 ml 07/10/25 22:00 07/14/25 06:22 Mag Hydrox/Al Hydrox/Simeth 30 Ml Udc PO Not Given Q8H RAJAT Dextrose 12.5 gm 07/10/25 22:55 Dextrose 50% 25 Gm/50 Ml Syringe IV PUSH PRN PRN Hypoglycemia Protocol Enoxaparin Sodium 40 mg 07/11/25 10:45 07/14/25 08:46 Enoxaparin 40 Mg/0.4 Ml Syringe SUB-Q 40 mg DAILY RAJAT Administration Glucagon 1 mg 07/10/25 22:55 Glucagon For Inj 1 Mg Vial IM PRN PRN Hypoglycemia Protocol Glucose 15 gm 07/10/25 22:55 Glucose Oral Gel 15 Gm Of Glucse In 37.5 Gm Tube PO PRN PRN Hypoglycemia Protocol Hydromorphone HCl 1 mg 07/10/25 22:44 07/14/25 09:21 Hydromorphone Hcl Inj (*Crx) 1 Mg/Ml Syr IV PUSH 1 mg Q3H PRN Administration Pain Rated 7-10 Piperacillin Sod/Tazobactam 100 mls @ 200 mls/hr 07/10/25 14:00 07/14/25 08:45 Sod 4.5 gm/ Sodium Chloride IVPB 100 mls/hr Q6H RAJAT Administration Ibuprofen 800 mg in 200 mls @ 400 mls/hr 07/10/25 23:00 07/14/25 06:57 Caldolor 800 Mg/200 Ml IVPB Infused Q8H RAJAT Infusion Dextrose 1,000 mls @ 50 mls/hr 07/10/25 22:55 Dextrose 10% IV CONT .Q20H PRN if PN is interrupted Dextrose 1,000 mls @ 100 mls/hr 07/10/25 22:55 Dextrose 5% 1,000 Ml IVPB PRN PRN Hypoglycemia Protocol Multivitamins 1.25 ml/ 1,002.5 mls @ 50 mls/hr 07/12/25 14:00 07/13/25 13:52 Multivitamins 1.25 ml/ Amino IV CONT 40 mls/hr Acids/Electrolytes/Dextrose .Q20H3M RAJAT Administration Protocol Fat Emulsion Intravenous 250 mls @ 20.833 mls/hr 07/12/25 14:00 07/14/25 01:54 Lipids 20% IVPB Infused Q24H RAJAT Infusion Potassium Chloride 40 meq/ 520 mls @ 130 mls/hr 07/14/25 08:12 07/14/25 09:02 Sodium Chloride IVPB 07/14/25 12:11 130 mls/hr ONCE ONE Administration Magnesium Sulfate 2 gm in 50 mls @ 25 mls/hr 07/14/25 10:39 Magnesium Sulf 2 Gm/Water 50ml IVPB 07/14/25 12:38 ONCE ONE Insulin Aspart 2 - 5 units 07/11/25 00:00 07/14/25 06:27 Insulin Aspart (*Bkc) 100 Units/Ml SUB-Q Not Given Q6HR [facility] Protocol Metoprolol Tartrate 5 mg 07/08/25 14:40 07/14/25 06:24 Metoprolol Tartrate Inj 5 Mg/5 Ml Vial IV PUSH 5 mg Q8HR RAJAT Administration Nitroglycerin 0.4 mg 07/08/25 13:09 Nitroglycerin Sl 0.4 Mg Tablet SUBLINGUAL Q5MIN PRN Chest Pain Ondansetron HCl 4 mg 07/09/25 15:58 07/10/25 05:30 Ondansetron Inj 4 Mg/2 Ml Vial IV PUSH 4 mg Q4HR PRN Administration Nausea And Vomiting Pantoprazole Sodium 40 mg 07/09/25 09:00 07/14/25 08:46 Pantoprazole Sodium Iv 40 Mg Vial IV PUSH 40 mg QAM RAJAT Administration Phenol 1 spray 07/13/25 12:58 07/13/25 13:49 Phenol/Sod Pheno Hersey Dey (*[facility]) MUCOUS MEM 1 spray PRN PRN Administration Sore Throat Sodium Chloride 10 ml 07/11/25 22:00 07/14/25 06:24 Central Line Flush IV PUSH 10 ml Q8HR RAJAT Administration Sodium Chloride 10 ml 07/11/25 14:20 Central Line Flush IV PUSH PRN PRN with TPN bag changes Sodium Chloride 20 ml 07/11/25 14:20 Central Line Flush IV PUSH PRN PRN after blood draws Radiology Results: ITS Impressions Chest/Abdomen/Pelvis CTA 07/08/25 10:04 IMPRESSION: 1. Small bowel obstruction with distal ileal transition point in the right deep pelvis along with a small amount of likely reactive ascites. 2. Mild emphysema. No pulmonary embolism or other acute cardiopulmonary disease. Small Bowel X-Ray 07/09/25 20:09 IMPRESSION: 1: Small bowel obstruction. 2: Gastroesophageal reflux. Chest X-Ray 07/11/25 14:41 IMPRESSION: 1. Left upper extremity PICC line with distal tip positioned in the mid superior vena cava on the final image. 2. No acute cardiopulmonary disease. Labs Labs: Laboratory Results - last 24 hr 07/13/25 07/13/25 07/14/25 18:11 23:37 02:00 Sodium Potassium Chloride Carbon Dioxide Anion Gap BUN Creatinine Estim Creat Clear Calc Estimated GFR Glucose POC Capillary Glucose 108 H 104 Calcium Phosphorus Triglycerides 67 07/14/25 07/14/25 06:27 06:40 Sodium 135 L Potassium 3.1 L Chloride 101 Carbon Dioxide 30 Anion Gap 4 BUN 11 Creatinine 0.81 Estim Creat Clear Calc 68 Estimated GFR > 60 Glucose 100 POC Capillary Glucose 106 H Calcium 8.4 Phosphorus 3.0 Triglycerides
[2025-07-14] MEDS: MAGNESIUM SULF 2 GM/WATER 50ML 2 GM/50 ML BAG IVPB (12:08)
--- NOTE | 2025-07-14 12:57 | PM.IMPN ---
Progress Note: A&P Assessment and Plan (1) Elevated troponin: Code(s): R79.89 - Other specified abnormal findings of blood chemistry Status: Acute (2) Small bowel obstruction: Code(s): K56.609 - Unspecified intestinal obstruction, unspecified as to partial versus complete obstruction Status: Acute Plan 55-year-old female with PMH hypertension, breast cancer (2020, s/p double mastectomy), and adenocarcinoma of the cervix (2020, s/p radiation/chemo and hysterectomy) on oral chemo presents to [facility] via EMS with tachycardia and chest pain on 07/08/2025. Upon further evaluation the pain and was originating in the stomach area. It was dull and gaslike. This is an exacerbation of pain which has been going on for at least a month. She had a colonoscopy on June 25, [address] Mccoy at [place]. but the procedure was aborted as reportedly the lumen was too narrow. There is a family history of cancer, aunt had uterine cancer, cousin and colon cancer, cousin and breast cancer. Since that procedure she has not had a bowel movement and has had very poor oral intake. Records are being obtained. She also had an endoscopy 2 days prior to admission in that report is not available as well patient reports she was not told of any abnormal findings. She failed NG tube placement. She has nausea but no vomiting. Small-bowel follow-through results with persistent small-bowel obstruction. General surgery and GI are following. Continue D5 normal saline at 125 cc/hour. The patient reports dry heaving with promethazine and Zofran. Repeat EKG performed 15 minutes after Zofran on 07/09/2025 with a decreased QTC interval of 435. Continue NPO and conservative management with IV fluids On 07/10/2025 after further discussion she was taken for an exploratory laparotomy. Status post exploratory laparotomy on 07/10/2025: Obstructing masses in distal small bowel which was resected with primary anastomosis performed. Await pathology likely metastatic deposits. Patient also was noted to have near obstructing rectosigmoid mass for which is diverting loop descending colostomy has been placed to relieve obstruction of the colon. Await pathology report Await return of bowel function. Continue IV fluids as ordered Replace potassium Patient admits started on TPN as well. Which will be continued. Repeat x-ray abdomen 07/14/2025 with residual contrast in colon from small-bowel series study from 4 days prior. No free intraperitoneal gas or dilated gas-filled loops of bowel to suggest obstruction. Anemia: Significant drop from 11-8 07/13/2025. No signs of bleeding. Could be hemodialysis note. Stopped IV fluid.. Already on TPN which will be continued. As she presented with will was thought to be chest pain, she had an elevated troponin as well which has now downtrended. EKG without ST elevations. She has been seen by Cardiology who has signed off. Echo demonstrates normal LV function and grade 1 diastolic dysfunction. They would like for her to have a follow-up in the outpatient setting. Heparin drip discontinued. Continue aspirin and statin. Patient denies any more chest pain. She wishes to be full code. Continue Protonix 40 mg IV q.a.m.. Subjective Date/time seen: 07/14/25 12:57 Interval history: No overnight events. Feeling little better pain arauz. No bowel movement so far. X-ray abdomen with residual contrast in colon part small-bowel CDs study from 4 days prior. No free intraperitoneal gas or dilated gas-filled loops of bowel to suggest obstruction. Review of Systems Review of Systems: All systems reviewed & are unremarkable except as noted in HPI and below (Subjective) Exam Narrative: GENERAL: Well-appearing, well-nourished, and in no acute distress. HEAD: Normocephalic, atraumatic. EYES: PERRLA and EOMI. ENT: Nares clear, no rhinorrhea or epistaxis. Mucous membranes moist. NG tube in place NECK: Supple. CHEST: Clear to auscultation. No respiratory distress. HEART: Regular rate and rhythm. No murmur heard. Normal peripheral pulses. ABDOMEN: Soft, surgical incision covered with dressing which is clean dry and intact, left-sided colostomy in-situ, normoactive bowel sounds. EXTREMITIES: Normal range of motion. No edema. SKIN: Warm, dry, no rash. NEURO: No focal deficits. Alert and oriented x3. PSYCH: Normal mood and affect. Objective Data Vital Signs Vital Signs: Vital Signs - 24 hr 07/13/25 13:48 07/13/25 15:03 07/13/25 20:00 Temperature 98.4 F Pulse Rate 98 85 Respiratory Rate 18 Blood Pressure 128/80 Pulse Oximetry 98 Oxygen Delivery Room Air Fraction of Inspired Oxygen 07/13/25 20:19 07/13/25 21:39 07/13/25 21:51 Temperature 98.3 F Pulse Rate 86 89 89 Respiratory Rate 20 20 Blood Pressure 137/73 Pulse Oximetry 90 94 Oxygen Delivery Room Air Fraction of Inspired Oxygen 21 07/14/25 06:23 07/14/25 06:24 07/14/25 09:02 Temperature 98 F Pulse Rate 94 94 Respiratory Rate 16 Blood Pressure 151/90 H Pulse Oximetry 100 Oxygen Delivery Room Air Fraction of Inspired Oxygen Intake/Output Intake/Output: Intake & Output 07/11/25 07/12/25 07/13/25 07/14/25 23:59 23:59 23:59 23:59 Intake Total 3000 3541 2394 561.3 Output Total 600 0 1200 1200 Balance 2400 3541 1194 -638.7 Meds/Results Medications: Active Medications Generic Name Dose Route Start Last Admin Trade Name Freq PRN Reason Stop Dose Admin Al Hydrox/Mg Hydrox/Simethicone 30 ml 07/10/25 22:00 07/14/25 06:22 Mag Hydrox/Al Hydrox/Simeth 30 Ml Udc PO Not Given Q8H RAJAT Dextrose 12.5 gm 07/10/25 22:55 Dextrose 50% 25 Gm/50 Ml Syringe IV PUSH PRN PRN Hypoglycemia Protocol Enoxaparin Sodium 40 mg 07/11/25 10:45 07/14/25 08:46 Enoxaparin 40 Mg/0.4 Ml Syringe SUB-Q 40 mg DAILY RAJAT Administration Glucagon 1 mg 07/10/25 22:55 Glucagon For Inj 1 Mg Vial IM PRN PRN Hypoglycemia Protocol Glucose 15 gm 07/10/25 22:55 Glucose Oral Gel 15 Gm Of Glucse In 37.5 Gm Tube PO PRN PRN Hypoglycemia Protocol Hydromorphone HCl 1 mg 07/10/25 22:44 07/14/25 09:21 Hydromorphone Hcl Inj (*Crx) 1 Mg/Ml Syr IV PUSH 1 mg Q3H PRN Administration Pain Rated 7-10 Piperacillin Sod/Tazobactam 100 mls @ 200 mls/hr 07/10/25 14:00 07/14/25 08:45 Sod 4.5 gm/ Sodium Chloride IVPB 100 mls/hr Q6H RAJAT Administration Ibuprofen 800 mg in 200 mls @ 400 mls/hr 07/10/25 23:00 07/14/25 06:57 Caldolor 800 Mg/200 Ml IVPB Infused Q8H RAJAT Infusion Dextrose 1,000 mls @ 50 mls/hr 07/10/25 22:55 Dextrose 10% IV CONT .Q20H PRN if PN is interrupted Dextrose 1,000 mls @ 100 mls/hr 07/10/25 22:55 Dextrose 5% 1,000 Ml IVPB PRN PRN Hypoglycemia Protocol Multivitamins 1.25 ml/ 1,002.5 mls @ 50 mls/hr 07/12/25 14:00 07/13/25 13:52 Multivitamins 1.25 ml/ Amino IV CONT 40 mls/hr Acids/Electrolytes/Dextrose .Q20H3M RAJAT Administration Protocol Fat Emulsion Intravenous 250 mls @ 20.833 mls/hr 07/12/25 14:00 07/14/25 01:54 Lipids 20% IVPB Infused Q24H RAJAT Infusion Insulin Aspart 2 - 5 units 07/11/25 00:00 07/14/25 06:27 Insulin Aspart (*Bkc) 100 Units/Ml SUB-Q Not Given Q6HR [facility] Protocol Metoprolol Tartrate 5 mg 07/08/25 14:40 07/14/25 06:24 Metoprolol Tartrate Inj 5 Mg/5 Ml Vial IV PUSH 5 mg Q8HR RAJAT Administration Nitroglycerin 0.4 mg 07/08/25 13:09 Nitroglycerin Sl 0.4 Mg Tablet SUBLINGUAL Q5MIN PRN Chest Pain Ondansetron HCl 4 mg 07/09/25 15:58 07/10/25 05:30 Ondansetron Inj 4 Mg/2 Ml Vial IV PUSH 4 mg Q4HR PRN Administration Nausea And Vomiting Pantoprazole Sodium 40 mg 07/09/25 09:00 07/14/25 08:46 Pantoprazole Sodium Iv 40 Mg Vial IV PUSH 40 mg QAM RAJAT Administration Phenol 1 spray 07/13/25 12:58 07/13/25 13:49 Phenol/Sod Pheno [place] Dey (*[facility]) MUCOUS MEM 1 spray PRN PRN Administration Sore Throat Sodium Chloride 10 ml 07/11/25 22:00 07/14/25 06:24 Central Line Flush IV PUSH 10 ml Q8HR RAJAT Administration Sodium Chloride 10 ml 07/11/25 14:20 Central Line Flush IV PUSH PRN PRN with TPN bag changes Sodium Chloride 20 ml 07/11/25 14:20 Central Line Flush IV PUSH PRN PRN after blood draws Radiology Results: ITS Impressions Chest/Abdomen/Pelvis CTA 07/08/25 10:04 IMPRESSION: 1. Small bowel obstruction with distal ileal transition point in the right deep pelvis along with a small amount of likely reactive ascites. 2. Mild emphysema. No pulmonary embolism or other acute cardiopulmonary disease. Small Bowel X-Ray 07/09/25 20:09 IMPRESSION: 1: Small bowel obstruction. 2: Gastroesophageal reflux. Chest X-Ray 07/11/25 14:41 IMPRESSION: 1. Left upper extremity PICC line with distal tip positioned in the mid superior vena cava on the final image. 2. No acute cardiopulmonary disease. Abdomen X-Ray 07/14/25 11:49 IMPRESSION: 1. Residual contrast in colon from small bowel series study from 4 days prior. No free intraperitoneal gas or dilated gas-filled loops of bowel to suggest obstruction. Labs Labs: Laboratory Results - last 24 hr 07/13/25 07/13/25 07/14/25 18:11 23:37 02:00 Sodium Potassium Chloride Carbon Dioxide Anion Gap BUN Creatinine Estim Creat Clear Calc Estimated GFR Glucose POC Capillary Glucose 108 H 104 Calcium Phosphorus Triglycerides 67 07/14/25 07/14/25 07/14/25 06:27 06:40 12:49 Sodium 135 L Potassium 3.1 L Chloride 101 Carbon Dioxide 30 Anion Gap 4 BUN 11 Creatinine 0.81 Estim Creat Clear Calc 68 Estimated GFR > 60 Glucose 100 POC Capillary Glucose 106 H 94 Calcium 8.4 Phosphorus 3.0 Triglycerides
[2025-07-14] MEDS: FAT EMULSIONS IV 20% 250 ML 20.8 ML IVPB (13:58)
[2025-07-14] MEDS: AMINO ACIDS 5%/D15W/E-LYTES/CA 1,000 ML with MULTIVITAMINS-12 INJ VIAL 1 1.25 ML, MULTI... 40 ML IV CONT (13:59)
[2025-07-14] MEDS: CENTRAL LINE FLUSH 20 ML IV PUSH (14:00)
[2025-07-14 14:25] LABS: Hematocrit 25.1 % (37.0-47.0); Hemoglobin 8.1 g/dL (12.0-15.0); Immature Granulocyte Percent A 0.5 % (0-0.5); Lymphocytes Absolute Auto 0.98 K/mm3 (0.9-3.2); Mean Corpuscular HGB Conc 32.3 g/dl (32-36); Mean Corpuscular Hemoglobin 31.6 pg (26-34); Mean Corpuscular Volume 98.0 fl (80-100); Nucleated Red Blood Cells Absolute Auto 0.000 K/mm3 (0.0-0.012); Nucleated Red Blood Cells Perc 0.0 % (0.0-0.2); Platelet Count Result 274 k/mm3 (150-375); Red Blood Count 2.56 M/mm3 (4.2-5.4); White Blood Count 5.5 K/mm3 (4.5-10.0)
[2025-07-14 14:31] LABS: Potassium 3.4 mmol/L (3.4-5.0)
[2025-07-14] MEDS: MAG HYDROX/AL HYDROX/SIMETH 30 ML UDC FEED TUBE ×2 (15:42→22:34)
[2025-07-14] MEDS: PHENOL/SOD PHENO SPRAY CHERRY (*BKC) 1 SPRAY MUCOUS MEM (15:46)
[2025-07-14] MEDS: KCL 40 MEQ/WATER 100 ML 100 ML 25 ML IVPB (18:14)
[2025-07-15] MEDS: HYDROmorphone HCL INJ (*CRX) 1 MG/ML SYR IV PUSH ×5 (02:10→23:05)
[2025-07-15 05:16] VITALS: BP 149/90; PULSE 77; RESP 18; TEMP 36.9; O2SAT 97
[2025-07-15] MEDS: METOPROLOL TARTRATE INJ 5 MG/5 ML VIAL IV PUSH ×3 (05:19→22:17)
[2025-07-15] MEDS: MAG HYDROX/AL HYDROX/SIMETH 30 ML UDC FEED TUBE ×2 (05:21→14:25)
[2025-07-15] MEDS: CENTRAL LINE FLUSH 10 ML IV PUSH ×3 (05:21→22:18)
[2025-07-15 05:23] LABS: Hematocrit 23.5 % (37.0-47.0); Hemoglobin 7.6 g/dL (12.0-15.0); Immature Granulocyte Percent A 0.6 % (0-0.5); Lymphocytes Absolute Auto 0.86 K/mm3 (0.9-3.2); Mean Corpuscular HGB Conc 32.3 g/dl (32-36); Mean Corpuscular Hemoglobin 31.8 pg (26-34); Mean Corpuscular Volume 98.3 fl (80-100); Nucleated Red Blood Cells Absolute Auto 0.000 K/mm3 (0.0-0.012); Nucleated Red Blood Cells Perc 0.0 % (0.0-0.2); Platelet Count Result 234 k/mm3 (150-375); Red Blood Count 2.39 M/mm3 (4.2-5.4); White Blood Count 4.7 K/mm3 (4.5-10.0)
[2025-07-15 05:44] LABS: Alanine Aminotransferase 16 U/L (6-35); Albumin Level 2.6 g/dL (3.5-5.1); Alkaline Phosphatase 70 U/L (38-126); Anion Gap 2 mmol/L (4-12); Aspartate Amino Transferase 31 U/L (14-36); Bilirubin,Total 0.4 mg/dL (0.2-1.3); Blood Urea Nitrogen 10 mg/dL (7-17); Calcium 8.3 mg/dL (8.4-10.2); Carbon Dioxide 31 mmol/L (22-30); Chloride 101 mmol/L (98-107); Estimated CRCL calculation 72 ml/min; Estimated Glomerular Filt Rate > 60; Glucose 108 mg/dL (65-110); Magnesium 2.2 mg/dL (1.6-2.3); Potassium 3.4 mmol/L (3.4-5.0); Sodium 134 mmol/L (137-145); Total Protein 5.5 g/dL (6.3-8.2); Triglycerides 64 mg/dL (<150)
[2025-07-15] MEDS: IBUPROFEN IV 800 MG/200 ML 800 MG/200 ML BAG 400 MG IVPB ×3 (05:57→22:18)
--- NOTE | 2025-07-15 08:15 | PM.IMPN ---
Progress Note: A&P Assessment and Plan (1) Elevated troponin: Code(s): R79.89 - Other specified abnormal findings of blood chemistry Status: Acute (2) Small bowel obstruction: Code(s): K56.609 - Unspecified intestinal obstruction, unspecified as to partial versus complete obstruction Status: Acute Plan 55-year-old female with PMH hypertension, breast cancer (2020, s/p double mastectomy), and adenocarcinoma of the cervix (2020, s/p radiation/chemo and hysterectomy) on oral chemo presents to [facility] via EMS with tachycardia and chest pain on 07/08/2025. Upon further evaluation the pain and was originating in the stomach area. It was dull and gaslike. This is an exacerbation of pain which has been going on for at least a month. She had a colonoscopy on June 25, [address] Mccoy at [facility]. but the procedure was aborted as reportedly the lumen was too narrow. There is a family history of cancer, aunt had uterine cancer, cousin and colon cancer, cousin and breast cancer. Since that procedure she has not had a bowel movement and has had very poor oral intake. Records are being obtained. She also had an endoscopy 2 days prior to admission in that report is not available as well patient reports she was not told of any abnormal findings. She failed NG tube placement. She has nausea but no vomiting. Small-bowel follow-through results with persistent small-bowel obstruction. General surgery and GI are following. Continue D5 normal saline at 125 cc/hour. The patient reports dry heaving with promethazine and Zofran. Repeat EKG performed 15 minutes after Zofran on 07/09/2025 with a decreased QTC interval of 435. Continue NPO and conservative management with IV fluids On 07/10/2025 after further discussion she was taken for an exploratory laparotomy. Status post exploratory laparotomy on 07/10/2025: Obstructing masses in distal small bowel which was resected with primary anastomosis performed. Await pathology likely metastatic deposits. Patient also was noted to have near obstructing rectosigmoid mass for which is diverting loop descending colostomy has been placed to relieve obstruction of the colon. Await pathology report Johnny function has returned 07/15/2025. Start diet as per General surgery Replace potassium Patient admits started on TPN as well. Which will be continued. Repeat x-ray abdomen 07/14/2025 with residual contrast in colon from small-bowel series study from 4 days prior. No free intraperitoneal gas or dilated gas-filled loops of bowel to suggest obstruction. Anemia: Significant drop from 11-8 07/13/2025. No signs of bleeding. Could be hemodialysis note. Stopped IV fluid.. Already on TPN which will be continued. H&H remains stable As she presented with will was thought to be chest pain, she had an elevated troponin as well which has now downtrended. EKG without ST elevations. She has been seen by Cardiology who has signed off. Echo demonstrates normal LV function and grade 1 diastolic dysfunction. They would like for her to have a follow-up in the outpatient setting. Heparin drip discontinued. Continue aspirin and statin. Patient denies any more chest pain. She wishes to be full code. Continue Protonix 40 mg IV q.a.m.. Subjective Date/time seen: 07/15/25 08:15 Interval history: NG clamped yesterday. Pain about the same. No nausea. She started having bowel movement lost this morning. Review of Systems Review of Systems: All systems reviewed & are unremarkable except as noted in HPI and below (Subjective) Exam Narrative: GENERAL: Well-appearing, well-nourished, and in no acute distress. HEAD: Normocephalic, atraumatic. EYES: PERRLA and EOMI. ENT: Nares clear, no rhinorrhea or epistaxis. Mucous membranes moist. NG tube in place NECK: Supple. CHEST: Clear to auscultation. No respiratory distress. HEART: Regular rate and rhythm. No murmur heard. Normal peripheral pulses. ABDOMEN: Soft, surgical incision covered with dressing which is clean dry and intact, left-sided colostomy in-situ with brown stool in the bag, normoactive bowel sounds. EXTREMITIES: Normal range of motion. No edema. SKIN: Warm, dry, no rash. NEURO: No focal deficits. Alert and oriented x3. PSYCH: Normal mood and affect. Objective Data Vital Signs Vital Signs: Vital Signs - 24 hr 07/14/25 09:02 07/14/25 13:58 07/14/25 14:47 Temperature 98.4 F Pulse Rate 94 77 Respiratory Rate 18 Blood Pressure 172/89 H Pulse Oximetry 100 Oxygen Delivery Room Air Fraction of Inspired Oxygen 07/14/25 16:43 07/14/25 20:00 07/14/25 21:15 Temperature 98.4 F Pulse Rate 77 88 Respiratory Rate 18 18 Blood Pressure 165/91 H 161/95 H Pulse Oximetry 100 95 Oxygen Delivery Room Air Fraction of Inspired Oxygen 21 07/15/25 05:16 Temperature 98.4 F Pulse Rate 77 Respiratory Rate 18 Blood Pressure 149/90 H Pulse Oximetry 97 Oxygen Delivery Fraction of Inspired Oxygen Intake/Output Intake/Output: Intake & Output 07/12/25 07/13/25 07/14/25 07/15/25 23:59 23:59 23:59 23:59 Intake Total 3541 2394 2540.0 0 Output Total 0 1200 2350 Balance 3541 1194 190.0 0 Meds/Results Medications: Active Medications Generic Name Dose Route Start Last Admin Trade Name Freq PRN Reason Stop Dose Admin Al Hydrox/Mg Hydrox/Simethicone 30 ml 07/14/25 15:05 07/15/25 05:21 Mag Hydrox/Al Hydrox/Simeth 30 Ml Udc FEED TUBE 30 ml Q8HR RAJAT Administration Dextrose 12.5 gm 07/10/25 22:55 Dextrose 50% 25 Gm/50 Ml Syringe IV PUSH PRN PRN Hypoglycemia Protocol Enoxaparin Sodium 40 mg 07/11/25 10:45 07/14/25 08:46 Enoxaparin 40 Mg/0.4 Ml Syringe SUB-Q 40 mg DAILY RAJAT Administration Glucagon 1 mg 07/10/25 22:55 Glucagon For Inj 1 Mg Vial IM PRN PRN Hypoglycemia Protocol Glucose 15 gm 07/10/25 22:55 Glucose Oral Gel 15 Gm Of Glucse In 37.5 Gm Tube PO PRN PRN Hypoglycemia Protocol Hydromorphone HCl 1 mg 07/10/25 22:44 07/15/25 02:10 Hydromorphone Hcl Inj (*Crx) 1 Mg/Ml Syr IV PUSH 1 mg Q3H PRN Administration Pain Rated 7-10 Ibuprofen 800 mg in 200 mls @ 400 mls/hr 07/10/25 23:00 07/15/25 05:57 Caldolor 800 Mg/200 Ml IVPB 400 mls/hr Q8H RAJAT Administration Dextrose 1,000 mls @ 50 mls/hr 07/10/25 22:55 Dextrose 10% IV CONT .Q20H PRN if PN is interrupted Dextrose 1,000 mls @ 100 mls/hr 07/10/25 22:55 Dextrose 5% 1,000 Ml IVPB PRN PRN Hypoglycemia Protocol Multivitamins 1.25 ml/ 1,002.5 mls @ 50 mls/hr 07/12/25 14:00 07/14/25 13:59 Multivitamins 1.25 ml/ Amino IV CONT 40 mls/hr Acids/Electrolytes/Dextrose .Q20H3M RAJAT Administration Protocol Fat Emulsion Intravenous 250 mls @ 20.833 mls/hr 07/12/25 14:00 07/14/25 13:58 Lipids 20% IVPB 20.8 mls/hr Q24H RAJAT Administration Insulin Aspart 2 - 5 units 07/11/25 00:00 07/15/25 05:57 Insulin Aspart (*Bkc) 100 Units/Ml SUB-Q Not Given Q6HR RAJAT Protocol Metoprolol Tartrate 5 mg 07/08/25 14:40 07/15/25 05:19 Metoprolol Tartrate Inj 5 Mg/5 Ml Vial IV PUSH 5 mg Q8HR RAJAT Administration Nitroglycerin 0.4 mg 07/08/25 13:09 Nitroglycerin Sl 0.4 Mg Tablet SUBLINGUAL Q5MIN PRN Chest Pain Ondansetron HCl 4 mg 07/09/25 15:58 07/10/25 05:30 Ondansetron Inj 4 Mg/2 Ml Vial IV PUSH 4 mg Q4HR PRN Administration Nausea And Vomiting Pantoprazole Sodium 40 mg 07/09/25 09:00 07/14/25 08:46 Pantoprazole Sodium Iv 40 Mg Vial IV PUSH 40 mg QAM RAJAT Administration Phenol 1 spray 07/13/25 12:58 07/14/25 15:46 Phenol/Sod Pheno [place] Dey (*Bkc) MUCOUS MEM 1 spray PRN PRN Administration Sore Throat Sodium Chloride 10 ml 07/11/25 22:00 07/15/25 05:21 Central Line Flush IV PUSH 10 ml Q8HR RAJAT Administration Sodium Chloride 10 ml 07/11/25 14:20 07/14/25 14:01 Central Line Flush IV PUSH 10 ml PRN PRN Administration with TPN bag changes Sodium Chloride 20 ml 07/11/25 14:20 07/14/25 14:00 Central Line Flush IV PUSH 20 ml PRN PRN Administration after blood draws Radiology Results: ITS Impressions Chest/Abdomen/Pelvis CTA 07/08/25 10:04 IMPRESSION: 1. Small bowel obstruction with distal ileal transition point in the right deep pelvis along with a small amount of likely reactive ascites. 2. Mild emphysema. No pulmonary embolism or other acute cardiopulmonary disease. Small Bowel X-Ray 07/09/25 20:09 IMPRESSION: 1: Small bowel obstruction. 2: Gastroesophageal reflux. Chest X-Ray 07/11/25 14:41 IMPRESSION: 1. Left upper extremity PICC line with distal tip positioned in the mid superior vena cava on the final image. 2. No acute cardiopulmonary disease. Abdomen X-Ray 07/14/25 11:49 IMPRESSION: 1. Residual contrast in colon from small bowel series study from 4 days prior. No free intraperitoneal gas or dilated gas-filled loops of bowel to suggest obstruction. Labs Labs: Laboratory Results - last 24 hr 07/14/25 07/14/25 07/14/25 12:49 13:56 18:04 WBC 5.5 RBC 2.56 L Hgb 8.1 L Hct 25.1 L MCV 98.0 MCH 31.6 MCHC 32.3 RDW 12.5 Plt Count 274 MPV 9.5 Immature Gran % (Auto) 0.5 Neut % (Auto) 64.4 Lymph % (Auto) 17.7 L [place] % (Auto) 11.8 H Eos % (Auto) 5.2 H Baso % (Auto) 0.4 Lymph # (Auto) 0.98 [place] # (Auto) 0.7 H Eos # (Auto) 0.3 Baso # (Auto) 0.0 Abs Immat Gran (auto) 0.03 Absolute Neuts (auto) 3.6 Absolute Nucleated RBC 0.000 Nucleated RBC % 0.0 Sodium Potassium 3.4 Chloride Carbon Dioxide Anion Gap BUN Creatinine Estim Creat Clear Calc Estimated GFR Glucose POC Capillary Glucose 94 106 H Calcium Phosphorus Magnesium Total Bilirubin AST ALT Alkaline Phosphatase Total Protein Albumin Triglycerides 07/15/25 07/15/25 07/15/25 00:08 05:15 05:16 WBC 4.7 RBC 2.39 L Hgb 7.6 L Hct 23.5 L MCV 98.3 MCH 31.8 MCHC 32.3 RDW 12.4 Plt Count 234 MPV 9.0 Immature Gran % (Auto) 0.6 H Neut % (Auto) 61.5 Lymph % (Auto) 18.1 L [place] % (Auto) 14.3 H Eos % (Auto) 5.3 H Baso % (Auto) 0.2 Lymph # (Auto) 0.86 L [place] # (Auto) 0.7 H Eos # (Auto) 0.3 Baso # (Auto) 0.0 Abs Immat Gran (auto) 0.03 Absolute Neuts (auto) 2.9 Absolute Nucleated RBC 0.000 Nucleated RBC % 0.0 Sodium 134 L Potassium 3.4 Chloride 101 Carbon Dioxide 31 H Anion Gap 2 L BUN 10 Creatinine 0.76 Estim Creat Clear Calc 72 Estimated GFR > 60 Glucose 108 POC Capillary Glucose 116 H Calcium 8.3 L Phosphorus 3.3 Magnesium 2.2 Total Bilirubin 0.4 AST 31 ALT 16 Alkaline Phosphatase 70 Total Protein 5.5 L Albumin 2.6 L Triglycerides 64 07/15/25 05:18 WBC RBC Hgb Hct MCV MCH MCHC RDW Plt Count MPV Immature Gran % (Auto) Neut % (Auto) Lymph % (Auto) [place] % (Auto) Eos % (Auto) Baso % (Auto) Lymph # (Auto) [place] # (Auto) Eos # (Auto) Baso # (Auto) Abs Immat Gran (auto) Absolute Neuts (auto) Absolute Nucleated RBC Nucleated RBC % Sodium Potassium Chloride Carbon Dioxide Anion Gap BUN Creatinine Estim Creat Clear Calc Estimated GFR Glucose POC Capillary Glucose 116 H Calcium Phosphorus Magnesium Total Bilirubin AST ALT Alkaline Phosphatase Total Protein Albumin Triglycerides
[2025-07-15] MEDS: PANTOPRAZOLE SODIUM IV 40 MG VIAL IV PUSH (08:22)
[2025-07-15] MEDS: ENOXAPARIN 40 MG/0.4 ML SYRINGE SUB-Q (08:23)
[2025-07-15] MEDS: KCL 40 MEQ/WATER 100 ML 100 ML 25 ML IVPB ×2 (08:23→14:25)
--- NOTE | 2025-07-15 10:05 | P.PNGS_ITS ---
Progress Note: A&P Assessment and Plan (1) Mass of small intestine: Code(s): K63.89 - Other specified diseases of intestine Status: Acute Assessment and Plan: POD5 s/p exploratory laparotomy with segmental terminal ileal small-bowel resection and hand-sewn [id number] ileal anastomosis, placement of left descending diverting loop colostomy. Obstructing masses found in the distal small bowel were resected. Pathology resulted today showing two foci of metastatic adenocarcinoma, with the uterine cervix as primary. Margins and lymph nodes negative. * Patient tolerated NG clamping trial without nausea or vomiting. Will start trickle tube feedings at 20 ml/hr. TPN half-rated. Will likely discontinue this evening. * Lower extremity edema present. Notes sometimes feeling short of breath. Will diurese patient with 40 mg Lasix. Will replete potassium and magnesium appropriately. * Continue to encourage ambulation and up to chair. Continue with PT and OT. * Continue Lovenox for DVT prophylaxis as well as SCDs. (2) Mass of colon: Code(s): K63.89 - Other specified diseases of intestine Status: Acute Assessment and Plan: Near obstructing rectosigmoid mass noted in surgery. Patient has had a diverting loop descending colostomy placed to relieve obstruction of the colon. Ostomy is pink and viable. Liquid brown stool passing through. (3) Malnutrition: Code(s): E46 - Unspecified protein-calorie malnutrition Status: Acute Assessment and Plan: Patient admitted to poor oral intake prior to admission. Tolerated NG clamping trial. Will start trickle tube feeds and half rate TPN. Plan Discussed patient's case and plan of care with Dr. Sethi. Subjective Subjective Date/Time Seen: 07/15/25 10:05 Post Op day: 5 Patient reports: no new complaints, feels better, still having pain and bowel movement Interval history: Patient is doing well today. Tolerated clamping trial without nausea or vomiting. Passing stool through ostomy. Normal WBC. Potassium on lower end of normal after 80 meq given yesterday. Exam Const: General: comfortable and no acute distress Resp: Effort & Inspection: normal respiratory effort Auscultation: clear to auscultation bilaterally GI: Inspection: non-distended GI Palp: Yes Soft to palpation and Yes Tenderness to palpation present (GI) (patient localizes pain to ostomy site) Other: ostomy site with loose liquid brown stool. Stoma pink and viable. Midline incision clean and dry with glue intact. Skin: General skin exam: normal color and no rashes or lesions noted Objective Data Vital Signs Vital Signs: Vital Signs - 24 hr 07/14/25 13:58 07/14/25 14:47 07/14/25 16:43 Temperature 98.4 F Pulse Rate 94 77 Respiratory Rate 18 Blood Pressure 172/89 H 165/91 H Pulse Oximetry 100 Oxygen Delivery Fraction of Inspired Oxygen 07/14/25 20:00 07/14/25 21:15 07/15/25 05:16 Temperature 98.4 F 98.4 F Pulse Rate 77 88 77 Respiratory Rate 18 18 18 Blood Pressure 161/95 H 149/90 H Pulse Oximetry 100 95 97 Oxygen Delivery Room Air Fraction of Inspired Oxygen 21 Intake/Output Intake/Output: Intake & Output 07/12/25 07/13/25 07/14/25 07/15/25 23:59 23:59 23:59 23:59 Intake Total 3541 2394 2540.0 0 Output Total 0 1200 2350 50 Balance 3541 1194 190.0 -50 Meds/Results Medications: Active Medications Generic Name Dose Route Start Last Admin Trade Name Freq PRN Reason Stop Dose Admin Al Hydrox/Mg Hydrox/Simethicone 30 ml 07/14/25 15:05 07/15/25 05:21 Mag Hydrox/Al Hydrox/Simeth 30 Ml Udc FEED TUBE 30 ml Q8HR RAJAT Administration Dextrose 12.5 gm 07/10/25 22:55 Dextrose 50% 25 Gm/50 Ml Syringe IV PUSH PRN PRN Hypoglycemia Protocol Enoxaparin Sodium 40 mg 07/11/25 10:45 07/15/25 08:23 Enoxaparin 40 Mg/0.4 Ml Syringe SUB-Q 40 mg DAILY RAJAT Administration Furosemide 40 mg 07/15/25 09:58 Furosemide Inj 40 Mg/4 Ml Vial IV PUSH 07/15/25 09:59 ONCE ONE Glucagon 1 mg 07/10/25 22:55 Glucagon For Inj 1 Mg Vial IM PRN PRN Hypoglycemia Protocol Glucose 15 gm 07/10/25 22:55 Glucose Oral Gel 15 Gm Of Glucse In 37.5 Gm Tube PO PRN PRN Hypoglycemia Protocol Hydromorphone HCl 1 mg 07/10/25 22:44 07/15/25 08:22 Hydromorphone Hcl Inj (*Crx) 1 Mg/Ml Syr IV PUSH 1 mg Q3H PRN Administration Pain Rated 7-10 Ibuprofen 800 mg in 200 mls @ 400 mls/hr 07/10/25 23:00 07/15/25 05:57 Caldolor 800 Mg/200 Ml IVPB 400 mls/hr Q8H RAJAT Administration Dextrose 1,000 mls @ 50 mls/hr 07/10/25 22:55 Dextrose 10% IV CONT .Q20H PRN if PN is interrupted Dextrose 1,000 mls @ 100 mls/hr 07/10/25 22:55 Dextrose 5% 1,000 Ml IVPB PRN PRN Hypoglycemia Protocol Multivitamins 1.25 ml/ 1,002.5 mls @ 25 mls/hr 07/12/25 14:00 07/15/25 09:57 Multivitamins 1.25 ml/ Amino IV CONT 50 mls/hr Acids/Electrolytes/Dextrose .Q24H RAJAT Infusion Protocol Fat Emulsion Intravenous 250 mls @ 20.833 mls/hr 07/12/25 14:00 07/14/25 13:58 Lipids 20% IVPB 20.8 mls/hr Q24H RAJAT Administration Potassium Chloride 100 mls @ 25 mls/hr 07/15/25 08:16 07/15/25 08:23 Kcl 40 Meq/Water 100 Ml IVPB 07/15/25 12:15 25 mls/hr ONCE ONE Administration Potassium Chloride 100 mls @ 25 mls/hr 07/15/25 09:58 Kcl 40 Meq/Water 100 Ml IVPB 07/15/25 13:57 ONCE ONE Magnesium Sulfate 2 gm in 50 mls @ 25 mls/hr 07/15/25 09:58 Magnesium Sulf 2 Gm/Water 50ml IVPB 07/15/25 11:57 ONCE ONE Insulin Aspart 2 - 5 units 07/11/25 00:00 07/15/25 05:57 Insulin Aspart (*Bkc) 100 Units/Ml SUB-Q Not Given Q6HR RAJAT Protocol Metoprolol Tartrate 5 mg 07/08/25 14:40 07/15/25 05:19 Metoprolol Tartrate Inj 5 Mg/5 Ml Vial IV PUSH 5 mg Q8HR RAJAT Administration Nitroglycerin 0.4 mg 07/08/25 13:09 Nitroglycerin Sl 0.4 Mg Tablet SUBLINGUAL Q5MIN PRN Chest Pain Ondansetron HCl 4 mg 07/09/25 15:58 07/10/25 05:30 Ondansetron Inj 4 Mg/2 Ml Vial IV PUSH 4 mg Q4HR PRN Administration Nausea And Vomiting Pantoprazole Sodium 40 mg 07/09/25 09:00 07/15/25 08:22 Pantoprazole Sodium Iv 40 Mg Vial IV PUSH 40 mg QAM RAJAT Administration Phenol 1 spray 07/13/25 12:58 07/14/25 15:46 Phenol/Sod Pheno [place] Dey (*Bkc) MUCOUS MEM 1 spray PRN PRN Administration Sore Throat Sodium Chloride 10 ml 07/11/25 22:00 07/15/25 05:21 Central Line Flush IV PUSH 10 ml Q8HR RAJAT Administration Sodium Chloride 10 ml 07/11/25 14:20 07/14/25 14:01 Central Line Flush IV PUSH 10 ml PRN PRN Administration with TPN bag changes Sodium Chloride 20 ml 07/11/25 14:20 07/14/25 14:00 Central Line Flush IV PUSH 20 ml PRN PRN Administration after blood draws Radiology Results: ITS Impressions Chest/Abdomen/Pelvis CTA 07/08/25 10:04 IMPRESSION: 1. Small bowel obstruction with distal ileal transition point in the right deep pelvis along with a small amount of likely reactive ascites. 2. Mild emphysema. No pulmonary embolism or other acute cardiopulmonary disease. Small Bowel X-Ray 07/09/25 20:09 IMPRESSION: 1: Small bowel obstruction. 2: Gastroesophageal reflux. Chest X-Ray 07/11/25 14:41 IMPRESSION: 1. Left upper extremity PICC line with distal tip positioned in the mid superior vena cava on the final image. 2. No acute cardiopulmonary disease. Abdomen X-Ray 07/14/25 11:49 IMPRESSION: 1. Residual contrast in colon from small bowel series study from 4 days prior. No free intraperitoneal gas or dilated gas-filled loops of bowel to suggest obstruction. Labs Labs: Laboratory Results - last 24 hr 07/14/25 07/14/25 07/14/25 12:49 13:56 18:04 WBC 5.5 RBC 2.56 L Hgb 8.1 L Hct 25.1 L MCV 98.0 MCH 31.6 MCHC 32.3 RDW 12.5 Plt Count 274 MPV 9.5 Immature Gran % (Auto) 0.5 Neut % (Auto) 64.4 Lymph % (Auto) 17.7 L [place] % (Auto) 11.8 H Eos % (Auto) 5.2 H Baso % (Auto) 0.4 Lymph # (Auto) 0.98 [place] # (Auto) 0.7 H Eos # (Auto) 0.3 Baso # (Auto) 0.0 Abs Immat Gran (auto) 0.03 Absolute Neuts (auto) 3.6 Absolute Nucleated RBC 0.000 Nucleated RBC % 0.0 Sodium Potassium 3.4 Chloride Carbon Dioxide Anion Gap BUN Creatinine Estim Creat Clear Calc Estimated GFR Glucose POC Capillary Glucose 94 106 H Calcium Phosphorus Magnesium Total Bilirubin AST ALT Alkaline Phosphatase Total Protein Albumin Triglycerides 07/15/25 07/15/25 07/15/25 00:08 05:15 05:16 WBC 4.7 RBC 2.39 L Hgb 7.6 L Hct 23.5 L MCV 98.3 MCH 31.8 MCHC 32.3 RDW 12.4 Plt Count 234 MPV 9.0 Immature Gran % (Auto) 0.6 H Neut % (Auto) 61.5 Lymph % (Auto) 18.1 L [place] % (Auto) 14.3 H Eos % (Auto) 5.3 H Baso % (Auto) 0.2 Lymph # (Auto) 0.86 L [place] # (Auto) 0.7 H Eos # (Auto) 0.3 Baso # (Auto) 0.0 Abs Immat Gran (auto) 0.03 Absolute Neuts (auto) 2.9 Absolute Nucleated RBC 0.000 Nucleated RBC % 0.0 Sodium 134 L Potassium 3.4 Chloride 101 Carbon Dioxide 31 H Anion Gap 2 L BUN 10 Creatinine 0.76 Estim Creat Clear Calc 72 Estimated GFR > 60 Glucose 108 POC Capillary Glucose 116 H Calcium 8.3 L Phosphorus 3.3 Magnesium 2.2 Total Bilirubin 0.4 AST 31 ALT 16 Alkaline Phosphatase 70 Total Protein 5.5 L Albumin 2.6 L Triglycerides 64 07/15/25 05:18 WBC RBC Hgb Hct MCV MCH MCHC RDW Plt Count MPV Immature Gran % (Auto) Neut % (Auto) Lymph % (Auto) [place] % (Auto) Eos % (Auto) Baso % (Auto) Lymph # (Auto) [place] # (Auto) Eos # (Auto) Baso # (Auto) Abs Immat Gran (auto) Absolute Neuts (auto) Absolute Nucleated RBC Nucleated RBC % Sodium Potassium Chloride Carbon Dioxide Anion Gap BUN Creatinine Estim Creat Clear Calc Estimated GFR Glucose POC Capillary Glucose 116 H Calcium Phosphorus Magnesium Total Bilirubin AST ALT Alkaline Phosphatase Total Protein Albumin Triglycerides
[2025-07-15] MEDS: FUROSEMIDE INJ 40 MG/4 ML VIAL IV PUSH (10:47)
[2025-07-15] MEDS: MAGNESIUM SULF 2 GM/WATER 50ML 2 GM/50 ML BAG IVPB (10:47)
--- NOTE | 2025-07-15 13:51 | PCDIET ---
Provider called today. Plans to half rate TPN and start NGT feedings of Jevity 1.5 at 20 ml/hr. +BM today. Also had reweigh on patient 2/2 to admit weight at 53.5 kg and current weight at 70.5 kg. New weight reported at 72.8 kg. Also asked patient today regarding UBW typically around 138-141 ibs per patient. Will continue to monitor daily.
[2025-07-15 14:25] VITALS: PULSE 77
[2025-07-15 14:59] VITALS: BP 154/84; PULSE 102; RESP 16; TEMP 36.6; O2SAT 100
[2025-07-15 19:42] VITALS: O2SAT 99
[2025-07-15 20:57] VITALS: BP 133/85; PULSE 88; RESP 18; TEMP 36.1; O2SAT 99
[2025-07-15 22:17] VITALS: PULSE 88
[2025-07-16 04:50] VITALS: BP 131/75; PULSE 90; RESP 16; TEMP 37; O2SAT 100
[2025-07-16 06:06] VITALS: PULSE 90
[2025-07-16] MEDS: MAG HYDROX/AL HYDROX/SIMETH 30 ML UDC FEED TUBE (06:06)
[2025-07-16] MEDS: METOPROLOL TARTRATE INJ 5 MG/5 ML VIAL IV PUSH ×3 (06:06→21:55)
[2025-07-16] MEDS: IBUPROFEN IV 800 MG/200 ML 800 MG/200 ML BAG 400 MG IVPB ×3 (06:08→23:32)
[2025-07-16] MEDS: CENTRAL LINE FLUSH 10 ML IV PUSH ×3 (06:08→21:58)
[2025-07-16 06:19] LABS: Hematocrit 24.2 % (37.0-47.0); Hemoglobin 7.9 g/dL (12.0-15.0); Immature Granulocyte Percent A 1.1 % (0-0.5); Lymphocytes Absolute Auto 0.71 K/mm3 (0.9-3.2); Mean Corpuscular HGB Conc 32.6 g/dl (32-36); Mean Corpuscular Hemoglobin 32.0 pg (26-34); Mean Corpuscular Volume 98.0 fl (80-100); Nucleated Red Blood Cells Absolute Auto 0.000 K/mm3 (0.0-0.012); Nucleated Red Blood Cells Perc 0.0 % (0.0-0.2); Platelet Count Result 272 k/mm3 (150-375); Red Blood Count 2.47 M/mm3 (4.2-5.4); White Blood Count 5.5 K/mm3 (4.5-10.0)
[2025-07-16 06:38] LABS: Alanine Aminotransferase 27 U/L (6-35); Albumin Level 2.8 g/dL (3.5-5.1); Alkaline Phosphatase 84 U/L (38-126); Anion Gap 3 mmol/L (4-12); Aspartate Amino Transferase 70 U/L (14-36); Bilirubin,Total 0.5 mg/dL (0.2-1.3); Blood Urea Nitrogen 9 mg/dL (7-17); Calcium 8.4 mg/dL (8.4-10.2); Carbon Dioxide 32 mmol/L (22-30); Chloride 98 mmol/L (98-107); Estimated CRCL calculation 65 ml/min; Estimated Glomerular Filt Rate > 60; Glucose 108 mg/dL (65-110); Magnesium 2.2 mg/dL (1.6-2.3); Potassium 3.7 mmol/L (3.4-5.0); Sodium 133 mmol/L (137-145); Total Protein 5.6 g/dL (6.3-8.2)
--- NOTE | 2025-07-16 08:12 | PM.IMPN ---
Progress Note: A&P Assessment and Plan (1) Elevated troponin: Code(s): R79.89 - Other specified abnormal findings of blood chemistry Status: Acute (2) Small bowel obstruction: Code(s): K56.609 - Unspecified intestinal obstruction, unspecified as to partial versus complete obstruction Status: Acute Plan 55-year-old female with PMH hypertension, breast cancer (2020, s/p double mastectomy), and adenocarcinoma of the cervix (2020, s/p radiation/chemo and hysterectomy) on oral chemo presents to [facility] via EMS with tachycardia and chest pain on 07/08/2025. Upon further evaluation the pain and was originating in the stomach area. It was dull and gaslike. This is an exacerbation of pain which has been going on for at least a month. She had a colonoscopy on June 25, [address] Mccoy at [place]. but the procedure was aborted as reportedly the lumen was too narrow. There is a family history of cancer, aunt had uterine cancer, cousin and colon cancer, cousin and breast cancer. Since that procedure she has not had a bowel movement and has had very poor oral intake. Records are being obtained. She also had an endoscopy 2 days prior to admission in that report is not available as well patient reports she was not told of any abnormal findings. She failed NG tube placement. She has nausea but no vomiting. Small-bowel follow-through results with persistent small-bowel obstruction. General surgery and GI are following. Continue D5 normal saline at 125 cc/hour. The patient reports dry heaving with promethazine and Zofran. Repeat EKG performed 15 minutes after Zofran on 07/09/2025 with a decreased QTC interval of 435. Continue NPO and conservative management with IV fluids On 07/10/2025 after further discussion she was taken for an exploratory laparotomy. Status post exploratory laparotomy on 07/10/2025: Obstructing masses in distal small bowel which was resected with primary anastomosis performed. Pathology is back with metastatic adenocarcinoma likely source from cervical cancer recurrence. General surgery planning to referred to Colorectal surgery at [facility]. Will consult Oncology Patient also was noted to have near obstructing rectosigmoid mass for which is diverting loop descending colostomy has been placed to relieve obstruction of the colon. Pathology back with metastatic adenocarcinoma of cervix. Consider pelvic MRI Johnny function has returned 07/15/2025. Start diet as per General surgery Replace potassium Patient admits started on TPN as well. Which will be continued. Repeat x-ray abdomen 07/14/2025 with residual contrast in colon from small-bowel series study from 4 days prior. No free intraperitoneal gas or dilated gas-filled loops of bowel to suggest obstruction. Anemia: Significant drop from 11-8 07/13/2025. No signs of bleeding. Could be hemodialysis note. Stopped IV fluid.. Already on TPN which will be continued. H&H remains stable As she presented with will was thought to be chest pain, she had an elevated troponin as well which has now downtrended. EKG without ST elevations. She has been seen by Cardiology who has signed off. Echo demonstrates normal LV function and grade 1 diastolic dysfunction. They would like for her to have a follow-up in the outpatient setting. Heparin drip discontinued. Continue aspirin and statin. Patient denies any more chest pain. She wishes to be full code. Continue Protonix 40 mg IV q.a.m.. Subjective Date/time seen: 07/16/25 08:12 Interval history: Patient has been started on tube feed. Having output from her colostomy now. Labs reviewed. Pain control. Pathology report reviewed with the patient. She has also been plan to start on oral diet. Review of Systems Review of Systems: All systems reviewed & are unremarkable except as noted in HPI and below (Subjective) Exam Narrative: GENERAL: Well-appearing, well-nourished, and in no acute distress. HEAD: Normocephalic, atraumatic. EYES: PERRLA and EOMI. ENT: Nares clear, no rhinorrhea or epistaxis. Mucous membranes moist. NG tube in place NECK: Supple. CHEST: Clear to auscultation. No respiratory distress. HEART: Regular rate and rhythm. No murmur heard. Normal peripheral pulses. ABDOMEN: Soft, surgical incision covered with dressing which is clean dry and intact, left-sided colostomy in-situ with brown stool in the bag, normoactive bowel sounds. EXTREMITIES: Normal range of motion. No edema. SKIN: Warm, dry, no rash. NEURO: No focal deficits. Alert and oriented x3. PSYCH: Normal mood and affect. Objective Data Vital Signs Vital Signs: Vital Signs - 24 hr 07/15/25 14:25 07/15/25 14:59 07/15/25 19:42 Temperature 97.9 F Pulse Rate 77 102 H Respiratory Rate 16 Blood Pressure 154/84 H Pulse Oximetry 100 99 Oxygen Delivery Room Air Fraction of Inspired Oxygen 07/15/25 20:00 07/15/25 20:57 07/15/25 22:17 Temperature 97 F L Pulse Rate 88 88 Respiratory Rate 18 Blood Pressure 133/85 Pulse Oximetry 99 Oxygen Delivery Room Air Fraction of Inspired Oxygen 21 07/16/25 04:50 07/16/25 06:06 Temperature 98.6 F Pulse Rate 90 90 Respiratory Rate 16 Blood Pressure 131/75 Pulse Oximetry 100 Oxygen Delivery Fraction of Inspired Oxygen Intake/Output Intake/Output: Intake & Output 07/13/25 07/14/25 07/15/25 07/16/25 23:59 23:59 23:59 23:59 Intake Total 2394 2640.0 2241 Output Total 1200 2350 3825 650 Balance 1194 290.0 -9524 -650 Meds/Results Medications: Active Medications Generic Name Dose Route Start Last Admin Trade Name Freq PRN Reason Stop Dose Admin Al Hydrox/Mg Hydrox/Simethicone 30 ml 07/14/25 15:05 07/16/25 06:06 Mag Hydrox/Al Hydrox/Simeth 30 Ml Udc FEED TUBE 30 ml Q8HR RAJAT Administration Dextrose 12.5 gm 07/10/25 22:55 Dextrose 50% 25 Gm/50 Ml Syringe IV PUSH PRN PRN Hypoglycemia Protocol Enoxaparin Sodium 40 mg 07/11/25 10:45 07/15/25 08:23 Enoxaparin 40 Mg/0.4 Ml Syringe SUB-Q 40 mg DAILY RAJAT Administration Glucagon 1 mg 07/10/25 22:55 Glucagon For Inj 1 Mg Vial IM PRN PRN Hypoglycemia Protocol Glucose 15 gm 07/10/25 22:55 Glucose Oral Gel 15 Gm Of Glucse In 37.5 Gm Tube PO PRN PRN Hypoglycemia Protocol Hydromorphone HCl 1 mg 07/10/25 22:44 07/15/25 23:05 Hydromorphone Hcl Inj (*Crx) 1 Mg/Ml Syr IV PUSH 1 mg Q3H PRN Administration Pain Rated 7-10 Ibuprofen 800 mg in 200 mls @ 400 mls/hr 07/10/25 23:00 07/16/25 06:08 Caldolor 800 Mg/200 Ml IVPB 400 mls/hr Q8H RAJAT Administration Dextrose 1,000 mls @ 50 mls/hr 07/10/25 22:55 Dextrose 10% IV CONT .Q20H PRN if PN is interrupted Dextrose 1,000 mls @ 100 mls/hr 07/10/25 22:55 Dextrose 5% 1,000 Ml IVPB PRN PRN Hypoglycemia Protocol Insulin Aspart 2 - 5 units 07/11/25 00:00 07/16/25 06:08 Insulin Aspart (*Bkc) 100 Units/Ml SUB-Q Not Given Q6HR [facility] Protocol Metoprolol Tartrate 5 mg 07/08/25 14:40 07/16/25 06:06 Metoprolol Tartrate Inj 5 Mg/5 Ml Vial IV PUSH 5 mg Q8HR RAJAT Administration Nitroglycerin 0.4 mg 07/08/25 13:09 Nitroglycerin Sl 0.4 Mg Tablet SUBLINGUAL Q5MIN PRN Chest Pain Ondansetron HCl 4 mg 07/09/25 15:58 07/10/25 05:30 Ondansetron Inj 4 Mg/2 Ml Vial IV PUSH 4 mg Q4HR PRN Administration Nausea And Vomiting Pantoprazole Sodium 40 mg 07/09/25 09:00 07/15/25 08:22 Pantoprazole Sodium Iv 40 Mg Vial IV PUSH 40 mg QAM RAJAT Administration Phenol 1 spray 07/13/25 12:58 07/14/25 15:46 Phenol/Sod Pheno Burke Dey (*Bkc) MUCOUS MEM 1 spray PRN PRN Administration Sore Throat Sodium Chloride 10 ml 07/11/25 22:00 07/16/25 06:08 Central Line Flush IV PUSH 10 ml Q8HR RAJAT Administration Sodium Chloride 10 ml 07/11/25 14:20 07/14/25 14:01 Central Line Flush IV PUSH 10 ml PRN PRN Administration with TPN bag changes Sodium Chloride 20 ml 07/11/25 14:20 07/14/25 14:00 Central Line Flush IV PUSH 20 ml PRN PRN Administration after blood draws Radiology Results: ITS Impressions Chest/Abdomen/Pelvis CTA 07/08/25 10:04 IMPRESSION: 1. Small bowel obstruction with distal ileal transition point in the right deep pelvis along with a small amount of likely reactive ascites. 2. Mild emphysema. No pulmonary embolism or other acute cardiopulmonary disease. Small Bowel X-Ray 07/09/25 20:09 IMPRESSION: 1: Small bowel obstruction. 2: Gastroesophageal reflux. Chest X-Ray 07/11/25 14:41 IMPRESSION: 1. Left upper extremity PICC line with distal tip positioned in the mid superior vena cava on the final image. 2. No acute cardiopulmonary disease. Abdomen X-Ray 07/14/25 11:49 IMPRESSION: 1. Residual contrast in colon from small bowel series study from 4 days prior. No free intraperitoneal gas or dilated gas-filled loops of bowel to suggest obstruction. Labs Labs: Laboratory Results - last 24 hr 07/15/25 07/15/25 07/16/25 11:52 16:57 00:36 WBC RBC Hgb Hct MCV MCH MCHC RDW Plt Count MPV Immature Gran % (Auto) Neut % (Auto) Lymph % (Auto) [place] % (Auto) Eos % (Auto) Baso % (Auto) Lymph # (Auto) [place] # (Auto) Eos # (Auto) Baso # (Auto) Abs Immat Gran (auto) Absolute Neuts (auto) Absolute Nucleated RBC Nucleated RBC % Sodium Potassium Chloride Carbon Dioxide Anion Gap BUN Creatinine Estim Creat Clear Calc Estimated GFR Glucose POC Capillary Glucose 107 H 108 H 119 H Calcium Phosphorus Magnesium Total Bilirubin AST ALT Alkaline Phosphatase Total Protein Albumin 07/16/25 07/16/25 07/16/25 01:08 06:02 06:04 WBC 5.5 RBC 2.47 L Hgb 7.9 L Hct 24.2 L MCV 98.0 MCH 32.0 MCHC 32.6 RDW 12.6 Plt Count 272 MPV 9.4 Immature Gran % (Auto) 1.1 H Neut % (Auto) 69.4 Lymph % (Auto) 12.9 L [place] % (Auto) 13.1 H Eos % (Auto) 3.3 Baso % (Auto) 0.2 Lymph # (Auto) 0.71 L [place] # (Auto) 0.7 H Eos # (Auto) 0.2 Baso # (Auto) 0.0 Abs Immat Gran (auto) 0.06 H Absolute Neuts (auto) 3.8 Absolute Nucleated RBC 0.000 Nucleated RBC % 0.0 Sodium 133 L Potassium 3.7 Chloride 98 Carbon Dioxide 32 H Anion Gap 3 L BUN 9 Creatinine 0.82 Estim Creat Clear Calc 65 Estimated GFR > 60 Glucose 108 POC Capillary Glucose 111 H 104 Calcium 8.4 Phosphorus 3.6 Magnesium 2.2 Total Bilirubin 0.5 AST 70 H ALT 27 Alkaline Phosphatase 84 Total Protein 5.6 L Albumin 2.8 L
[2025-07-16] MEDS: HYDROmorphone HCL INJ (*CRX) 1 MG/ML SYR IV PUSH (09:25)
[2025-07-16] MEDS: ENOXAPARIN 40 MG/0.4 ML SYRINGE SUB-Q (09:28)
[2025-07-16] MEDS: PANTOPRAZOLE SODIUM IV 40 MG VIAL IV PUSH (09:28)
--- NOTE | 2025-07-16 11:51 | PM.PNGS ---
Progress Note: A&P Assessment and Plan (1) Mass of small intestine: Code(s): K63.89 - Other specified diseases of intestine Status: Acute Assessment and Plan: POD6 following exploratory laparotomy with segmental ileal small-bowel resection and placement of left descending diverting loop colostomy. Dr. 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 She is tolerating trickle tube feedings and her ostomy is functioning well with output increasing. TPN was stopped. Will d/c her NG tube and start her on full liquids. Will add options for oral analgesics. Potassium better this morning at 3.7 and patient diuresed well yesterday. Edema and SOB improved. We would like her potassium above 4.0 and will give her additional KCL twice today. Continue to encourage ambulation and up to chair. Continue with PT and OT. Continue Lovenox for DVT prophylaxis as well as SCDs. (2) Mass of colon: Code(s): K63.89 - Other specified diseases of intestine Status: Acute Assessment and Plan: Near obstructing rectosigmoid mass noted in surgery. Patient has had a diverting loop descending colostomy to relieve the colonic obstruction. Ostomy is viable and functioning well. (3) Malnutrition: Code(s): E46 - Unspecified protein-calorie malnutrition Status: Acute Assessment and Plan: Bowel function has returned and patient is now tolerating trickle tube feedings. TPN was stopped. Will remove NG and start full liquids. (4) Hypertension: Code(s): I10 - Essential (primary) hypertension Status: Acute Assessment and Plan: Patient still on IV metoprolol Q8H, which was started by Cardiology. Could consider switching this to oral tomorrow if patient is tolerating oral intake. Plan Discussed patient's case and plan of care with Dr. Sethi. Subjective Subjective Date/Time Seen: 07/16/25 11:51 Post Op day: 6 (Exploratory laparotomy, small bowel resection, placement left descending diverting loop colostomy) Patient reports: feels better, pain is less, voiding w/o difficulty, bowel movement (Ostomy working well) and afebrile Interval history: Patient overall feeling well. She reports feeling better than yesterday. Still having some abdominal pain at the midline incision and at the ostomy, but this seems to be gradually improving and is worse with movement as expected. She has tolerated tube feedings overnight without any issues. No nausea or vomiting. She actually slept for the first time last night throughout the night without any issues. Ostomy output increasing with about 500 cc of stool out this morning. The ostomy appliance was changed right before my exam from nursing as it had fallen off this morning. She had nearly 4 L of urine output over the past 24 hours after receiving Lasix. Review of Systems Review of Systems: All systems reviewed & are unremarkable except as noted in HPI and below Exam Const: General: comfortable and no acute distress Orientation/consciousness: patient oriented x3 GI: Inspection: non-distended GI Palp: Yes Soft to palpation, Yes Tenderness to palpation present (GI) (Diffusely tender, mild) and No Guarding due to palpation present (GI) Auscultation: normal bowel sounds Other: Ostomy functioning well with loose brown stool. Stoma pink and viable. Midline incision clean and dry with glue intact. Extrem: General: no calf tenderness and edema bilateral (Mild 1 to 2+ pitting edema bilaterally) Objective Data Vital Signs Vital Signs: Vital Signs - 24 hr 07/15/25 14:25 07/15/25 14:59 07/15/25 19:42 Temperature 97.9 F Pulse Rate 77 102 H Respiratory Rate 16 Blood Pressure 154/84 H Pulse Oximetry 100 99 Oxygen Delivery Room Air Fraction of Inspired Oxygen 07/15/25 20:00 07/15/25 20:57 07/15/25 22:17 Temperature 97 F L Pulse Rate 88 88 Respiratory Rate 18 Blood Pressure 133/85 Pulse Oximetry 99 Oxygen Delivery Room Air Fraction of Inspired Oxygen 21 07/16/25 04:50 07/16/25 06:06 07/16/25 09:20 Temperature 98.6 F Pulse Rate 90 90 Respiratory Rate 16 Blood Pressure 131/75 Pulse Oximetry 100 Oxygen Delivery Room Air Fraction of Inspired Oxygen Intake/Output Intake/Output: Intake & Output 07/13/25 07/14/25 07/15/25 07/16/25 23:59 23:59 23:59 23:59 Intake Total 2394 2640.0 2241 428 Output Total 1200 2350 3825 1000 Balance 1194 290.0 -1584 -572 Meds/Results Medications: Active Medications Generic Name Dose Route Start Last Admin Trade Name Freq PRN Reason Stop Dose Admin Al Hydrox/Mg Hydrox/Simethicone 30 ml 07/14/25 15:05 07/16/25 06:06 Mag Hydrox/Al Hydrox/Simeth 30 Ml Udc FEED TUBE 30 ml Q8HR RAJAT Administration Dextrose 12.5 gm 07/10/25 22:55 Dextrose 50% 25 Gm/50 Ml Syringe IV PUSH PRN PRN Hypoglycemia Protocol Enoxaparin Sodium 40 mg 07/11/25 10:45 07/16/25 09:28 Enoxaparin 40 Mg/0.4 Ml Syringe SUB-Q 40 mg DAILY RAJAT Administration Glucagon 1 mg 07/10/25 22:55 Glucagon For Inj 1 Mg Vial IM PRN PRN Hypoglycemia Protocol Glucose 15 gm 07/10/25 22:55 Glucose Oral Gel 15 Gm Of Glucse In 37.5 Gm Tube PO PRN PRN Hypoglycemia Protocol Hydromorphone HCl 1 mg 07/10/25 22:44 07/16/25 09:25 Hydromorphone Hcl Inj (*Crx) 1 Mg/Ml Syr IV PUSH 1 mg Q3H PRN Administration Pain Rated 7-10 Ibuprofen 800 mg in 200 mls @ 400 mls/hr 07/10/25 23:00 07/16/25 06:08 Caldolor 800 Mg/200 Ml IVPB 400 mls/hr Q8H RAJAT Administration Dextrose 1,000 mls @ 50 mls/hr 07/10/25 22:55 Dextrose 10% IV CONT .Q20H PRN if PN is interrupted Dextrose 1,000 mls @ 100 mls/hr 07/10/25 22:55 Dextrose 5% 1,000 Ml IVPB PRN PRN Hypoglycemia Protocol Insulin Aspart 2 - 5 units 07/11/25 00:00 07/16/25 06:08 Insulin Aspart (*Bkc) 100 Units/Ml SUB-Q Not Given Q6HR RAJAT Protocol Metoprolol Tartrate 5 mg 07/08/25 14:40 07/16/25 06:06 Metoprolol Tartrate Inj 5 Mg/5 Ml Vial IV PUSH 5 mg Q8HR RAJAT Administration Nitroglycerin 0.4 mg 07/08/25 13:09 Nitroglycerin Sl 0.4 Mg Tablet SUBLINGUAL Q5MIN PRN Chest Pain Ondansetron HCl 4 mg 07/09/25 15:58 07/10/25 05:30 Ondansetron Inj 4 Mg/2 Ml Vial IV PUSH 4 mg Q4HR PRN Administration Nausea And Vomiting Pantoprazole Sodium 40 mg 07/09/25 09:00 07/16/25 09:28 Pantoprazole Sodium Iv 40 Mg Vial IV PUSH 40 mg QAM RAJAT Administration Phenol 1 spray 07/13/25 12:58 07/14/25 15:46 Phenol/Sod Pheno Bath Dey (*Bkc) MUCOUS MEM 1 spray PRN PRN Administration Sore Throat Potassium Chloride 40 meq 07/16/25 11:50 Potassium Chloride 20 Meq Packet (For Liquid) FEED TUBE 07/16/25 11:51 ONCE ONE Potassium Chloride 40 meq 07/16/25 18:00 Potassium Chloride 20 Meq Packet (For Liquid) PO 07/16/25 18:01 ONCE ONE Sodium Chloride 10 ml 07/11/25 22:00 07/16/25 06:08 Central Line Flush IV PUSH 10 ml Q8HR RAJAT Administration Sodium Chloride 10 ml 07/11/25 14:20 07/14/25 14:01 Central Line Flush IV PUSH 10 ml PRN PRN Administration with TPN bag changes Sodium Chloride 20 ml 07/11/25 14:20 07/14/25 14:00 Central Line Flush IV PUSH 20 ml PRN PRN Administration after blood draws Radiology Results: ITS Impressions Chest/Abdomen/Pelvis CTA 07/08/25 10:04 IMPRESSION: 1. Small bowel obstruction with distal ileal transition point in the right deep pelvis along with a small amount of likely reactive ascites. 2. Mild emphysema. No pulmonary embolism or other acute cardiopulmonary disease. Small Bowel X-Ray 07/09/25 20:09 IMPRESSION: 1: Small bowel obstruction. 2: Gastroesophageal reflux. Chest X-Ray 07/11/25 14:41 IMPRESSION: 1. Left upper extremity PICC line with distal tip positioned in the mid superior vena cava on the final image. 2. No acute cardiopulmonary disease. Abdomen X-Ray 07/14/25 11:49 IMPRESSION: 1. Residual contrast in colon from small bowel series study from 4 days prior. No free intraperitoneal gas or dilated gas-filled loops of bowel to suggest obstruction. Labs Labs: Laboratory Results - last 24 hr 07/15/25 07/15/25 07/16/25 11:52 16:57 00:36 WBC RBC Hgb Hct MCV MCH MCHC RDW Plt Count MPV Immature Gran % (Auto) Neut % (Auto) Lymph % (Auto) [place] % (Auto) Eos % (Auto) Baso % (Auto) Lymph # (Auto) [place] # (Auto) Eos # (Auto) Baso # (Auto) Abs Immat Gran (auto) Absolute Neuts (auto) Absolute Nucleated RBC Nucleated RBC % Sodium Potassium Chloride Carbon Dioxide Anion Gap BUN Creatinine Estim Creat Clear Calc Estimated GFR Glucose POC Capillary Glucose 107 H 108 H 119 H Calcium Phosphorus Magnesium Total Bilirubin AST ALT Alkaline Phosphatase Total Protein Albumin 07/16/25 07/16/25 07/16/25 01:08 06:02 06:04 WBC 5.5 RBC 2.47 L Hgb 7.9 L Hct 24.2 L MCV 98.0 MCH 32.0 MCHC 32.6 RDW 12.6 Plt Count 272 MPV 9.4 Immature Gran % (Auto) 1.1 H Neut % (Auto) 69.4 Lymph % (Auto) 12.9 L [place] % (Auto) 13.1 H Eos % (Auto) 3.3 Baso % (Auto) 0.2 Lymph # (Auto) 0.71 L [place] # (Auto) 0.7 H Eos # (Auto) 0.2 Baso # (Auto) 0.0 Abs Immat Gran (auto) 0.06 H Absolute Neuts (auto) 3.8 Absolute Nucleated RBC 0.000 Nucleated RBC % 0.0 Sodium 133 L Potassium 3.7 Chloride 98 Carbon Dioxide 32 H Anion Gap 3 L BUN 9 Creatinine 0.82 Estim Creat Clear Calc 65 Estimated GFR > 60 Glucose 108 POC Capillary Glucose 111 H 104 Calcium 8.4 Phosphorus 3.6 Magnesium 2.2 Total Bilirubin 0.5 AST 70 H ALT 27 Alkaline Phosphatase 84 Total Protein 5.6 L Albumin 2.8 L 07/16/25 11:41 WBC RBC Hgb Hct MCV MCH MCHC RDW Plt Count MPV Immature Gran % (Auto) Neut % (Auto) Lymph % (Auto) [place] % (Auto) Eos % (Auto) Baso % (Auto) Lymph # (Auto) [place] # (Auto) Eos # (Auto) Baso # (Auto) Abs Immat Gran (auto) Absolute Neuts (auto) Absolute Nucleated RBC Nucleated RBC % Sodium Potassium Chloride Carbon Dioxide Anion Gap BUN Creatinine Estim Creat Clear Calc Estimated GFR Glucose POC Capillary Glucose 100 Calcium Phosphorus Magnesium Total Bilirubin AST ALT Alkaline Phosphatase Total Protein Albumin
[2025-07-16] MEDS: POTASSIUM CHLORIDE 20 MEQ PACKET (FOR LIQUID) 40 MEQ FEED TUBE (12:11)
[2025-07-16] MEDS: oxyCODONE HCL (*CRX) 5 MG TAB IR PO ×3 (14:25→22:02)
[2025-07-16 14:30] VITALS: PULSE 90
[2025-07-16 15:17] VITALS: BP 130/78; PULSE 81; RESP 18; TEMP 36.7; O2SAT 99
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
[2025-07-16] MEDS: POTASSIUM CHLORIDE 20 MEQ PACKET (FOR LIQUID) 40 MEQ PO (17:33)
[2025-07-16 20:00] VITALS: PULSE 84; RESP 16; O2SAT 98
[2025-07-16] MEDS: oxyCODONE HCL (*CRX) 2.5 MG TAB IR PO (20:24)
[2025-07-16 21:06] VITALS: BP 128/69; PULSE 84; RESP 16; TEMP 37.1; O2SAT 98
[2025-07-17] MEDS: oxyCODONE HCL (*CRX) 5 MG TAB IR PO ×4 (02:21→15:17)
[2025-07-17 05:53] VITALS: BP 127/73; PULSE 82; RESP 16; TEMP 36.6; O2SAT 99
[2025-07-17] MEDS: CENTRAL LINE FLUSH 10 ML IV PUSH ×3 (06:07→20:37)
[2025-07-17] MEDS: METOPROLOL TARTRATE INJ 5 MG/5 ML VIAL IV PUSH (06:07)
[2025-07-17] MEDS: IBUPROFEN IV 800 MG/200 ML 800 MG/200 ML BAG 400 MG IVPB (06:14)
[2025-07-17 06:16] LABS: Hematocrit 22.8 % (37.0-47.0); Hemoglobin 7.1 g/dL (12.0-15.0); Immature Granulocyte Percent A 0.9 % (0-0.5); Lymphocytes Absolute Auto 0.89 K/mm3 (0.9-3.2); Mean Corpuscular HGB Conc 31.1 g/dl (32-36); Mean Corpuscular Hemoglobin 31.1 pg (26-34); Mean Corpuscular Volume 100.0 fl (80-100); Nucleated Red Blood Cells Absolute Auto 0.000 K/mm3 (0.0-0.012); Nucleated Red Blood Cells Perc 0.0 % (0.0-0.2); Platelet Count Result 297 k/mm3 (150-375); Red Blood Count 2.28 M/mm3 (4.2-5.4); White Blood Count 5.5 K/mm3 (4.5-10.0)
[2025-07-17 06:41] LABS: Alanine Aminotransferase 49 U/L (6-35); Albumin Level 2.8 g/dL (3.5-5.1); Alkaline Phosphatase 77 U/L (38-126); Anion Gap 4 mmol/L (4-12); Aspartate Amino Transferase 68 U/L (14-36); Bilirubin,Total 0.7 mg/dL (0.2-1.3); Blood Urea Nitrogen 6 mg/dL (7-17); Calcium 8.8 mg/dL (8.4-10.2); Carbon Dioxide 29 mmol/L (22-30); Chloride 101 mmol/L (98-107); Estimated CRCL calculation 59 ml/min; Estimated Glomerular Filt Rate > 60; Glucose 82 mg/dL (65-110); Magnesium 2.0 mg/dL (1.6-2.3); Potassium 4.5 mmol/L (3.4-5.0); Sodium 134 mmol/L (137-145); Total Protein 5.5 g/dL (6.3-8.2)
[2025-07-17] MEDS: ENOXAPARIN 40 MG/0.4 ML SYRINGE SUB-Q (09:06)
[2025-07-17] MEDS: PANTOPRAZOLE SODIUM IV 40 MG VIAL IV PUSH (09:07)
--- NOTE | 2025-07-17 10:14 | PM.IMPN ---
Progress Note: A&P Assessment and Plan (1) Elevated troponin: Code(s): R79.89 - Other specified abnormal findings of blood chemistry Status: Acute Assessment and Plan: Stable on current medications: Will continue current treatment. (2) Small bowel obstruction: Code(s): K56.609 - Unspecified intestinal obstruction, unspecified as to partial versus complete obstruction Status: Acute Assessment and Plan: Tolerated p.o. intake. Will continue current treatment. Plan 55-year-old female with PMH hypertension, breast cancer (2020, s/p double mastectomy), and adenocarcinoma of the cervix (2020, s/p radiation/chemo and hysterectomy) on oral chemo presents to [facility] via EMS with tachycardia and chest pain on 07/08/2025. Upon further evaluation the pain and was originating in the stomach area. It was dull and gaslike. This is an exacerbation of pain which has been going on for at least a month. She had a colonoscopy on June 25, [address] Mccoy at [facility]. but the procedure was aborted as reportedly the lumen was too narrow. There is a family history of cancer, aunt had uterine cancer, cousin and colon cancer, cousin and breast cancer. Since that procedure she has not had a bowel movement and has had very poor oral intake. Records are being obtained. She also had an endoscopy 2 days prior to admission in that report is not available as well patient reports she was not told of any abnormal findings. She failed NG tube placement. She has nausea but no vomiting. Small-bowel follow-through results with persistent small-bowel obstruction. General surgery and GI are following. Continue D5 normal saline at 125 cc/hour. The patient reports dry heaving with promethazine and Zofran. Repeat EKG performed 15 minutes after Zofran on 07/09/2025 with a decreased QTC interval of 435. Continue NPO and conservative management with IV fluids On 07/10/2025 after further discussion she was taken for an exploratory laparotomy. Status post exploratory laparotomy on 07/10/2025: Obstructing masses in distal small bowel which was resected with primary anastomosis performed. Pathology is back with metastatic adenocarcinoma likely source from cervical cancer recurrence. General surgery planning to referred to Colorectal surgery at [facility]. Will consult Oncology Patient also was noted to have near obstructing rectosigmoid mass for which is diverting loop descending colostomy has been placed to relieve obstruction of the colon. Pathology back with metastatic adenocarcinoma of cervix. Consider pelvic MRI Johnny function has returned 07/15/2025. Start diet as per General surgery Replace potassium Patient admits started on TPN as well. Which will be continued. Repeat x-ray abdomen 07/14/2025 with residual contrast in colon from small-bowel series study from 4 days prior. No free intraperitoneal gas or dilated gas-filled loops of bowel to suggest obstruction. Anemia: Significant drop from 11-8 07/13/2025. No signs of bleeding. Could be hemodialysis note. Stopped IV fluid.. Already on TPN which will be continued. H&H remains stable As she presented with will was thought to be chest pain, she had an elevated troponin as well which has now downtrended. EKG without ST elevations. She has been seen by Cardiology who has signed off. Echo demonstrates normal LV function and grade 1 diastolic dysfunction. They would like for her to have a follow-up in the outpatient setting. Heparin drip discontinued. Continue aspirin and statin. Patient denies any more chest pain. 07/17/2025 Hemoglobin is slightly low today. Will continue to monitor. Otherwise feeling much better. Will increase activity. Possible discharge morning. She wishes to be full code. Continue Protonix 40 mg IV q.a.m.. Subjective Date/time seen: 07/17/25 10:14 Interval history: Patient was seen during morning rounds today. Patient pain is under control. No nausea or vomiting. Tolerating food. No chest pain no shortness of breath. Review of Systems Review of Systems: All systems reviewed & are unremarkable except as noted in HPI and below (Subjective) Exam Narrative: GENERAL: Well-appearing, well-nourished, and in no acute distress. HEAD: Normocephalic, atraumatic. EYES: PERRLA and EOMI. ENT: Nares clear, no rhinorrhea or epistaxis. Mucous membranes moist. NG tube in place NECK: Supple. CHEST: Clear to auscultation. No respiratory distress. HEART: Regular rate and rhythm. No murmur heard. Normal peripheral pulses. ABDOMEN: Soft, surgical incision covered with dressing which is clean dry and intact, left-sided colostomy in-situ with brown stool in the bag, normoactive bowel sounds. EXTREMITIES: Normal range of motion. No edema. SKIN: Warm, dry, no rash. NEURO: No focal deficits. Alert and oriented x3. PSYCH: Normal mood and affect. Const: General: comfortable and no acute distress Other: A&O x3 HENMT: Face/Nose/Sinus: Normal nares present Mouth: Yes moist mucous membranes Eyes: General: appearance normal, both eyes and all related structures Sclera: sclerae normal Pupils: Equal, round and reactive pupils present EOM: EOMs intact bilaterally Neck: Neck: supple Resp: Effort & Inspection: normal respiratory effort Auscultation: clear to auscultation bilaterally Cardio: Rate: regular rate Rhythm: regular rhythm Heart sounds: no murmurs Other: S1-S2 present without murmur, rub, ectopy GI: Other: Tender to palpation of the epigastrium. Bowel sounds hypoactive Skin: General skin exam: normal color and no rashes or lesions noted Wounds: no wounds Neuro: Cranial nerves: Yes Equal, round and reactive pupils present Speech: normal speech Motor exam (neuro): 5/5 motor strength present throughout Sensory Exam: normal sensation Other: A&O x4 Extrem: General: normal to inspection and no edema Psych: Mental Status: mental status grossly normal Affect: normal affect Other: Good insight and judgment, pleasant Objective Data Vital Signs Vital Signs: Vital Signs - 24 hr 07/16/25 14:30 07/16/25 15:17 07/16/25 20:00 Temperature 36.7 C Pulse Rate 90 81 84 Respiratory Rate 18 16 Blood Pressure 130/78 Pulse Oximetry 99 98 Oxygen Delivery Room Air Fraction of Inspired Oxygen 21 07/16/25 21:06 07/17/25 05:53 Temperature 37.1 C 36.6 C Pulse Rate 84 82 Respiratory Rate 16 16 Blood Pressure 128/69 127/73 Pulse Oximetry 98 99 Oxygen Delivery Fraction of Inspired Oxygen Intake/Output Intake/Output: Intake & Output 07/14/25 07/15/25 07/16/25 07/17/25 23:59 23:59 23:59 23:59 Intake Total 2640.0 2241 1737 350 Output Total 2350 3825 2050 600 Balance 290.0 -1584 -313 -250 Meds/Results Medications: Active Medications Generic Name Dose Route Start Last Admin Trade Name Freq PRN Reason Stop Dose Admin Acetaminophen 650 mg 07/16/25 12:38 Acetaminophen 325 Mg Tablet PO Q4H PRN Pain Rated 1-3 Dextrose 12.5 gm 07/10/25 22:55 Dextrose 50% 25 Gm/50 Ml Syringe IV PUSH PRN PRN Hypoglycemia Protocol Enoxaparin Sodium 40 mg 07/11/25 10:45 07/17/25 09:06 Enoxaparin 40 Mg/0.4 Ml Syringe SUB-Q 40 mg DAILY RAJAT Administration Glucagon 1 mg 07/10/25 22:55 Glucagon For Inj 1 Mg Vial IM PRN PRN Hypoglycemia Protocol Glucose 15 gm 07/10/25 22:55 Glucose Oral Gel 15 Gm Of Glucse In 37.5 Gm Tube PO PRN PRN Hypoglycemia Protocol Hydromorphone HCl 1 mg 07/10/25 22:44 07/16/25 09:25 Hydromorphone Hcl Inj (*Crx) 1 Mg/Ml Syr IV PUSH 1 mg Q3H PRN Administration Pain Rated 7-10 Dextrose 1,000 mls @ 50 mls/hr 07/10/25 22:55 Dextrose 10% IV CONT .Q20H PRN if PN is interrupted Dextrose 1,000 mls @ 100 mls/hr 07/10/25 22:55 Dextrose 5% 1,000 Ml IVPB PRN PRN Hypoglycemia Protocol Insulin Aspart 2 - 5 units 07/11/25 00:00 07/17/25 06:13 Insulin Aspart (*Bkc) 100 Units/Ml SUB-Q Not Given Q6HR [facility] Protocol Metoprolol Tartrate 5 mg 07/08/25 14:40 07/17/25 06:07 Metoprolol Tartrate Inj 5 Mg/5 Ml Vial IV PUSH 5 mg Q8HR RAJAT Administration Nitroglycerin 0.4 mg 07/08/25 13:09 Nitroglycerin Sl 0.4 Mg Tablet SUBLINGUAL Q5MIN PRN Chest Pain Ondansetron HCl 4 mg 07/09/25 15:58 07/10/25 05:30 Ondansetron Inj 4 Mg/2 Ml Vial IV PUSH 4 mg Q4HR PRN Administration Nausea And Vomiting Oxycodone HCl 2.5 mg 07/16/25 12:38 07/16/25 20:24 Oxycodone Hcl (*Crx) 2.5 Mg Tab Ir PO 2.5 mg Q4H PRN Administration Pain Rated 4-6 Oxycodone HCl 5 mg 07/16/25 12:38 07/17/25 06:15 Oxycodone Hcl (*Crx) 5 Mg Tab Ir PO 5 mg Q4H PRN Administration Pain Rated 7-10 Pantoprazole Sodium 40 mg 07/18/25 09:00 Pantoprazole 40 Mg Tablet PO QAM RAJAT Phenol 1 spray 07/13/25 12:58 07/14/25 15:46 Phenol/Sod Pheno [place] (*Bkc) MUCOUS MEM 1 spray PRN PRN Administration Sore Throat Polysaccharide Iron Complex 150 mg 07/18/25 08:00 Polysaccharide Iron Complex 150 Mg Capsule PO DAILY@0800 RAJAT Sodium Chloride 10 ml 07/11/25 22:00 07/17/25 06:07 Central Line Flush IV PUSH 10 ml Q8HR RAJAT Administration Sodium Chloride 10 ml 07/11/25 14:20 07/14/25 14:01 Central Line Flush IV PUSH 10 ml PRN PRN Administration with TPN bag changes Sodium Chloride 20 ml 07/11/25 14:20 07/14/25 14:00 Central Line Flush IV PUSH 20 ml PRN PRN Administration after blood draws Radiology Results: ITS Impressions Chest/Abdomen/Pelvis CTA 07/08/25 10:04 IMPRESSION: 1. Small bowel obstruction with distal ileal transition point in the right deep pelvis along with a small amount of likely reactive ascites. 2. Mild emphysema. No pulmonary embolism or other acute cardiopulmonary disease. Small Bowel X-Ray 07/09/25 20:09 IMPRESSION: 1: Small bowel obstruction. 2: Gastroesophageal reflux. Chest X-Ray 07/11/25 14:41 IMPRESSION: 1. Left upper extremity PICC line with distal tip positioned in the mid superior vena cava on the final image. 2. No acute cardiopulmonary disease. Abdomen X-Ray 07/14/25 11:49 IMPRESSION: 1. Residual contrast in colon from small bowel series study from 4 days prior. No free intraperitoneal gas or dilated gas-filled loops of bowel to suggest obstruction. Labs Labs: Laboratory Results - last 24 hr 07/16/25 07/16/25 07/17/25 11:41 17:35 01:23 WBC RBC Hgb Hct MCV MCH MCHC RDW Plt Count MPV Immature Gran % (Auto) Neut % (Auto) Lymph % (Auto) [place] % (Auto) Eos % (Auto) Baso % (Auto) Lymph # (Auto) [place] # (Auto) Eos # (Auto) Baso # (Auto) Abs Immat Gran (auto) Absolute Neuts (auto) Absolute Nucleated RBC Nucleated RBC % Sodium Potassium Chloride Carbon Dioxide Anion Gap BUN Creatinine Estim Creat Clear Calc Estimated GFR Glucose POC Capillary Glucose 100 83 81 Calcium Magnesium Total Bilirubin AST ALT Alkaline Phosphatase Total Protein Albumin 07/17/25 07/17/25 06:05 06:12 WBC 5.5 RBC 2.28 L Hgb 7.1 L Hct 22.8 L MCV 100.0 MCH 31.1 MCHC 31.1 L RDW 13.0 Plt Count 297 MPV 9.1 Immature Gran % (Auto) 0.9 H Neut % (Auto) 66.8 Lymph % (Auto) 16.1 L [place] % (Auto) 12.6 H Eos % (Auto) 3.4 Baso % (Auto) 0.2 Lymph # (Auto) 0.89 L [place] # (Auto) 0.7 H Eos # (Auto) 0.2 Baso # (Auto) 0.0 Abs Immat Gran (auto) 0.05 H Absolute Neuts (auto) 3.7 Absolute Nucleated RBC 0.000 Nucleated RBC % 0.0 Sodium 134 L Potassium 4.5 Chloride 101 Carbon Dioxide 29 Anion Gap 4 BUN 6 L Creatinine 0.90 Estim Creat Clear Calc 59 Estimated GFR > 60 Glucose 82 POC Capillary Glucose 80 Calcium 8.8 Magnesium 2.0 Total Bilirubin 0.7 AST 68 H ALT 49 H Alkaline Phosphatase 77 Total Protein 5.5 L Albumin 2.8 L Quality VTE Prophylaxis VTE prophylaxis: mechanical ordered
--- NOTE | 2025-07-17 10:29 | P.PNONC_ITS ---
Progress Note: A&P Assessment and Plan (1) Primary cervical cancer with metastasis to other site: Code(s): C53.9 - Malignant neoplasm of cervix uteri, unspecified Status: Acute Assessment and Plan: CERVICAL CANCER METASTASIZED TO SMALL BOWEL AND LIKELY COLON Patient notes that history of localized cervical cancer and she underwent surgical resection on 08/08/2021 at [facility] treatment centers [facility] in [facility]. She was then started on adjuvant cisplatin plus radiation also add CTCAE in [facility]. She completed the concurrent chemoradiation on November of 2021. It is not clear whether patients are any local oncologist. For her cervical cancer treatment she used to commute from here to [facility] for treatment. More recently patient reports that she has been having abdominal pain nausea and vomiting for past 2 months. She presented to [place] ER on 07/08/25 with tachycardia, abdominal pain, n/v and inability to eat A CTA chest/abd/pelvis on 07/08/25 showed small bowel obstruction with distal ileal transition point in the right deep pelvis along with a small amount of likely reactive ascites. ED nursing staff attempted NG tube placement, but this was unsuccessful as patient could not tolerate it. Over the course of this hospitalization patient was taken to OR for exploratory laparotomy by Dr. Sethi on 07/10/25 with findings of two cecal masses and large rectal mass. Cecal masses were resected with end to end anastomosis. A diverting descending loop colostomy was performed due to rectal mass being nearly obstructive.. Per Dr. Sethi's 07/10/25 Operative report- I then explored the pelvis and found a mass at the rectosigmoid junction which extended below the peritoneal reflection and beyond actually worked feel without opening the Cul-de-sac. the proximal colon did not appear to be significantly dilated but the mass felt be nearly obstructive. I do not appreciate any other masses in the right ascending, transverse, or descending left colon. At this point since she had unprepped colon and this was an emergent case for small-bowel obstruction that I was prepared to perform a low anterior resection of the rectosigmoid mass. We did have a diagnosis of possible malignancy either primary or metastatic disease and so I elected to perform resection of the small bowel masses and perform anastomosis and then place a diverting descending loop colostomy until further workup the rectosigmoid mass could be done and the patient would then be able the eat. Pathology of the surgical specimen from 07/10/25 shows- Two separate masses (2.3 x 2.1 x 1.8 cm and 1.2 x 1.1 x 1.0 cm) which are both more than 1.0 cm away from surigcal margins and are by 5.0 cm of uninvolved intestine. Pathology of two foci of masses is consistent with metast atic adenocarcinoma, 2.3 and 1.2 cm, uterine cervix primary. Margins negative for metastatic adenocarcinoma. Nine lymph nodes negative for metastatic adenocarcinoma (0/9) Patient with biopsy proven metastatic cervical cancer with two mets to small bowel. The rectosigmoid mass is also likely a metastatic site but the biopsy will be valuable to compare with cecal mass biopsy. If this is also a metastatic cervix cancer and not rectosigmoid primary then we can treat with chemotherapy/immunotherapy without subjecting her to rectal mass surgery. She has diverting colostomy to relieve the bowel contents. Would like to get opinion from GI team to see if the rectosigmoid mass can be reached by flexible sigmoidoscopy for tissue biopsy. It was noted in prior colonoscopy by a GI physician that they could not pass the scope. Not sure whether the stricture is below the rectosigmoid mass and the mass could not be seen in prior attempted colonoscopy as an outpatient. Recommend GI opinion on the biopsy of the rectosigmoid mass. If the rectosigmoid mass cannot be reached by sigmoidoscopy then patient would need a surgical opinion for rectal mass resection and getting a pathology that way. We need to confirm that rectosigmoid mass is also a metastatic cervical cancer and not the primary colorectal cancer. General Surgery recommended MRI of pelvis for detail assessment of rectosigmoid mass, primary team to order. Dr. Sethi (Surgeon) to discuss the case with Dr. Sanders at [facility] for colorectal opinion. Patient could get outpatient lower GI endoscopy by one of our local GI specialist versus Dr. Sanders arranging for a [facility] GI specialist to perform the endoscopy or she may even do the endoscopy herself. I also recommend NGS testing on the Small Bowel Tumor specimen for biomarker driven therapy. This should be done by a pathologist. The above plan was explained to patient and her family members present in the room. (2) Breast cancer: Code(s): C50.919 - Malignant neoplasm of unspecified site of unspecified female breast Status: Acute Assessment and Plan: RIGHT BREAST CANCER- Patient with history of right breast cancer diagnosed in June 2022. Patient underwent bilateral mastectomy with reconstruction in June 2022. She is not sure what was the exact stage but was told that she did not need chemotherapy or radiation. The disease was ER [place] positive and therefore patient is on anastrozole 1 mg daily since then. (3) Anemia: Code(s): D64.9 - Anemia, unspecified Status: Acute Assessment and Plan: PROGRESSIVE ANEMIA- Patient presented with hemoglobin of 14 on 07/08/25 and slowly decreased to 7.1 today. Some of it could be surgical blood loss but this is 7 gm drop in her hemoglobin. I am checking Iron panel, ferritin, B12, folate to check for nutritional deficiences. Subjective Date/time seen: 07/17/25 10:29 Interval history: Patient tolerating food. surgical site pain still about the same. No chest pain no shortness of breath. Review of Systems Review of Systems Patient reports postsurgical pain is still about the same and needing IV pain medicine for pain control. Tolerating oral intake well. She denies any nausea or vomiting. She endorses liquid bowels in the ostomy bag. There is no chest pain or shortness of breath. Patient reports bilateral lower extremity edema post surgery. Denies cough, night sweats. Reports 7 lb weight loss in past few months as she was not able to eat. Rest of the 12 point review of system is negative. Exam Narrative: General: Alert and oriented x3, no acute distress HEENT: EOMI, PERRL, no lymphadenopathy CV: RRR, No m/g/r RESP: Clear to auscultation bilaterally ABD: soft, ostomy bag with liquid output noted, tenderness to palpation around the surgical site EXT: 1+ edema bilaterally NEURO: No focal deficits SKIN: no rash or open wounds Objective Data Vital Signs Vital Signs: Vital Signs - 24 hr 07/16/25 14:30 07/16/25 15:17 07/16/25 20:00 Temperature 36.7 C Pulse Rate 90 81 84 Respiratory Rate 18 16 Blood Pressure 130/78 Pulse Oximetry 99 98 Oxygen Delivery Room Air Fraction of Inspired Oxygen 21 07/16/25 21:06 07/17/25 05:53 Temperature 37.1 C 36.6 C Pulse Rate 84 82 Respiratory Rate 16 16 Blood Pressure 128/69 127/73 Pulse Oximetry 98 99 Oxygen Delivery Fraction of Inspired Oxygen Intake/Output Intake/Output: Intake & Output 07/14/25 07/15/25 07/16/25 07/17/25 23:59 23:59 23:59 23:59 Intake Total 2640.0 2241 1737 350 Output Total 2350 3825 2050 600 Balance 290.0 -1584 -313 -250 Meds/Results Medications: Active Medications Generic Name Dose Route Start Last Admin Trade Name Freq PRN Reason Stop Dose Admin Acetaminophen 650 mg 07/16/25 12:38 Acetaminophen 325 Mg Tablet PO Q4H PRN Pain Rated 1-3 Dextrose 12.5 gm 07/10/25 22:55 Dextrose 50% 25 Gm/50 Ml Syringe IV PUSH PRN PRN Hypoglycemia Protocol Enoxaparin Sodium 40 mg 07/11/25 10:45 07/17/25 09:06 Enoxaparin 40 Mg/0.4 Ml Syringe SUB-Q 40 mg DAILY RAJAT Administration Glucagon 1 mg 07/10/25 22:55 Glucagon For Inj 1 Mg Vial IM PRN PRN Hypoglycemia Protocol Glucose 15 gm 07/10/25 22:55 Glucose Oral Gel 15 Gm Of Glucse In 37.5 Gm Tube PO PRN PRN Hypoglycemia Protocol Hydromorphone HCl 1 mg 07/10/25 22:44 07/16/25 09:25 Hydromorphone Hcl Inj (*Crx) 1 Mg/Ml Syr IV PUSH 1 mg Q3H PRN Administration Pain Rated 7-10 Dextrose 1,000 mls @ 50 mls/hr 07/10/25 22:55 Dextrose 10% IV CONT .Q20H PRN if PN is interrupted Dextrose 1,000 mls @ 100 mls/hr 07/10/25 22:55 Dextrose 5% 1,000 Ml IVPB PRN PRN Hypoglycemia Protocol Insulin Aspart 2 - 5 units 07/11/25 00:00 07/17/25 06:13 Insulin Aspart (*Bkc) 100 Units/Ml SUB-Q Not Given Q6HR [facility] Protocol Metoprolol Tartrate 5 mg 07/08/25 14:40 07/17/25 06:07 Metoprolol Tartrate Inj 5 Mg/5 Ml Vial IV PUSH 5 mg Q8HR RAJAT Administration Nitroglycerin 0.4 mg 07/08/25 13:09 Nitroglycerin Sl 0.4 Mg Tablet SUBLINGUAL Q5MIN PRN Chest Pain Ondansetron HCl 4 mg 07/09/25 15:58 07/10/25 05:30 Ondansetron Inj 4 Mg/2 Ml Vial IV PUSH 4 mg Q4HR PRN Administration Nausea And Vomiting Oxycodone HCl 2.5 mg 07/16/25 12:38 07/16/25 20:24 Oxycodone Hcl (*Crx) 2.5 Mg Tab Ir PO 2.5 mg Q4H PRN Administration Pain Rated 4-6 Oxycodone HCl 5 mg 07/16/25 12:38 07/17/25 06:15 Oxycodone Hcl (*Crx) 5 Mg Tab Ir PO 5 mg Q4H PRN Administration Pain Rated 7-10 Pantoprazole Sodium 40 mg 07/18/25 09:00 Pantoprazole 40 Mg Tablet PO QAM RAJAT Phenol 1 spray 07/13/25 12:58 07/14/25 15:46 Phenol/Sod Pheno [place] Dey (*Bkc) MUCOUS MEM 1 spray PRN PRN Administration Sore Throat Polysaccharide Iron Complex 150 mg 07/18/25 08:00 Polysaccharide Iron Complex 150 Mg Capsule PO DAILY@0800 RAJAT Sodium Chloride 10 ml 07/11/25 22:00 07/17/25 06:07 Central Line Flush IV PUSH 10 ml Q8HR RAJAT Administration Sodium Chloride 10 ml 07/11/25 14:20 07/14/25 14:01 Central Line Flush IV PUSH 10 ml PRN PRN Administration with TPN bag changes Sodium Chloride 20 ml 07/11/25 14:20 07/14/25 14:00 Central Line Flush IV PUSH 20 ml PRN PRN Administration after blood draws Radiology Results: ITS Impressions Chest/Abdomen/Pelvis CTA 07/08/25 10:04 IMPRESSION: 1. Small bowel obstruction with distal ileal transition point in the right deep pelvis along with a small amount of likely reactive ascites. 2. Mild emphysema. No pulmonary embolism or other acute cardiopulmonary disease. Small Bowel X-Ray 07/09/25 20:09 IMPRESSION: 1: Small bowel obstruction. 2: Gastroesophageal reflux. Chest X-Ray 07/11/25 14:41 IMPRESSION: 1. Left upper extremity PICC line with distal tip positioned in the mid superior vena cava on the final image. 2. No acute cardiopulmonary disease. Abdomen X-Ray 07/14/25 11:49 IMPRESSION: 1. Residual contrast in colon from small bowel series study from 4 days prior. No free intraperitoneal gas or dilated gas-filled loops of bowel to suggest obstruction. Labs Labs: Laboratory Results - last 24 hr 07/16/25 07/16/25 07/17/25 11:41 17:35 01:23 WBC RBC Hgb Hct MCV MCH MCHC RDW Plt Count MPV Immature Gran % (Auto) Neut % (Auto) Lymph % (Auto) [place] % (Auto) Eos % (Auto) Baso % (Auto) Lymph # (Auto) [place] # (Auto) Eos # (Auto) Baso # (Auto) Abs Immat Gran (auto) Absolute Neuts (auto) Absolute Nucleated RBC Nucleated RBC % Sodium Potassium Chloride Carbon Dioxide Anion Gap BUN Creatinine Estim Creat Clear Calc Estimated GFR Glucose POC Capillary Glucose 100 83 81 Calcium Magnesium Total Bilirubin AST ALT Alkaline Phosphatase Total Protein Albumin 07/17/25 07/17/25 06:05 06:12 WBC 5.5 RBC 2.28 L Hgb 7.1 L Hct 22.8 L MCV 100.0 MCH 31.1 MCHC 31.1 L RDW 13.0 Plt Count 297 MPV 9.1 Immature Gran % (Auto) 0.9 H Neut % (Auto) 66.8 Lymph % (Auto) 16.1 L [place] % (Auto) 12.6 H Eos % (Auto) 3.4 Baso % (Auto) 0.2 Lymph # (Auto) 0.89 L [place] # (Auto) 0.7 H Eos # (Auto) 0.2 Baso # (Auto) 0.0 Abs Immat Gran (auto) 0.05 H Absolute Neuts (auto) 3.7 Absolute Nucleated RBC 0.000 Nucleated RBC % 0.0 Sodium 134 L Potassium 4.5 Chloride 101 Carbon Dioxide 29 Anion Gap 4 BUN 6 L Creatinine 0.90 Estim Creat Clear Calc 59 Estimated GFR > 60 Glucose 82 POC Capillary Glucose 80 Calcium 8.8 Magnesium 2.0 Total Bilirubin 0.7 AST 68 H ALT 49 H Alkaline Phosphatase 77 Total Protein 5.5 L Albumin 2.8 L
--- NOTE | 2025-07-17 10:53 | PCNFU ---
Nutrition Follow-Up Complete: Severe protein calorie malnutrition related to chronic cancer and acute small bowel obstruction as evidenced by weight loss 19%/4 months; intakes <75% needs >1 month; moderate muscle wasting and fat loss Goal: Meet estimated nutrition needs Patient is progressing towards goal. We will continue current goal. Pt current nutrition is Low Fiber with diet supplements. Last recorded weight is 72.8 kg. Bowel Motility: +BM reported 07/16 Labs Reviewed: BUN 6, Na 134, Alb 2.8 Meds Noted: NovoLog, Lovenox, Lopressor, Protonix. Skin: ostomy Additional Notes: NGT feedings have been discontinued. Patient is tolerating full liquids. Diet order has advanced to Low Fiber diet for lunch. Diet supplements are providing an additional 350 kcal and 20 gm protein. Agree with diet orders. Monitoring diet orders, plan of care, labs, weights, output every 3 days.
--- NOTE | 2025-07-17 11:57 | PM.PNGS ---
Progress Note: A&P Assessment and Plan (1) Mass of small intestine: Code(s): K63.89 - Other specified diseases of intestine Status: Acute Assessment and Plan: POD7 following exploratory laparotomy with segmental ileal small-bowel resection and placement of left descending diverting loop colostomy. Dr. 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 NG tube removed yesterday. Patient tolerated liquid diet without nausea or vomiting. Will advance to low-fiber diet today. Potassium better this morning at 4.5. Would like to keep above 4. Continue to encourage ambulation and up to chair. Continue with PT and OT. Oxycodone for pain. Continue Lovenox for DVT prophylaxis as well as SCDs. (2) Mass of colon: Code(s): K63.89 - Other specified diseases of intestine Status: Acute Assessment and Plan: Near obstructing rectosigmoid mass noted in surgery. Patient has had a diverting loop descending colostomy to relieve the colonic obstruction. Ostomy is viable and functioning well. Consider GI consult to see if rectosigmoid mass can be reached by flexible sigmoidoscopy for tissue biopsy. This would be helpful to confirm that the rectosigmoid mass is also metastatic cervical cancer and not primary colorectal cancer. Could consider pelvic MRI to further evaluate rectosigmoid mass. If resection of this mass is necessary, Dr. Sethi recommends referral to Dr. Sanders with [facility] (3) Malnutrition: Code(s): E46 - Unspecified protein-calorie malnutrition Status: Acute Assessment and Plan: Bowel function has returned and patient is now tolerating full liquids. Advanced to low-fiber diet. (4) Hypertension: Code(s): I10 - Essential (primary) hypertension Status: Acute Assessment and Plan: Patient was previously on IV metoprolol Q 8. This was started by cardiology on 07/08. Spoke with cardiology PA who recommended discontinuing, as it is no longer indicated. Plan Discussed patient's case and plan of care with Dr. Sethi. Subjective Subjective Date/Time Seen: 07/17/25 11:57 Post Op day: 7 Patient reports: no new complaints, feels better and tolerating liquids well Interval history: WBC remains normal. Hemoglobin 7.1, but stable. Patient doing well today. No acute events overnight. Vital signs stable. WBC remains stable. Hemoglobin 7.1. No signs of active bleeding. Patient tolerated liquid diet well without any nausea or vomiting. She states that ostomy bag over fluid twice yesterday. Minimal output today. Exam Const: General: comfortable and no acute distress GI: Inspection: non-distended GI Palp: Yes Soft to palpation Other: Ostomy bag changed with wound care nurse and Dr. Sethi at bedside. Stoma appears red and viable. Both openings palpable. Minimal mucus output at the moment, but patient states she had two over flowing bags of stool yesterday. Support osvaldo removed today. Objective Data Vital Signs Vital Signs: Vital Signs - 24 hr 07/16/25 14:30 07/16/25 15:17 07/16/25 20:00 Temperature 98.1 F Pulse Rate 90 81 84 Respiratory Rate 18 16 Blood Pressure 130/78 Pulse Oximetry 99 98 Oxygen Delivery Room Air Fraction of Inspired Oxygen 21 07/16/25 21:06 07/17/25 05:53 Temperature 98.8 F 97.8 F Pulse Rate 84 82 Respiratory Rate 16 16 Blood Pressure 128/69 127/73 Pulse Oximetry 98 99 Oxygen Delivery Fraction of Inspired Oxygen Intake/Output Intake/Output: Intake & Output 07/14/25 07/15/25 07/16/25 07/17/25 23:59 23:59 23:59 23:59 Intake Total 2640.0 2241 1737 350 Output Total 2350 3825 2050 600 Balance 290.0 -1584 -313 -250 Meds/Results Medications: Active Medications Generic Name Dose Route Start Last Admin Trade Name Freq PRN Reason Stop Dose Admin Acetaminophen 650 mg 07/16/25 12:38 Acetaminophen 325 Mg Tablet PO Q4H PRN Pain Rated 1-3 Dextrose 12.5 gm 07/10/25 22:55 Dextrose 50% 25 Gm/50 Ml Syringe IV PUSH PRN PRN Hypoglycemia Protocol Enoxaparin Sodium 40 mg 07/11/25 10:45 07/17/25 09:06 Enoxaparin 40 Mg/0.4 Ml Syringe SUB-Q 40 mg DAILY RAJAT Administration Glucagon 1 mg 07/10/25 22:55 Glucagon For Inj 1 Mg Vial IM PRN PRN Hypoglycemia Protocol Glucose 15 gm 07/10/25 22:55 Glucose Oral Gel 15 Gm Of Glucse In 37.5 Gm Tube PO PRN PRN Hypoglycemia Protocol Hydromorphone HCl 1 mg 07/10/25 22:44 07/16/25 09:25 Hydromorphone Hcl Inj (*Crx) 1 Mg/Ml Syr IV PUSH 1 mg Q3H PRN Administration Pain Rated 7-10 Dextrose 1,000 mls @ 50 mls/hr 07/10/25 22:55 Dextrose 10% IV CONT .Q20H PRN if PN is interrupted Dextrose 1,000 mls @ 100 mls/hr 07/10/25 22:55 Dextrose 5% 1,000 Ml IVPB PRN PRN Hypoglycemia Protocol Insulin Aspart 2 - 5 units 07/11/25 00:00 07/17/25 06:13 Insulin Aspart (*Bkc) 100 Units/Ml SUB-Q Not Given Q6HR [facility] Protocol Metoprolol Tartrate 5 mg 07/08/25 14:40 07/17/25 06:07 Metoprolol Tartrate Inj 5 Mg/5 Ml Vial IV PUSH 5 mg Q8HR RAJAT Administration Nitroglycerin 0.4 mg 07/08/25 13:09 Nitroglycerin Sl 0.4 Mg Tablet SUBLINGUAL Q5MIN PRN Chest Pain Ondansetron HCl 4 mg 07/09/25 15:58 07/10/25 05:30 Ondansetron Inj 4 Mg/2 Ml Vial IV PUSH 4 mg Q4HR PRN Administration Nausea And Vomiting Oxycodone HCl 2.5 mg 07/16/25 12:38 07/16/25 20:24 Oxycodone Hcl (*Crx) 2.5 Mg Tab Ir PO 2.5 mg Q4H PRN Administration Pain Rated 4-6 Oxycodone HCl 5 mg 07/16/25 12:38 07/17/25 10:54 Oxycodone Hcl (*Crx) 5 Mg Tab Ir PO 5 mg Q4H PRN Administration Pain Rated 7-10 Pantoprazole Sodium 40 mg 07/18/25 09:00 Pantoprazole 40 Mg Tablet PO QAM RAJAT Phenol 1 spray 07/13/25 12:58 07/14/25 15:46 Phenol/Sod Pheno [place] (*Bkc) MUCOUS MEM 1 spray PRN PRN Administration Sore Throat Polysaccharide Iron Complex 150 mg 07/18/25 08:00 Polysaccharide Iron Complex 150 Mg Capsule PO DAILY@0800 [facility] Sodium Chloride 10 ml 07/11/25 22:00 07/17/25 06:07 Central Line Flush IV PUSH 10 ml Q8HR RAJAT Administration Sodium Chloride 10 ml 07/11/25 14:20 07/14/25 14:01 Central Line Flush IV PUSH 10 ml PRN PRN Administration with TPN bag changes Sodium Chloride 20 ml 07/11/25 14:20 07/14/25 14:00 Central Line Flush IV PUSH 20 ml PRN PRN Administration after blood draws Radiology Results: ITS Impressions Chest/Abdomen/Pelvis CTA 07/08/25 10:04 IMPRESSION: 1. Small bowel obstruction with distal ileal transition point in the right deep pelvis along with a small amount of likely reactive ascites. 2. Mild emphysema. No pulmonary embolism or other acute cardiopulmonary disease. Small Bowel X-Ray 07/09/25 20:09 IMPRESSION: 1: Small bowel obstruction. 2: Gastroesophageal reflux. Chest X-Ray 07/11/25 14:41 IMPRESSION: 1. Left upper extremity PICC line with distal tip positioned in the mid superior vena cava on the final image. 2. No acute cardiopulmonary disease. Abdomen X-Ray 07/14/25 11:49 IMPRESSION: 1. Residual contrast in colon from small bowel series study from 4 days prior. No free intraperitoneal gas or dilated gas-filled loops of bowel to suggest obstruction. Labs Labs: Laboratory Results - last 24 hr 07/16/25 07/17/25 07/17/25 17:35 01:23 06:05 WBC 5.5 RBC 2.28 L Hgb 7.1 L Hct 22.8 L MCV 100.0 MCH 31.1 MCHC 31.1 L RDW 13.0 Plt Count 297 MPV 9.1 Immature Gran % (Auto) 0.9 H Neut % (Auto) 66.8 Lymph % (Auto) 16.1 L [place] % (Auto) 12.6 H Eos % (Auto) 3.4 Baso % (Auto) 0.2 Lymph # (Auto) 0.89 L [place] # (Auto) 0.7 H Eos # (Auto) 0.2 Baso # (Auto) 0.0 Abs Immat Gran (auto) 0.05 H Absolute Neuts (auto) 3.7 Absolute Nucleated RBC 0.000 Nucleated RBC % 0.0 Sodium 134 L Potassium 4.5 Chloride 101 Carbon Dioxide 29 Anion Gap 4 BUN 6 L Creatinine 0.90 Estim Creat Clear Calc 59 Estimated GFR > 60 Glucose 82 POC Capillary Glucose 83 81 Calcium 8.8 Magnesium 2.0 Total Bilirubin 0.7 AST 68 H ALT 49 H Alkaline Phosphatase 77 Total Protein 5.5 L Albumin 2.8 L 07/17/25 06:12 WBC RBC Hgb Hct MCV MCH MCHC RDW Plt Count MPV Immature Gran % (Auto) Neut % (Auto) Lymph % (Auto) [place] % (Auto) Eos % (Auto) Baso % (Auto) Lymph # (Auto) [place] # (Auto) Eos # (Auto) Baso # (Auto) Abs Immat Gran (auto) Absolute Neuts (auto) Absolute Nucleated RBC Nucleated RBC % Sodium Potassium Chloride Carbon Dioxide Anion Gap BUN Creatinine Estim Creat Clear Calc Estimated GFR Glucose POC Capillary Glucose 80 Calcium Magnesium Total Bilirubin AST ALT Alkaline Phosphatase Total Protein Albumin
[2025-07-17 14:00] VITALS: BP 142/78; PULSE 91; RESP 16; TEMP 36.4; O2SAT 100
[2025-07-17] MEDS: HYDROmorphone HCL INJ (*CRX) 1 MG/ML SYR IV PUSH ×2 (16:32→20:31)
[2025-07-17 17:59] LABS: Iron 30 ug/dL (37-170)
[2025-07-17 18:09] LABS: Percent Iron Saturation 17 % (20-50)
[2025-07-17 18:36] LABS: Ferritin 492.00 ng/mL (11.1-264)
[2025-07-17 19:08] LABS: Vitamin B12 550.0 pg/mL (239-931)
[2025-07-17 23:13] VITALS: BP 117/76; PULSE 107; RESP 18; TEMP 37.6; O2SAT 99
[2025-07-18] MEDS: oxyCODONE HCL (*CRX) 5 MG TAB IR PO ×3 (03:05→15:03)
[2025-07-18 05:24] LABS: Hematocrit 22.1 % (37.0-47.0); Hemoglobin 7.2 g/dL (12.0-15.0); Mean Corpuscular HGB Conc 32.6 g/dl (32-36); Mean Corpuscular Hemoglobin 32.0 pg (26-34); Mean Corpuscular Volume 98.2 fl (80-100); Platelet Count Result 330 k/mm3 (150-375); Red Blood Count 2.25 M/mm3 (4.2-5.4); White Blood Count 5.6 K/mm3 (4.5-10.0)
[2025-07-18] MEDS: CENTRAL LINE FLUSH 10 ML IV PUSH ×3 (05:44→21:09)
[2025-07-18 06:27] VITALS: BP 122/66; PULSE 100; RESP 18; TEMP 37.3; O2SAT 97
--- NOTE | 2025-07-18 08:34 | PM.PNGS ---
Progress Note: A&P Assessment and Plan (1) Mass of small intestine: Code(s): K63.89 - Other specified diseases of intestine Status: Acute Assessment and Plan: metastatic cervical cancer, status post ileal resection and diverting loop descending colostomy, doing well overall, continue routine postoperative care, continue to encourage p.o. intake, out of bed and IS Subjective Subjective Date/Time Seen: 07/18/25 08:34 Interval history: no acute issues, still c poor appetite, incisional soreness Review of Systems Review of Systems: All systems reviewed & are unremarkable except as noted in HPI and below Exam Const: General: cooperative, comfortable, no acute distress and ill appearing Resp: Auscultation: clear to auscultation bilaterally Cardio: Rate: regular rate Rhythm: regular rhythm GI: Inspection: normal to inspection, non-distended and incision GI Palp: Yes abdominal tenderness and Yes Soft to palpation Other: ostomy functioning well Objective Data Vital Signs Vital Signs: Vital Signs - 24 hr 07/17/25 14:00 07/17/25 20:00 07/17/25 23:13 Temperature 36.4 C 37.6 C H Pulse Rate 91 107 H Respiratory Rate 16 18 Blood Pressure 142/78 H 117/76 Pulse Oximetry 100 99 Oxygen Delivery Room Air 07/18/25 06:27 Temperature 37.3 C Pulse Rate 100 Respiratory Rate 18 Blood Pressure 122/66 Pulse Oximetry 97 Oxygen Delivery Intake/Output Intake/Output: Intake & Output 07/15/25 07/16/25 07/17/25 07/18/25 23:59 23:59 23:59 23:59 Intake Total 2241 1737 970 Output Total 3825 2050 600 Balance -1584 -313 370 Meds/Results Medications: Active Medications Generic Name Dose Route Start Last Admin Trade Name Freq PRN Reason Stop Dose Admin Acetaminophen 650 mg 07/16/25 12:38 Acetaminophen 325 Mg Tablet PO Q4H PRN Pain Rated 1-3 Dextrose 12.5 gm 07/10/25 22:55 Dextrose 50% 25 Gm/50 Ml Syringe IV PUSH PRN PRN Hypoglycemia Protocol Enoxaparin Sodium 40 mg 07/11/25 10:45 07/17/25 09:06 Enoxaparin 40 Mg/0.4 Ml Syringe SUB-Q 40 mg DAILY RAJAT Administration Glucagon 1 mg 07/10/25 22:55 Glucagon For Inj 1 Mg Vial IM PRN PRN Hypoglycemia Protocol Glucose 15 gm 07/10/25 22:55 Glucose Oral Gel 15 Gm Of Glucse In 37.5 Gm Tube PO PRN PRN Hypoglycemia Protocol Hydromorphone HCl 1 mg 07/10/25 22:44 07/17/25 20:31 Hydromorphone Hcl Inj (*Crx) 1 Mg/Ml Syr IV PUSH 1 mg Q3H PRN Administration Pain Rated 7-10 Dextrose 1,000 mls @ 50 mls/hr 07/10/25 22:55 Dextrose 10% IV CONT .Q20H PRN if PN is interrupted Dextrose 1,000 mls @ 100 mls/hr 07/10/25 22:55 Dextrose 5% 1,000 Ml IVPB PRN PRN Hypoglycemia Protocol Insulin Aspart 2 - 5 units 07/11/25 00:00 07/18/25 01:42 Insulin Aspart (*Bkc) 100 Units/Ml SUB-Q Not Given Q6HR [facility] Protocol Nitroglycerin 0.4 mg 07/08/25 13:09 Nitroglycerin Sl 0.4 Mg Tablet SUBLINGUAL Q5MIN PRN Chest Pain Ondansetron HCl 4 mg 07/09/25 15:58 07/10/25 05:30 Ondansetron Inj 4 Mg/2 Ml Vial IV PUSH 4 mg Q4HR PRN Administration Nausea And Vomiting Oxycodone HCl 2.5 mg 07/16/25 12:38 07/16/25 20:24 Oxycodone Hcl (*Crx) 2.5 Mg Tab Ir PO 2.5 mg Q4H PRN Administration Pain Rated 4-6 Oxycodone HCl 5 mg 07/16/25 12:38 07/18/25 03:05 Oxycodone Hcl (*Crx) 5 Mg Tab Ir PO 5 mg Q4H PRN Administration Pain Rated 7-10 Pantoprazole Sodium 40 mg 07/18/25 09:00 Pantoprazole 40 Mg Tablet PO QAM [facility] Phenol 1 spray 07/13/25 12:58 07/14/25 15:46 Phenol/Sod Pheno [place]y (*Bkc) MUCOUS MEM 1 spray PRN PRN Administration Sore Throat Polysaccharide Iron Complex 150 mg 07/18/25 08:00 Polysaccharide Iron Complex 150 Mg Capsule PO DAILY@0800 [facility] Sodium Chloride 10 ml 07/11/25 22:00 07/18/25 05:44 Central Line Flush IV PUSH 10 ml Q8HR RAJAT Administration Sodium Chloride 10 ml 07/11/25 14:20 07/14/25 14:01 Central Line Flush IV PUSH 10 ml PRN PRN Administration with TPN bag changes Sodium Chloride 20 ml 07/11/25 14:20 07/14/25 14:00 Central Line Flush IV PUSH 20 ml PRN PRN Administration after blood draws Radiology Results: ITS Impressions Chest/Abdomen/Pelvis CTA 07/08/25 10:04 IMPRESSION: 1. Small bowel obstruction with distal ileal transition point in the right deep pelvis along with a small amount of likely reactive ascites. 2. Mild emphysema. No pulmonary embolism or other acute cardiopulmonary disease. Small Bowel X-Ray 07/09/25 20:09 IMPRESSION: 1: Small bowel obstruction. 2: Gastroesophageal reflux. Chest X-Ray 07/11/25 14:41 IMPRESSION: 1. Left upper extremity PICC line with distal tip positioned in the mid superior vena cava on the final image. 2. No acute cardiopulmonary disease. Abdomen X-Ray 07/14/25 11:49 IMPRESSION: 1. Residual contrast in colon from small bowel series study from 4 days prior. No free intraperitoneal gas or dilated gas-filled loops of bowel to suggest obstruction. Labs Labs: Laboratory Results - last 24 hr 07/17/25 07/17/25 07/17/25 11:57 17:00 17:32 WBC RBC Hgb Hct MCV MCH MCHC RDW Plt Count MPV POC Capillary Glucose 82 74 Iron 30 L TIBC 180 L % Saturation 17 L Ferritin 492.00 H Vitamin B12 550.0 Folate 6.0 07/17/25 07/18/25 07/18/25 23:40 05:18 07:16 WBC 5.6 RBC 2.25 L Hgb 7.2 L Hct 22.1 L MCV 98.2 MCH 32.0 MCHC 32.6 RDW 13.3 Plt Count 330 MPV 8.7 POC Capillary Glucose 93 87 Iron TIBC % Saturation Ferritin Vitamin B12 Folate
[2025-07-18] MEDS: PANTOPRAZOLE 40 MG TABLET PO (08:50)
[2025-07-18] MEDS: ENOXAPARIN 40 MG/0.4 ML SYRINGE SUB-Q (08:50)
--- NOTE | 2025-07-18 11:20 | P.PNONC_ITS ---
Progress Note: A&P Assessment and Plan (1) Primary cervical cancer with metastasis to other site: Code(s): C53.9 - Malignant neoplasm of cervix uteri, unspecified Status: Acute Assessment and Plan: CERVICAL CANCER METASTASIZED TO SMALL BOWEL AND LIKELY COLON Patient notes that history of localized cervical cancer and she underwent surgical resection on 08/08/2021 at cancer treatment centers of [facility] in [facility]. She was then started on adjuvant cisplatin plus radiation also add CTCAE in [facility]. She completed the concurrent chemoradiation on November of 2021. It is not clear whether patients are any local oncologist. For her cervical cancer treatment she used to commute from here to [facility] for treatment. More recently patient reports that she has been having abdominal pain nausea and vomiting for past 2 months. She presented to [place] [facility] on 07/08/25 with tachycardia, abdominal pain, n/v and inability to eat A CTA chest/abd/pelvis on 07/08/25 showed small bowel obstruction with distal ileal transition point in the right deep pelvis along with a small amount of likely reactive ascites. ED nursing staff attempted NG tube placement, but this was unsuccessful as patient could not tolerate it. Over the course of this hospitalization patient was taken to OR for exploratory laparotomy by Dr. Sethi on 07/10/25 with findings of two cecal masses and large rectal mass. Cecal masses were resected with end to end anastomosis. A diverting descending loop colostomy was performed due to rectal mass being nearly obstructive.. Per Dr. Sethi's 07/10/25 Operative report- I then explored the pelvis and found a mass at the rectosigmoid junction which extended below the peritoneal reflection and beyond actually worked feel without opening the Cul-de-sac. the proximal colon did not appear to be significantly dilated but the mass felt be nearly obstructive. I do not appreciate any other masses in the right ascending, transverse, or descending left colon. At this point since she had unprepped colon and this was an emergent case for small-bowel obstruction that I was prepared to perform a low anterior resection of the rectosigmoid mass. We did have a diagnosis of possible malignancy either primary or metastatic disease and so I elected to perform resection of the small bowel masses and perform anastomosis and then place a diverting descending loop colostomy until further workup the rectosigmoid mass could be done and the patient would then be able the eat. Pathology of the surgical specimen from 07/10/25 shows- Two separate masses (2.3 x 2.1 x 1.8 cm and 1.2 x 1.1 x 1.0 cm) which are both more than 1.0 cm away from surigcal margins and are by 5.0 cm of uninvolved intestine. Pathology of two foci of masses is consistent with metast atic adenocarcinoma, 2.3 and 1.2 cm, uterine cervix primary. Margins negative for metastatic adenocarcinoma. Nine lymph nodes negative for metastatic adenocarcinoma (0/9) Patient with biopsy proven metastatic cervical cancer with two mets to small bowel. The rectosigmoid mass is also likely a metastatic site but the biopsy will be valuable to compare with cecal mass biopsy. If this is also a metastatic cervix cancer and not rectosigmoid primary then we can treat with chemotherapy/immunotherapy without subjecting her to rectal mass surgery. She has diverting colostomy to relieve the bowel contents. Would like to get opinion from GI team to see if the rectosigmoid mass can be reached by flexible sigmoidoscopy for tissue biopsy. It was noted in prior colonoscopy by a GI physician that they could not pass the scope. Not sure whether the stricture is below the rectosigmoid mass and the mass could not be seen in prior attempted colonoscopy as an outpatient. Recommend GI opinion on the biopsy of the rectosigmoid mass. If the rectosigmoid mass cannot be reached by sigmoidoscopy then patient would need a surgical opinion for rectal mass resection and getting a pathology that way. We need to confirm that rectosigmoid mass is also a metastatic cervical cancer and not the primary colorectal cancer. General Surgery recommended MRI of pelvis for detail assessment of rectosigmoid mass, primary team to order. Dr. Sethi (Surgeon) to discuss the case with Dr. Sanders at [facility] for colorectal opinion. Patient could get outpatient lower GI endoscopy by one of our local GI specialist versus Dr. Sanders arranging for a [facility] GI specialist to perform the endoscopy or she may even do the endoscopy herself. I also recommend NGS testing on the Small Bowel Tumor specimen for biomarker driven therapy. This should be done by a pathologist. The above plan was explained to patient and her family members present in the room. (2) Breast cancer: Code(s): C50.919 - Malignant neoplasm of unspecified site of unspecified female breast Status: Acute Assessment and Plan: RIGHT BREAST CANCER- Patient with history of right breast cancer diagnosed in June 2022. Patient underwent bilateral mastectomy with reconstruction in June 2022. She is not sure what was the exact stage but was told that she did not need chemotherapy or radiation. The disease was ER CO positive and therefore patient is on anastrozole 1 mg daily since then. (3) Anemia: Code(s): D64.9 - Anemia, unspecified Status: Acute Assessment and Plan: PROGRESSIVE ANEMIA- Patient presented with hemoglobin of 14 on 07/08/25 and slowly decreased to 7.1 today. Some of it could be surgical blood loss but this is 7 gm drop in her hemoglobin. Iron panel showed Low TIBC, saturations 17% and low but ferritin high at 492. I have ordered soluble transferrin receptor to further assess anemia of inflammation vs. true iron deficiency. If soluble receptor is low then this is Anemia of inflammation and patient does not need iron supplement. If soluble transferrin receptor is high then patient is iron deficient and will need Iron supplementation. B12 is 550 and normal. Folate is 6 and at low end of range. Patient will benefit from oral folic acid tablet 1mg daily. Subjective Date/time seen: 07/18/25 11:20 Interval history: Patient tolerating food. surgical site pain still about the same. No chest pain no shortness of breath. Review of Systems Review of Systems Patient reports postsurgical pain is still about the same and needing IV pain medicine for pain control. Tolerating oral intake well. She denies any nausea or vomiting. She endorses liquid bowels in the ostomy bag. There is no chest pain or shortness of breath. Patient reports bilateral lower extremity edema post surgery. Denies cough, night sweats. Reports 7 lb weight loss in past few months as she was not able to eat. Rest of the 12 point review of system is negative. Exam Narrative: General: Alert and oriented x3, no acute distress HEENT: EOMI, PERRL, no lymphadenopathy CV: RRR, No m/g/r RESP: Clear to auscultation bilaterally ABD: soft, ostomy bag with liquid output noted, tenderness to palpation around the surgical site EXT: 1+ edema bilaterally NEURO: No focal deficits SKIN: no rash or open wounds Objective Data Vital Signs Vital Signs: Vital Signs - 24 hr 07/17/25 14:00 07/17/25 20:00 07/17/25 23:13 Temperature 36.4 C 37.6 C H Pulse Rate 91 107 H Respiratory Rate 16 18 Blood Pressure 142/78 H 117/76 Pulse Oximetry 100 99 Oxygen Delivery Room Air 07/18/25 06:27 07/18/25 08:00 Temperature 37.3 C Pulse Rate 100 Respiratory Rate 18 Blood Pressure 122/66 Pulse Oximetry 97 Oxygen Delivery Room Air Intake/Output Intake/Output: Intake & Output 07/15/25 07/16/25 07/17/25 07/18/25 23:59 23:59 23:59 23:59 Intake Total 2241 1737 970 240 Output Total 3825 2829 600 Balance -1584 -313 370 240 Meds/Results Medications: Active Medications Generic Name Dose Route Start Last Admin Trade Name Freq PRN Reason Stop Dose Admin Acetaminophen 650 mg 07/16/25 12:38 Acetaminophen 325 Mg Tablet PO Q4H PRN Pain Rated 1-3 Dextrose 12.5 gm 07/10/25 22:55 Dextrose 50% 25 Gm/50 Ml Syringe IV PUSH PRN PRN Hypoglycemia Protocol Enoxaparin Sodium 40 mg 07/11/25 10:45 07/18/25 08:50 Enoxaparin 40 Mg/0.4 Ml Syringe SUB-Q 40 mg DAILY RAJAT Administration Glucagon 1 mg 07/10/25 22:55 Glucagon For Inj 1 Mg Vial IM PRN PRN Hypoglycemia Protocol Glucose 15 gm 07/10/25 22:55 Glucose Oral Gel 15 Gm Of Glucse In 37.5 Gm Tube PO PRN PRN Hypoglycemia Protocol Hydromorphone HCl 1 mg 07/10/25 22:44 07/17/25 20:31 Hydromorphone Hcl Inj (*Crx) 1 Mg/Ml Syr IV PUSH 1 mg Q3H PRN Administration Pain Rated 7-10 Dextrose 1,000 mls @ 50 mls/hr 07/10/25 22:55 Dextrose 10% IV CONT .Q20H PRN if PN is interrupted Dextrose 1,000 mls @ 100 mls/hr 07/10/25 22:55 Dextrose 5% 1,000 Ml IVPB PRN PRN Hypoglycemia Protocol Insulin Aspart 2 - 5 units 07/11/25 00:00 07/18/25 08:51 Insulin Aspart (*Bkc) 100 Units/Ml SUB-Q Not Given Q6HR RAJAT Protocol Nitroglycerin 0.4 mg 07/08/25 13:09 Nitroglycerin Sl 0.4 Mg Tablet SUBLINGUAL Q5MIN PRN Chest Pain Ondansetron HCl 4 mg 07/09/25 15:58 07/10/25 05:30 Ondansetron Inj 4 Mg/2 Ml Vial IV PUSH 4 mg Q4HR PRN Administration Nausea And Vomiting Oxycodone HCl 2.5 mg 07/16/25 12:38 07/16/25 20:24 Oxycodone Hcl (*Crx) 2.5 Mg Tab Ir PO 2.5 mg Q4H PRN Administration Pain Rated 4-6 Oxycodone HCl 5 mg 07/16/25 12:38 07/18/25 08:49 Oxycodone Hcl (*Crx) 5 Mg Tab Ir PO 5 mg Q4H PRN Administration Pain Rated 7-10 Pantoprazole Sodium 40 mg 07/18/25 09:00 07/18/25 08:50 Pantoprazole 40 Mg Tablet PO 40 mg QAM RAJAT Administration Phenol 1 spray 07/13/25 12:58 07/14/25 15:46 Phenol/Sod Pheno Sparks Dey (*Bkc) MUCOUS MEM 1 spray PRN PRN Administration Sore Throat Polysaccharide Iron Complex 150 mg 07/18/25 08:00 07/18/25 08:50 Polysaccharide Iron Complex 150 Mg Capsule PO 150 mg DAILY@0800 RAJAT Administration Sodium Chloride 10 ml 07/11/25 22:00 07/18/25 05:44 Central Line Flush IV PUSH 10 ml Q8HR RAJAT Administration Sodium Chloride 10 ml 07/11/25 14:20 07/14/25 14:01 Central Line Flush IV PUSH 10 ml PRN PRN Administration with TPN bag changes Sodium Chloride 20 ml 07/11/25 14:20 07/14/25 14:00 Central Line Flush IV PUSH 20 ml PRN PRN Administration after blood draws Radiology Results: ITS Impressions Chest/Abdomen/Pelvis CTA 07/08/25 10:04 IMPRESSION: 1. Small bowel obstruction with distal ileal transition point in the right deep pelvis along with a small amount of likely reactive ascites. 2. Mild emphysema. No pulmonary embolism or other acute cardiopulmonary disease. Small Bowel X-Ray 07/09/25 20:09 IMPRESSION: 1: Small bowel obstruction. 2: Gastroesophageal reflux. Chest X-Ray 07/11/25 14:41 IMPRESSION: 1. Left upper extremity PICC line with distal tip positioned in the mid superior vena cava on the final image. 2. No acute cardiopulmonary disease. Abdomen X-Ray 07/14/25 11:49 IMPRESSION: 1. Residual contrast in colon from small bowel series study from 4 days prior. No free intraperitoneal gas or dilated gas-filled loops of bowel to suggest obstruction. Labs Labs: Laboratory Results - last 24 hr 07/17/25 07/17/25 07/17/25 11:57 17:00 17:32 WBC RBC Hgb Hct MCV MCH MCHC RDW Plt Count MPV POC Capillary Glucose 82 74 Iron 30 L TIBC 180 L % Saturation 17 L Ferritin 492.00 H Vitamin B12 550.0 Folate 6.0 07/17/25 07/18/25 07/18/25 23:40 05:18 07:16 WBC 5.6 RBC 2.25 L Hgb 7.2 L Hct 22.1 L MCV 98.2 MCH 32.0 MCHC 32.6 RDW 13.3 Plt Count 330 MPV 8.7 POC Capillary Glucose 93 87 Iron TIBC % Saturation Ferritin Vitamin B12 Folate
[2025-07-18] MEDS: HYDROmorphone HCL INJ (*CRX) 1 MG/ML SYR IV PUSH ×3 (11:22→21:02)
--- NOTE | 2025-07-18 11:25 | PM.IMPN ---
Progress Note: A&P Assessment and Plan (1) Small bowel obstruction: Code(s): K56.609 - Unspecified intestinal obstruction, unspecified as to partial versus complete obstruction Status: Acute Assessment and Plan: Status post exploratory laparotomy on 07/10/2025: Obstructing masses in distal small bowel which was resected with primary anastomosis performed. Pathology is back with metastatic adenocarcinoma likely source from cervical cancer recurrence. General surgery planning to referred to Colorectal surgery at [facility]. Following oncology recommendation Ordered MRI pelvis to assess rectal sigmoid mass (2) Elevated troponin: Code(s): R79.89 - Other specified abnormal findings of blood chemistry Status: Acute Assessment and Plan: Stable on current medications: Will continue current treatment. Subjective Date/time seen: 07/18/25 11:25 Interval history: 55-year-old female with PMH hypertension, breast cancer (2020, s/p double mastectomy), and adenocarcinoma of the cervix (2020, s/p radiation/chemo and hysterectomy) on oral chemo presents to [facility] via EMS with tachycardia and chest pain on 07/08/2025. Upon further evaluation the pain and was originating in the stomach area. Patient has a past medical history of cervical cancer which was treated with surgery,chemo and radiation. Patient also has hx of right side breast cancer and had removal of both the breast. During the current hospitalization patient underwent Exploratory laparotomy with segmental terminal ileal small-bowel resection and hand-sewn [id number] ileal anastomosis, placement o left descending diverting loop colostomy. Patient still has rectosigmoid mass. Will await for GI opinion about biopsy of the rectosigmoid mass. If the rectosigmoid mass cannot be reached by sigmoidoscopy then patient would need a surgical opinion for rectal mass resection and getting a pathology that way. MRI of the pelvis has been ordered to assess rectosigmoid mass. Review of Systems Review of Systems: All systems reviewed & are unremarkable except as noted in HPI and below (Subjective) Exam Narrative: GENERAL: Well-appearing, well-nourished, and in no acute distress. HEAD: Normocephalic, atraumatic. EYES: PERRLA and EOMI. ENT: Nares clear, no rhinorrhea or epistaxis. Mucous membranes moist. NG tube in place NECK: Supple. CHEST: Clear to auscultation. No respiratory distress. HEART: Regular rate and rhythm. No murmur heard. Normal peripheral pulses. ABDOMEN: Soft, surgical incision covered with dressing which is clean dry and intact, left-sided colostomy in-situ with brown stool in the bag, normoactive bowel sounds. EXTREMITIES: Normal range of motion. No edema. SKIN: Warm, dry, no rash. NEURO: No focal deficits. Alert and oriented x3. PSYCH: Normal mood and affect. Const: General: comfortable and no acute distress Other: A&O x3 HENMT: Face/Nose/Sinus: Normal nares present Mouth: Yes moist mucous membranes Eyes: General: appearance normal, both eyes and all related structures Sclera: sclerae normal Pupils: Equal, round and reactive pupils present EOM: EOMs intact bilaterally Neck: Neck: supple Resp: Effort & Inspection: normal respiratory effort Auscultation: clear to auscultation bilaterally Cardio: Rate: regular rate Rhythm: regular rhythm Heart sounds: no murmurs Other: S1-S2 present without murmur, rub, ectopy GI: Other: Tender to palpation of the epigastrium. Bowel sounds hypoactive Skin: General skin exam: normal color and no rashes or lesions noted Wounds: no wounds Neuro: Cranial nerves: Yes Equal, round and reactive pupils present Speech: normal speech Motor exam (neuro): 5/5 motor strength present throughout Sensory Exam: normal sensation Other: A&O x4 Extrem: General: normal to inspection and no edema Psych: Mental Status: mental status grossly normal Affect: normal affect Other: Good insight and judgment, pleasant Objective Data Vital Signs Vital Signs: Vital Signs - 24 hr 07/17/25 14:00 07/17/25 20:00 07/17/25 23:13 Temperature 97.6 F 99.7 F H Pulse Rate 91 107 H Respiratory Rate 16 18 Blood Pressure 142/78 H 117/76 Pulse Oximetry 100 99 Oxygen Delivery Room Air 07/18/25 06:27 07/18/25 08:00 Temperature 99.1 F Pulse Rate 100 Respiratory Rate 18 Blood Pressure 122/66 Pulse Oximetry 97 Oxygen Delivery Room Air Intake/Output Intake/Output: Intake & Output 07/15/25 07/16/25 07/17/25 07/18/25 23:59 23:59 23:59 23:59 Intake Total 5075 2647 970 240 Output Total 0595 0010 600 Balance -1584 -313 370 240 Meds/Results Medications: Active Medications Generic Name Dose Route Start Last Admin Trade Name Freq PRN Reason Stop Dose Admin Acetaminophen 650 mg 07/16/25 12:38 Acetaminophen 325 Mg Tablet PO Q4H PRN Pain Rated 1-3 Dextrose 12.5 gm 07/10/25 22:55 Dextrose 50% 25 Gm/50 Ml Syringe IV PUSH PRN PRN Hypoglycemia Protocol Enoxaparin Sodium 40 mg 07/11/25 10:45 07/18/25 08:50 Enoxaparin 40 Mg/0.4 Ml Syringe SUB-Q 40 mg DAILY RAJAT Administration Folic Acid 1 mg 07/19/25 09:00 Folic Acid 1 Mg Tablet PO DAILY RAJAT Glucagon 1 mg 07/10/25 22:55 Glucagon For Inj 1 Mg Vial IM PRN PRN Hypoglycemia Protocol Glucose 15 gm 07/10/25 22:55 Glucose Oral Gel 15 Gm Of Glucse In 37.5 Gm Tube PO PRN PRN Hypoglycemia Protocol Hydromorphone HCl 1 mg 07/10/25 22:44 07/18/25 11:22 Hydromorphone Hcl Inj (*Crx) 1 Mg/Ml Syr IV PUSH 1 mg Q3H PRN Administration Pain Rated 7-10 Dextrose 1,000 mls @ 50 mls/hr 07/10/25 22:55 Dextrose 10% IV CONT .Q20H PRN if PN is interrupted Dextrose 1,000 mls @ 100 mls/hr 07/10/25 22:55 Dextrose 5% 1,000 Ml IVPB PRN PRN Hypoglycemia Protocol Insulin Aspart 2 - 5 units 07/11/25 00:00 07/18/25 08:51 Insulin Aspart (*Bkc) 100 Units/Ml SUB-Q Not Given Q6HR [facility] Protocol Nitroglycerin 0.4 mg 07/08/25 13:09 Nitroglycerin Sl 0.4 Mg Tablet SUBLINGUAL Q5MIN PRN Chest Pain Ondansetron HCl 4 mg 07/09/25 15:58 07/10/25 05:30 Ondansetron Inj 4 Mg/2 Ml Vial IV PUSH 4 mg Q4HR PRN Administration Nausea And Vomiting Oxycodone HCl 2.5 mg 07/16/25 12:38 07/16/25 20:24 Oxycodone Hcl (*Crx) 2.5 Mg Tab Ir PO 2.5 mg Q4H PRN Administration Pain Rated 4-6 Oxycodone HCl 5 mg 07/16/25 12:38 07/18/25 08:49 Oxycodone Hcl (*Crx) 5 Mg Tab Ir PO 5 mg Q4H PRN Administration Pain Rated 7-10 Pantoprazole Sodium 40 mg 07/18/25 09:00 07/18/25 08:50 Pantoprazole 40 Mg Tablet PO 40 mg QAM RAJAT Administration Phenol 1 spray 07/13/25 12:58 07/14/25 15:46 Phenol/Sod Pheno Paulina Dey (*Bkc) MUCOUS MEM 1 spray PRN PRN Administration Sore Throat Polysaccharide Iron Complex 150 mg 07/18/25 08:00 07/18/25 08:50 Polysaccharide Iron Complex 150 Mg Capsule PO 150 mg DAILY@0800 RAJAT Administration Sodium Chloride 10 ml 07/11/25 22:00 07/18/25 11:22 Central Line Flush IV PUSH 10 ml Q8HR RAJAT Administration Sodium Chloride 10 ml 07/11/25 14:20 07/14/25 14:01 Central Line Flush IV PUSH 10 ml PRN PRN Administration with TPN bag changes Sodium Chloride 20 ml 07/11/25 14:20 07/14/25 14:00 Central Line Flush IV PUSH 20 ml PRN PRN Administration after blood draws Radiology Results: ITS Impressions Chest/Abdomen/Pelvis CTA 07/08/25 10:04 IMPRESSION: 1. Small bowel obstruction with distal ileal transition point in the right deep pelvis along with a small amount of likely reactive ascites. 2. Mild emphysema. No pulmonary embolism or other acute cardiopulmonary disease. Small Bowel X-Ray 07/09/25 20:09 IMPRESSION: 1: Small bowel obstruction. 2: Gastroesophageal reflux. Chest X-Ray 07/11/25 14:41 IMPRESSION: 1. Left upper extremity PICC line with distal tip positioned in the mid superior vena cava on the final image. 2. No acute cardiopulmonary disease. Abdomen X-Ray 07/14/25 11:49 IMPRESSION: 1. Residual contrast in colon from small bowel series study from 4 days prior. No free intraperitoneal gas or dilated gas-filled loops of bowel to suggest obstruction. Labs Labs: Laboratory Results - last 24 hr 07/17/25 07/17/25 07/17/25 11:57 17:00 17:32 WBC RBC Hgb Hct MCV MCH MCHC RDW Plt Count MPV POC Capillary Glucose 82 74 Iron 30 L TIBC 180 L % Saturation 17 L Ferritin 492.00 H Vitamin B12 550.0 Folate 6.0 07/17/25 07/18/25 07/18/25 23:40 05:18 07:16 WBC 5.6 RBC 2.25 L Hgb 7.2 L Hct 22.1 L MCV 98.2 MCH 32.0 MCHC 32.6 RDW 13.3 Plt Count 330 MPV 8.7 POC Capillary Glucose 93 87 Iron TIBC % Saturation Ferritin Vitamin B12 Folate Quality VTE Prophylaxis VTE prophylaxis: mechanical ordered Hospitalist MIPS Advance Care Plan I have confirmed that the patient's Advanced Care Plan is present, code status is documented, or surrogate decision maker is listed in patient medical record.: Yes Medication Reconciliation I have utilized all available resources to obtain, update and review the patients current medications (includes all prescriptions, OTC, herbals, cannabis, and nutritional supplements).: Yes
[2025-07-18 15:17] VITALS: BP 114/68; PULSE 92; RESP 18; TEMP 36.5; O2SAT 99
[2025-07-18 22:14] VITALS: BP 105/69; PULSE 92; RESP 20; TEMP 36.9; O2SAT 100
[2025-07-19] MEDS: HYDROmorphone HCL INJ (*CRX) 1 MG/ML SYR IV PUSH ×4 (03:25→22:05)
[2025-07-19] MEDS: CENTRAL LINE FLUSH 10 ML IV PUSH ×3 (05:23→22:30)
[2025-07-19 05:29] LABS: Hematocrit 23.3 % (37.0-47.0); Hemoglobin 7.4 g/dL (12.0-15.0); Mean Corpuscular HGB Conc 31.8 g/dl (32-36); Mean Corpuscular Hemoglobin 31.8 pg (26-34); Mean Corpuscular Volume 100.0 fl (80-100); Platelet Count Result 362 k/mm3 (150-375); Red Blood Count 2.33 M/mm3 (4.2-5.4); White Blood Count 5.4 K/mm3 (4.5-10.0)
[2025-07-19 05:48] LABS: Alanine Aminotransferase 51 U/L (6-35); Albumin Level 3.0 g/dL (3.5-5.1); Alkaline Phosphatase 92 U/L (38-126); Anion Gap 3 mmol/L (4-12); Aspartate Amino Transferase 55 U/L (14-36); Bilirubin,Total 0.8 mg/dL (0.2-1.3); Blood Urea Nitrogen 4 mg/dL (7-17); Calcium 8.8 mg/dL (8.4-10.2); Carbon Dioxide 32 mmol/L (22-30); Chloride 97 mmol/L (98-107); Estimated CRCL calculation 51 ml/min; Estimated Glomerular Filt Rate 56; Glucose 93 mg/dL (65-110); Potassium 4.2 mmol/L (3.4-5.0); Sodium 132 mmol/L (137-145); Total Protein 6.1 g/dL (6.3-8.2)
[2025-07-19] MEDS: oxyCODONE HCL (*CRX) 5 MG TAB IR PO ×2 (06:27→12:48)
[2025-07-19 06:31] VITALS: BP 109/67; PULSE 86; RESP 18; TEMP 36.9; O2SAT 97
--- NOTE | 2025-07-19 08:42 | P.PNIM_ITS ---
Progress Note: A&P Assessment and Plan (1) Small bowel obstruction: Code(s): K56.609 - Unspecified intestinal obstruction, unspecified as to partial versus complete obstruction Status: Acute Assessment and Plan: Status post exploratory laparotomy on 07/10/2025: Obstructing masses in distal small bowel which was resected with primary anastomosis performed. Pathology is back with metastatic adenocarcinoma likely source from cervical cancer recurrence. General surgery planning to referred to Colorectal surgery at [facility]. Following oncology recommendation Unable to perform MRI Discussed with surgery and patient can follow-up as an outpatient (2) Elevated troponin: Code(s): R79.89 - Other specified abnormal findings of blood chemistry Status: Acute Assessment and Plan: Stable on current medications: Will continue current treatment. Subjective Date/time seen: 07/19/25 08:42 Interval history: Interval history: 55-year-old female with PMH hypertension, breast cancer (2020, s/p double mastectomy), and adenocarcinoma of the cervix (2020, s/p radiation/chemo and hysterectomy) on oral chemo presents to [facility] via EMS with tachycardia and chest pain on 07/08/2025. Upon further evaluation the pain and was originating in the stomach area. Patient has a past medical history of cervical cancer which was treated with surgery,chemo and radiation. Patient also has hx of right side breast cancer and had removal of both the breast. During the current hospitalization patient underwent Exploratory laparotomy with segmental terminal ileal small-bowel resection and hand-sewn [id number] ileal anastomosis, placement o left descending diverting loop colostomy. Patient still has rectosigmoid mass. Will await for GI opinion about biopsy of the rectosigmoid mass. If the rectosigmoid mass cannot be reached by sigmoidoscopy then patient would need a surgical opinion for rectal mass resection and getting a pathology that way. MRI of the pelvis has been ordered to assess rectosigmoid mass. 07/19: No acute events overnight. Pending home health for osteotomy care. Review of Systems Review of Systems: All systems reviewed & are unremarkable except as noted in HPI and below (Subjective) Exam Narrative: GENERAL: Well-appearing, well-nourished, and in no acute distress. HEAD: Normocephalic, atraumatic. EYES: PERRLA and EOMI. ENT: Nares clear, no rhinorrhea or epistaxis. Mucous membranes moist. NG tube in place NECK: Supple. CHEST: Clear to auscultation. No respiratory distress. HEART: Regular rate and rhythm. No murmur heard. Normal peripheral pulses. ABDOMEN: Soft, surgical incision covered with dressing which is clean dry and intact, left-sided colostomy in-situ with brown stool in the bag, normoactive bowel sounds. EXTREMITIES: Normal range of motion. No edema. SKIN: Warm, dry, no rash. NEURO: No focal deficits. Alert and oriented x3. PSYCH: Normal mood and affect. Const: General: comfortable and no acute distress Other: A&O x3 HENMT: Face/Nose/Sinus: Normal nares present Mouth: Yes moist mucous membranes Eyes: General: appearance normal, both eyes and all related structures Sclera: sclerae normal Pupils: Equal, round and reactive pupils present EOM: EOMs intact bilaterally Neck: Neck: supple Resp: Effort & Inspection: normal respiratory effort Auscultation: clear to auscultation bilaterally Cardio: Rate: regular rate Rhythm: regular rhythm Heart sounds: no murmurs Other: S1-S2 present without murmur, rub, ectopy GI: Other: Tender to palpation of the epigastrium. Bowel sounds hypoactive Skin: General skin exam: normal color and no rashes or lesions noted Wounds: no wounds Neuro: Cranial nerves: Yes Equal, round and reactive pupils present Speech: normal speech Motor exam (neuro): 5/5 motor strength present throughout Sensory Exam: normal sensation Other: A&O x4 Extrem: General: normal to inspection and no edema Psych: Mental Status: mental status grossly normal Affect: normal affect Other: Good insight and judgment, pleasant Objective Data Vital Signs Vital Signs: Vital Signs - 24 hr 07/18/25 15:17 07/18/25 20:00 07/18/25 22:14 Temperature 97.7 F 98.4 F Pulse Rate 92 92 Respiratory Rate 18 20 Blood Pressure 114/68 105/69 Pulse Oximetry 99 100 Oxygen Delivery Room Air 07/19/25 06:31 Temperature 98.4 F Pulse Rate 86 Respiratory Rate 18 Blood Pressure 109/67 Pulse Oximetry 97 Oxygen Delivery Intake/Output Intake/Output: Intake & Output 07/16/25 07/17/25 07/18/25 07/19/25 23:59 23:59 23:59 23:59 Intake Total 1737 970 720 Output Total 2050 600 Balance -313 370 720 Meds/Results Medications: Active Medications Generic Name Dose Route Start Last Admin Trade Name Freq PRN Reason Stop Dose Admin Acetaminophen 650 mg 07/16/25 12:38 Acetaminophen 325 Mg Tablet PO Q4H PRN Pain Rated 1-3 Dextrose 12.5 gm 07/10/25 22:55 Dextrose 50% 25 Gm/50 Ml Syringe IV PUSH PRN PRN Hypoglycemia Protocol Enoxaparin Sodium 40 mg 07/11/25 10:45 07/18/25 08:50 Enoxaparin 40 Mg/0.4 Ml Syringe SUB-Q 40 mg DAILY RAJAT Administration Folic Acid 1 mg 07/19/25 09:00 Folic Acid 1 Mg Tablet PO DAILY [facility] Glucagon 1 mg 07/10/25 22:55 Glucagon For Inj 1 Mg Vial IM PRN PRN Hypoglycemia Protocol Glucose 15 gm 07/10/25 22:55 Glucose Oral Gel 15 Gm Of Glucse In 37.5 Gm Tube PO PRN PRN Hypoglycemia Protocol Hydromorphone HCl 1 mg 07/10/25 22:44 07/19/25 03:25 Hydromorphone Hcl Inj (*Crx) 1 Mg/Ml Syr IV PUSH 1 mg Q3H PRN Administration Pain Rated 7-10 Dextrose 1,000 mls @ 50 mls/hr 07/10/25 22:55 Dextrose 10% IV CONT .Q20H PRN if PN is interrupted Dextrose 1,000 mls @ 100 mls/hr 07/10/25 22:55 Dextrose 5% 1,000 Ml IVPB PRN PRN Hypoglycemia Protocol Insulin Aspart 2 - 5 units 07/19/25 08:00 Insulin Aspart (*Bkc) 100 Units/Ml SUB-Q TIDWM [facility] Protocol Nitroglycerin 0.4 mg 07/08/25 13:09 Nitroglycerin Sl 0.4 Mg Tablet SUBLINGUAL Q5MIN PRN Chest Pain Ondansetron HCl 4 mg 07/09/25 15:58 07/10/25 05:30 Ondansetron Inj 4 Mg/2 Ml Vial IV PUSH 4 mg Q4HR PRN Administration Nausea And Vomiting Oxycodone HCl 2.5 mg 07/16/25 12:38 07/16/25 20:24 Oxycodone Hcl (*Crx) 2.5 Mg Tab Ir PO 2.5 mg Q4H PRN Administration Pain Rated 4-6 Oxycodone HCl 5 mg 07/16/25 12:38 07/19/25 06:27 Oxycodone Hcl (*Crx) 5 Mg Tab Ir PO 5 mg Q4H PRN Administration Pain Rated 7-10 Pantoprazole Sodium 40 mg 07/18/25 09:00 07/18/25 08:50 Pantoprazole 40 Mg Tablet PO 40 mg QAM RAJAT Administration Phenol 1 spray 07/13/25 12:58 07/14/25 15:46 Phenol/Sod Pheno Amelia Dey (*Bkc) MUCOUS MEM 1 spray PRN PRN Administration Sore Throat Polysaccharide Iron Complex 150 mg 07/18/25 08:00 07/18/25 08:50 Polysaccharide Iron Complex 150 Mg Capsule PO 150 mg DAILY@0800 RAJAT Administration Sodium Chloride 10 ml 07/11/25 22:00 07/19/25 05:23 Central Line Flush IV PUSH 10 ml Q8HR RAJAT Administration Sodium Chloride 10 ml 07/11/25 14:20 07/14/25 14:01 Central Line Flush IV PUSH 10 ml PRN PRN Administration with TPN bag changes Sodium Chloride 20 ml 07/11/25 14:20 07/14/25 14:00 Central Line Flush IV PUSH 20 ml PRN PRN Administration after blood draws Radiology Results: ITS Impressions Chest/Abdomen/Pelvis CTA 07/08/25 10:04 IMPRESSION: 1. Small bowel obstruction with distal ileal transition point in the right deep pelvis along with a small amount of likely reactive ascites. 2. Mild emphysema. No pulmonary embolism or other acute cardiopulmonary disease. Small Bowel X-Ray 07/09/25 20:09 IMPRESSION: 1: Small bowel obstruction. 2: Gastroesophageal reflux. Chest X-Ray 07/11/25 14:41 IMPRESSION: 1. Left upper extremity PICC line with distal tip positioned in the mid superior vena cava on the final image. 2. No acute cardiopulmonary disease. Abdomen X-Ray 07/14/25 11:49 IMPRESSION: 1. Residual contrast in colon from small bowel series study from 4 days prior. No free intraperitoneal gas or dilated gas-filled loops of bowel to suggest obstruction. Labs Labs: Laboratory Results - last 24 hr 07/18/25 07/18/25 07/18/25 11:34 17:02 19:58 WBC RBC Hgb Hct MCV MCH MCHC RDW Plt Count MPV Sodium Potassium Chloride Carbon Dioxide Anion Gap BUN Creatinine Estim Creat Clear Calc Estimated GFR Glucose POC Capillary Glucose 104 102 141 H Calcium Total Bilirubin AST ALT Alkaline Phosphatase Total Protein Albumin 07/19/25 05:20 WBC 5.4 RBC 2.33 L Hgb 7.4 L Hct 23.3 L MCV 100.0 MCH 31.8 MCHC 31.8 L RDW 13.2 Plt Count 362 MPV 8.4 Sodium 132 L Potassium 4.2 Chloride 97 L Carbon Dioxide 32 H Anion Gap 3 L BUN 4 L Creatinine 1.02 H Estim Creat Clear Calc 51 Estimated GFR 56 L Glucose 93 POC Capillary Glucose Calcium 8.8 Total Bilirubin 0.8 AST 55 H ALT 51 H Alkaline Phosphatase 92 Total Protein 6.1 L Albumin 3.0 L Quality VTE Prophylaxis VTE prophylaxis: mechanical ordered Hospitalist [facility] Advance Care Plan I have confirmed that the patient's Advanced Care Plan is present, code status is documented, or surrogate decision maker is listed in patient medical record.: Yes Medication Reconciliation I have utilized all available resources to obtain, update and review the patients current medications (includes all prescriptions, OTC, herbals, cannabis, and nutritional supplements).: Yes
[2025-07-19] MEDS: FOLIC ACID 1 MG TABLET PO (09:04)
[2025-07-19] MEDS: PANTOPRAZOLE 40 MG TABLET PO (09:04)
[2025-07-19] MEDS: ENOXAPARIN 40 MG/0.4 ML SYRINGE SUB-Q (09:04)
--- NOTE | 2025-07-19 10:07 | P.PNONC_ITS ---
Progress Note: A&P Assessment and Plan (1) Primary cervical cancer with metastasis to other site: Code(s): C53.9 - Malignant neoplasm of cervix uteri, unspecified Status: Acute Assessment and Plan: CERVICAL CANCER METASTASIZED TO SMALL BOWEL AND LIKELY COLON Patient notes that history of localized cervical cancer and she underwent surgical resection on 08/08/2021 at cancer treatment centers [facility] in [facility]. She was then started on adjuvant cisplatin plus radiation also add CTCAE in [facility]. She completed the concurrent chemoradiation on November of 2021. It is not clear whether patients are any local oncologist. For her cervical cancer treatment she used to commute from here to [facility] for treatment. More recently patient reports that she has been having abdominal pain nausea and vomiting for past 2 months. She presented to [facility] on 07/08/25 with tachycardia, abdominal pain, n/v and inability to eat A CTA chest/abd/pelvis on 07/08/25 showed small bowel obstruction with distal ileal transition point in the right deep pelvis along with a small amount of likely reactive ascites. ED nursing staff attempted NG tube placement, but this was unsuccessful as patient could not tolerate it. Over the course of this hospitalization patient was taken to OR for exploratory laparotomy by Dr. Sethi on 07/10/25 with findings of two cecal masses and large rectal mass. Cecal masses were resected with end to end anastomosis. A diverting descending loop colostomy was performed due to rectal mass being nearly obstructive.. Per Dr. Sethi's 07/10/25 Operative report- I then explored the pelvis and found a mass at the rectosigmoid junction which extended below the peritoneal reflection and beyond actually worked feel without opening the Cul-de-sac. the proximal colon did not appear to be significantly dilated but the mass felt be nearly obstructive. I do not appreciate any other masses in the right ascending, transverse, or descending left colon. At this point since she had unprepped colon and this was an emergent case for small-bowel obstruction that I was prepared to perform a low anterior resection of the rectosigmoid mass. We did have a diagnosis of possible malignancy either primary or metastatic disease and so I elected to perform resection of the small bowel masses and perform anastomosis and then place a diverting descending loop colostomy until further workup the rectosigmoid mass could be done and the patient would then be able the eat. Pathology of the surgical specimen from 07/10/25 shows- Two separate masses (2.3 x 2.1 x 1.8 cm and 1.2 x 1.1 x 1.0 cm) which are both more than 1.0 cm away from surigcal margins and are by 5.0 cm of uninvolved intestine. Pathology of two foci of masses is consistent with metast atic adenocarcinoma, 2.3 and 1.2 cm, uterine cervix primary. Margins negative for metastatic adenocarcinoma. Nine lymph nodes negative for metastatic adenocarcinoma (0/9) Patient with biopsy proven metastatic cervical cancer with two mets to small bowel. The rectosigmoid mass is also likely a metastatic site but the biopsy will be valuable to compare with cecal mass biopsy. If this is also a metastatic cervix cancer and not rectosigmoid primary then we can treat with chemotherapy/immunotherapy without subjecting her to rectal mass surgery. She has diverting colostomy to relieve the bowel contents. Would like to get opinion from GI team to see if the rectosigmoid mass can be reached by flexible sigmoidoscopy for tissue biopsy. It was noted in prior colonoscopy by a GI physician that they could not pass the scope. Not sure whether the stricture is below the rectosigmoid mass and the mass could not be seen in prior attempted colonoscopy as an outpatient. Recommend GI opinion on the biopsy of the rectosigmoid mass. If the rectosigmoid mass cannot be reached by sigmoidoscopy then patient would need a surgical opinion for rectal mass resection and getting a pathology that way. We need to confirm that rectosigmoid mass is also a metastatic cervical cancer and not the primary colorectal cancer. General Surgery recommended MRI of pelvis for detail assessment of rectosigmoid mass, primary team has ordered the MRI . Dr. Sethi (Surgeon) to discuss the case with Dr. Sanders at [facility] for colorectal opinion. Patient could get outpatient lower GI endoscopy by one of our local GI specialist versus Dr. Sanders arranging for a [facility] GI specialist to perform the endoscopy or she may even do the endoscopy herself. I also recommend NGS testing on the Small Bowel Tumor specimen for biomarker driven therapy. This should be done by a pathologist. The above plan was explained to patient and her family members present in the room. Patient can follow with Dr. Niño at [facility] for further management of metastatic cervical cancer, when she is discharged. I gave patient Dr. Niño's Business Card for making appointment. Oncology has no further recs and will sign off. (2) Breast cancer: Code(s): C50.919 - Malignant neoplasm of unspecified site of unspecified female breast Status: Acute Assessment and Plan: RIGHT BREAST CANCER- Patient with history of right breast cancer diagnosed in June 2022. Patient underwent bilateral mastectomy with reconstruction in June 2022. She is not sure what was the exact stage but was told that she did not need chemotherapy or radiation. The disease was ER [facility] positive and therefore patient is on anastrozole 1 mg daily since then. (3) Anemia: Code(s): D64.9 - Anemia, unspecified Status: Acute Assessment and Plan: PROGRESSIVE ANEMIA- Patient presented with hemoglobin of 14 on 07/08/25 and slowly decreased to 7.1 today. Some of it could be surgical blood loss but this is 7 gm drop in her hemoglobin. Iron panel showed Low TIBC, saturations 17% and low but ferritin high at 492. I have ordered soluble transferrin receptor to further assess anemia of inflammation vs. true iron deficiency. The lab is pending today. Primary team started her on oral iron. If soluble receptor is low then this is Anemia of inflammation and patient does not need iron supplement. If soluble transferrin receptor is high then patient is iron deficient and will need Iron supplementation. B12 is 550 and normal. Folate is 6 and at low end of range. Patient will benefit from oral folic acid tablet 1mg daily. Subjective Date/time seen: 07/19/25 10:07 Interval history: patient states that surgical site pain is better. She is also getting used to ostomy care Review of Systems Review of Systems Post surgical pain is better. Tolerating oral intake well. She denies any nausea or vomiting. She endorses liquid bowels in the ostomy bag. There is no chest pain or shortness of breath. Patient reports bilateral lower extremity edema post surgery. Denies cough, night sweats. Reports 7 lb weight loss in past few months as she was not able to eat. Rest of the 12 point review of system is negative. Exam Narrative: General: Alert and oriented x3, no acute distress HEENT: EOMI, PERRL, no lymphadenopathy CV: RRR, No m/g/r RESP: Clear to auscultation bilaterally ABD: soft, ostomy bag with liquid output noted, tenderness to palpation around the surgical site EXT: 1+ edema bilaterally NEURO: No focal deficits SKIN: no rash or open wounds Objective Data Vital Signs Vital Signs: Vital Signs - 24 hr 07/18/25 15:17 07/18/25 20:00 07/18/25 22:14 Temperature 36.5 C 36.9 C Pulse Rate 92 92 Respiratory Rate 18 20 Blood Pressure 114/68 105/69 Pulse Oximetry 99 100 Oxygen Delivery Room Air 07/19/25 06:31 Temperature 36.9 C Pulse Rate 86 Respiratory Rate 18 Blood Pressure 109/67 Pulse Oximetry 97 Oxygen Delivery Intake/Output Intake/Output: Intake & Output 07/16/25 07/17/25 07/18/25 07/19/25 23:59 23:59 23:59 23:59 Intake Total 1737 970 720 600 Output Total 2050 600 Balance -313 370 720 600 Meds/Results Medications: Active Medications Generic Name Dose Route Start Last Admin Trade Name Freq PRN Reason Stop Dose Admin Acetaminophen 650 mg 07/16/25 12:38 Acetaminophen 325 Mg Tablet PO Q4H PRN Pain Rated 1-3 Dextrose 12.5 gm 07/10/25 22:55 Dextrose 50% 25 Gm/50 Ml Syringe IV PUSH PRN PRN Hypoglycemia Protocol Enoxaparin Sodium 40 mg 07/11/25 10:45 07/19/25 09:04 Enoxaparin 40 Mg/0.4 Ml Syringe SUB-Q 40 mg DAILY RAJAT Administration Folic Acid 1 mg 07/19/25 09:00 07/19/25 09:04 Folic Acid 1 Mg Tablet PO 1 mg DAILY RAJAT Administration Glucagon 1 mg 07/10/25 22:55 Glucagon For Inj 1 Mg Vial IM PRN PRN Hypoglycemia Protocol Glucose 15 gm 07/10/25 22:55 Glucose Oral Gel 15 Gm Of Glucse In 37.5 Gm Tube PO PRN PRN Hypoglycemia Protocol Hydromorphone HCl 1 mg 07/10/25 22:44 07/19/25 09:05 Hydromorphone Hcl Inj (*Crx) 1 Mg/Ml Syr IV PUSH 1 mg Q3H PRN Administration Pain Rated 7-10 Dextrose 1,000 mls @ 50 mls/hr 07/10/25 22:55 Dextrose 10% IV CONT .Q20H PRN if PN is interrupted Dextrose 1,000 mls @ 100 mls/hr 07/10/25 22:55 Dextrose 5% 1,000 Ml IVPB PRN PRN Hypoglycemia Protocol Insulin Aspart 2 - 5 units 07/19/25 08:00 07/19/25 09:21 Insulin Aspart (*Bkc) 100 Units/Ml SUB-Q Not Given TIDWM [facility] Protocol Nitroglycerin 0.4 mg 07/08/25 13:09 Nitroglycerin Sl 0.4 Mg Tablet SUBLINGUAL Q5MIN PRN Chest Pain Ondansetron HCl 4 mg 07/09/25 15:58 07/10/25 05:30 Ondansetron Inj 4 Mg/2 Ml Vial IV PUSH 4 mg Q4HR PRN Administration Nausea And Vomiting Oxycodone HCl 2.5 mg 07/16/25 12:38 07/16/25 20:24 Oxycodone Hcl (*Crx) 2.5 Mg Tab Ir PO 2.5 mg Q4H PRN Administration Pain Rated 4-6 Oxycodone HCl 5 mg 07/16/25 12:38 07/19/25 06:27 Oxycodone Hcl (*Crx) 5 Mg Tab Ir PO 5 mg Q4H PRN Administration Pain Rated 7-10 Pantoprazole Sodium 40 mg 07/18/25 09:00 07/19/25 09:04 Pantoprazole 40 Mg Tablet PO 40 mg QAM RAJAT Administration Phenol 1 spray 07/13/25 12:58 07/14/25 15:46 Phenol/Sod Pheno Hixton Dey (*Bkc) MUCOUS MEM 1 spray PRN PRN Administration Sore Throat Polysaccharide Iron Complex 150 mg 07/18/25 08:00 07/19/25 09:05 Polysaccharide Iron Complex 150 Mg Capsule PO 150 mg DAILY@0800 RAJAT Administration Sodium Chloride 10 ml 07/11/25 22:00 07/19/25 05:23 Central Line Flush IV PUSH 10 ml Q8HR RAJAT Administration Sodium Chloride 10 ml 07/11/25 14:20 07/14/25 14:01 Central Line Flush IV PUSH 10 ml PRN PRN Administration with TPN bag changes Sodium Chloride 20 ml 07/11/25 14:20 07/14/25 14:00 Central Line Flush IV PUSH 20 ml PRN PRN Administration after blood draws Radiology Results: ITS Impressions Chest/Abdomen/Pelvis CTA 07/08/25 10:04 IMPRESSION: 1. Small bowel obstruction with distal ileal transition point in the right deep pelvis along with a small amount of likely reactive ascites. 2. Mild emphysema. No pulmonary embolism or other acute cardiopulmonary disease. Small Bowel X-Ray 07/09/25 20:09 IMPRESSION: 1: Small bowel obstruction. 2: Gastroesophageal reflux. Chest X-Ray 07/11/25 14:41 IMPRESSION: 1. Left upper extremity PICC line with distal tip positioned in the mid superior vena cava on the final image. 2. No acute cardiopulmonary disease. Abdomen X-Ray 07/14/25 11:49 IMPRESSION: 1. Residual contrast in colon from small bowel series study from 4 days prior. No free intraperitoneal gas or dilated gas-filled loops of bowel to suggest obstruction. Labs Labs: Laboratory Results - last 24 hr 07/18/25 07/18/25 07/18/25 11:34 17:02 19:58 WBC RBC Hgb Hct MCV MCH MCHC RDW Plt Count MPV Sodium Potassium Chloride Carbon Dioxide Anion Gap BUN Creatinine Estim Creat Clear Calc Estimated GFR Glucose POC Capillary Glucose 104 102 141 H Calcium Total Bilirubin AST ALT Alkaline Phosphatase Total Protein Albumin 07/19/25 07/19/25 05:20 08:59 WBC 5.4 RBC 2.33 L Hgb 7.4 L Hct 23.3 L MCV 100.0 MCH 31.8 MCHC 31.8 L RDW 13.2 Plt Count 362 MPV 8.4 Sodium 132 L Potassium 4.2 Chloride 97 L Carbon Dioxide 32 H Anion Gap 3 L BUN 4 L Creatinine 1.02 H Estim Creat Clear Calc 51 Estimated GFR 56 L Glucose 93 POC Capillary Glucose 109 H Calcium 8.8 Total Bilirubin 0.8 AST 55 H ALT 51 H Alkaline Phosphatase 92 Total Protein 6.1 L Albumin 3.0 L
--- NOTE | 2025-07-19 12:30 | P.PNGS_ITS ---
Progress Note: A&P Assessment and Plan (1) Primary cervical cancer with metastasis to other site: Code(s): C53.9 - Malignant neoplasm of cervix uteri, unspecified Status: Acute Assessment and Plan: doing well, continue to encourage p.o. intake, out of bed, IS, okay to have MRI as outpatient, home soon Subjective Subjective Date/Time Seen: 07/19/25 12:30 Interval history: feels better today, appetite improving, maria esther diet Review of Systems Review of Systems: All systems reviewed & are unremarkable except as noted in HPI and below Exam Const: General: cooperative, comfortable and no acute distress Resp: Auscultation: clear to auscultation bilaterally Cardio: Rate: regular rate Rhythm: regular rhythm GI: Inspection: normal to inspection and incision GI Palp: Yes abdominal tenderness and Yes Soft to palpation Other: ostomy working well Objective Data Vital Signs Vital Signs: Vital Signs - 24 hr 07/18/25 15:17 07/18/25 20:00 07/18/25 22:14 Temperature 36.5 C 36.9 C Pulse Rate 92 92 Respiratory Rate 18 20 Blood Pressure 114/68 105/69 Pulse Oximetry 99 100 Oxygen Delivery Room Air 07/19/25 06:31 07/19/25 08:00 Temperature 36.9 C Pulse Rate 86 Respiratory Rate 18 Blood Pressure 109/67 Pulse Oximetry 97 Oxygen Delivery Room Air Intake/Output Intake/Output: Intake & Output 07/16/25 07/17/25 07/18/25 07/19/25 23:59 23:59 23:59 23:59 Intake Total 1737 970 720 600 Output Total 2050 600 Balance -313 370 720 600 Meds/Results Medications: Active Medications Generic Name Dose Route Start Last Admin Trade Name Freq PRN Reason Stop Dose Admin Acetaminophen 650 mg 07/16/25 12:38 Acetaminophen 325 Mg Tablet PO Q4H PRN Pain Rated 1-3 Dextrose 12.5 gm 07/10/25 22:55 Dextrose 50% 25 Gm/50 Ml Syringe IV PUSH PRN PRN Hypoglycemia Protocol Enoxaparin Sodium 40 mg 07/11/25 10:45 07/19/25 09:04 Enoxaparin 40 Mg/0.4 Ml Syringe SUB-Q 40 mg DAILY RAJAT Administration Folic Acid 1 mg 07/19/25 09:00 07/19/25 09:04 Folic Acid 1 Mg Tablet PO 1 mg DAILY RAJAT Administration Glucagon 1 mg 07/10/25 22:55 Glucagon For Inj 1 Mg Vial IM PRN PRN Hypoglycemia Protocol Glucose 15 gm 07/10/25 22:55 Glucose Oral Gel 15 Gm Of Glucse In 37.5 Gm Tube PO PRN PRN Hypoglycemia Protocol Hydromorphone HCl 1 mg 07/10/25 22:44 07/19/25 09:05 Hydromorphone Hcl Inj (*Crx) 1 Mg/Ml Syr IV PUSH 1 mg Q3H PRN Administration Pain Rated 7-10 Dextrose 1,000 mls @ 50 mls/hr 07/10/25 22:55 Dextrose 10% IV CONT .Q20H PRN if PN is interrupted Dextrose 1,000 mls @ 100 mls/hr 07/10/25 22:55 Dextrose 5% 1,000 Ml IVPB PRN PRN Hypoglycemia Protocol Insulin Aspart 2 - 5 units 07/19/25 08:00 07/19/25 09:21 Insulin Aspart (*Bkc) 100 Units/Ml SUB-Q Not Given TIDWM [facility] Protocol Nitroglycerin 0.4 mg 07/08/25 13:09 Nitroglycerin Sl 0.4 Mg Tablet SUBLINGUAL Q5MIN PRN Chest Pain Ondansetron HCl 4 mg 07/09/25 15:58 07/10/25 05:30 Ondansetron Inj 4 Mg/2 Ml Vial IV PUSH 4 mg Q4HR PRN Administration Nausea And Vomiting Oxycodone HCl 2.5 mg 07/16/25 12:38 07/16/25 20:24 Oxycodone Hcl (*Crx) 2.5 Mg Tab Ir PO 2.5 mg Q4H PRN Administration Pain Rated 4-6 Oxycodone HCl 5 mg 07/16/25 12:38 07/19/25 06:27 Oxycodone Hcl (*Crx) 5 Mg Tab Ir PO 5 mg Q4H PRN Administration Pain Rated 7-10 Pantoprazole Sodium 40 mg 07/18/25 09:00 07/19/25 09:04 Pantoprazole 40 Mg Tablet PO 40 mg QAM RAJAT Administration Phenol 1 spray 07/13/25 12:58 07/14/25 15:46 Phenol/Sod Pheno [place] Dey (*Bkc) MUCOUS MEM 1 spray PRN PRN Administration Sore Throat Polysaccharide Iron Complex 150 mg 07/18/25 08:00 07/19/25 09:05 Polysaccharide Iron Complex 150 Mg Capsule PO 150 mg DAILY@0800 RAJAT Administration Sodium Chloride 10 ml 07/11/25 22:00 07/19/25 05:23 Central Line Flush IV PUSH 10 ml Q8HR RAJAT Administration Sodium Chloride 10 ml 07/11/25 14:20 07/14/25 14:01 Central Line Flush IV PUSH 10 ml PRN PRN Administration with TPN bag changes Sodium Chloride 20 ml 07/11/25 14:20 07/14/25 14:00 Central Line Flush IV PUSH 20 ml PRN PRN Administration after blood draws Radiology Results: ITS Impressions Chest/Abdomen/Pelvis CTA 07/08/25 10:04 IMPRESSION: 1. Small bowel obstruction with distal ileal transition point in the right deep pelvis along with a small amount of likely reactive ascites. 2. Mild emphysema. No pulmonary embolism or other acute cardiopulmonary disease. Small Bowel X-Ray 07/09/25 20:09 IMPRESSION: 1: Small bowel obstruction. 2: Gastroesophageal reflux. Chest X-Ray 07/11/25 14:41 IMPRESSION: 1. Left upper extremity PICC line with distal tip positioned in the mid superior vena cava on the final image. 2. No acute cardiopulmonary disease. Abdomen X-Ray 07/14/25 11:49 IMPRESSION: 1. Residual contrast in colon from small bowel series study from 4 days prior. No free intraperitoneal gas or dilated gas-filled loops of bowel to suggest obstruction. Labs Labs: Laboratory Results - last 24 hr 07/18/25 07/18/25 07/19/25 17:02 19:58 05:20 WBC 5.4 RBC 2.33 L Hgb 7.4 L Hct 23.3 L MCV 100.0 MCH 31.8 MCHC 31.8 L RDW 13.2 Plt Count 362 MPV 8.4 Sodium 132 L Potassium 4.2 Chloride 97 L Carbon Dioxide 32 H Anion Gap 3 L BUN 4 L Creatinine 1.02 H Estim Creat Clear Calc 51 Estimated GFR 56 L Glucose 93 POC Capillary Glucose 102 141 H Calcium 8.8 Total Bilirubin 0.8 AST 55 H ALT 51 H Alkaline Phosphatase 92 Total Protein 6.1 L Albumin 3.0 L 07/19/25 08:59 WBC RBC Hgb Hct MCV MCH MCHC RDW Plt Count MPV Sodium Potassium Chloride Carbon Dioxide Anion Gap BUN Creatinine Estim Creat Clear Calc Estimated GFR Glucose POC Capillary Glucose 109 H Calcium Total Bilirubin AST ALT Alkaline Phosphatase Total Protein Albumin
[2025-07-20] MEDS: HYDROmorphone HCL INJ (*CRX) 1 MG/ML SYR IV PUSH (06:12)
[2025-07-20] MEDS: CENTRAL LINE FLUSH 10 ML IV PUSH ×3 (06:12→21:40)
[2025-07-20] MEDS: FOLIC ACID 1 MG TABLET PO (09:07)
[2025-07-20] MEDS: PANTOPRAZOLE 40 MG TABLET PO (09:07)
[2025-07-20] MEDS: ENOXAPARIN 40 MG/0.4 ML SYRINGE SUB-Q (09:07)
[2025-07-20] MEDS: oxyCODONE HCL (*CRX) 5 MG TAB IR PO ×2 (09:13→14:56)
[2025-07-20] MEDS: ACETAMINOPHEN 325 MG TABLET 650 MG PO ×3 (09:14→18:39)
--- NOTE | 2025-07-20 10:55 | PCNFU ---
Nutrition Follow-Up Complete: Severe protein calorie malnutrition related to chronic cancer and acute small bowel obstruction as evidenced by weight loss 19%/4 months; intakes <75% needs >1 month; moderate muscle wasting and fat loss Goal: Meet estimated nutrition needs Patient is progress towards goal. We will continue current goal. Pt current nutrition is Low Fiber with diet supplements. Last recorded weight is 69 kg, stable Bowel Motility: Last reported BM 07/20 Labs Reviewed:BUN 4, Cr 1.02, Alb 3.0, Hgb 7.4, Hct 23.3 Meds Noted: Protonix, Lovenox Skin: WNL Additional Notes: Patient remains on a Low Fiber diet and tolerating well. Diet supplements given BID providing an additional 350 kcal and 20 gm protein. Agree with diet orders. Monitoring diet orders, plan of care, labs, weights, output Follow up in 5 days
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
[2025-07-20 14:03] VITALS: BP 103/64; PULSE 92; RESP 18; TEMP 36.1; O2SAT 100
[2025-07-20] MEDS: LIDOCAINE 5% PATCH 1 PATCH TRANSDERM (17:36)
[2025-07-20] MEDS: oxyCODONE HCL (*CRX) 5 MG TAB IR 10 MG PO ×2 (18:40→23:35)
[2025-07-20 19:02] LABS: Hematocrit 24.8 % (37.0-47.0); Hemoglobin 7.8 g/dL (12.0-15.0); Mean Corpuscular HGB Conc 31.5 g/dl (32-36); Mean Corpuscular Hemoglobin 31.5 pg (26-34); Mean Corpuscular Volume 100.0 fl (80-100); Platelet Count Result 478 k/mm3 (150-375); Red Blood Count 2.48 M/mm3 (4.2-5.4); White Blood Count 6.8 K/mm3 (4.5-10.0)
[2025-07-20 19:16] LABS: Alanine Aminotransferase 56 U/L (6-35); Albumin Level 3.3 g/dL (3.5-5.1); Alkaline Phosphatase 93 U/L (38-126); Anion Gap 7 mmol/L (4-12); Aspartate Amino Transferase 50 U/L (14-36); Bilirubin,Total 0.6 mg/dL (0.2-1.3); Blood Urea Nitrogen 9 mg/dL (7-17); Calcium 9.1 mg/dL (8.4-10.2); Carbon Dioxide 29 mmol/L (22-30); Chloride 96 mmol/L (98-107); Estimated CRCL calculation 55 ml/min; Estimated Glomerular Filt Rate > 60; Glucose 160 mg/dL (65-110); Potassium 3.6 mmol/L (3.4-5.0); Sodium 132 mmol/L (137-145); Total Protein 6.8 g/dL (6.3-8.2)
[2025-07-20 21:44] VITALS: BP 105/69; PULSE 86; RESP 20; TEMP 36.8; O2SAT 97
[2025-07-21] MEDS: ACETAMINOPHEN 325 MG TABLET 650 MG PO (05:55)
[2025-07-21] MEDS: oxyCODONE HCL (*CRX) 5 MG TAB IR 10 MG PO (05:56)
[2025-07-21] MEDS: CENTRAL LINE FLUSH 10 ML IV PUSH (05:57)
[2025-07-21 06:46] VITALS: BP 103/64; PULSE 101; RESP 16; TEMP 36.6; O2SAT 99
[2025-07-21 08:00] VITALS: PULSE 101; RESP 16; O2SAT 99
[2025-07-21] MEDS: ENOXAPARIN 40 MG/0.4 ML SYRINGE SUB-Q (08:55)
[2025-07-21] MEDS: LIDOCAINE 5% PATCH 1 PATCH TRANSDERM (08:55)
[2025-07-21] MEDS: FOLIC ACID 1 MG TABLET PO (08:55)
[2025-07-21] MEDS: PANTOPRAZOLE 40 MG TABLET PO (08:55)
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
== END 2025-07-21 15:31 | disposition home or self-care (01) | DRG 329 ==
LOC: ANHED 10:20 → ANHIMU 10:58 → ANH3MED 07-10 12:51
PROVIDERS: Anesthesiology; General Practice; Internal Medicine; Nurse Practitioner; Student in an Organized Health Care Education/Training Program; Surgery; Admitting Provider Internal Medicine; Emergency Provider Emergency Medicine; Visit Provider Internal Medicine
PROC: (CPT 49000; principal; 2025-07-10 15:30)
DX: C78.4 Secondary malignant neoplasm of small intestine (principal); E43 Unspecified severe protein-calorie malnutrition; K56.609 Unspecified intestinal obstruction, unspecified as to partial versus complete obstruction; R18.8 Other ascites; K91.89 Other postprocedural complications and disorders of digestive system; K56.7 Ileus, unspecified; E87.6 Hypokalemia; I10 Essential (primary) hypertension; D64.9 Anemia, unspecified; K63.89 Other specified diseases of intestine; K21.9 Gastro-esophageal reflux disease without esophagitis; R79.89 Other specified abnormal findings of blood chemistry; R00.0 Tachycardia, unspecified; Z20.822 Contact with and (suspected) exposure to COVID-19; Z85.3 Personal history of malignant neoplasm of breast; Z92.3 Personal history of irradiation; Z85.41 Personal history of malignant neoplasm of cervix uteri; Z80.0 Family history of malignant neoplasm of digestive organs; Z68.27 Body mass index [BMI] 27.0-27.9, adult
CPT/HCPCS: 36415; 36569; 71045; 71275; 74018; 74019; 74177; 74250; 80048; 80053; 81001; 82607; 82728; 82746; 82948; 83540; 83550; 83605; 83690; 83735; 83880; 84100; 84132; 84145; 84238; 84443; 84466; 84478; 84484; 85025; 85027; 85610; 85730; 87086; 87637; 88307; 88342; 93005; 93306; 96361; 96365; 96375; 96376; 97110; 97162; 97165; 97530; 97535; 99285; A9270; C1751; G0378; J0330; J0616; J1100; J1171; J1200; J1644; J1650; J1741; J1938; J2003; J2004; J2250; J2270; J2405; J2470; J2543; J2704; J2765; J3010; J3475; J3480; J7030; J7040; J7042; J7050; J7120; Q9967

== ENCOUNTER 2025-10-09 11:25 | Emergency (ER) | payer OTHER, SELFPAY ==
[2025-10-09] VITALS (7 sets, daily range): BP systolic 146–171; BP diastolic 90–101; PULSE 77–110; RESP 19–27; O2SAT 94–100
--- OUTSIDE RECORDS SUMMARY | 2025-10-09 11:35 | XMS_ITS | Clinical Summary ---
Author Organization [facility] Address [address] [place] [address] Care Team Providers Care Professor Of Poultry Science Name Role Phone Reed Lew MD Primary Care Provider [phone] Allergies Active Allergy Reactions Criticality Noted Date [...] 08/31/2020 Overview (09/02/2021): Finger mass, right 01/01/2019 Encounters Date Type Department Care Team Description 07/21/2025 Orders Only [facility] Card[facility] [address] [place] [address] Joanna Ramírez NP 07/15/2025 Orders Only [facility] [address] [place] [address] Mariano Rod MD from Last 3 Months Immunizations Immunization Administration Dates Next Due Influenza, [...] on file Legal Sex Female 8:30 PM [employer] Gender Identity Female 05/30/2023 11:05 AM CDT [...] (2 - Td or Tdap) 03/17/2026 Insurance [facility] CHOICE PLUS IDPA Care Teams Professor Of Poultry Science Relationship Specialty Start Date End Date Reed Lew MD PCP - General 01/01/19
--- OUTSIDE RECORDS SUMMARY | 2025-10-09 11:35 | XMS_ITS | Clinical Summary ---
Author Organization [facility] Address [address], [address] [place] [address] Phone Care Team Providers Care Payroll Lead Name Role Phone Reed Lew MD Primary Care Provider [phone] Hermelindo Alegre MD Unavailable Allergies Active Allergy Reactions Criticality Noted Date Comments Ondansetron Other (see Comments),Itching High 2021 Eye irritation Ondansetron Hcl Other (see Comments) Low 12/16/2021 Eye irritation Prochlorperazine Other (see Comments),Itching Low 0 12/16/2021 Eye irritation Promethazine Other (see Comments) 07/08/2025 Medications ondansetron (ZOFRAN) 4 MG TabletIndicatio ns:Recurrent cervical cancer,Primary malignant neoplasm of overlapping sites of cervix Take 1 Tablet by mouth every 6 hours as needed for Nausea - 1st line. 40 Tablet 3 5 Active prochlorperazin e (COMPAZINE) 10 MG TabletIndicatio ns:Recurrent cervical cancer,Primary malignant neoplasm of overlapping sites of cervix Take 1 Tablet by mouth every 4 hours as needed for Nausea - 1st line. 40 Tablet 3 5 Active magnesium oxide (MAG-OX) 400 MG Tablet Take 1 Tablet by mouth daily. 30 Tablet 3 5 Active dexamethasone (DECADRON) 4 MG TabletIndicatio ns:Recurrent cervical cancer,Primary malignant neoplasm of overlapping sites of cervix Take 5 Tablets by mouth once for 1 dose. Take 20mg by mouth the night before the first Taxol infusion 5 Tablet 5 09/18/20 Discontinue d(Reorder) dexamethasone (DECADRON) 4 MG TabletIndicatio ns:Recurrent cervical cancer,Primary malignant neoplasm of overlapping sites of cervix Take 5 Tablets by mouth once for 1 dose. Take 20mg by mouth the night before the first Taxol infusion 5 Tablet 5 09/18/20 dexamethasone (DECADRON) 4 MG TabletIndicatio ns:Recurrent cervical cancer,Malignan t neoplasm 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, estrogen receptor positive Take 5 Tablets by mouth once for 1 dose. 5 Tablet 5 09/21/20 Active Problems Problem Noted Date Diagnosed Date Malignant neoplasm of upper- inner quadrant of right breast in female, estrogen receptor positive 09/22/2025 Primary malignant neoplasm of overlapping sites of cervix 09/09/2025 Recurrent cervical cancer 09/08/2025 Encounters Date Type Department Care Team Description 09/29/2025 9:00 AM [employer] Office Visit [facility] [address] [phone] Hermelindo Alegre MD Recurrent cervical cancer (Primary Dx); Low thyroid stimulating hormone (TSH) level; Low serum adrenocorticotrophic hormone (ACTH); Primary malignant neoplasm of overlapping sites of cervix; Malignant neoplasm 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, estrogen receptor positive; Thrombophlebitis; Hypopituitarism 09/29/2025 8:45 AM [employer] Lab [facility] [address] [address] Lab, Cc [facility] Malignant neoplasm 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, estrogen receptor positive; Low serum adrenocorticotrophic hormone (ACTH); Low thyroid stimulating hormone (TSH) level; Primary malignant neoplasm of overlapping sites of cervix; Recurrent cervical cancer 09/29/2025 Telephone [facility] [address] [phone] Hermelindo Alegre MD 09/29/2025 Travel 09/25/2025 11:30 AM [employer] Care Management [facility] [address] [phone] Yvonne Conn Nurse Care Management (CHEMO CALL BACK) 09/24/2025 Telephone [facility] [address] [phone] Hermelindo Alegre MD 09/23/2025 Results Follow-Up [facility] [address] [phone] Mariann Lorenzana RN URINALYSIS WITH MICROSCOPIC [place], CORTISOL, THYROXINE (T4) FREE, Additional followed-up results: 6 09/22/2025 12:45 PM [employer] Education [facility] [address] [phone] Navigjohn, Yvonne Petty Nurse Recurrent cervical cancer (Primary Dx); Primary malignant neoplasm of overlapping sites of cervix 09/22/2025 8:30 AM [employer] Office Visit [facility] [address] [phone] Hermelindo Alegre MD Recurrent cervical cancer (Primary Dx); Malignant neoplasm 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, estrogen receptor positive 09/22/2025 7:45 AM [employer] Clinical Support [facility] [address] [phone] Recurrent cervical cancer (Primary Dx); Primary malignant neoplasm of overlapping sites of cervix; Malignant neoplasm 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, estrogen receptor positive 09/22/2025 Travel 09/21/2025 Telephone [facility] [address] [phone] Hermelindo Alegre MD 09/18/2025 8:00 AM [employer] Care Management [facility] [address] [phone] Navigjohn, Yvonne Petty Nurse Care Management (EDUCATION PREP) 09/08/2025 11:00 AM [employer] Office Visit [facility] [address] [phone] Hermelindo Alegre MD Malignant neoplasm 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, estrogen receptor positive (Primary Dx); Recurrent cervical cancer 09/08/2025 Telephone [facility] [address] [phone] Hermelindo Alegre MD 09/08/2025 Travel from Last 3 Months Family History Relation Name Status Comments Child 1 Alive Child 2 Alive Father Mother Alive Sister 1 Alive Sister 2 Alive Social History Tobacco Use Types Packs/Day Years Used Date Smoking Tobacco: Never Smokeless Tobacco: Never Tobacco Cessation:Counseling Given: Not Answered Alcohol Use Standard Drinks/Week Comments Not Currently 0 (1 standard drink = 0.6 oz pur e alcohol) Comments Unknown Sex and Gender Information Value Date Recorded Sex Assigned at Not on file Legal Sex Female 9:39 AM [employer] Gender Identity Not on file Sexual Orientation Not on file Last Filed Vital Signs Vital Sign Reading Time Taken Comments Blood Pressure 110/80 09/29/2025 8:31 AM [employer] Pulse 95 09/29/2025 8:31 AM [employer] Temperature 36.7 C (98 F) 09/29/2025 8:31 AM [employer] Respiratory Rate 18 09/22/2025 8:25 AM [employer] Oxygen Saturation 98% 09/29/2025 8:31 AM [employer] Inhaled Oxygen Concentration - - Weight 57.5 kg (126 lb 12.8 oz) 09/29/2025 8:31 AM [employer] Height 160 cm (5' 3) 09/29/2025 8:31 AM [employer] Body Mass Index 22.46 09/29/2025 8:31 AM [employer] Plan of Treatment Upcoming Encounters Date Type Department Care Team (Late st Contact Info) Description 10/13/2025 8:45 AM [employer] Lab [facility] [address] [phone] Lab, Cc [facility] 10/13/2025 9:00 AM [employer] Office Visit [facility] [address] [phone] Hermelindo Alegre MD [address] [place] [phone] 10/13/2025 9:15 AM [employer] Clinical Support [facility] [address] [phone] Health Maintenance Due Date Last Done Comments Hepatitis C Virus (HCV) Screening 1970 Hepatitis B Immunization (1 of 3 - 19+ 3-dose series) 1989 Pneumococcal Immunization (5 0+ years) (1 of 2 - PCV) 1989 Zoster Immunization (1 of 2) 1989 Cologuard 2015 Colonoscopy 2015 Colorectal Cancer Screening 2015 Immunochemical Fecal Occult Blood 2015 Respiratory Syncytial Virus (RSV) Immunization (Adult) (1 - Risk 50-74 years 1-dose series) 2020 SARS-COV-2 Immunization (3 - Pfizer risk series) 03/31/2021 03/03/2021, 02/07/2021 Influenza Immunization (#1) 07/06/202509/05, 08/31/2020 DTaP/Tdap/Td Immunization Discontinued 03/17/2016 TdaP Immunization Completed 03/17/2016 Human Papillomavirus (HPV) Immunization Aged Out No longer eligible based on patient's age to complete this topic Meningococcal Immunization (ACWY) Aged Out No longer eligible based on patient's age to complete this topic Rotavirus Immunization Aged Out No lo nger eligible based on patient's age to complete this topic Procedures Procedure Name Priority Date/Time Associated Diagnosis Comments COMPLETE BLOOD COUNT (CBC) WITH DIFF Routine 09/29/2025 9:22 AM [employer] Low thyroid stimulating hormone (TSH) level Low serum adrenocorticotrophic hormone (ACTH) Primary malignant neoplasm of overlapping sites of cervix Malignant neoplasm 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, estrogen receptor positive Recurrent cervical cancer CMP (COMPREHENSIVE METABOLIC PANEL) Routine 09/29/2025 9:22 AM [employer] Low thyroid stimulating hormone (TSH) level Low serum adrenocorticotrophic hormone (ACTH) Primary malignant neoplasm of overlapping sites of cervix Malignant neoplasm 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, estrogen receptor positive Recurrent cervical cancer LACTATE DEHYDROGENASE (LD) Routine 09/29/2025 9:22 AM [employer] Low thyroid stimulating hormone (TSH) level Low serum adrenocorticotrophic hormone (ACTH) Primary malignant neoplasm of overlapping sites of cervix Malignant neoplasm 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, estrogen receptor positive Recurrent cervical cancer ACTH, [place] 4440 Routine 09/29/2025 9:22 AM [employer] Low serum adrenocorticotrophic hormone (ACTH) CORTISOL Routine 09/29/2025 8:21 AM [employer] Malignant neoplasm 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, estrogen receptor positive COMPLETE BLOOD COUNT (CBC) WITH DIFF Routine 09/22/2025 7:47 AM [employer] Malignant neoplasm 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, estrogen receptor positive Recurrent cervical cancer CMP (COMPREHENSIVE METABOLIC PANEL) Routine 09/22/2025 7:47 AM [employer] Malignant neoplasm 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, estrogen receptor positive Recurrent cervical cancer LACTATE DEHYDROGENASE (LD) Routine 09/22/2025 7:47 AM [employer] Malignant neoplasm 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, estrogen receptor positive Recurrent cervical cancer MAGNESIUM (MG) Routine 09/22/2025 7:47 AM [employer] Malignant neoplasm 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, estrogen receptor positive Recurrent cervical cancer THYROID STIMULATING HORMONE (TSH) Routine 09/22/2025 7:47 AM [employer] Malignant neoplasm 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, estrogen receptor positive Recurrent cervical cancer THYROXINE (T4) FREE Routine 09/22/2025 7 :47 AM [employer] Malignant neoplasm 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, estrogen receptor positive Recurrent cervical cancer CORTISOL Routine 09/22/2025 7:47 AM [employer] Malignant neoplasm 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, estrogen receptor positive Recurrent cervical cancer ACTH, [place] 4440 Routine 09/22/2025 7:47 AM [employer] Malignant neoplasm 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, estrogen receptor positive Recurrent cervical cancer URINALYSIS WITH MICROSCOPIC [place] Routine 09/22/2025 7:47 AM [employer] Malignant neoplasm 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, estrogen receptor positive Recurrent cervical cancer from Last 3 Months Results * ACTH, [place] 4440 (09/29/2025 9:22 AM [employer]) Only the most recent of2 resultswithin the time period is included. ACTH, PLASMA 24.7 7.2 - 63.3 PG/ML [facility] Comment: ACTH REFERENCE INTERVAL FOR SAMPLES COLLECTED BETWEEN 7 AND 10 AM. 09/29/2025 9:22 AM [employer] [facility] - 09/30/2025 1:09 PM [employer] TESTING PERFORMED AT: [] [facility], [address] [place] [address], [phone], PHONE: [phone], TRANSLATOR: TRAVIS GARRETT, PHD Release to patient->Immediate us Hermelindo Alegre MD LAB SEND OUTS Final Result Performing Organization Address City/[facility]/[place] [address], * (ABNORMAL) LACTATE DEHYDROGENASE (LD) (09/29/2025 9:22 AM [employer]) Only the most recent of2 resultswithin the time period is included. Pathologist [facility] LDH 128(L) 140 - 271 U/L [facility] Blood 09/29/2025 9:22 AM [employer] [facility] - 09/29/2025 10:22 AM [employer] Release to patient->Immediate us Hermelindo Alegre MD CHEMISTRY ORDERABLES Final Resul t Performing Organization Address [facility] [facility] Co de Phone Number [address] [address], * (ABNORMAL) CMP (COMPREHENSIVE METABOLIC PANEL) (09/29/2025 9:22 AM [employer]) Only the most recent of2 resultswithin the time period is included. Glucose 77 70 - 105 mg/dL [facility] Blood Urea Nitrogen 18 7 - 25 mg/dL [facility] Creatinine 1.0 0.6 - 1.2 mg/dL [facility] Sodium 136 136 - 145 mEq/L [facility] Potassium 3.9 3.5 - 5.1 mEq/L [facility] Chloride 101 98 - 107 mEq/L [facility] Bicarbonate 28 21 - 31 mEq/L [facility] Total Bilirubin 0.2(L) 0.3 - 1.0 mg/dL [facility] Alk. Phosphatase 78 34 - 104 U/L [facility] Aspartate Aminotransferase 25 13 - 39 U/L [facility] Alanine Aminotransferase 29 7 - 52 U/L [facility] Total Protein 7.4 6.4 - 8.9 g/dL [facility] Albumin 4.7 3.5 - 5.7 g/dL [facility] Calcium 9.9 8.6 - 10.3 mg/dL [facility] Anion Gap 10.9 7.0 - 15.0 mEq/L [facility] Globulin 2.7 2.0 - 3.5 g/dL [facility] EGFR 66 >60 ml/min/1. 73m2 [facility] Comment: This eGFR is calculated using 2020 CKD-EPI Creatinine equation without race modifier based on the NKF-ASN task force recommendations Equation: nLNE=085*min(SCr/k,1)a*max(SCr/k,1)-1.200*0.9938Age*1.012 (if female), where SCr is serum creatinine, k is 0.7 for females and 0.9 for males, and a is -0.241 for females and -0.302 for males Blood 09/29/2025 9:22 AM [employer] Narrative [facility] - 09/29/2025 10:22 AM [employer] Release to patient->Immediate IS THE PATIENT REQUIRED TO BE FASTING FOR 8 HOURS?->No us Hermelindo Alegre MD CHEMISTRY ORDERABLES Final Resul t [facility] [place] [address], * (ABNORMAL) COMPLETE BLOOD COUNT (CBC) WITH DIFF (09/29/2025 9:22 AM [employer]) Only the most recent of2 resultswithin the time period is included. WBC 1.9(L) 4.0 - 10.0 10*3/uL [facility] HGB 12.1 11.2 - 15.7 g/dL [facility] HCT 38.2 34.1 - 44.9 % [facility] PLT 196 163 - 369 10*3/uL [facility] MPV 9.2(L) 9.4 - 12.4 fL [facility] RBC 4.02 3.93 - 5.22 10*6/uL [facility] MCV 95 79 - 95 fL [facility] [facility] MCH 30.1 25.6 - 32.2 pg [facility] [facility] MCHC 31.7(L) 32.2 - 36.5 g/dL [facility] RDW 14.0 11.6 - 14.4 % [facility] Absolute Neutrophil Count 426 cells/uL [facility] Absolute Seg Count 426(L) 1,440 - 6,600 cells/uL [facility] Absolute Lymph Count 1,277 760 - 4,000 cells/uL [facility] Absolute [place] Count 19(L) 160 - 1,200 cells/uL [facility] Absolute Eos Count 111 0 - 300 cells/uL [facility] Absolute Baso Count 19 0 - 100 cells/uL [facility] Segmented Neutrophils 23(L) 36 - 66 % [facility] Lymphocytes 69(H) 19 - 40 % [facility] Monocytes 1(L) 4 - 12 % [facility] Eosinophils 6(H) 0 - 3 % [facility] Basophils 1 0 - 1 % [facility] WBC Estimate Low [facility] Platelet Estimate Normal [facility] RBC Morphology Normal [facility] Blood 09/29/2025 9:22 AM [employer] [facility] - 09/29/2025 12:49 PM [employer] Release to patient->Immediate Hermelindo Alegre MD HEMATOLOGY ORDERABLES Final Resu lt Performing Organization Address City/[facility]/ZIP Co de Phone Number [facility] [address] [address] [place] [address], [place] [phone] * CORTISOL (09/29/2025 8:21 AM [employer]) Only the most recent of2 resultswithin the time period is included. CORTISOL 15.0 6.2 - 19.4 UG/DL [facility] [employer] [facility] Comment: PLEASE NOTE: THE REFERENCE INTERVAL AND FLAGGING FOR THIS TEST IS FOR AN AM COLLECTION. IF THIS IS A PM COLLECTION PLEASE USE: CORTISOL PM: 2.3-11.9 Blood 09/29/2025 8:21 AM [employer] [facility] - 09/30/2025 7:08 AM [employer] TESTING PERFORMED AT: [] [facility], [address] [place] [address], [address], PHONE: [phone], TRANSLATOR: TRAVIS GARRETT, PHD Is the patient taking Biotin supplement? No Release to patient->Immediate Hermelindo Alegre MD CHEMISTRY ORDERABLES Final Resul t Performing Organization Address [facility] Co de Phone Number [facility] [address] [address] [place] [address], * (ABNORMAL) URINALYSIS WITH MICROSCOPIC [place] (09/22/2025 7:47 AM [employer]) Urine Color Yellow Straw-Yel low [facility] Urine Clarity Clear Clear [facility] Urine Glucose NEG NEG mg/dL [facility] Urine Bilirubin NEG NEG mg/dL [facility] ER [facility] Urine Ketones NEG NEG mg/dL [facility] Urine Specific [place] 1.015 1.015 - 1.020 [facility] Urine Blood Trace(A) NEG mg/L [facility] Urine pH 5.5 5.0 - 8.0 [pH] [facility] Urine Protein NEG NEG mg/dL [facility] Urine Urobilinogen 0.2 0.2 - 1.0 mg/dL [facility] Urine Nitrite NEG NEG [facility] Urine Leukocytes NEG NEG [facility] Urine Epithelial Cells Rare None,Rare ,Few /LPF [facility] Urine Mucus None None /LPF [facility] Urine Cast None None /LPF [facility] Urine Bacteria Rare(A) None /HPF CANCE R [facility] [facility] Urine Crystal None None /LPF [facility] Urine White Blood Cells 5-10(A) 0 - 4 /HPF [facility] Urine Red Blood Cells 3-5(A) 0 - 2 /HPF [facility] 09/22/2025 7:47 AM [employer] Lidia [facility] - 09/22/2025 12:37 PM [employer] Release to patient->Immediate Hermelindo Alegre MD LAB SEND OUTS Final Result Performing Organization Address City/State/[facility] Co de Phone Number [facility] [address] [place] [address], * THYROXINE (T4) FREE (09/22/2025 7:47 AM [employer]) THYROXINE (T4), FREE, 0.62 0.61 - 1.12 ng/dL [facility] Blood 09/22/2025 7:47 AM [employer] Lidia [facility] - 09/22/2025 3:25 PM [employer] Release to patient->Immediate us Hermelindo Alegre MD CHEMISTRY ORDERABLES Final Resul t Performing Organization Address City/[facility] Co de Phone Number [facility] [address] [place] [address], [place] [phone] * (ABNORMAL) THYROID STIMULATING HORMONE (TSH) (09/22/2025 7:47 AM [employer]) TSH 0.28(L) 0.45 - 5.33 uIU/mL [facility] Blood 09/22/2025 7:47 AM [employer] Narrative [facility] - 09/22/2025 3:25 PM [employer] Release to patient->Immediate us Hermelindo Alegre MD CHEMISTRY ORDERABLES Final Resul t Performing Organization Address [facility] Co de Phone Number [facility] [address] [place] [address], [place] [phone] * (ABNORMAL) MAGNESIUM (MG) (09/22/2025 7:47 AM [employer]) Magnesium 1.8(L) 1.9 - 2.7 mg/dL [facility] Blood 09/22/2025 7:47 AM [employer] [facility] - 09/22/2025 8:42 AM [employer] Release to patient->Immediate us Hermelindo Alegre MD CHEMISTRY ORDERABLES Final Resul t Performing Organization Address City/[facility]/ZIP Co de Phone Number [facility] [place] [address], [place] [phone] from Last 3 Months Insurance [facility] Care Teams Payroll Lead Relationship Specialty Start Date End Date Reed Lew MD [address] [place] [address] PCP - General Family Medicine 09/01/25 Hermelindo Alegre MD [address] [place] [address] Consulting Physician Oncology 09/09/25
--- OUTSIDE RECORDS SUMMARY | 2025-10-09 11:35 | XMS_ITS ---
Author Organization [facility] Address [address], [facility] [address] [place] [address] Phone Care Team Providers Care [employer] Cox[employer] Name Role Phone Reed Lew MD Primary Care Provider [phone] Hermelindo Alegre MD Unavailable Active Problems Problem Noted Date Diagnosed Date Malignant neoplasm of upper- inner quadrant of right breast in female, estrogen receptor positive 09/22/2025 Primary malignant neoplasm of overlapping sites of cervix 09/09/2025 Recurrent cervical cancer 09/08/2025 Current Treatment and Therapy Plans RECURRENT CERVICAL CA - TAXOL/CARBO/BEVACIZUMAB/ATEZOLIZUMAB - CCSCI* Plan Start Date:09/21/2025 Plan Provider:Hermelindo Alegre MD Linked Problems Recurrent cervical cancerPri shaye malignant neoplasm of overlapping sites of cervix Treatment Medications Current Day (Day 1 , Cycle 2 - Planned for 10/14/2025) Next Day (Day 1, Cycle 3 - Planned for 11/04/2025) atezolizumab (TECENTRIQ) 120 0 MG infusionbevacizumab AWWB (MVASI) infusionCARBOplatin (PARAPLATIN) chemo infusion (by AUC)PACLitaxel (TAXOL) chemo infusion Atezolizumab (TECENTRIQ) 1,200 mg in sodium chloride 0.9 % 100 mL infusionbevacizumab-awwb (MVASI) 900 mg in sodium chloride 0.9 % 100 mL infusionCARBOplatin 414 mg in dextrose 5 % 250 mL chemo infusionPACLitaxel (TAXOL) 288 mg in sodium chloride 0.9 % 500 mL chemo infusion Atezolizumab (TECENTRIQ) 1,200 mg in sodium chloride 0.9 % 100 mL infusionbevacizumab-awwb (MVASI) 900 mg in sodium chloride 0.9 % 100 mL infusionCARBOplatin in dextrose 5 % 250 mL chemo infusionPACLitaxel (TAXOL) 288 mg in sodium chloride 0.9 % 500 mL chemo infusion Past Treatment and Therapy Plans No past plan information found. Lifetime Dose Tracking * Chemical Lifetime Dose Automatic Entry Manual Entr y Carboplatin 244.172 mg/m2 (398 mg) 244.172 mg/m2 (398 mg) 0 mg/m2 (0 mg)
--- OUTSIDE RECORDS SUMMARY | 2025-10-09 11:35 | XMS_ITS | Encounter Summary ---
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 us Historical Provider MD Final Res ult documented in this encounter Visit Diagnoses Not on filedocumented in this encounter Care Teams Scheduling Representative Relationship Specialty Start Date End Date Reed Lew MD PCP - General 01/01/19 documented as of this encounter
--- OUTSIDE RECORDS SUMMARY | 2025-10-09 11:35 | XMS_ITS | Encounter Summary ---
Author Organization [facility] Address [address] [place] [address] Phone Care Team Providers Care Showroom Consultant Name Role Phone Reed Lew MD Primary Care Provider [phone] Hermelindo Alegre MD Unavailable Encounter Details Date Type Department Care Team (Late st Contact Info) Description 09/29/2025 Telephone [facility] [address] [place] [address] Hermelindo Alegre MD [address] [place] [address] Social History Tobacco Use Types Packs/Day Years Used Date Smoking Tobacco: Never Smokeless Tobacco: Never Alcohol Use Standard Drinks/Week Comments Not Currently 0 (1 standard drink = 0.6 oz pur e alcohol) Comments Unknown Sex and Gender Information Value Date Recorded Sex Assigned at Not on file Legal Sex Female 9:39 AM DIRECTOR OF CURRICULUM Gender Identity Not on file Sexual Orientation Not on file documented as of this encounter Functional Status * BP Answer Date of Assessment Author 110/80 09/29/2025 8:31 AM DIRECTOR OF CURRICULUM Laxmi Yanes CMA * Temp Answer Date of Assessment Author 98 09/29/2025 8:31 AM DIRECTOR OF CURRICULUM Laxmi Yanes CMA * Pulse Answer Date of Assessment Author 95 09/29/2025 8:31 AM DIRECTOR OF CURRICULUM Laxmi Yanes CMA * SpO2 Answer Date of Assessment Author 98 09/29/2025 8:31 AM DIRECTOR OF CURRICULUM Schau, Laxmi nancy A, PHOTOCOPYING MACHINE OPERATOR * Question Answer Date of Assessment Author Initial Score 0 09/29/2025 8:36 AM DIRECTOR OF CURRICULUM Wang Funezen A, PHOTOCOPYING MACHINE OPERATOR Little interest or pleasure in doing things Not at all 09/29/2025 8:36 AM DIRECTOR OF CURRICULUM Wang Yanesen A, PHOTOCOPYING MACHINE OPERATOR Feeling down, depressed, or hopeless Not at all 09/29/2025 8:36 AM DIRECTOR OF CURRICULUM Wang Yanesen A, PHOTOCOPYING MACHINE OPERATOR * Question Answer Date of Assessment Author Initial Score 0 09/29/2025 8:36 AM DIRECTOR OF CURRICULUM Wang Funezen A, PHOTOCOPYING MACHINE OPERATOR Little interest or pleasure in doing things Not at all 09/29/2025 8:36 AM DIRECTOR OF CURRICULUM Wang Yanesen A, PHOTOCOPYING MACHINE OPERATOR Feeling down, depressed, or hopeless Not at all 09/29/2025 8:36 AM DIRECTOR OF CURRICULUM Britt Yanes A, PHOTOCOPYING MACHINE OPERATOR * Over the past 2 weeks, how often have you been bothered by any of the following problems? Question Answer Date of Assessment Author Patient Health Questionnaire -2 Score 0 09/29/2025 8:36 AM Britt Guillory, PHOTOCOPYING MACHINE OPERATOR documented as of this encounter Mental Status * BP Answer Entry Date Author 110/80 09/29/2025 8:31 AM DIRECTOR OF CURRICULUM Laxmi Yanes A, PHOTOCOPYING MACHINE OPERATOR * Temp Answer Entry Date Author 98 09/29/2025 8:31 AM Laxmi Guillory, PHOTOCOPYING MACHINE OPERATOR * Pulse Answer Entry Date Author 95 09/29/2025 8:31 AM DIRECTOR OF CURRICULUM Laxmi Yanes, PHOTOCOPYING MACHINE OPERATOR * SpO2 Answer Entry Date Author 98 09/29/2025 8:31 AM Laxmi Guillory, PHOTOCOPYING MACHINE OPERATOR * Question Answer Entry Date Author Initial Score 0 09/29/2025 8:36 AM DIRECTOR OF CURRICULUM Wang Funezen A, PHOTOCOPYING MACHINE OPERATOR Little interest or pleasure in doing things Not at all 09/29/2025 8:36 AM DIRECTOR OF CURRICULUM Britt Yanes A, PHOTOCOPYING MACHINE OPERATOR Feeling down, depressed, or hopeless Not at all 09/29/2025 8:36 AM DIRECTOR OF CURRICULUM Britt Yanes A, PHOTOCOPYING MACHINE OPERATOR documented in this encounter Miscellaneous Notes * Telephone Encounter - Edna Guerrier - 09/29/2025 10:04 AM CST FYI: Pt sched today probably around 1030 @ [facility] for Doppler. Sent pt to hosp. Pt stated she will gether MRI sched while there. [facility] has MRI Brain referral. CTOR OF CURRICULUM documented in this encounter Plan of Treatment Upcoming Encounters Date Type Department Care Team (Late st Contact Info) Description 10/13/2025 8:45 AM DIRECTOR OF CURRICULUM Lab [facility] [address] [phone] Lab, [facility] 10/13/2025 9:00 AM DIRECTOR OF CURRICULUM Office Visit [facility] [address] [phone] Hermelindo Alegre MD [address] [place] [phone] 10/13/2025 9:15 AM DIRECTOR OF CURRICULUM Clinical Support [facility] [address] [phone] documented as of this encounter Visit Diagnoses Not on filedocumented in this encounter Care Teams Showroom Consultant Relationship Specialty Start Date End Date Reed Lew MD [address] [place] [address] PCP - General Family Medicine 09/01/25 Hermelindo Alegre MD [address] [place] [address] Consulting Physician Oncology 09/09/25 documented as of this encounter
--- OUTSIDE RECORDS SUMMARY | 2025-10-09 11:35 | XMS_ITS | Clinical Summary ---
Author Organization [facility] Address [facility] [place] [address] Care Team Providers Care Special Needs Child Caregiver Name Role Phone Reed Lew MD Primary Care Provider [phone] Encounters Date Type Department Care Team Description 09/29/2025 10:00 AM CARD PAINTER - 09/29/2025 11:59 PM CARD PAINTER Hospital Encounter [facility] [place] [address] Hermelindo Alegre MD Discharge Disposition: Home or Self Care (Routine Discharge) 09/29/2025 Travel from Last 3 Months Social History Tobacco Use Types Packs/Day Years Used Date Smoking Tobacco: Never Assessed Comments Unknown Sex and Gender Information Value Date Recorded Sex Assigned at Female 09/28/2025 11:59 AM CARD PAINTER Legal Sex Female 8:33 PM CDT Gender Identity Not on file Sexual Orientation Not on file Plan of Treatment Upcoming Encounters Date Type Department Care Team (Late st Contact Info) Description 11/10/2025 2:30 PM CARD PAINTER Appointment [facility] [place] [address] Hermelindo Alegre MD [address] [place] [id number] Health Maintenance Due Date Last Done Comments Cervical Cancer Screening Pa p Smear (Age 30 to 64) Every 3 Years 1970 Colorectal Cancer Screening Colonoscopy (10 Years) 1970 Annual Physical 1973 Hepatitis C 1988 Hepatitis B Vaccines (1 of 3 - 19+ 3-dose series) 1989 Cervical Cancer Screening Pa p with HPV Testing (Age 30 to 64) Every 5 Years 2000 Cervical Cancer Screening wi th HPV 2000 Mammogram Screening 2010 Pneumococcal Vaccine: 50+ Years (1 of 1 - PCV) 2020 Zoster Vaccines (1 of 2) 2020 COVID-19 Vaccine (3 - 2024-2 6 season) 2025 03/03/2021, 02/07/2021 Influenza Adult (#1) 2025 09/23/2021, 08/31/2020 DTaP, Tdap and Td Vaccines ( 2 - Td or Tdap) 03/17/2026 03/17/2016 Hepatitis A Vaccines Aged Out No long er eligible based on patient's age to complete this topic Meningococcal B Vaccine Aged Out No l onger eligible based on patient's age to complete this topic Meningococcal Vaccine Aged Out No clovis ponce eligible based on patient's age to complete this topic RSV Immunizations Under 20 Months Aged Out No longer eligible b ased on patient's age to complete this topic Procedures Procedure Name Priority Date/Time Associated Diagnosis Comments USV KENNEY DUPLEX UP EXT LT STAT 09/29/2025 11:06 AM CARD PAINTER Thrombophlebitis from Last 3 Months Results * USV KENNEY DUPLEX UP EXT LT (09/29/2025 11:06 AM CARD PAINTER) Anatomical Region Laterality Modality Extremity Vascular Ultraso und 09/29/2025 10:2 7 AM CARD PAINTER Narrative 09/29/2025 9:23 PM CARD PAINTER VENOUS DUPLEX IMAGING LEFT UPPER EXTREMITY VASCULAR LAB Pat.Name: FARIBA [place] Pat.ID: [id number] St.Date: 09/29/2025 Refer.: HERMELINDO ALEGRE Exam Time: 10:27:00 AM Study Type:VERENICE VS Venous Duplex Arm Lt Age: 7 1970,55Y Sex: F Sonogrphr: Trenton Stephens RVT Pat. Stat.:Outpatient History / Clinical:concern for thrombophlebitis per ordering provider Procedures: Franks scale, Color Doppler imaging, Doppler Spectral Analysis Race: B ++++++++++++++++++++++++++++++++++++ SUMMARY: ++++++++++++++++++++++++++++++++++++ Left upper extremity exam: There are NO apparent superficial vein, ACUTE character venous filling defects visualized in the central or brachial veins. Superficial venous thrombosis in the left cephalic vein and associated branches. Resting venous flow is normal pulsatile/phasic in the central veins. Right upper extremity LIMITED: Resting venous flow is normal pulsatile/phasic in the central veins. CONCLUSION: No evidence of deep vein thrombosis in the left upper extremity. Superficial venous thrombosis in the left cephalic vein and associated branches. <Electronic Signature> 09/29/2025 09:23 PM Vianca Pritchard M.D. Procedure Note Vianca Pritchard MD - 09/29/2025 VENOUS DUPLEX IMAGING LEFT UPPER EXTREMITY VASCULAR LAB Pat.Name: FARIBA [place] Pat.ID: [id number] .Date: 09/29/2025 Refer.MD: HERMELINDO ALEGRE Exam Time: 10:27:00 AM Study Type:VERENICE VS Venous Duplex Arm Lt Age: 7 1970,55Y Sex: F Sonogrphr: Trenton Stephens RVT Pat. Stat.:Outpatient History / Clinical:concern for thrombophlebitis per ordering provider Procedures: Franks scale, Color Doppler imaging, Doppler Spectral Analysis Race: B ++++++++++++++++++++++++++++++++++++ SUMMARY: ++++++++++++++++++++++++++++++++++++ Left upper extremity exam: There are NO apparent superficial vein, ACUTE character venous filling defects visualized in the central or brachial veins. Superficial venous thrombosis in the left cephalic vein and associated branches. Resting venous flow is normal pulsatile/phasic in the central veins. Right upper extremity LIMITED: Resting venous flow is normal pulsatile/phasic in the central veins. CONCLUSION: No evidence of deep vein thrombosis in the left upper extremity. Superficial venous thrombosis in the left cephalic vein and associated branches. <Electronic Signature> 09/29/2025 09:23 PM Vianca Pritchard M.D. Hermelindo Alegre MD VAS Final Result from Last 3 Months Insurance Care Teams Special Needs Child Caregiver Relationship Specialty Start Date End Date Reed Lew MD PCP - General 09/02/15
--- OUTSIDE RECORDS SUMMARY | 2025-10-09 11:35 | XMS_ITS | Clinical Summary ---
Author Organization [facility] Sandra Hernandezyaa Address [address] [place] [address] [place] [address] Care Team Providers Care Information Assistant Name Role Phone Unavailable Primary Care Provider [...] on file Legal Sex Female 11:27 AM AUTOMATED PROCESS OPERATOR Gender Identity Not on file Sexual [...] of 3 - 19+ 3-dose series) 1989 FIT-DNA Q 3 years 2015 FIT/FOBT Q 1 year 2015 Flex Sig/CT Colonography Q 5 years 2015 ZOSTER VACCINE (1 of 2) 2020 INFLUENZA VACCINE (#1) 2025 08/31/2020, 2019 DTAP/TDAP/TD VACCINES (2 - Td or Tdap) 03/17/2026 COLORECTAL SCREENING 09/22/2031 09/22/2021 Colorectal Cancer Screening 09/22/2031 Medical Devices Implanted Type Area Account Coordinator Device Identifier Shelf Expiration Date Model / Serial / Lot Pallet Stone Positioner Clip Surgiclip Iii Ti Rishi Sm 9in [id number] - [id number] Implanted:Qty : 1 on 02/22/2022 by Shantanu Nguyen MD at [facility] Clip Right: Breast [employer]IC - COVIDIEN 09/04/2026 [id number] / / [id number] Breast Inspira Scx 495ml Scx-495 - [id number] Implanted:Qty : 1 on 06/21/2022 by Shantanu Nguyen MD at [facility] Mammary Left: Breast ALLERGAN- MEDICAL 07/16/2026 SCX-495 / [id number] / Imp Breast Inspira Scx 525ml Scx-525 - [id number] Implanted:Qty : 1 on 06/21/2022 by Shantanu Nguyen MD at [facility] Mammary Right: Breast ALLERGAN- MEDICAL 12/19/2023 SCX-525 / [id number] / Alloderm Matrix Tissue Thick 42w60cy [id number] - [id number] Implanted:Qty : 1 on 02/22/2022 by Shantanu Nguyen MD at [facility] Tissue Left: Breast ALLERGAN- MEDICAL 01/02/2023 [id number] / / [id number] Alloderm Matrix Tissue Thick [id number] - [id number] Implanted:Qty : 1 on 02/22/2022 by Shantanu Nguyen MD at [facility] Tissue Right: Breast ALLERGAN- MEDICAL 05/04/2023 [id number] / / [id number] Explanted Type Area Account Coordinator Device Identifier Shelf Expiration Date Model / Serial / Lot Test Inspection Engineer Breast Natrelle Te 350ml [id number] - [id number] Implanted:Qty: 1 on 02/22/2022 by Shantanu Nguyen MD at [facility] Explanted:Qty: 1 on 06/21/2022 by Shantanu Nguyen MD at [facility] Mammary Left: Breast [employer]ERGAN- MEDICAL 07/06/2026 133S-FX-1 1-T / [id number] / Test Inspection Engineer Breast Natrelle Te 350ml [id number] - [id number] Implanted:Qty: 1 on 02/22/2022 by Shantanu Nguyen MD at [facility] Explanted:Qty: 1 on 06/21/2022 by Shantanu Nguyen MD at [facility] Mammary Right: Breast ALLERGAN- MEDICAL 05/08/2025 133S-FX-1 1-T / [id number] / Powerport Explanted:Qty: 1 on 06/21/2022 by Shantanu Nguyen MD at [facility] Left: Chest Description:not in computer previously Procedures [...] file Type:RX Commercial Address: [address] [employer] [address] [place] [id number] Advance Directives For more information, please contact: [phone] * Full Code (Latest Code Status on File) Date Activated Date Inactivated Comments 02/22/2022 11:48 AM 02/23/2022 2:51 PM
--- OUTSIDE RECORDS SUMMARY | 2025-10-09 11:35 | XMS_ITS | Clinical Summary ---
Author Organization [facility] Address [address] [place] [address] Care Team Providers Care Weapons Officer [employer] Name Role Phone Reed Lew MD Primary Care Provider [phone] Source Comments [facility],non-owned Affiliates and Associated Physician Practices is amultiple site organization consisting of ambulatory clinics and hospital sitesin [place], [place], [place] and [place]. This disclosure is being madepursuant to the Care Everywhere program and may not contain all information available regarding this patient. Last updated 18.[facility] Allergies Active Allergy Reactions Criticality Noted Date Comments Ondansetron Eye Discomfort,Eye Itching,Other,Vision Changes High 12/16/2021 Eye irritation Prochlorperazine Eye Itching,Other Low 12/16/2021 Eye irritation Promethazine Eye Discomfort 07/08/2025 Medications * Be aware that medications may not be up to date on this document. Alwaysverify current medications with the patient. ferrous sulfate 325 (65 FE) MG tablet Take 1 (one) tablet by mouth once daily Active folic acid (Folvite) 1 MG tablet Take 1 (one) tablet by mouth once daily Active lidocaine (Lidoderm) 5 % patch Active metoclopramide (Reglan) 5 MG tablet Q6H as needed for nausea and vomiting 02/21/2025 Active pantoprazole EC (Protonix) 40 MG tablet Take 1 (one) tablet by mouth every morning Active oxyCODONE, immediate release, (Roxicodone) 5 MG tabletIndicatio ns:Cancer associated pain Take 1 (one) tablet by mouth every 4 hours as needed for Pain 45 tablet 08/04/2025 Active Encounters Date Type Department Care Team Description 09/08/2025 Telephone [facility] - CENTRAL OFFICE OPERATOR SUPERVISOR [address] [place] [phone] Abrahan Martini MD Question 09/02/2025 Telephone [facility] - CENTRAL OFFICE OPERATOR SUPERVISOR [address] [place] [phone] Abrahan Martini MD Forms/questionnaire s 08/31/2025 Orders Only [facility] - CENTRAL OFFICE OPERATOR SUPERVISOR [address] [place] [phone] Abrahan Martini MD Recurrent cervical cancer ([facility]) 08/31/2025 Telephone [facility] - CENTRAL OFFICE OPERATOR SUPERVISOR [address] [place] [address] Abrahan Martini MD Med Question 08/28/2025 Telephone [facility] - CENTRAL OFFICE OPERATOR SUPERVISOR [address] [place] [address] Abrahan Martini MD Patient Requested Call 08/20/2025 Orders Only [facility] - CENTRAL OFFICE OPERATOR SUPERVISOR [address] [place] [address] Abrahan Martini MD Recurrent cervical cancer ([facility]) 08/19/2025 Telephone [facility] - CENTRAL OFFICE OPERATOR SUPERVISOR [address] [place] [address] Luis Felipe Durham MA Forms/questionnaire s 08/19/2025 Telephone [facility] - CENTRAL OFFICE OPERATOR SUPERVISOR [address] [place] [address] Abrahan Martini MD Results 08/17/2025 3:20 PM CDT - 08/17/2025 11:59 PM CDT Hospital Encounter [facility] - PET Scan [address] [place] [address] [address] [place] [address] Abrahan Martini MD Discharge Disposition: Home or Self Care 08/10/2025 Orders Only [facility] - CENTRAL OFFICE OPERATOR SUPERVISOR [address] [place] [phone] Abrahan Martini MD Pelvic mass in female ; Recurrent cervical cancer (HCC) 08/04/2025 11:00 AM CDT Office Visit [facility] - CENTRAL OFFICE OPERATOR SUPERVISOR [address] [place] [phone] Abrahan Martini MD Cancer associated pain (Primary Dx) 08/04/2025 Travel from Last 3 Months Social History Tobacco Use Types Packs/Day Years Used Date Smoking Tobacco: Never Alcohol Use Standard Drinks/Week Comments Not Currently 0 (1 standard drink = 0.6 oz pur e alcohol) Comments No Sex and Gender Information Value Date Recorded Sex Assigned at Not on file Legal Sex Female 6:47 AM CDT Gender Identity Not on file Sexual Orientation Not on file Last Filed Vital Signs Vital Sign Reading Time Taken Comments Blood Pressure 106/84 08/04/2025 11:11 AM CDT Pulse - - Temperature - - Respiratory Rate - - Oxygen Saturation - - Inhaled Oxygen Concentration - - Weight 57.2 kg (126 lb 3.2 oz) 08/04/2025 11:11 AM CDT Height 160 cm (5' 3) 08/04/2025 11:11 AM CDT Body Mass Index 22.36 08/04/2025 11:11 AM CDT Plan of Treatment Health Maintenance Due Date Last Done Comments COLOGUARD (AGES 45-75) - COL ON CA SCREENING 1970 COLON MONITORING 1970 COLONOSCOPY - COLON CA SCREENING 1970 CT COLONOGRAPHY - COLON CA SCREENING 1970 Colorectal Cancer Screening 1970 FIT - COLON CA SCREENING 1970 FLEX SIG - COLON CA SCREENING 1970 LIPID TESTING 1970 MAMMOGRAM 1970 HIV SCREENING 1985 HEPATITIS C SCREENING 05/28/1988 DTAP/TDAP/TD VACCINES (1 - Tdap) 1989 HEPATITIS B VACCINE (1 of 3 - 19+ 3-dose series) 1989 PNEUMOCOCCAL VACCINE 50+ (1 of 1 - PCV) 2020 ZOSTER VACCINE (1 of 2) 2020 DEPRESSION SCREENING 11/05/2024 COVID-19 VACCINE (3 - 2024-2 6 season) 2025 03/03/2021, 02/07/2021 INFLUENZA VACCINE (#1) 2025 , 08/31/2020 HIB VACCINE Aged Out No longer eligi ble based on patient's age to complete this topic HPV VACCINE Aged Out No longer eligi ble based on patient's age to complete this topic MENINGOCOCCAL (Group B) VACCINE SHARED DECISION-MAKING Aged Out No longer eligible based on patient's age to complete this topic MENINGOCOCCAL GROUPS A/C/Y/W VACCINE Aged Out No longer eligible b ased on patient's age to complete this topic Procedures Procedure Name Priority Date/Time Associated Diagnosis Comments PET CT SKULL TO MID THIGH Routine 08/17/2025 4:20 PM CDT Recurrent cervical cancer (HCC) Pelvic mass in female from Last 3 Months Results * PET CT Skull To Mid Thigh (08/17/2025 4:20 PM CDT) Anatomical Region Laterality Modality Head, Lower Extremity Nuclear Me dicine 08/18/2025 9:20 AM CDT Impressions 08/18/2025 1:32 PM CDT IMPRESSION: 1.Limited evaluation due to extensive postsurgical changes within the abdomen and pelvis. However, there are 2 foci of intense metabolic activity within the region of the vaginal cuff and adjacent soft tissue in the right pelvis, concerning for metastatic disease. 2.Likely postsurgical inflammatory changes in the anterior abdominal wall and reactive inguinal lymphadenopathy. Recommend attention on follow-up exam. > Dictated by Kirit Tucker MD 08/18/2025 9:20 AM > Dictated by Commercial Front Load Driver I, Daysi Randolph DO have personally reviewed and interpreted this examination/study. > Interpreting Provider: Daysi Randolph DO on 08/18/2025 1:32 PM Narrative 08/18/2025 1:32 PM CDT PROCEDURE: PET CT SKULL TO MID THIGH DATE/TIME OF EXAM: 08/17/2025 4:22 PM CLINICAL INFORMATION: None relevant/not provided if blank. Indication: C53.9: Recurrent cervical cancer (HCC) R19.00: Pelvic mass in female COMPARISON: Report only from PET/CT from 03/29/2022. Referring provider: ABRAHAN ROSA HISTORY: 55-year-old female patient with history of recurrent cervical cancer status post hysterectomy 2020. Recent admission due to small bowel obstruction, during surgery incidental finding of 2 masses within the ileum and a pelvic mass, pathology demonstrating adenocarcinoma from a cervical primary. Evaluate for subsequent treatment strategy. TECHNIQUE: 7.6 mCi of F-18 FDG by IV in the left antecubital fossa. PET/CT image acquisition from the base of the skull to upper thighs after approximately 55 minutes [address]injection with a CT being low dose, noncontrast. No separate report for the CT was generated since it was used for attenuation correction and anatomic localization. Blood glucose level of the time of injection was 94 mg/dl. Patient's BMI is 22.3 kg/m . FINDINGS: For reference, SUV max of liver is 3.6. HEAD AND NECK: The brain is incompletely visualized. No hypermetabolic or enlarged cervical lymph nodes. There is no abnormal FDG uptake. CHEST: Atherosclerotic calcifications along the thoracic aorta and the coronary arteries. No hypermetabolic or enlarged mediastinal lymph nodes. No suspicious pulmonary nodules noted. ABDOMEN AND PELVIS: Within the limitation of noncontrast CT, postsurgical changes within the abdomen status post colostomy. Bilateral subcentimeter hypermetabolic inguinal nodes for reference right inguinal node SUV max 5.9 likely due to postsurgical/inflammatory. There is an intensely FDG avid soft tissue density in the region of the vaginal cuff measuring approximately 2.0 cm with SUV max up to 15.9. Superior to this lesion is a 1.6 cm soft tissue nodularity in the presacral region just right of midline with SUV max 11.1 and linear extension along the right pelvis with SUV max up to 8.0. The remaining abdominal viscera are unremarkable. No definite hypermetabolic lymph nodes within the abdomen and pelvis seen. MUSCULOSKELETAL: Sclerosis within the right iliac wing without increased FDG activity. No suspicious FDG avid lesion seen. Photopenia within the L4-L5 and the sacrum likely representing posttreatment changes to the pelvis. Bilateral breast implants. Anterior abdominal wall is postsurgical changes with heterogenous FDG activity. Procedure Note AgustínDaysi, DO - 08/18/2025 PROCEDURE: PET CT SKULL TO MID THIGH DATE/TIME OF EXAM: 08/17/2025 4:22 PM CLINICAL INFORMATION: None relevant/not provided if blank. Indication: C53.9: Recurrent cervical cancer (HCC) R19.00: Pelvic mass in female COMPARISON: Report only from PET/CT from 03/29/2022. Referring provider: ABRAHAN ROSA HISTORY: 55-year-old female patient with history of recurrent cervical cancer status post hysterectomy 2020. Recent admission due to smallbowel obstruction, during surgery incidental finding of 2 masses within theileum and a pelvic mass, pathology demonstrating adenocarcinoma from acervical primary. Evaluate for subsequent treatment strategy. TECHNIQUE: 7.6 mCi of F-18 FDG by IV in the left antecubital fossa.PET/CT image acquisition from the base of the skull to upper thighs after approximately 55 minutes postinjection with a CT being low dose, noncontrast. No separate report for the CT was generated since it wasused for attenuation correction and anatomic localization. Blood glucoselevel of the time of injection was 94 mg/dl. Patient's BMI is 22.3 kg/m . FINDINGS: For reference, SUV max of liver is 3.6. HEAD AND NECK: The brain is incompletely visualized. No hypermetabolicor enlarged cervical lymph nodes. There is no abnormal FDG uptake. CHEST: Atherosclerotic calcifications along the thoracic aorta and the coronary arteries. No hypermetabolic or enlarged mediastinal lymphnodes. No suspicious pulmonary nodules noted. ABDOMEN AND PELVIS: Within the limitation of noncontrast CT,postsurgical changes within the abdomen status post colostomy. Bilateralsubcentimeter hypermetabolic inguinal nodes for reference right inguinal node SUV max5.9 likely due to postsurgical/inflammatory. There is an intensely FDG avid soft tissue density in the region of the vaginal cuff measuring approximately 2.0 cm with SUV max up to 15.9. Superior to this lesion is a 1.6 cm soft tissue nodularity in thepresacral region just right of midline with SUV max 11.1 and linear extensionalong the right pelvis with SUV max up to 8.0. The remaining abdominal viscera are unremarkable. No definite hypermetabolic lymph nodes within theabdomen and pelvis seen. MUSCULOSKELETAL: Sclerosis within the right iliac wing without increased FDG activity. No suspicious FDG avid lesion seen. Photopenia within the L4-L5 and the sacrum likely representing posttreatment changes to the pelvis. Bilateral breast implants. Anterior abdominal wall ispostsurgical changes with heterogenous FDG activity. IMPRESSION: 1.Limited evaluation due to extensive postsurgical changes within the abdomen and pelvis. However, there are 2 foci of intense metabolicactivity within the region of the vaginal cuff and adjacent soft tissue in theright pelvis, concerning for metastatic disease. 2.Likely postsurgical inflammatory changes in the anterior abdominalwall and reactive inguinal lymphadenopathy. Recommend attention on follow-up exam. > Dictated by Kirit Tucker MD 08/18/2025 9:20 AM > Dictated by Commercial Front Load Driver I, Daysi Randolph DO have personally reviewed and interpreted this examination/study. 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
--- NOTE | 2025-10-09 12:13 | ED_ITS ---
HPI - Female Genitourinary General Chief complaint: Vaginal Bleeding Stated complaint: abn bleeding Time Seen by Provider: 10/09/25 11:35 Source: patient Mode of arrival: ambulatory Limitations: no limitations History of Present Illness HPI Narrative: 55 years old female drove herself to the emergency room with vaginal bleed started yesterday. History of cervical cancer July 2025, last chemotherapy September 22, 2025, her OBGYN at [facility], her oncologist at [facility]. 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 07/10 Dr.Scott Navdeep SOW S/P dilatation and curettage (~03/2021) S/P HSCOPE D&C History of robot-assisted laparoscopic hysterectomy (~08/2021) History of bilateral tubal ligation Family History Family History Mother Hypertension Social History Social History Smoking status: Never smoker Alcohol intake: former Substance use: never Lack of Transportation: YES Lack of Food: Never True Current Housing: I Have Housing Concerned About Future Housing: No Difficulty Paying Gas/Electric Bills: No Difficulty Paying for Meds: No Currently Unemployed: No Education: Associate Degree Difficulty w/ Childcare or Family Care: No Gender identity (if verbalized by the patient): Female Spiritual care concerns: No Exam 2 Narrative: General appearance: Well-developed, well-nourished Skin: Normal color Head: Normocephalic, nontraumatic Eyes: Clear conjunctiva ENT: Oropharynx normal, ears normal, nose normal Neck: Supple, nontender Chest and respiratory: Airway patent, no respiratory distress, no accessory muscle use Heart: Regular rate/rhythm Abdomen: Soft, nontender, no organomegaly, quiet bowel sounds left lower colostomy bag within normal limit mild tenderness right lower quadrant Vascular: Normal peripheral pulses, normal capillary refill. Musculoskeletal: Normal range of motion, nontender back Neurologic: Alert and oriented ?3, CITY DISTRIBUTION CLERK is normal as tested, no gross motor deficit Course Consultations Oncology: Time of Consult: 13:43 I have discussed the care of this patient with the following provider: DR MIX/ONCOLOGIST AT [facility], Vital Signs Vital signs: Vital Signs Pulse Rate 108 H 10/09/25 11:38 Respiratory Rate 20 10/09/25 11:38 Blood Pressure 156/101 H 10/09/25 11:38 Pulse Oximetry 100 10/09/25 11:38 Pulse Rate 105 H 10/09/25 12:00 Respiratory Rate 26 H 10/09/25 12:00 Blood Pressure 154/92 H 10/09/25 12:00 Pulse Oximetry 98 10/09/25 12:00 [facility] Narrative Medical decision making narrative: Patient presents with vaginal bleed, history of cervical cancer, last chemotherapy September 15. Vital signs blood pressure 156/101 heart rate 108 otherwise within normal limit Physical examination showing Differential diagnosis progression of cervical cancer, she anemia, Physical exam showed left lower abdomen colostomy bag in place, slight diffuse tenderness at the right lower quadrant, Patient declined pelvic exam chest scheduled to see her oncologist in 3 days Blood workup today includes CBC, CMP P showed hemoglobin 11.7 compared to 7.8 in July. Otherwise within normal limit PATIENT DECLINED PELVIC EXAM DR. MIX/ONCOLOGIST AT [facility] REQUESTED IF THE BLEEDING CONTINUE BLEEDING TO GO TO [facility] TO BE SEEN BY HER OBGYN. Differential Diagnosis Differential Diagnosis: As above Lab Data [facility] Lab Attestation statement: I personally reviewed the patient's lab results. 10/09/25 12:52 10/09/25 12:52 Labs: Lab Results 10/09/25 Range/Units 12:52 WBC 6.8 (4.5-10.0) K/mm3 RBC 3.92 L (4.2-5.4) M/mm3 Hgb 11.7 L D (12.0-15.0) g/dL Hct 35.6 L (37.0-47.0) % MCV 90.8 (80-100) fl MCH 29.8 (26-34) pg MCHC 32.9 (32-36) g/dl RDW 14.4 (11.5-14.5) % Plt Count 403 H (150-375) k/mm3 MPV 8.7 (7.4-10.4) fl Immature Gran % (Auto) 2.2 H (0-0.5) % Neut % (Auto) 61.6 (45.5-73.1) % Lymph % (Auto) 28.6 (18.3-44.2) % [place] % (Auto) 6.6 (2.6-8.5) % Eos % (Auto) 0.4 (0-4.4) % Baso % (Auto) 0.6 (0.2-1.2) % Lymph # (Auto) 1.95 (0.9-3.2) K/mm3 [place] # (Auto) 0.5 (0.1-0.6) K/mm3 Eos # (Auto) 0.0 (0-0.3) K/mm3 Baso # (Auto) 0.0 (0.0-0.1) K/mm3 Abs Immat Gran (auto) 0.15 H (0.00-0.031) K/mm3 Absolute Neuts (auto) 4.2 (1.3-6.7) K/mm3 Absolute Nucleated RBC 0.000 (0.0-0.012) K/mm3 Nucleated RBC % 0.0 (0.0-0.2) % Sodium 132 L (137-145) mmol/L Potassium 3.4 (3.4-5.0) mmol/L Chloride 102 (98-107) mmol/L Carbon Dioxide 19 L (22-30) mmol/L Anion Gap 11 (4-12) mmol/L BUN 17 (7-17) mg/dL Creatinine 1.01 H (0.7-1.0) mg/dL Estim Creat Clear Calc Not Reportable Estimated GFR 57 L (59 - ) Glucose 152 H (65-110) mg/dL Calcium 9.8 (8.4-10.2) mg/dL Total Bilirubin 0.5 (0.2-1.3) mg/dL AST 39 H (14-36) U/L ALT 30 (6-35) U/L Alkaline Phosphatase 108 (38-126) U/L Total Protein 8.4 H (6.3-8.2) g/dL Albumin 4.4 (3.5-5.1) g/dL Critical Care Time Critical Care Time Critical Care Time: No Discharge Plan Discharge Clinical Impression: Dysfunctional or functional uterine hemorrhage, History of cervical cancer Patient Disposition: Home Condition: Stable Instructions: Abnormal (Dysfunctional) Uterine Bleeding (ED) Additional Instructions: RETURN IF SYMPTOMS ARE WORSENING , CALL YOUR FAMILY PHYSICIAN FOR APPOINTMENT, TAKE TYLENOL NEEDED FOR ACHES AND PAIN, CONTINUE HOME MEDICATIONS. GO TO OBGYN AT [facility] IF THE BLEEDING CONTINUE Patient Language: Slovenian Prescriptions: No Action metoclopramide HCl 5 mg tablet 5 mg PO Q6H PRN (Reason: nausea and vomiting) Qty: 15 0RF Follow-up/Referrals: PHYSICIAN NOT ON STAFF,NONSTAFF [Primary Care Provider]
--- OUTSIDE RECORDS SUMMARY | 2025-10-09 12:18 | XMS_ITS | Clinical Summary ---
Author Organization [facility] Address [address], [address] [place] [address] Phone Care Team Providers Care Animal Husbandry Teacher Name Role Phone Reed Lew MD Primary Care Provider [phone] Hermelindo Alegre MD Unavailable Allergies Active Allergy [...] Encounters Date Type Department Care Team Description 10/09/2025 Telephone [facility] [address] [phone] Hermelindo Alegre MD Er visit 09/29/2025 9:00 AM SUPERVISOR BRINE Office Visit [facility] [address] [address] Hermelindo Alegre MD Recurrent cervical cancer (Primary Dx); Low thyroid stimulating hormone (TSH) level; Low serum adrenocorticotrophic hormone (ACTH); Primary malignant neoplasm of overlapping sites of cervix; Malignant neoplasm 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, estrogen receptor positive; Thrombophlebitis; Hypopituitarism 09/29/2025 8:45 AM SUPERVISOR BRINE Lab [facility] [address] [address] [facility] Malignant neoplasm 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, estrogen receptor positive; Low serum adrenocorticotrophic hormone (ACTH); Low thyroid stimulating hormone (TSH) level; Primary malignant neoplasm of overlapping sites of cervix; Recurrent cervical cancer 09/29/2025 Telephone [facility] [address] [phone] Hermelindo Alegre MD 09/29/2025 Travel 09/25/2025 11:30 AM SUPERVISOR BRINE Care Management [facility] [address] [phone] Yvonne Conn Nurse Care Management (CHEMO CALL BACK) 09/24/2025 Telephone [facility] [address] [phone] Hermelindo Alegre MD 09/23/2025 Results Follow-Up [facility] [address] [phone] Mariann Lorenzana RN URINALYSIS WITH MICROSCOPIC [place], CORTISOL, THYROXINE (T4) FREE, Additional followed-up results: 6 09/22/2025 12:45 PM SUPERVISOR BRINE Education [facility] [address] [phone] NavigYvonne lopez Nurse Recurrent cervical cancer (Primary Dx); Primary malignant neoplasm of overlapping sites of cervix 09/22/2025 8:30 AM SUPERVISOR BRINE Office Visit [facility] [address] [phone] Hermelindo Alegre MD Recurrent cervical cancer (Primary Dx); Malignant neoplasm 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, estrogen receptor positive 09/22/2025 7:45 AM SUPERVISOR BRINE Clinical Support [facility] [address] [phone] Recurrent cervical cancer (Primary Dx); Primary malignant neoplasm of overlapping sites of cervix; Malignant neoplasm 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, estrogen receptor positive 09/22/2025 Travel 09/21/2025 Telephone [facility] [address] [phone] Hermelindo Alegre MD 09/18/2025 8:00 AM SUPERVISOR BRINE Care Management [facility] [address] [phone] NavigYvonne lopez Nurse Care Management (EDUCATION PREP) 09/08/2025 11:00 AM SUPERVISOR BRINE Office Visit [facility] [address] [phone] Hermelindo Alegre MD Malignant neoplasm 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, estrogen receptor positive (Primary Dx); Recurrent cervical cancer 09/08/2025 Telephone [facility] [address] [phone] Hermelindo Alegre MD 09/08/2025 Travel from Last [...] file Legal Sex Female 9:39 AM SUPERVISOR BRINE Gender Identity Not on file Sexual Orientation Not on file Last Filed Vital Signs Vital Sign Reading Time Taken Comments Blood Pressure 110/80 09/29/2025 8:31 AM SUPERVISOR BRINE Pulse 95 09/29/2025 8:31 AM SUPERVISOR BRINE Temperature 36.7 C (98 F) 09/29/2025 8:31 AM SUPERVISOR BRINE Respiratory Rate 18 09/22/2025 8:25 AM SUPERVISOR BRINE Oxygen Saturation 98% 09/29/2025 8:31 AM SUPERVISOR BRINE Inhaled Oxygen Concentration - - Weight 57.5 kg (126 lb 12.8 oz) 09/29/2025 8:31 AM SUPERVISOR BRINE Height 160 cm (5' 3) 09/29/2025 8:31 AM SUPERVISOR BRINE Body Mass Index 22.46 09/29/2025 8:31 AM SUPERVISOR BRINE Plan of Treatment Upcoming Encounters Date Type Department Care Team (Late st Contact Info) Description 10/13/2025 8:45 AM SUPERVISOR BRINE Lab [facility] [address] [phone] Lab, Cc [facility] 10/13/2025 9:00 AM SUPERVISOR BRINE Office Visit [facility] [address] [phone] Hermelindo Alegre MD [address] [place] [address] 10/13/2025 9:15 AM SUPERVISOR BRINE Clinical Support [facility] [address] [phone] Health Maintenance Due Date Last Done Comments [...] WITH DIFF Routine 09/29/2025 9:22 AM SUPERVISOR BRINE Low thyroid stimulating hormone (TSH) level Low serum adrenocorticotrophic hormone (ACTH) Primary malignant neoplasm of overlapping sites of cervix Malignant neoplasm 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, estrogen receptor positive Recurrent cervical cancer CMP (COMPREHENSIVE METABOLIC PANEL) Routine 09/29/2025 9:22 AM SUPERVISOR BRINE Low thyroid stimulating hormone (TSH) level Low serum adrenocorticotrophic hormone (ACTH) Primary malignant neoplasm of overlapping sites of cervix Malignant neoplasm 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, estrogen receptor positive Recurrent cervical cancer LACTATE DEHYDROGENASE (LD) Routine 09/29/2025 9:22 AM SUPERVISOR BRINE Low thyroid stimulating hormone (TSH) level Low serum adrenocorticotrophic hormone (ACTH) Primary malignant neoplasm of overlapping sites of cervix Malignant neoplasm 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, estrogen receptor positive Recurrent cervical cancer ACTH, [place] 4440 Routine 09/29/2025 9:22 AM SUPERVISOR BRINE Low serum adrenocorticotrophic hormone (ACTH) CORTISOL Routine 09/29/2025 8:21 AM SUPERVISOR BRINE Malignant neoplasm 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, estrogen receptor positive COMPLETE BLOOD COUNT (CBC) WITH DIFF Routine 09/22/2025 7:47 AM SUPERVISOR BRINE Malignant neoplasm 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, estrogen receptor positive Recurrent cervical cancer CMP (COMPREHENSIVE METABOLIC PANEL) Routine 09/22/2025 7:47 AM SUPERVISOR BRINE Malignant neoplasm 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, estrogen receptor positive Recurrent cervical cancer LACTATE DEHYDROGENASE (LD) Routine 09/22/2025 7:47 AM SUPERVISOR BRINE Malignant neoplasm 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, estrogen receptor positive Recurrent cervical cancer MAGNESIUM (MG) Routine 09/22/2025 7:47 AM SUPERVISOR BRINE Malignant neoplasm 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, estrogen receptor positive Recurrent cervical cancer THYROID STIMULATING HORMONE (TSH) Routine 09/22/2025 7:47 AM SUPERVISOR BRINE Malignant neoplasm 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, estrogen receptor positive Recurrent cervical cancer THYROXINE (T4) FREE Routine 09/22/2025 7 :47 AM SUPERVISOR BRINE Malignant neoplasm 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, estrogen receptor positive Recurrent cervical cancer CORTISOL Routine 09/22/2025 7:47 AM SUPERVISOR BRINE Malignant neoplasm 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, estrogen receptor positive Recurrent cervical cancer ACTH, [place] 4440 Routine 09/22/2025 7:47 AM SUPERVISOR BRINE Malignant neoplasm 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, estrogen receptor positive Recurrent cervical cancer URINALYSIS WITH MICROSCOPIC OH Routine 09/22/2025 7:47 AM SUPERVISOR BRINE Malignant neoplasm 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 ACTH, PLASMA 24.7 7.2 - 63.3 PG/ML [facility] Comment: ACTH REFERENCE INTERVAL FOR SAMPLES COLLECTED BETWEEN 7 AND 10 AM. 09/29/2025 9:22 AM SUPERVISOR BRINE [facility] - 09/30/2025 1:09 PM SUPERVISOR BRINE TEST[facility] PERFORMED AT: [] [facility] [address] [place] [address], [address], PHONE: [phone], CHEMICAL ETCHING PROCESSOR: TRAVIS GARRETT, PHD Release to patient->Immediate us Hermelindo Alegre MD LAB SEND OUTS Final Result Performing Organization Address [facility] Co de Phone Number [address] [address], * (ABNORMAL) LACTATE DEHYDROGENASE (LD) (09/29/2025 9:22 AM SUPERVISOR BRINE) Only the most recent of2 resultswithin the time period is included. LDH 128(L) 140 - 271 U/L [facility] Blood 09/29/2025 9:22 AM SUPERVISOR BRINE [facility] - 09/29/2025 10:22 AM SUPERVISOR BRINE Release to patient->Immediate us Hermelindo Alegre MD CHEMISTRY ORDERABLES Final Resul t Performing Organization Address City/[facility]/ZIP Co de Phone Number [address] [place] [address], * (ABNORMAL) CMP (COMPREHENSIVE METABOLIC PANEL) (09/29/2025 9:22 AM SUPERVISOR BRINE) Only the most recent of2 resultswithin the time period is included. Glucose 77 70 - 105 mg/dL [facility] Blood Urea Nitrogen 18 7 - 25 mg/dL [facility] Creatinine 1.0 0.6 - 1.2 mg/dL [facility] Sodium 136 136 - 145 mEq/L [facility] Potassium 3.9 3.5 - 5.1 mEq/L [facility] Chloride 101 98 - 107 mEq/L [facility] Bicarbonate 28 21 - 31 mEq/L [facility] Total Bilirubin 0.2(L) 0.3 - 1.0 mg/dL [facility] Alk. Phosphatase 78 34 - 104 U/L [facility] Aspartate Aminotransferase 25 13 - 39 U/L [facility] Alanine Aminotransferase 29 7 - 52 U/L [facility] Total Protein 7.4 6.4 - 8.9 g/dL [facility] Albumin 4.7 3.5 - 5.7 g/dL [facility] Calcium 9.9 8.6 - 10.3 mg/dL [facility] Anion Gap 10.9 7.0 - 15.0 mEq/L [facility] Globulin 2.7 2.0 - 3.5 g/dL [facility] EGFR 66 >60 ml/min/1. 73m2 [facility] Comment: This eGFR is calculated using 2020 CKD-EPI Creatinine equation without race modifier based on the NKF-ASN task force recommendations Equation: xSTJ=072*min(SCr/k,1)a*max(SCr/k,1)-1.200*0.9938Age*1.012 (if female), where SCr is serum creatinine, k is 0.7 for females and 0.9 for males, and a is -0.241 for females and -0.302 for males Blood 09/29/2025 9:22 AM SUPERVISOR BRINE Narrative [facility] - 09/29/2025 10:22 AM SUPERVISOR BRINE Release to patient->Immediate IS THE PATIENT REQUIRED TO BE FASTING FOR 8 HOURS?->No us Hermelindo Alegre MD CHEMISTRY ORDERABLES Final Resul t [facility] [place] [address], * (ABNORMAL) COMPLETE BLOOD COUNT (CBC) WITH DIFF (09/29/2025 9:22 AM SUPERVISOR BRINE) Only the most recent of2 resultswithin the time period is included. WBC 1.9(L) 4.0 - 10.0 10*3/uL [facility] HGB 12.1 11.2 - 15.7 g/dL [facility] HCT 38.2 34.1 - 44.9 % [facility] PLT 196 163 - 369 10*3/uL [facility] MPV 9.2(L) 9.4 - 12.4 fL [facility] RBC 4.02 3.93 - 5.22 10*6/uL [facility] MCV 95 79 - 95 fL [facility] MCH 30.1 25.6 - 32.2 pg [facility] MCHC 31.7(L) 32.2 - 36.5 g/dL [facility] RDW 14.0 11.6 - 14.4 % [facility] Absolute Neutrophil Count 426 cells/uL [facility] Absolute Seg Count 426(L) 1,440 - 6,600 cells/uL [facility] Absolute Lymph Count 1,277 760 - 4,000 cells/uL [facility] Absolute [place] Count 19(L) 160 - 1,200 cells/uL [facility] Absolute Eos Count 111 0 - 300 cells/uL [facility] Absolute Baso Count 19 0 - 100 cells/uL [facility] Segmented Neutrophils 23(L) 36 - 66 % [facility] Lymphocytes 69(H) 19 - 40 % [facility] Monocytes 1(L) 4 - 12 % [facility] Eosinophils 6(H) 0 - 3 % [facility] Basophils 1 0 - 1 % [facility] WBC Estimate Low [facility] Platelet Estimate Normal [facility] RBC Morphology Normal [facility] Blood 09/29/2025 9:22 AM SUPERVISOR BRINE Narrative [facility] - 09/29/2025 12:49 PM SUPERVISOR BRINE Release to patient->Immediate Hermelindo Alegre MD HEMATOLOGY ORDERABLES Final Resu lt Performing Organization Address [facility] Co de Phone Number [facility] [place] [address], * CORTISOL (09/29/2025 8:21 AM SUPERVISOR BRINE) Only the most recent of2 resultswithin the time period is included. CORTISOL 15.0 6.2 - 19.4 UG/DL [facility] Comment: PLEASE NOTE: THE REFERENCE INTERVAL AND FLAGGING FOR THIS TEST IS FOR AN AM COLLECTION. IF THIS IS A PM COLLECTION PLEASE USE: CORTISOL PM: 2.3-11.9 Blood 09/29/2025 8:21 AM SUPERVISOR BRINE [facility] - 09/30/2025 7:08 AM SUPERVISOR BRINE TESTING PERFORMED AT: [] LAB[address], [address], PHONE: [phone], CHEMICAL ETCHING PROCESSOR: TRAVIS GARRETT, PHD Is the patient taking Biotin supplement? No Release to patient->Immediate Hermelindo Alegre MD CHEMISTRY ORDERABLES Final Resul t Performing Organization Address [facility] Co de Phone Number [facility] [place] [address], * (ABNORMAL) URINALYSIS WITH MICROSCOPIC [place] (09/22/2025 7:47 AM SUPERVISOR BRINE) Urine Color Yellow Straw-Yel low [facility] Urine Clarity Clear Clear [facility] Urine Glucose NEG NEG mg/dL [facility] Urine Bilirubin NEG NEG mg/dL [facility] Urine Ketones NEG NEG mg/dL [facility] Urine Specific [place] 1.015 1.015 - 1.020 [facility] Urine Blood Trace(A) NEG mg/L [facility] Urine pH 5.5 5.0 - 8.0 [pH] [facility] Urine Protein NEG NEG mg/dL [facility] Urine Urobilinogen 0.2 0.2 - 1.0 mg/dL [facility] Urine Nitrite NEG NEG [facility] Urine Leukocytes NEG NEG [facility] Urine Epithelial Cells Rare None,Rare ,Few /LPF [facility] Urine Mucus None None /LPF [facility] Urine Cast None None /LPF [facility] Urine Bacteria Rare(A) None /HPF [facility] Urine Crystal None None /LPF [facility] Urine White Blood Cells 5-10(A) 0 - 4 /HPF [facility] Urine Red Blood Cells 3-5(A) 0 - 2 /HPF [facility] 09/22/2025 7:47 AM SUPERVISOR BRINE Narrative [facility] - 09/22/2025 12:37 PM SUPERVISOR BRINE Release to patient->Immediate us Hermelindo Alegre MD LAB SEND OUTS Final Result [facility] [address] [place] [address], * THYROXINE (T4) FREE (09/22/2025 7:47 AM SUPERVISOR BRINE) THYROXINE (T4), FREE, 0.62 0.61 - 1.12 ng/dL [facility] Blood 09/22/2025 7:47 AM SUPERVISOR BRINE Narrative [facility] - 09/22/2025 3:25 PM SUPERVISOR BRINE Release to patient->Immediate us Hermelindo Alegre MD CHEMISTRY ORDERABLES Final Resul t [facility] [place] [address], [place] [phone] * (ABNORMAL) THYROID STIMULATING HORMONE (TSH) (09/22/2025 7:47 AM SUPERVISOR BRINE) TSH 0.28(L) 0.45 - 5.33 uIU/mL [facility] Blood 09/22/2025 7:47 AM SUPERVISOR BRINE [facility] - 09/22/2025 3:25 PM SUPERVISOR BRINE Release to patient->Immediate us Hermelindo Alegre MD CHEMISTRY ORDERABLES Final Resul t Performing Organization Address [facility] Co de Phone Number [facility] [place] [address], [place] [phone] * (ABNORMAL) MAGNESIUM (MG) (09/22/2025 7:47 AM SUPERVISOR BRINE) Magnesium 1.8(L) 1.9 - 2.7 mg/dL [facility] Blood 09/22/2025 7:47 AM SUPERVISOR BRINE [facility] - 09/22/2025 8:42 AM SUPERVISOR BRINE Release to patient->Immediate us Hermelindo Alegre MD CHEMISTRY ORDERABLES Final Resul t Performing Organization Address City/[facility]/ZIP Co de Phone Number [facility] [place] [address], [place] [phone] from Last 3 Months Insurance [facility] Care Teams Animal Husbandry Teacher Relationship Specialty Start Date End Date Reed Lew MD [address] [place] [address] PCP - General Family Medicine 09/01/25 Hermelindo Alegre MD [address] [place] [address] Consulting Physician Oncology 09/09/25
--- OUTSIDE RECORDS SUMMARY | 2025-10-09 12:18 | XMS_ITS | Encounter Summary ---
Author Organization [facility] Address [address] [place] [address] Phone Care Team Providers Care Bulk Delivery Driver Name Role Phone Reed Lew MD Primary Care Provider [phone] Hermelindo Alegre MD Unavailable Reason for Visit * Reason Onset Date Comments Er visit 10/09/2025 Encounter Details Date Type Department Care Team (Late st Contact Info) Description 10/09/2025 Telephone [facility] [address] [phone] Hermelindo Alegre MD [address] [place] [address] Er visit Social History Tobacco Use Types Packs/Day Years Used Date Smoking Tobacco: Never Smokeless Tobacco: Never Alcohol Use Standard Drinks/Week Comments Not Currently 0 (1 standard drink = 0.6 oz pur e alcohol) Comments Unknown Sex and Gender Information Value Date Recorded Sex Assigned at Not on file Legal Sex Female 9:39 AM SCALE BALANCER Gender Identity Not on file Sexual Orientation Not on file documented as of this encounter Miscellaneous Notes * Telephone Encounter - Mireille Norton RN - 10/09/2025 12:05 PM CST Update- Patient calling to report that she is having heavy vaginal bleeding and low abdominal cramping. She is in ER at [facility], advised to stay and get taken care of. She is scheduled for OV 10/13, advised to call us if admitted and cannot make appointment E BALANCER documented in this encounter Plan of Treatment Upcoming Encounters Date Type Department Care Team (Late st Contact Info) Description 10/13/2025 8:45 AM SCALE BALANCER Lab [facility] [address] [address] Lab, Cc [facility] 10/13/2025 9:00 AM SCALE BALANCER Office Visit [facility] [address] [phone] Hermelindo Alegre MD [address] [place] [address] 10/13/2025 9:15 AM SCALE BALANCER Clinical Support [facility] [address] [phone] documented as of this encounter Visit Diagnoses Not on filedocumented in this encounter Care Teams Bulk Delivery Driver Relationship Specialty Start Date End Date Reed Lew MD [address] [place] [address] PCP - General Family Medicine 09/01/25 Hermelindo Alegre MD [address] [place] [address] Consulting Physician Oncology 09/09/25 documented as of this encounter
--- OUTSIDE RECORDS SUMMARY | 2025-10-09 12:18 | XMS_ITS ---
Author Organization [facility] Address [address], [facility] [[email or web address] [address] [place] [address] Phone Care Team Providers Care Pressroom Worker Name Role Phone Reed Lew MD Primary Care Provider [phone] Hermelindo Alegre MD Unavailable Active Problems Problem [...]
--- OUTSIDE RECORDS SUMMARY | 2025-10-09 12:18 | XMS_ITS | Encounter Summary ---
Author Organization [facility] Address [address] [place] [address] Phone Care Team Providers Care Commissioning Agent Name Role Phone Reed Lew MD Primary Care Provider [phone] Hermelindo Alegre MD Unavailable Encounter Details Date Type Department Care Team (Late st Contact Info) Description 09/29/2025 Telephone [facility] [address] [place] [address] Hermelindo Alegre MD [address] [place] [address] Social History Tobacco Use Types Packs/Day Years Used Date Smoking Tobacco: Never Smokeless Tobacco: Never Alcohol Use Standard Drinks/Week Comments Not Currently 0 (1 standard drink = 0.6 oz pur e alcohol) Comments Unknown Sex and Gender Information Value Date Recorded Sex Assigned at Not on file Legal Sex Female 9:39 AM FAA CERTIFIED POWERPLANT MECHANIC Gender Identity Not on file Sexual Orientation Not on file documented as of this encounter Functional Status * BP Answer Date of Assessment Author 110/80 09/29/2025 8:31 AM FAA CERTIFIED POWERPLANT MECHANIC Laxmi Yanes CMA * Temp Answer Date of Assessment Author 98 09/29/2025 8:31 AM FAA CERTIFIED POWERPLANT MECHANIC Laxmi Yanes CMA * Pulse Answer Date of Assessment Author 95 09/29/2025 8:31 AM FAA CERTIFIED POWERPLANT MECHANIC Laxmi Yanes CMA * SpO2 Answer Date of Assessment Author 98 09/29/2025 8:31 AM FAA CERTIFIED POWERPLANT MECHANIC Schau, Laxmi nancy A, SPACE TECHNOLOGIST * Question Answer Date of Assessment Author Initial Score 0 09/29/2025 8:36 AM FAA CERTIFIED POWERPLANT MECHANIC Wang Funezen A, SPACE TECHNOLOGIST Little interest or pleasure in doing things Not at all 09/29/2025 8:36 AM FAA CERTIFIED POWERPLANT MECHANIC Wang Yanesen A, SPACE TECHNOLOGIST Feeling down, depressed, or hopeless Not at all 09/29/2025 8:36 AM FAA CERTIFIED POWERPLANT MECHANIC Wang Yanesen A, SPACE TECHNOLOGIST * Question Answer Date of Assessment Author Initial Score 0 09/29/2025 8:36 AM FAA CERTIFIED POWERPLANT MECHANIC Wang Funezen A, SPACE TECHNOLOGIST Little interest or pleasure in doing things Not at all 09/29/2025 8:36 AM FAA CERTIFIED POWERPLANT MECHANIC Wang Yanesen A, SPACE TECHNOLOGIST Feeling down, depressed, or hopeless Not at all 09/29/2025 8:36 AM FAA CERTIFIED POWERPLANT MECHANIC Britt Yanes A, SPACE TECHNOLOGIST * Over the past 2 weeks, how often have you been bothered by any of the following problems? Question Answer Date of Assessment Author Patient Health Questionnaire -2 Score 0 09/29/2025 8:36 AM Britt Guillory, SPACE TECHNOLOGIST documented as of this encounter Mental Status * BP Answer Entry Date Author 110/80 09/29/2025 8:31 AM FAA CERTIFIED POWERPLANT MECHANIC Laxmi Yanes A, SPACE TECHNOLOGIST * Temp Answer Entry Date Author 98 09/29/2025 8:31 AM Laxmi Guillory, SPACE TECHNOLOGIST * Pulse Answer Entry Date Author 95 09/29/2025 8:31 AM FAA CERTIFIED POWERPLANT MECHANIC Laxmi Yanes, SPACE TECHNOLOGIST * SpO2 Answer Entry Date Author 98 09/29/2025 8:31 AM Laxmi Guillory, SPACE TECHNOLOGIST * Question Answer Entry Date Author Initial Score 0 09/29/2025 8:36 AM FAA CERTIFIED POWERPLANT MECHANIC Wang Funezen A, SPACE TECHNOLOGIST Little interest or pleasure in doing things Not at all 09/29/2025 8:36 AM FAA CERTIFIED POWERPLANT MECHANIC Britt Yanes A, SPACE TECHNOLOGIST Feeling down, depressed, or hopeless Not at all 09/29/2025 8:36 AM FAA CERTIFIED POWERPLANT MECHANIC Britt Yanes A, SPACE TECHNOLOGIST documented in this encounter Miscellaneous Notes * Telephone Encounter - Edna Guerrier - 09/29/2025 10:04 AM CST FYI: Pt sched today probably around 1030 @ [facility] for Doppler. Sent pt to hosp. Pt stated she will gether MRI sched while there. [facility] has MRI Brain referral. CERTIFIED POWERPLANT MECHANIC documented in this encounter Plan of Treatment Upcoming Encounters Date Type Department Care Team (Late st Contact Info) Description 10/13/2025 8:45 AM FAA CERTIFIED POWERPLANT MECHANIC Lab [facility] [address] [phone] Lab, Cc [facility] 10/13/2025 9:00 AM FAA CERTIFIED POWERPLANT MECHANIC Office Visit [facility] [address] [phone] Hermelindo Alegre MD [address] [place] [phone] 10/13/2025 9:15 AM FAA CERTIFIED POWERPLANT MECHANIC Clinical Support [facility] [address] [phone] documented as of this encounter Visit Diagnoses Not on filedocumented in this encounter Care Teams Commissioning Agent Relationship Specialty Start Date End Date Reed Lew MD [address] [place] [address] PCP - General Family Medicine 09/01/25 Hermelindo Alegre MD [address] [place] [phone] Consulting Physician Oncology 09/09/25 documented as of this encounter
[2025-10-09] MEDS: SODIUM CHLORIDE 0.9% IV 1,000 ML 999 ML IV CONT (13:00)
[2025-10-09 13:11] LABS: Hematocrit 35.6 % (37.0-47.0); Hemoglobin 11.7 g/dL (12.0-15.0); Immature Granulocyte Percent A 2.2 % (0-0.5); Lymphocytes Absolute Auto 1.95 K/mm3 (0.9-3.2); Mean Corpuscular HGB Conc 32.9 g/dl (32-36); Mean Corpuscular Hemoglobin 29.8 pg (26-34); Mean Corpuscular Volume 90.8 fl (80-100); Nucleated Red Blood Cells Absolute Auto 0.000 K/mm3 (0.0-0.012); Nucleated Red Blood Cells Perc 0.0 % (0.0-0.2); Platelet Count Result 403 k/mm3 (150-375); Red Blood Count 3.92 M/mm3 (4.2-5.4); White Blood Count 6.8 K/mm3 (4.5-10.0)
[2025-10-09 13:12] LABS: Alanine Aminotransferase 30 U/L (6-35); Albumin Level 4.4 g/dL (3.5-5.1); Alkaline Phosphatase 108 U/L (38-126); Anion Gap 11 mmol/L (4-12); Aspartate Amino Transferase 39 U/L (14-36); Bilirubin,Total 0.5 mg/dL (0.2-1.3); Blood Urea Nitrogen 17 mg/dL (7-17); Calcium 9.8 mg/dL (8.4-10.2); Carbon Dioxide 19 mmol/L (22-30); Chloride 102 mmol/L (98-107); Estimated Glomerular Filt Rate 57; Glucose 152 mg/dL (65-110); Potassium 3.4 mmol/L (3.4-5.0); Sodium 132 mmol/L (137-145); Total Protein 8.4 g/dL (6.3-8.2)
[2025-10-09] MEDS: HYDROmorphone HCL INJ (*CRX) 1 MG/ML SYR 0.5 MG IV PUSH (13:20)
[2025-10-09] MEDS: ONDANSETRON INJ 4 MG/2 ML VIAL IV PUSH (13:20)
--- NOTE | 2025-10-09 13:26 | PC.NURSE ---
Pt declined pelvic exam with this RN and EDP Dr. Romero at bedside.
== END 2025-10-09 14:12 | disposition home or self-care (01) ==
PROVIDERS: Emergency Provider Emergency Medicine
DX: N93.8 Other specified abnormal uterine and vaginal bleeding (principal); C53.9 Malignant neoplasm of cervix uteri, unspecified; I10 Essential (primary) hypertension; Z85.3 Personal history of malignant neoplasm of breast; Z90.710 Acquired absence of both cervix and uterus; Z79.60 Long term (current) use of unspecified immunomodulators and immunosuppressants
CPT/HCPCS: 36415; 80053; 85025; 96361; 96374; 96375; 99284; J1171; J2405; J7030